=== PATIENT | female | born 1980 | race Hispanic/Latino ===

== ENCOUNTER 2018-11-25 06:55 | Emergency (ER) | payer BC ==
--- OUTSIDE RECORDS SUMMARY | 2018-11-25 06:57 | XMS REPORT ---
:1980 Author Organization eClinicalWorks Care Team Providers Name Role Phone Martin Janet Provider Role Unavailable Allergies, Adverse Reactions, Alerts Substance Reaction Event Type N.K.D.A. Info Not Available Non Drug Allergy Problems Problem Type Condition Code Onset Dates Condition Status Problem Seasonal allergies J30.2 Active Problem Subcutaneous nodules R22.9 Active Problem IBS (irritable bowel syndrome) K58.9 Active Assessment Subcutaneous nodules R22.9 Active Medications Medication Code System Code Instructions Start Date End Date Status Dosage Cephalexin [facility] [id number] 500 MG Orally October 06, October 16, Active 1 tablet every 12 hrs 2018 2018 Results No Known Results Summary Purpose [employer]Clinical[employer] Practice Submission
--- OUTSIDE RECORDS SUMMARY | 2018-11-25 06:58 | XMS REPORT ---
:1980 Author Organization eClinicalWorks Care Team Providers Name Role Phone Martin Janet Provider Role Unavailable Allergies No Known Allergies Problems Problem Type Condition Code Onset Dates Condition Status Problem Seasonal allergies J30.2 Active Problem Subcutaneous nodules R22.9 Active Problem IBS (irritable bowel syndrome) K58.9 Active Medications No Known Medications Results No Known Results Summary Purpose eClinicalWorks Submission
[2018-11-25] MEDS ORDERED: KETOROLAC 30 MG/ML INJ ONE (07:41)
[2018-11-25] MEDS ORDERED: NA CHLORIDE 0.9% 1,000 ML ONE (07:42)
[2018-11-25] MEDS ORDERED: ONDANSETRON 4 MG/2 ML VIAL ONE (07:42)
[2018-11-25 07:47] LABS: Urine Blood TRACE (NEG); Urine Glucose NEGATIVE (NEG); Urine Protein NEGATIVE (NEG); Urine Specific Gravity 1.005 (1.005-1.030); Urine pH 5.5 (5.0-7.0)
[2018-11-25 07:48] LABS: Absolute Lymphocytes (CBC) 1.3 K/uL (0.7-4.9); Basophils % 0.7 % (0-1.3); Eosinophils % 3.5 % (0-4.4); Hematocrit 25.5 % (36.0-45.0); Lymphocytes % 18.4 % (15.3-44.8); MPV 6.6 fL (7.6-11.3); Monocytes % 9.2 % (3.3-12.3); RBC Red Blood Cell Count 4.18 M/uL (3.86-4.86)
[2018-11-25 08:03] LABS: BUN Blood Urea Nitrogen 12 mg/dL (7-18); Bicarbonate 25 mmol/L (21-32); Glucose Level 100 mg/dL (74-106); Potassium 3.7 mmol/L (3.5-5.1); Sodium Level 139 mmol/L (136-145)
[2018-11-25 08:26] LABS: Blood Morphology Comment NOTED (NOT SEEN); Platelet Estimate INCR; Urine White Blood Cell Casts OK
[2018-11-25 08:27] LABS: Hypochromasia 1+
--- NOTE | 2018-11-25 09:51 | RAD REPORT ---
EXAM DESCRIPTION: CTAbdomen Pelvis W Contrast - 11/25/2018 9:29 am CLINICAL HISTORY: Abdominal pain. ABD PAIN COMPARISON: Head Brain Wo Cont dated 03/20/2018No comparisons TECHNIQUE: Biphasic CT imaging of the abdomen and pelvis was performed with 100 ml non-ionic IV cont rast. All CT scans are performed using dose optimization technique as appropriate and may include automated exposure control or mA/KV adjustment according to patient size. FINDINGS: The lung bases are clear. The liver, spleen, pancreas, adrenal glands and kidneys are within normal limits. No bowel obstruction, free air, free fluid or abscess. Moderate inflammatory changes involving sigmoi d colon in the left lower quadrant with surrounding lymphadenopathy. The appendix is normal. No evid ence of significant lymphadenopathy. No suspicious bony findings. IMPRESSION: Moderate sigmoid acute colitis is suspected. No pneumatosis coli or abscess.
[2018-11-25] MEDS ORDERED: CIPROFLOXACIN 400mg IV 400 MG/200 ML BAG IV ONE (10:13)
[2018-11-25] MEDS ORDERED: METRONIDAZOLE 500mg IVPB 500 MG/100 ML BAG IV ONE (10:13)
--- NOTE | 2018-11-25 11:16 | ER ---
Nurse's Notes [facility] Name: Kaitlynn Orourke Age: 38 yrs Sex: Female : 1980 Arrival Date: 11/25/2018 Time: 07:09 Bed 15 Private MD: Diagnosis: Gastrointestinal hemorrhage, unspecified;Colitis Presentation: 11/25 07:16 Presenting complaint: Patient states: i started having flu like symptoms for a week hj now, fever, body aches, and Tuesday, my L flank area started hurting and the pain moves to the lower legs, i felt nauseous; T max- 101; pain is 7/10; reports dull pain on the L flank area;. Transition of care: patient was not received from another setting of care. Onset of symptoms was November 25, 2018. Risk Assessment: Do you want to hurt yourself or someone else? Patient reports no desire to harm self or others. Initial Sepsis Screen: Does the patient meet any 2 criteria? Yes Does the patient have a suspected source of infection? Yes:. Care prior to arrival: None. 07:16 Method Of Arrival: Ambulatory 07:16 Acuity: DELMY 3 hj Triage Assessment: 07:20 General: Appears in no apparent distress. uncomfortable, Behavior is calm, cooperative, hj appropriate for age. Pain: Complains of pain in L flank. 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 - Social history:: Smoking status: Patient/guardian denies using tobacco, Patient/guardian denies using alcohol. - Ebola Screening: : Patient negative for fever greater than or equal to 101.5 degrees Fahrenheit, and additional compatible Ebola Virus Disease symptoms Patient denies exposure to infectious person Patient denies travel to an Ebola-affected area in the 21 days before illness onset. Screenin:20 Abuse screen: Denies threats or abuse. Denies injuries from another. Nutritional hj screening: No deficits noted. Tuberculosis screening: No symptoms or risk factors identified. Fall Risk None identified. Assessment: 07:19 General: Appears in no apparent distress. uncomfortable, Behavior is calm, cooperative, hj appropriate for age. Pain: Complains of pain in L flank. Neuro: Level of Consciousness is awake, alert, obeys commands, Oriented to person, place, time, situation, Appropriate for age. Cardiovascular: Capillary refill < 3 seconds Patient's skin is warm and dry. Respiratory: Airway is patent Respiratory effort is even, unlabored, Respiratory pattern is regular, symmetrical. GI: Reports lower abdominal pain. GI: Reports diarrhea, nausea, vomiting. : No signs and/or symptoms were reported regarding the genitourinary system. EENT: No signs and/or symptoms were reported regarding the EENT system. Derm: No signs and/or symptoms reported regarding the dermatologic system. Musculoskeletal: No signs and/or symptoms reported regarding the musculoskeletal system. 08:33 Reassessment: reports fresh blood in stool; been having this bleeding episode for a hj year now; states: "i have hemorrhoids". 09:30 Reassessment: Patient and/or family updated on plan of care and expected duration. Pain hj level reassessed. Patient is alert, oriented x 3, equal unlabored respirations, skin warm/dry/pink. 10:34 Reassessment: awaiting call back from GI;. hj 11:28 Reassessment: for BT before transfer;. Reassessment: BR consent signed; transfusion hj sheet at bedside; awaiting for blood;. 12:00 Reassessment: BT started; documentation on paper;. hj 12:07 Reassessment: report called to Alee Coronel RN [facility] room 2419;. hj Vital Signs: 07:20 BP 107 / 94; Pulse 88; Resp 18; Temp 98.0(O); Pulse Ox 100% on R/A; Weight 58.06 kg; hj Height 5 ft. 1 in. (154.94 cm); Pain 7/10; 08:35 BP 107 / 78; Pulse 85; Resp 18; Pulse Ox 100% on R/A; hj 09:30 BP 106 / 58; Pulse 77; Resp 18; Pulse Ox 100% on R/A; hj 10:34 BP 104 / 62; Pulse 86; Resp 18; Pulse Ox 96% on R/A; hj 11:27 BP 109 / 70; Pulse 81; Resp 18; Pulse Ox 100% on R/A; hj 12:01 BP 107 / 77; Pulse 86; Resp 18; Temp 97.6; Pulse Ox 100% on R/A; hj 07:20 Body Mass Index 24.19 (58.06 kg, 154.94 cm) ED Course: 07:09 Patient arrived in ED. rg4 07:13 [facility] Vent[facility] FNP-C [facility] kb 07:13 Gerry Richardson MD is Attending Physician. kb 07:16 Naveen Jordan RN is Primary Nurse. hj 07:19 Triage completed. hj 07:20 Arm band placed on right wrist. hj 07:21 Patient has correct armband on for positive identification. Placed in gown. Bed in low hj position. Call light in reach. Side rails up X 1. Adult w/ patient. 07:28 Radiology exam delayed due to lab results not completed at this time. (BUN/Creatinine) mw3 test not completed at this time. 07:42 Initial lab(s) drawn, by me, sent to lab. Inserted saline lock: 20 gauge in right hj antecubital area, using aseptic technique. Blood collected. 09:[address] via wheelchair. em2 09:32 CT Abd/Pelvis - PO and IV Contrast In Process Unspecified. EDMS 09:34 CT completed. Patient tolerated procedure well. Patient moved back from CT. em2 10:04 T\\T\\S collected, blood band applied to patient. dh3 10:50 initiated a transfer with Carley from the [facility] Transfer center. eb 10:58 connected the GI professional bondsman for [facility] with Vanessa ANDERSEN for patient transfer eb consultation. 11:[address] Cabrera the hospitalist professional bondsman for [facility] with Vanessa ANDERSEN for eb patient transfer consultation. 11:29 administrative approval given by Carley Greene RN transfer coord/ patient has been eb accepted to [facility] bed 2419/ report to be called to [phone]/ Dr. Cabrera has accepted the patient in transfer. 12:06 No provider procedures requiring assistance completed. Patient transferred, IV remains hj in place. intact. Administered Medications: 07:40 Drug: NS 0.9% 1000 ml Route: IV; Rate: 1000 ml; Site: right antecubital; hj 07:59 Follow up: IV Status: Infusion continued hj 07:40 Drug: Zofran 4 mg Route: IVP; Site: right antecubital; hj 07:58 Follow up: Response: No adverse reaction; Nausea is decreased hj 07:40 Drug: TORadol - Ketorolac 15 mg Route: IVP; Site: right antecubital; hj 07:58 Follow up: Response: No adverse reaction; Pain is decreased hj 09:55 Drug: Flagyl 500 mg Volume: 100 ml; Route: IVPB; Rate: 200 ml/hr; Infused Over: 30 hj mins; Site: right antecubital; 10:30 Follow up: IV Status: Completed infusion hj 11:15 Drug: Cipro 400 mg Volume: 200 ml; Route: IVPB; Infused Over: 60 mins; Site: right hj antecubital; 12:02 Follow up: IV Status: Infusion continued upon transfer hj Outcome: 11:14 Discharge ordered by . amy 11:15 ER care complete, transfer ordered by MD. reyes 12:07 Transferred by ground EMS to [facility], Transfer form completed. hj X-rays sent w/ patient. 12:07 Condition: stable 12:07 Instructed on the need for transfer, Demonstrated understanding of instructions. 13:02 Patient left the ED. [facility] Signatures: Dispatcher [employer] EDVanessa Del Valle, MAMMOGRAPHER-C MAMMOGRAPHER-Ilia Hammond 2 Naveen Jordan RN RN hj Garcia, Rubi Jeanette Mcneal 3 Nikki Manley Michelle 3
--- NOTE | 2018-11-25 11:16 | EDPHYS ---
Physician Documentation [facility] Name: Kaitlynn Orourke Age: 38 yrs Sex: Female : 1980 Arrival Date: 11/25/2018 Time: 07:09 Bed 15 Private MD: ED Physician Gerry Richardson HPI: 11/25 09:08 This 38 yrs old Female presents to ER via Ambulatory with complaints of Flank kb Pain. 09:08 The patient presents with abdominal pain in the left lower quadrant. kb 09:08 Onset: The symptoms/episode began/occurred 4 day(s) ago. The symptoms do not radiate. kb Associated signs and symptoms: Pertinent positives: diarrhea, Pertinent negatives: nausea and vomiting, fever. The symptoms are described as constant. Modifying factors: The symptoms are alleviated by nothing, the symptoms are aggravated by nothing. Severity of pain: At its worst the pain was moderate in the emergency department the pain is unchanged. The patient has not experienced similar symptoms in the past. The patient has not recently seen a physician. Pt reports body aches and low grade fevers all week. Started having diarrhea and abd pain 4 days ago. Pain was worse this morning. 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 - Social history:: Smoking status: Patient/guardian denies using tobacco, Patient/guardian denies using alcohol. - Ebola Screening: : Patient negative for fever greater than or equal to 101.5 degrees Fahrenheit, and additional compatible Ebola Virus Disease symptoms Patient denies exposure to infectious person Patient denies travel to an Ebola-affected area in the 21 days before illness onset. ROS: 09:05 Cardiovascular: Negative for chest pain, palpitations, and edema, Respiratory: Negative kb for shortness of breath, cough, wheezing, and pleuritic chest pain, Back: Negative for injury and pain, : Negative for injury, bleeding, discharge, and swelling, MS/Extremity: Negative for injury and deformity, Skin: Negative for injury, rash, and discoloration, Neuro: Negative for headache, weakness, numbness, tingling, and seizure. 09:05 Abdomen/GI: Positive for abdominal pain, diarrhea. 09:11 Constitutional: Positive for body aches, fever. kb Exam: 09:05 Constitutional: This is a well developed, well nourished patient who is awake, alert, kb and in no acute distress. Head/Face: Normocephalic, atraumatic. Neck: Trachea midline, no thyromegaly or masses palpated, and no cervical lymphadenopathy. Supple, full range of motion without nuchal rigidity, or vertebral point tenderness. No Meningismus. Chest/axilla: Normal chest wall appearance and motion. Nontender with no deformity. No lesions are appreciated. Cardiovascular: Regular rate and rhythm with a normal S1 and S2. No gallops, murmurs, or rubs. Normal PMI, no JVD. No pulse deficits. Respiratory: Lungs have equal breath sounds bilaterally, clear to auscultation and percussion. No rales, rhonchi or wheezes noted. No increased work of breathing, no retractions or nasal flaring. Back: No spinal tenderness. No costovertebral tenderness. Full range of motion. Skin: Warm, dry with normal turgor. Normal color with no rashes, no lesions, and no evidence of cellulitis. MS/ Extremity: Pulses equal, no cyanosis. Neurovascular intact. Full, normal range of motion. Neuro: Awake and alert, GCS 15, oriented to person, place, time, and situation. Cranial nerves II-XII grossly intact. Motor strength 5/5 in all extremities. Sensory grossly intact. Cerebellar exam normal. Normal gait. 09:05 Abdomen/GI: Inspection: abdomen appears normal, Bowel sounds: normal, in all quadrants, Palpation: soft, in all quadrants, moderate abdominal tenderness, in the left lower quadrant. 09:50 Abdomen/GI: Rectal exam: rectal tone normal, Stool: normal, brown, guaiac positive, kb hemorrhoid(s), are not appreciated, tenderness, is not appreciated, the exam is chaperoned by an sql tech. Vital Signs: 07:20 BP 107 / 94; Pulse 88; Resp 18; Temp 98.0(O); Pulse Ox 100% on R/A; Weight 58.06 kg; hj Height 5 ft. 1 in. (154.94 cm); Pain 7/10; 08:35 BP 107 / 78; Pulse 85; Resp 18; Pulse Ox 100% on R/A; hj 09:30 BP 106 / 58; Pulse 77; Resp 18; Pulse Ox 100% on R/A; hj 10:34 BP 104 / 62; Pulse 86; Resp 18; Pulse Ox 96% on R/A; hj 11:27 BP 109 / 70; Pulse 81; Resp 18; Pulse Ox 100% on R/A; hj 12:01 BP 107 / 77; Pulse 86; Resp 18; Temp 97.6; Pulse Ox 100% on R/A; hj 07:20 Body Mass Index 24.19 (58.06 kg, 154.94 cm) hj MDM: 07:13 Patient medically screened. kb 09:05 Data reviewed: vital signs, nurses notes. Data interpreted: Pulse oximetry: on room air kb is 100 %. Interpretation: normal. 09:14 ED course: Pt reports she has a history of anemia. Asked about blood in stool. STates kb she has had bright red blood, but assumed it was from hemorrhoids. States she has had the bleeding for a couple of years, but it became different and worse a couple of days ago. Reports this morning was the worst and she saw clots in it. 10:01 Physician consultation: Poli Pearce MD was called at 09:55, regarding consult, patient's condition, voicemail left. Awaiting callback. Pt is established pt of Dr Pearce. 10:52 ED course: Unable to get a hold of Dr Pearce. Will initiate transfer to [facility]. kb 11:02 ED course: GI Doctor at [facility] accepts pt for transfer. Awaiting call back from amy hospitalist. 11:13 ED course: Dr Cabrera, hospitalist, accepts pt for transfer. kb 11/25 07:23 Order name: Basic Metabolic Panel; Complete Time: 08:17 kb 11/25 07:23 Order name: CBC with Diff; Complete Time: 08:29 kb 11/25 07:38 Order name: Urine Dipstick--Ancillary (enter results); Complete Time: 07:49 eb 11/25 07:38 Order name: LAB Add On eb 11/25 08:08 Order name: Test Serum, Qualitat; Complete Time: 09:11 EDMS 11/25 08:27 Order name: CBC Smear Scan; Complete Time: 08:29 EDMS 11/25 07:23 Order name: CT Abd/Pelvis - PO and IV Contrast; Complete Time: 09:53 kb 11/25 09:50 Order name: Guiac eb 11/25 09:56 Order name: Type And Screen kb 11/25 10:09 Order name: Bb Add On eb 11/25 10:22 Order name: Packed RBC Leukored EDPR 11/25 11:01 Order name: ABO/RH no charge; Complete Time: 11:02 EDPR 11/25 07:23 Order name: IV Saline Lock; Complete Time: 07:44 kb 07 07:23 Order name: Labs collected and sent; Complete Time: 07:44 kb 11/25 07:23 Order name: Urine Dipstick-Ancillary (obtain specimen); Complete Time: 07:44 kb Administered Medications: 07:40 Drug: NS 0.9% 1000 ml Route: IV; Rate: 1000 ml; Site: right antecubital; hj 07:59 Follow up: IV Status: Infusion continued hj 07:40 Drug: Zofran 4 mg Route: IVP; Site: right antecubital; hj 07:58 Follow up: Response: No adverse reaction; Nausea is decreased hj 07:40 Drug: TORadol - Ketorolac 15 mg Route: IVP; Site: right antecubital; hj 07:58 Follow up: Response: No adverse reaction; Pain is decreased hj 09:55 Drug: Flagyl 500 mg Volume: 100 ml; Route: IVPB; Rate: 200 ml/hr; Infused Over: 30 hj mins; Site: right antecubital; 10:30 Follow up: IV Status: Completed infusion hj 11:15 Drug: Cipro 400 mg Volume: 200 ml; Route: IVPB; Infused Over: 60 mins; Site: right hj antecubital; 12:02 Follow up: IV Status: Infusion continued upon transfer Disposition: 11/26 11:35 Co-signature as Attending Physician, Gerry Richardson MD. ma2 Disposition: 11/25/18 11:[address] [facility]. Diagnosis are Gastrointestinal hemorrhage, unspecified, Colitis. - Reason for transfer: Higher level of care. - Accepting physician is Dr Cabrera. - Condition is Stable. - Problem is new. - Symptoms are unchanged. Signatures: Dispatcher [employer] EDPR Vanessa Ventura, MACHINIST WOOD-C MACHINIST WOOD-Ckb Naveen Jordan, RN Jeanette Vaz [facility] Gerry Richardson MD MD ma2 Corrections: (The following items were deleted from the chart) 11/25 08:41 08:30 Abdomen Pelvis W Con+CT.RAD.BRZ ordered. EDPR EDPR 09:11 09:05 Constitutional: Negative for fever, chills, and weight loss, Cardiovascular: kb Negative for chest pain, palpitations, and edema, Respiratory: Negative for shortness of breath, cough, wheezing, and pleuritic chest pain, Back: Negative for injury and pain, : Negative for injury, bleeding, discharge, and swelling, MS/Extremity: Negative for injury and deformity, Skin: Negative for injury, rash, and discoloration, Neuro: Negative for headache, weakness, numbness, tingling, and seizure, kb 11:15 11:14 11/25/2018 11:14 Discharged to Home. Impression: Colitis; Gastrointestinal kb hemorrhage, unspecified. Condition is Stable. Forms are Medication Reconciliation Form, Thank You Letter, Antibiotic Education, Prescription Opioid Use. Follow up: Emergency Department; When: As needed; Reason: Worsening of condition. Follow up: Private Physician; When: 2 - 3 days; Reason: Recheck today's complaints, Continuance of care, Re-evaluation by your physician. kb 13:02 11:15 11/25/2018 11:[address] [facility]. Diagnosis is dh3 Gastrointestinal hemorrhage, unspecified; Colitis. Reason for transfer: Higher level of care. Accepting physician is Dr Cabrera. Condition is Stable. Problem is new. Symptoms are unchanged. kb
[2018-11-25] MEDS ORDERED: NA CHLORIDE 0.9% 250 ML ONE (11:36)
== END 2018-11-25 13:02 | disposition short-term general hospital (02) ==
LOC: ER 06:55
PROC: 30233N1 Transfusion of Nonautologous Red Blood Cells into Peripheral Vein, Percutaneous Approach (ICD-10-PCS; principal; 2018-11-25)
DX: K92.2 Gastrointestinal hemorrhage, unspecified (principal); K52.9 Noninfective gastroenteritis and colitis, unspecified
CPT/HCPCS: 36415; 74177; 80048; 81003; 82272; 84703; 85025; 86850; 86900; 86901; 96365; 96367; 96375; 99285; J0744; J2405; J7030; P9016; Q9967

== ENCOUNTER 2019-01-23 11:46 | Emergency (ER) | payer BC ==
--- OUTSIDE RECORDS SUMMARY | 2019-01-23 11:49 | XMS REPORT ---
:1980 [facility] Address [address] [place] [address] Dr. Cummings [address] [place] [id number] Care Team Providers Name Role Phone QUOC CARMONA Unavailable Unavailable Problems This patient has no known problems. Allergies, Adverse Reactions, Alerts This patient has no known allergies or adverse reactions. Medications This patient has no known medications. Results Test Description Test Time Test Comments Text Results Atomic Results Result Comments OVA AND PARASITE EXAMINATION 2018-11-29 08:15:00 Test Item Value Reference Range Comments DIRECT SMEAR - O\\T\\P (BEAKER) No ova or parasites seen No ova or parasites seen (test xamy=150) CONCENTRATE SMEAR - O\\T\\P No ova or parasites seen No ova or parasites seen (BEAKER) (test vwbq=482) TRICHROME SMEAR - O\\T\\P (BEAKER) No ova or parasites seen No ova or parasites seen (test eetc=066) BASIC METABOLIC [id number] 05:42:00 Test Item Value Reference Range Comments SODIUM (BEAKER) (test 138 meq/L 136-145 momy=917) POTASSIUM (BEAKER) (test 3.1 meq/L 3.5-5.1 dpmx=538) CHLORIDE (BEAKER) (test 108 meq/L 98-107 fkev=592) CO2 (BEAKER) (test 23 meq/L 22-29 ttwx=930) BLOOD UREA NITROGEN 5 mg/dL 7-21 (BEAKER) (test cxix=513) CREATININE (BEAKER) (test 0.65 mg/dL 0.57-1.25 solk=304) GLUCOSE RANDOM (BEAKER) 111 mg/dL 70-105 (test nate=830) CALCIUM (BEAKER) (test 8.3 mg/dL 8.4-10.2 evru=193) EGFR (BEAKER) (test 102 mL/min/1.73 sq m ESTIMATED GFR IS NOT uowl=3295) ACCURATE CREATININE CLEARANCE IN PREDICTING GLOMERULAR FILTRATION RATE. ESTIMATED GFR IS NOT APPLICABLE FOR DIALYSIS PATIENTS. CBC W/PLT COUNT & AUTO [id number] 05:35:00 Test Item Value Reference Range Comments WHITE BLOOD CELL COUNT (BEAKER) (test zhqy=982) 7.6 K/ L 3.5-10.5 RED BLOOD CELL COUNT (BEAKER) (test rvnh=474) 3.80 M/ L 3.93-5.22 HEMOGLOBIN (BEAKER) (test ymcw=619) 7.7 GM/DL 11.2-15.7 HEMATOCRIT (BEAKER) (test ttvk=246) 25.8 % 34.1-44.9 MEAN CORPUSCULAR VOLUME (BEAKER) (test fzne=604) 67.9 fL 79.4-94.8 MEAN CORPUSCULAR HEMOGLOBIN (BEAKER) (test 20.3 pg 25.6-32.2 nfjc=062) MEAN CORPUSCULAR HEMOGLOBIN CONC (BEAKER) (test 29.8 GM/DL 32.2-35.5 ynsp=653) RED CELL DISTRIBUTION WIDTH (BEAKER) (test 23.0 % 11.7-14.4 ntxl=342) PLATELET COUNT (BEAKER) (test gvpq=634) 380 K/CU MM 150-450 MEAN PLATELET VOLUME (BEAKER) (test vhvm=614) 8.6 fL 9.4-12.3 NUCLEATED RED BLOOD CELLS (BEAKER) (test 0 /100 WBC 0-0 msro=985) NEUTROPHILS RELATIVE PERCENT (BEAKER) (test 63 % covg=050) LYMPHOCYTES RELATIVE PERCENT (BEAKER) (test 20 % uklh=366) MONOCYTES RELATIVE PERCENT (BEAKER) (test 10 % opju=735) EOSINOPHILS RELATIVE PERCENT (BEAKER) (test 6 % gauc=097) BASOPHILS RELATIVE PERCENT (BEAKER) (test 1 % yokt=979) NEUTROPHILS ABSOLUTE COUNT (BEAKER) (test 4.79 K/ L 1.56-6.13 jtxk=242) LYMPHOCYTES ABSOLUTE COUNT (BEAKER) (test 1.48 K/ L 1.18-3.74 jrcd=175) MONOCYTES ABSOLUTE COUNT (BEAKER) (test 0.76 K/ L 0.24-0.36 sfzp=335) EOSINOPHILS ABSOLUTE COUNT (BEAKER) (test 0.45 K/ L 0.04-0.36 thyi=471) BASOPHILS ABSOLUTE COUNT (BEAKER) (test 0.05 K/ L 0.01-0.08 fnib=929) IMMATURE GRANULOCYTES-RELATIVE PERCENT (BEAKER) 0 % 0-1 (test sgoh=7996) TISSUE [id number] 09:51:00Surgical Pathology Report Case: [id number] Authorizing Provider: Ike Huynh Collected: 11/27/2018 1108 Ordering Location: [address] Received: 11/27/2018 1400 Service Pathologist: Jack Batista MD Specimens: A) - Polyp, Colon - Right/Ascending, BX TAKEN BY FRCP B) -Polyp, Colon - Hepatic Flexure, COLD SNARE C ) - Large Intestine, Colon - Transverse, BX TAKEN BY FRCP D) - LargeIntestine, Colon - Left/Descending, BX TAKEN BY FRCP E) - Polyp, Colon - Sigmoid, BX TAKEN BY FRCP F) - Rectum, BX TAKEN BY FRCP PART A RIGHT ASCENDING COLON POLYP, POLYPECTOMY:COLONIC MUCOSA WITH PROMINENT REACTIVE LYMPHOID AGGREGATE.NEGATIVE FOR DYSPLASIA OR INVASIVE CARCINOMA.PART B COLON HEPATIC FLEXURE POLYP, POLYPECTOMY:TUBULAR ADENOMA.NEGATIVE FOR HIGH GRADE DYSPLASIA OR INVASIVE CARCINOMA.PART C TRANSVERSE COLON, BIOPSY:MILDLY EDEMATOUS COLONIC MUCOSA WITHOUT SIGNIFICANT HISTOPATHOLOGIC ALTERATION.NEGATIVE FOR INCREASED EPITHELIAL LYMPHOCYTES, GRANULOMAS, DYSPLASIA , OR INVASIVE CARCINOMA.PART D LEFT DESCENDING COLON BIOPSY:MILDLY EDEMATOUS COLONIC MUCOSA WITHOUT SIGNIFICANT HISTOPATHOLOGIC ALTERATION.NEGATIVE FOR INCREASED EPITHELIAL LYMPHOCYTES, GRANULOMAS, DYSPLASIA, OR INVASIVE CARCINOMA.PART E SIGMOID COLON, BIOPSY FOR SUSPECTED POLYP:MILDLY ACTIVE COLITIS WITH FOCAL SUPERFICIAL ULCERATION.SUBEPITHELIAL REACTIVE LYMPHOID AGGREGATE.NEGATIVE FORGRANULOMAS, DYSPLASIA, OR INVASIVE CARCINOMA.PART F RECTAL BIOPSY:MILDLY ACTIVE COLITIS WITH FOCAL SUPERFICIAL ULCERATION.SUBEPITHELIAL REACTIVE LYMPHOID AGGREGATE.NEGATIVE FOR GRANULOMAS, DYSPLASIA, OR INVASIVE CARCINOMA. Signing Pathologist Direct Phone Line: [phone] signed by Jack Batista MD on 11/28/2018 at 9:51 [id number] and postop diagnosis: colitisA. Polyp,colon - right/ascending ; B. Polyp, colon - hepatic flexure; C. Large intestine, colon - transverse; D. Large intestine, colon - left/descending; E. Polyp, colon - sigmoid; F. Rectum A. Received in formalin labeled with the patient's name, accession number and "polyp, colon - right/ascending" are threeirregular bernal soft tissue fragments ranging 0.2-0.4 cm which are submitted in toto in A1. B. Received in formalin labeled with the patient's name, accession number and "polyp, colon - hepatic flexure" are two irregular bernal soft tissue fragments measuring 0.4 cm and 0.2 cm which are submitted in toto in B1.C. Received in formalin labeled with the patient's name, accession number and "large intestine, colon - transverse" are two irregular bernal soft tissue fragments measuring 0.3 cm and 0.2 cm which aresubmitted in toto in C1. D. Received in formalin labeled with the patient's name, accession number and "large intestine, colon - left/descending" are two irregular bernal soft tissue fragments measuring 0.3 cm and 0.2 cm which are submitted in toto in D1. E. Received in formalin labeled with the patient's name , accession number and "polyp, colon - sigmoid" are multiple bernal soft tissue fragments ranging 0.1-0.3 cm which are submitted in toto in E1. F. Received in formalin labeled with the patient's name, accession number and "rectum" are four irregular bernal soft tissue fragments ranging 0.1-0.3 cm whichare submitted in toto in F1. CG/pl PERFORMED.[id number] 04:33:00 Test Item Value Reference Range Comments MAGNESIUM (BEAKER) (test qsfz=620) 1.9 mg/dL 1.6-2.6 BASIC METABOLIC [id number] 04:33:00 Test Item Value Reference Range Comments SODIUM (BEAKER) (test 139 meq/L 136-145 fyqg=782) POTASSIUM (BEAKER) (test 3.6 meq/L 3.5-5.1 insi=172) CHLORIDE (BEAKER) (test 109 meq/L 98-107 qhnc=750) CO2 (BEAKER) (test 21 meq/L 22-29 wris=339) BLOOD UREA NITROGEN 6 mg/dL 7-21 (BEAKER) (test tlvr=357) CREATININE (BEAKER) (test 0.61 mg/dL 0.57-1.25 cbfu=005) GLUCOSE RANDOM (BEAKER) 93 mg/dL 70-105 (test xjix=418) CALCIUM (BEAKER) (test 8.4 mg/dL 8.4-10.2 ngzr=134) EGFR (BEAKER) (test 110 mL/min/1.73 sq m ESTIMATED GFR IS NOT cshd=9126) ACCURATE CREATININE CLEARANCE IN PREDICTING GLOMERULAR FILTRATION RATE. ESTIMATED GFR IS NOT APPLICABLE FOR DIALYSIS PATIENTS. HEPATIC FUNCTION [id number] 04:33:00 Test Item Value Reference Range Comments TOTAL PROTEIN (BEAKER) (test inse=493) 6.6 gm/dL 6.0-8.3 ALBUMIN (BEAKER) (test lphq=3372) 3.3 g/dL 3.5-5.0 BILIRUBIN TOTAL (BEAKER) (test iksj=872) 0.1 mg/dL 0.2-1.2 BILIRUBIN DIRECT (BEAKER) (test elxn=450) 0.1 mg/dL 0.1-0.5 ALKALINE PHOSPHATASE (BEAKER) (test bqos=638) 102 U/L 40-150 AST (SGOT) (BEAKER) (test keev=754) 19 U/L 5-34 ALT (SGPT) (BEAKER) (test foui=883) 19 U/L 6-55 CALCIUM, [id number] 04:30:00 Test Item Value Reference Range Comments CALCIUM IONIZED (BEAKER) (test itma=236) 1.09 mmol/L 1.12-1.27 PH, BLOOD (BEAKER) (test dqkp=3716) 7.41 PROTHROMBIN [id number] 04:20:00 Test Item Value Reference Range Comments PROTIME (BEAKER) (test oycm=917) 15.5 seconds 11.9-14.2 INR (BEAKER) (test hjqz=485) 1.3 <=5.9 Effective 10/18/2018: PT Reference Range ChangeNew: 11.9-14.2 Previous: 11.7- 14.7RECOMMENDED COUMADIN/WARFARIN INR THERAPY RANGESSTANDARD DOSE: 2.0-3.0 Includes: PROPHYLAXIS for venous thrombosis, systemic embolization; TREATMENT for venous thrombosis and/or pulmonary embolus.HIGH RISK: Target INR is2.5-3.5 for patients wiht mechanical heart valves.STOOL CULTURE + SHIGA [id number] 11:46:00 Test Item Value Reference Range Comments CULTURE (BEAKER) (test No Salmonella, Shigella or amat=4511) Campylobacter isolated HIV-1 ANTIGEN WITH HIV-1/2 [id number] 09:38:00 Test Item Value Reference Range Comments HIV-1 ANTIGEN WITH HIV 1\\T\\2 ANTIBODY (2) Nonreactive Nonreactive (BEAKER) (test rkxc=7106) [id number] 05:10:00 Test Item Value Reference Range Comments MAGNESIUM (BEAKER) (test nlsq=337) 2.1 mg/dL 1.6-2.6 BASIC METABOLIC [id number] 05:10:00 Test Item Value Reference Range Comments SODIUM (BEAKER) (test 135 meq/L 136-145 mrmr=262) POTASSIUM (BEAKER) (test 3.5 meq/L 3.5-5.1 fydx=758) CHLORIDE (BEAKER) (test 108 meq/L 98-107 pipn=336) CO2 (BEAKER) (test 21 meq/L 22-29 zajg=841) BLOOD UREA NITROGEN 5 mg/dL 7-21 (BEAKER) (test xono=174) CREATININE (BEAKER) (test 0.61 mg/dL 0.57-1.25 fgpy=112) GLUCOSE RANDOM (BEAKER) 90 mg/dL 70-105 (test qzlk=283) CALCIUM (BEAKER) (test 8.0 mg/dL 8.4-10.2 ifhm=774) EGFR (BEAKER) (test 110 mL/min/1.73 sq m ESTIMATED GFR IS NOT liyb=0819) ACCURATE CREATININE CLEARANCE IN PREDICTING GLOMERULAR FILTRATION RATE. ESTIMATED GFR IS NOT APPLICABLE FOR DIALYSIS PATIENTS. HEPATIC FUNCTION [id number] 05:10:00 Test Item Value Reference Range Comments TOTAL PROTEIN (BEAKER) (test drsx=803) 6.5 gm/dL 6.0-8.3 ALBUMIN (BEAKER) (test ibcw=8870) 3.3 g/dL 3.5-5.0 BILIRUBIN TOTAL (BEAKER) (test jsba=636) 0.1 mg/dL 0.2-1.2 BILIRUBIN DIRECT (BEAKER) (test cgpj=084) 0.1 mg/dL 0.1-0.5 ALKALINE PHOSPHATASE (BEAKER) (test bwze=004) 97 U/L 40-150 AST (SGOT) (BEAKER) (test cesl=297) 13 U/L 5-34 ALT (SGPT) (BEAKER) (test qmoe=852) 17 U/L 6-55 CALCIUM, [id number] 04:48:00 Test Item Value Reference Range Comments CALCIUM IONIZED (BEAKER) (test csrk=103) 1.02 mmol/L 1.12-1.27 PH, BLOOD (BEAKER) (test odwo=0480) 7.42 PROTHROMBIN [id number] 04:39:00 Test Item Value Reference Range Comments PROTIME (BEAKER) (test pyla=674) 14.6 seconds 11.9-14.2 INR (BEAKER) (test kxez=298) 1.2 <=5.9 Effective 10/18/2018: PT Reference Range ChangeNew: 11.9-14.2 Previous: 11.7- 14.7RECOMMENDED COUMADIN/WARFARIN INR THERAPY RANGESSTANDARD DOSE: 2.0-3.0 Includes: PROPHYLAXIS for venous thrombosis, systemic embolization; TREATMENT for venous thrombosis and/or pulmonary embolus.HIGH RISK: Target INR is2.5-3.5 for patients wiht mechanical heart valves.CBC (HEMOGRAM ONLY)2018-11-27 04:33:00 Test Item Value Reference Range Comments WHITE BLOOD CELL COUNT (BEAKER) (test hehq=923) 7.0 K/ L 3.5-10.5 RED BLOOD CELL COUNT (BEAKER) (test ohin=782) 3.78 M/ L 3.93-5.22 HEMOGLOBIN (BEAKER) (test krwb=091) 7.5 GM/DL 11.2-15.7 HEMATOCRIT (BEAKER) (test wxmg=267) 25.6 % 34.1-44.9 MEAN CORPUSCULAR VOLUME (BEAKER) (test wdtg=055) 67.7 fL 79.4-94.8 MEAN CORPUSCULAR HEMOGLOBIN (BEAKER) (test 19.8 pg 25.6-32.2 task=460) MEAN CORPUSCULAR HEMOGLOBIN CONC (BEAKER) (test 29.3 GM/DL 32.2-35.5 dsgp=425) RED CELL DISTRIBUTION WIDTH (BEAKER) (test 22.1 % 11.7-14.4 gnlr=817) PLATELET COUNT (BEAKER) (test xfbk=738) 373 K/CU MM 150-450 MEAN PLATELET VOLUME (BEAKER) (test cngs=934) 8.3 fL 9.4-12.3 NUCLEATED RED BLOOD CELLS (BEAKER) (test 0 /100 WBC 0-0 yban=688) STOOL PATH [id number] 18:28:00 Test Item Value Reference Range Comments PATHOGEN EXAM CHARGED (BEAKER) (test fcne=3835) Done SHIGA TOXIN [id number] 14:40:00 Test Item Value Reference Range Comments SHIGA TOXIN 1 (BEAKER) (test ifch=7857) Not detected Not detected SHIGA TOXIN 2 (BEAKER) (test hboj=5900) Not detected Not detected CBC W/PLT COUNT & AUTO [id number] 06:26:00 Test Item Value Reference Range Comments WHITE BLOOD CELL COUNT (BEAKER) (test ylyy=407) 5.5 K/ L 3.5-10.5 RED BLOOD CELL COUNT (BEAKER) (test zgfy=247) 3.65 M/ L 3.93-5.22 HEMOGLOBIN (BEAKER) (test pffn=039) 7.3 GM/DL 11.2-15.7 HEMATOCRIT (BEAKER) (test cmre=755) 24.6 % 34.1-44.9 MEAN CORPUSCULAR VOLUME (BEAKER) (test ksgw=452) 67.4 fL 79.4-94.8 MEAN CORPUSCULAR HEMOGLOBIN (BEAKER) (test 20.0 pg 25.6-32.2 jnjp=709) MEAN CORPUSCULAR HEMOGLOBIN CONC (BEAKER) (test 29.7 GM/DL 32.2-35.5 uecm=824) RED CELL DISTRIBUTION WIDTH (BEAKER) (test 22.0 % 11.7-14.4 cawq=148) PLATELET COUNT (BEAKER) (test epxo=767) 354 K/CU MM 150-450 MEAN PLATELET VOLUME (BEAKER) (test ttao=212) 8.3 fL 9.4-12.3 NUCLEATED RED BLOOD CELLS (BEAKER) (test 0 /100 WBC 0-0 wgcy=242) NEUTROPHILS RELATIVE PERCENT (BEAKER) (test 65 % yglg=104) LYMPHOCYTES RELATIVE PERCENT (BEAKER) (test 17 % cgms=187) MONOCYTES RELATIVE PERCENT (BEAKER) (test 12 % yxaj=822) EOSINOPHILS RELATIVE PERCENT (BEAKER) (test 5 % cqwo=460) BASOPHILS RELATIVE PERCENT (BEAKER) (test 1 % krpg=420) NEUTROPHILS ABSOLUTE COUNT (BEAKER) (test 3.60 K/ L 1.56-6.13 tvma=793) LYMPHOCYTES ABSOLUTE COUNT (BEAKER) (test 0.92 K/ L 1.18-3.74 mkik=033) MONOCYTES ABSOLUTE COUNT (BEAKER) (test 0.66 K/ L 0.24-0.36 jcjr=442) EOSINOPHILS ABSOLUTE COUNT (BEAKER) (test 0.30 K/ L 0.04-0.36 sbgx=515) BASOPHILS ABSOLUTE COUNT (BEAKER) (test 0.03 K/ L 0.01-0.08 cihd=081) IMMATURE GRANULOCYTES-RELATIVE PERCENT (BEAKER) 0 % 0-1 (test zsih=8416) [id number] 06:21:00 Test Item Value Reference Range Comments MAGNESIUM (BEAKER) (test eobv=642) 2.1 mg/dL 1.6-2.6 BASIC METABOLIC [id number] 06:21:00 Test Item Value Reference Range Comments SODIUM (BEAKER) (test 136 meq/L 136-145 nzlr=635) POTASSIUM (BEAKER) (test 3.7 meq/L 3.5-5.1 aans=267) CHLORIDE (BEAKER) (test 108 meq/L 98-107 bxrb=201) CO2 (BEAKER) (test 23 meq/L 22-29 iywy=500) BLOOD UREA NITROGEN 8 mg/dL 7-21 (BEAKER) (test klmh=359) CREATININE (BEAKER) (test 0.64 mg/dL 0.57-1.25 pqzk=747) GLUCOSE RANDOM (BEAKER) 93 mg/dL 70-105 (test slhp=869) CALCIUM (BEAKER) (test 8.1 mg/dL 8.4-10.2 bxop=734) EGFR (BEAKER) (test 104 mL/min/1.73 sq m ESTIMATED GFR IS NOT abhk=8833) ACCURATE CREATININE CLEARANCE IN PREDICTING GLOMERULAR FILTRATION RATE. ESTIMATED GFR IS NOT APPLICABLE FOR DIALYSIS PATIENTS. HEPATIC FUNCTION [id number] 06:21:00 Test Item Value Reference Range Comments TOTAL PROTEIN (BEAKER) (test skoo=261) 6.3 gm/dL 6.0-8.3 ALBUMIN (BEAKER) (test ndxn=4386) 3.3 g/dL 3.5-5.0 BILIRUBIN TOTAL (BEAKER) (test pxvl=051) 0.2 mg/dL 0.2-1.2 BILIRUBIN DIRECT (BEAKER) (test vyzi=088) 0.1 mg/dL 0.1-0.5 ALKALINE PHOSPHATASE (BEAKER) (test xvtb=153) 100 U/L 40-150 AST (SGOT) (BEAKER) (test ftju=714) 12 U/L 5-34 ALT (SGPT) (BEAKER) (test pfbn=506) 20 U/L 6-55 PROTHROMBIN [id number] 06:19:00 Test Item Value Reference Range Comments PROTIME (BEAKER) (test mooo=284) 14.6 seconds 11.9-14.2 INR (BEAKER) (test qgzx=901) 1.2 <=5.9 Effective 10/18/2018: PT Reference Range ChangeNew: 11.9-14.2 Previous: 11.7- 14.7RECOMMENDED COUMADIN/WARFARIN INR THERAPY RANGESSTANDARD DOSE: 2.0-3.0 Includes: PROPHYLAXIS for venous thrombosis, systemic embolization; TREATMENT for venous thrombosis and/or pulmonary embolus.HIGH RISK: Target INR is2.5-3.5 for patients wiht mechanical heart valves.CALCIUM, [id number] 05:52:00 Test Item Value Reference Range Comments CALCIUM IONIZED (BEAKER) (test onok=556) 1.08 mmol/L 1.12-1.27 PH, BLOOD (BEAKER) (test sval=2078) 7.41 GI PATHOGEN PROFILE BY [id number] 18:49:00 Test Item Value Reference Range Comments CAMPYLOBACTER (PCR) (test hyev=2790448) Not detected Not detected PLESIOMONAS SHIGELLOIDES (PCR) (test Not detected Not detected ofxz=5203035) SALMONELLA (PCR) (test wpkn=9219639) Not detected Not detected YERSINIA ENTEROCOLITICA (PCR) (test Not detected Not detected yrvu=0673150) VIBRIO CHOLERAE (PCR) (test zwxy=6063097) Not detected Not detected ENTEROAGGREGATIVE E. COLI (EAEC) BY PCR (test Not detected Not detected xmdx=3903290) ENTEROPATHOGENIC E. COLI (EPEC) BY PCR (test Not detected Not detected omiw=8985743) ENTEROTOXIGENIC E. COLI (ETEC) LT/ST BY PCR Not detected Not detected (test ozfm=5180311) SHIGA-LIKE TOXIN-PRODUCING E. COLI (STEC) Not detected Not detected STX1/STX2 (test evlo=2456171) E. COLI O157 (PCR) (test hkxx=8166497) Not detected SHIGELLA/ENTEROINVASIVE E. COLI (EIEC) BY PCR Not detected Not detected (test yphn=4417252) CRYPTOSPORIDIUM (PCR) (test zpol=8597304) Not detected Not detected CYCLOSPORA CAYETANENSIS (PCR) (test Not detected Not detected xcdq=3247179) ENTAMOEBA HISTOLYTICA (PCR) (test yvyy=8888846) Not detected Not detected GIARDIA LAMBLIA (PCR) (test wqop=0910018) Not detected Not detected ADENOVIRUS F 40/41 (PCR) (test yfav=0937108) Not detected Not detected ASTROVIRUS (PCR) (test efqb=2581454) Not detected Not detected NOROVIRUS GI/GII (PCR) (test mkhi=1654700) Not detected Not detected ROTAVIRUS A (PCR) (test nqpw=4307496) Not detected Not detected SAPOVIRUS (I, II, IV, V) BY PCR (test Not detected Not detected ravu=5715491) VIBRIO (PARAHAEMOLYTICUS, VULNIFICUS) (test Not detected Not detected udzw=9851957) Other viruses, parasites and bacteria not targeted by this PCR panel cannot be excluded; therefore clinical correlation and follow up of serology, culture results, and other molecular studies is required. The results are not intended to be used as the sole means for clinical diagnosis or patient management decisions. This sample was tested at the [facility] using the [employer] Gastrointestinal Panel. It is FDA cleared and has been verified and approved by the [facility] for clinical use. This laboratory is CLIA-certified and College ofAmerican Pathologists (CAP)-accredited to perform high complexity testing.C. DIFFICILE [facility] [id number] 17:47:00 Test Item Value Reference Range Comments CDT TOXIN (test Negative Negative mryn=[id number]) CDT GDH ANTIGEN (test Negative Negative No indication of Clostridium timh=[id number]) difficile infection and no colonization. Discontinue enteric isolation and therapy. Testing performed by [employer] Rapid Cassette Assay. For GDH, published sensitivity of the assay is 98.7% compared to cytotoxicity testing. For Toxin AB, published sensitivity is 87.8% and specificity 99.4% compared to cytotoxicity testing.Verification of kit performance was done by the [facility] prior to clinical use.[id number] 17:01:00 Test Item Value Reference Range Comments FERRITIN (BEAKER) (test ohko=423) 16 ng/mL 5-275 IRON, TIBC, % SAT. (WITHOUT FERRITIN)2018-11-25 16:40:00 Test Item Value Reference Range Comments IRON (BEAKER) (test nxip=968) 35.0 ug/dL 40.0-160.0 TOTAL IRON BINDING CAPACITY (BEAKER) (test 385 ug/dL 250-450 uozr=944) IRON % SATURATION (2) (BEAKER) (test aapc=5676) 9 % 20-55 C-REACTIVE [id number] 16:39:00 Test Item Value Reference Range Comments C-REACTIVE PROTEIN (BEAKER) (test esdu=043) 7.69 mg/dL 0.00-0.50 RETICULOCYTE [id number] 16:24:00 Test Item Value Reference Range Comments RETICULOCYTE COUNT PCT (BEAKER) (test vodf=035) 0.8 % 0.5-1.7
--- OUTSIDE RECORDS SUMMARY | 2019-01-23 11:49 | XMS REPORT ---
[...] Start Date End Date Status Dosage Cephalexin [facility] [id number] 500 MG Orally October 06, October 16, Active 1 tablet every 12 hrs 2018 2018 Results No Known Results Summary Purpose eClinicalWummelbox Submission
--- OUTSIDE RECORDS SUMMARY | 2019-01-23 11:49 | XMS REPORT | Clinical Summary ---
:1980 Author Organization [facility] Address [address] [place] [address] Care Team Providers Name Role Phone Pcp, No Primary Care Provider Unavailable Allergies No Known Allergies Medications Medication Sig Dispensed Refills Start Date End Date Status ferrous sulfate 325 Take 1 tablet 90 tablet 3 11/29/2018 11/29/2019 Active (65 FE) MG tablet (325 mg total) by mouth daily with breakfast. mesalamine (LIALDA) Take 4 tablets 120 tablet 11 11/29/2018 11/29/2019 Active 1.2 gram EC tablet (4.8 g total) by mouth daily with breakfast. mesalamine (ROWASA) 4 Place 60 mLs (4 1800 mL 0 11/29/2018 11/29/2019 Active gram/60 mL enema g total) rectally nightly. ciprofloxacin HCl Take 1 tablet 6 tablet 0 11/29/2018 12/02/2018 (CIPRO) 500 MG tablet (500 mg total) by mouth 2 (two) times daily for 3 days. metroNIDAZOLE Take 1 tablet 9 tablet 0 11/29/2018 12/02/2018 (FLAGYL) 500 MG (500 mg total) tablet by mouth 3 (three) times daily for 3 days. Active Problems Problem Noted Date Colitis 11/25/2018 Encounters Date Type Specialty Care Team Description 11/27/2018 Surgery Gastroenterology Ike Huynh COLONOSCOPY,BIOPSY Clarissa 11/27/2018 Anesthesia Event Gastroenterology Kaiden Boogie MD 11/25/2018 - Hospital Encounter Cardiology Shanae Cabrera Colitis; 11/29/2018 MD Kimberly Anemia, unspecified type; Rula New Blood in stool; Josh Garduno Diarrhea of presumed infectious origin MD [place] after 01/22/2018 Family History Medical History Relation Name Comments Cancer Mother Relation Name Status Comments Mother Social History Tobacco Use Types Packs/Day Years Used Date Never Smoker Smokeless Tobacco: Never Used Alcohol Use Drinks/Week oz/Week Comments No Alcohol Habits Answer Date Recorded How often do you have a drink containing alcohol? Never 11/25/2018 How many drinks containing alcohol do you have on a typical Not asked day when you are drinking? How often do you have six or more drinks on one occasion? Not asked Sex Assigned at Date Recorded Not on file Job Start Date Occupation Industry Not on file Not on file Not on file Travel History Travel Start Travel End No recent travel history available. Last Filed Vital Signs Vital Sign Reading Time Taken Blood Pressure 102/58 11/29/2018 11:32 AM CDT Pulse 92 11/29/2018 12:13 PM CDT Temperature 36.8 C (98.2 F) 11/29/2018 11:32 AM CDT Respiratory Rate 18 11/29/2018 12:13 PM CDT Oxygen Saturation 97% 11/29/2018 12:13 PM CDT Inhaled Oxygen Concentration - - Weight 60 kg (132 lb 3.2 oz) 11/27/2018 9:09 AM CDT Height 155.4 cm (5' 1.18") 11/27/2018 9:09 AM CDT Body Mass Index 24.83 11/27/2018 9:09 AM CDT Plan of Treatment Not on file Procedures Procedure Name Priority Date/Time Associated Comments Diagnosis CBC W/PLT COUNT & Routine 11/29/2018 4:49 Results for this AUTO DIFFERENTIAL AM CDT procedure are in the results section. BASIC METABOLIC PANEL Routine 11/29/2018 4:49 Results for this (7) AM CDT procedure are in the results section. CBC W/PLT COUNT & Routine 11/29/2018 4:49 Results for this AUTO DIFFERENTIAL AM CDT procedure are in the results section. BASIC METABOLIC PANEL Routine 11/28/2018 3:56 Results for this (7) AM CDT procedure are in the results section. CALCIUM, IONIZED Routine 11/28/2018 3:56 Results for this AM CDT procedure are in the results section. HEPATIC FUNCTION Routine 11/28/2018 3:56 Results for this PANEL AM CDT procedure are in the results section. PROTHROMBIN TIME/INR Routine 11/28/2018 3:56 Results for this AM CDT procedure are in the results section. MAGNESIUM Routine 11/28/2018 3:56 Results for this AM CDT procedure are in the results section. REPORT OF PROCEDURE - 11/27/2018 12:20 ENDOSCOPY URL PM CDT TISSUE EXAM AP Routine 11/27/2018 11:08 Results for this AM CDT procedure are in the results section. COLONOSCOPY,BIOPSY 11/27/2018 11:05 Colitis AM CDT Special Needs REQ: 1000 POCT , URINE Routine 11/27/2018 9:42 AM CDT HIV-1 ANTIGEN WITH HIV-1/2 Routine 11/27/2018 4:01 AM CDT Results for this ANTIBODY procedure are in the results section. CBC (HEMOGRAM ONLY) Routine 11/27/2018 4:01 AM CDT BASIC METABOLIC PANEL (7) Routine 11/27/2018 4:01 AM CDT CALCIUM, IONIZED Routine 11/27/2018 4:01 AM CDT HEPATIC FUNCTION PANEL Routine 11/27/2018 4:01 AM CDT PROTHROMBIN TIME/INR Routine 11/27/2018 4:01 AM CDT MAGNESIUM Routine 11/27/2018 4:01 AM CDT CBC W/PLT COUNT & AUTO Routine 11/26/2018 5:38 AM CDT Results for this DIFFERENTIAL procedure are in the results section. CBC W/PLT COUNT & AUTO Routine 11/26/2018 5:38 AM CDT Results for this DIFFERENTIAL procedure are in the results section. BASIC METABOLIC PANEL (7) Routine 11/26/2018 5:38 AM CDT CALCIUM, IONIZED Routine 11/26/2018 5:38 AM CDT HEPATIC FUNCTION PANEL Routine 11/26/2018 5:38 AM CDT PROTHROMBIN TIME/INR Routine 11/26/2018 5:38 AM CDT MAGNESIUM Routine 11/26/2018 5:38 AM CDT ECG 12-LEAD Routine 11/25/2018 9:24 PM CDT RETICULOCYTE COUNT Routine 11/25/2018 4:05 PM CDT FERRITIN Routine 11/25/2018 4:05 PM CDT IRON, TIBC, % SAT. (WITHOUT Routine 11/25/2018 4:05 PM CDT Results for this FERRITIN) procedure are in the results section. C-REACTIVE PROTEIN Routine 11/25/2018 4:05 PM CDT STOOL PATH CHARGE Routine 11/25/2018 3:51 PM CDT SHIGA TOXIN SCREEN Routine 11/25/2018 3:51 PM CDT OVA AND PARASITE Routine 11/25/2018 3:51 PM CDT Results for this EXAMINATION procedure are in the results section. GI PATHOGEN PROFILE BY PCR Routine 11/25/2018 3:51 PM CDT C. DIFFICILE GDH TOXIN Routine 11/25/2018 3:51 PM CDT STOOL CULTURE + SHIGA TOXIN Routine 11/25/2018 3:51 PM CDT after 01/22/2018 Results CBC with platelet count + automated diff (11/29/2018 4:49 AM CDT)Only the most recent of2 resultswithin the time period is included. WBC 7.6 3.5 - 10.5 K/L [facility] RBC 3.80 (L) 3.93 - 5.22 M/L [facility] Hemoglobin 7.7 (L) 11.2 - 15.7 GM/DL [facility] Hematocrit 25.8 (L) 34.1 - 44.9 % [facility] MCV 67.9 (L) 79.4 - 94.8 fL [facility] MCH 20.3 (L) 25.6 - 32.2 pg [facility] MCHC 29.8 (L) 32.2 - 35.5 GM/DL [facility] RDW 23.0 (H) 11.7 - 14.4 % [facility] Platelets 380 150 - 450 K/CU MM [facility] MPV 8.6 (L) 9.4 - 12.3 fL [facility] nRBC 0 0 - 0 /100 WBC [facility] % Neutros 63 % [facility] % Lymphs 20 % [facility] % Monos 10 % [facility] % Eos 6 % [facility] % Baso 1 % [facility] # Neutros 4.79 1.56 - 6.13 K/L [facility] # Lymphs 1.48 1.18 - 3.74 K/L [facility] # Monos 0.76 (H) 0.24 - 0.36 K/L [facility] # Eos 0.45 (H) 0.04 - 0.36 K/L [facility] # Baso 0.05 0.01 - 0.08 K/L [facility] Immature Granulocytes-Relative 0 0 - 1 % [facility] Specimen Blood Performing Organization Address City/State/Zipcode Phone Number [facility] [address] [place] [address] [phone] CENTER Basic Metabolic Panel (11/29/2018 4:49 AM CDT)Only the most recent of4 resultswithin the time period is included. Sodium 138 136 - 145 meq/L [facility] Potassium 3.1 (L) 3.5 - 5.1 meq/L [facility] Chloride 108 (H) 98 - 107 meq/L [facility] CO2 23 22 - 29 meq/L [facility] BUN 5 (L) 7 - 21 mg/dL [facility] Creatinine 0.65 0.57 - 1.25 mg/dL [facility] Glucose 111 (H) 70 - 105 mg/dL [facility] Calcium 8.3 (L) 8.4 - 10.2 mg/dL [facility] EGFR 102Comment: ESTIMATED GFR IS mL/min/1.73 sq m [facility] NOT ACCURATE CREATININE [facility] CLEARANCE IN PREDICTING GLOMERULAR FILTRATION RATE. ESTIMATED GFR IS NOT APPLICABLE FOR DIALYSIS PATIENTS. Specimen Blood Performing Organization Address City/State/Zipcode Phone Number [address] [address] [phone] CENTER Calcium, Ionized (11/28/2018 3:56 AM CDT)Only the most recent of3 resultswithin the time period is included. Calcium, Ion 1.09 (L) 1.12 - 1.27 mmol/L [facility] pH, Blood 7.41 [facility] Specimen Blood Performing Organization Address City/State/Zipcode Phone Number [address] [address] CENTER Prothrombin time/INR (11/28/2018 3:56 AM CDT)Only the most recent of3 resultswithin the time period is included. Protime 15.5 (H) 11.9 - 14.2 seconds [facility] INR 1.3 <=5.9 [facility] Specimen Blood Narrative Performed At Effective 10/18/2018: PT Reference Range [facility] Change New: 11.9-14.2Previous: 11.7-14.7 RECOMMENDED COUMADIN/WARFARIN INR THERAPY RANGES STANDARD DOSE: 2.0-3.0Includes: PROPHYLAXIS for venous thrombosis, systemic embolization; TREATMENT for venous thrombosis and/or pulmonary embolus. HIGH RISK: Target INR is 2.5-3.5 for patients wiht mechanical heart valves. Performing Organization Address City/[facility] Phone Number [address] [address] CENTER Magnesium (11/28/2018 3:56 AM CDT)Only the most recent of3 resultswithin the time period is included. Magnesium 1.9 1.6 - 2.6 mg/dL [facility] Specimen Blood Performing Organization Address [facility] Phone Number [address] [address] [place] Hepatic function panel (11/28/2018 3:56 AM CDT)Only the most recent of3 resultswithin the time period is included. Protein, Total 6.6 6.0 - 8.3 gm/dL [facility] Albumin 3.3 (L) 3.5 - 5.0 g/dL [facility] Total Bilirubin 0.1 (L) 0.2 - 1.2 mg/dL [facility] Bilirubin, Direct 0.1 0.1 - 0.5 mg/dL [facility] Alkaline Phosphatase 102 40 - 150 U/L [facility] AST 19 5 - 34 U/L [facility] ALT 19 6 - 55 U/L [facility] Specimen Blood Performing Organization Address [facility] Centercode Phone Number [address] [address] CENTER REPORT OF PROCEDURE - ENDOSCOPY URL (11/27/2018 12:20 PM CDT) Narrative Performed At Tissue Exam (11/27/2018 11:08 AM CDT) Case Report Surgical Pathology Report Case: [id number] [facility] Authorizing Provider:Ike Huynh ZanaedComariettaected: 11/27/2018 1108 [facility] Ordering Location: [address] Received: 11/27/2018 1400 Service Pathologist: Jack Batista MD Specimens: A) - Polyp, Colon - Right/Ascending, BX TAKEN BY FRCP B) - Polyp, Colon - Hepatic Flexure, COLD SNARE C) - Large Intestine, Colon - Transverse, BX TAKEN BY FRCP D) - Large Intestine, Colon - Left/Descending, BX TAKEN BY FRCP E) - Polyp, Colon - Sigmoid, BX TAKEN BY FRCP F) - Rectum, BX TAKEN BY FRCP DIAGNOSIS PART A RIGHT ASCENDING COLON POLYP, POLYPECTOMY: [facility] COLONIC MUCOSA WITH PROMINENT REACTIVE LYMPHOID AGGREGATE. [facility] NEGATIVE FOR DYSPLASIA OR INVASIVE CARCINOMA. PART B COLON HEPATIC FLEXURE POLYP, POLYPECTOMY: TUBULAR ADENOMA. NEGATIVE FOR HIGH GRADE DYSPLASIA OR INVASIVE CARCINOMA. PART C TRANSVERSE COLON, BIOPSY: MILDLY EDEMATOUS COLONIC MUCOSA WITHOUT SIGNIFICANT HISTOPATHOLOGIC ALTERATION. NEGATIVE FOR INCREASED EPITHELIAL LYMPHOCYTES, GRANULOMAS, DYSPLASIA, OR INVASIVE CARCINOMA. PART D LEFT DESCENDING COLON BIOPSY: MILDLY EDEMATOUS COLONIC MUCOSA WITHOUT SIGNIFICANT HISTOPATHOLOGIC ALTERATION. NEGATIVE FOR INCREASED EPITHELIAL LYMPHOCYTES, GRANULOMAS, DYSPLASIA, OR INVASIVE CARCINOMA. PART E SIGMOID COLON, BIOPSY FOR SUSPECTED POLYP: MILDLY ACTIVE COLITIS WITH FOCAL SUPERFICIAL ULCERATION. SUBEPITHELIAL REACTIVE LYMPHOID AGGREGATE. NEGATIVE FOR GRANULOMAS, DYSPLASIA, OR INVASIVE CARCINOMA. PART F RECTAL BIOPSY: MILDLY ACTIVE COLITIS WITH FOCAL SUPERFICIAL ULCERATION. SUBEPITHELIAL REACTIVE LYMPHOID AGGREGATE. NEGATIVE FOR GRANULOMAS, DYSPLASIA, OR INVASIVE CARCINOMA. Signing Pathologist Direct Phone Line: [phone] CPT Code(s) 60454V6 [facility] CLINICAL HISTORY Pre and postop diagnosis: [facility] colitis [facility] SPECIMEN SOURCE A. Polyp, colon - [facility] right/ascending; B. Polyp, [facility] colon - hepatic flexure; C. Large intestine, colon - transverse; D. Large intestine, colon - left/descending; E. Polyp, colon - sigmoid; F. Rectum GROSS DESCRIPTION A. Received in formalin labeled with the patient's name, accession number and "polyp, colon - right/ascending" are three irregular bernal soft tissue fragments ranging 0.2-0.4 cm which are submitted in toto in A1. [facility] B. Received in formalin labeled with the patient's name, accession number and "polyp, colon - hepatic flexure" are two irregular bernal soft tissue fragments measuring 0.4 cm and 0.2 cm which are submitted in toto in B1. C. Received in formalin labeled with the patient's name, accession number and "large intestine, colon - transverse" are two irregular bernal soft tissue fragments measuring 0.3 cm and 0.2 cm which are submitted in toto in C1. D. Received in formalin labeled with the patient's name, accession number and "large intestine, colon - left/descending" are two irregular bernal soft tissue fragments measuring 0.3 cm and 0.2 cm which are submitted in toto in D1. E. Received in formalin labeled with the patient's name, accession number and "polyp, colon - sigmoid" are multiple bernal soft tissue fragments ranging 0.1- 0.3 cm which are submitted in toto in E1. F. Received in formalin labeled with the patient's name, accession number and "rectum" are four irregular bernal soft tissue fragments ranging 0.1-0.3 cm which are submitted in toto in F1. CG/pl MICROSCOPIC DESCRIPTION PERFORMED. [facility] Specimen Tissue - Polyp, Colon - Right/Ascending Tissue - Polyp, Colon - Hepatic Flexure Tissue - Transverse colon structure (body structure) Tissue - Descending colon structure (body structure) Tissue - Polyp, Colon - Sigmoid Tissue - Rectum structure (body structure) Performing Organization Address City/[facility] Cent[facility]ode Phone Number [address] [address] CENTER POCT , urine (11/27/2018 9:42 AM CDT) Test Urine, POC Negative Control line present?, POC Yes Background clear?, POC Yes UPT Cassette Lot #, POC [id number] UPT Cassette Expiration Date, POC 01-21-20 Specimen Urine HIV-1 Antigen with HIV-1/2 Antibody (11/27/2018 4:01 AM CDT) HIV-1 Antigen with HIV 1&[address] [facility] Specimen Blood Performing Organization Address City/[facility] Centercode Phone Number [facility] [address] [place], [place] [phone] [place] CBC (Hemogram only) (11/27/2018 4:01 AM CDT) WBC 7.0 3.5 - 10.5 K/L [facility] RBC 3.78 (L) 3.93 - 5.22 M/L [facility] Hemoglobin 7.5 (L) 11.2 - 15.7 GM/DL [facility] Hematocrit 25.6 (L) 34.1 - 44.9 % [facility] MCV 67.7 (L) 79.4 - 94.8 fL [facility] MCH 19.8 (L) 25.6 - 32.2 pg [facility] MCHC 29.3 (L) 32.2 - 35.5 GM/DL [facility] RDW 22.1 (H) 11.7 - 14.4 % [facility] Platelets 373 150 - 450 K/CU MM [facility] MPV 8.3 (L) 9.4 - 12.3 fL [facility] nRBC 0 0 - 0 /100 WBC [facility] Specimen Blood Performing Organization Address City/[facility]/Zipcode Phone Number [facility] [address] [place] [address] [place] ECG 12 lead (11/25/2018 9:24 PM CDT) Specimen Narrative Performed At Ventricular Rate 85 BPM GE MUSE Atrial Rate 85 BPM P-R Interval 142 ms QRS Duration 76 ms Q-T Interval 382 ms QTC Calculation(Bazett) 454 ms P Badin 21 degrees R Badin 37 degrees T Badin 9 degrees Normal sinus rhythm Normal ECG No previous ECGs available Confirmed by Sol CHANDRA, CHIN ([id number]) on 11/26/2018 10:41:31 AM Procedure Note Interface, External Ris In - 11/26/2018 10:41 AM CDT Ventricular Rate 85 BPM Atrial Rate 85 BPM P-R Interval 142 ms QRS Duration 76 ms Q-T Interval 382 ms QTC Calculation(Bazett) 454 ms P Badin 21 degrees R Badin 37 degrees T Badin 9 degrees Normal sinus rhythm Normal ECG No previous ECGs available Confirmed by Sol CHANDRA BASANT ([id number]) on 11/26/2018 10:41:31 AM Performing Organization Address City/[facility] Cent[facility]ode Phone Number [facility] Iron, TIBC, % sat. (without ferritin) (11/25/2018 4:05 PM CDT) Iron 35.0 (L) 40.0 - 160.0 ug/dL [facility] TIBC 385 250 - 450 ug/dL [facility] Iron % Saturation 9 (L) 20 - 55 % [facility] Specimen Blood Performing Organization Address [facility] Phone Number [address] [address] [phone] CENTER C-Reactive Protein (11/25/2018 4:05 PM CDT) CRP 7.69 (H) 0.00 - 0.50 mg/dL [facility] Specimen Blood Performing Organization Address [facility] Phone Number [address] [address] [facility] Reticulocyte count (11/25/2018 4:05 PM CDT) % Retic 0.8 0.5 - 1.7 % [facility] Specimen Blood Performing Organization Address [facility] Phone Number [address] [address] [facility] Ferritin (11/25/2018 4:05 PM CDT) Ferritin 16 5 - 275 ng/mL [facility] Specimen Blood Performing Organization Address [facility] Phone Number [address] [address] CENTER Clostridium difficile GDH Toxin (11/25/2018 3:51 PM CDT) C. Difficle Toxin Negative Negative [facility] C. Difficile GDH Antigen NegativeComment: No Negative [facility] indication of Clostridium [facility]ENTER difficile infection and no colonization. Discontinue enteric isolation and therapy. Specimen Stool Narrative Performed At Testing performed by Mirror42 Rapid Cassette [facility] Assay.For GDH, published sensitivity of the assay is 98.7% compared to cytotoxicity testing.For Toxin AB, published sensitivity is 87.8% and specificity 99.4% compared to cytotoxicity testing. Verification of kit performance was done by the [facility] Microbiology Lab prior to clinical use. Performing Organization Address City/State/Zipcode Phone Number [facility] [address] [place] [address] [place] GI Pathogen Profile by PCR -ID Only (11/25/2018 3:51 PM CDT) CAMPYLOBACTER (PCR) Not detected Not detected [facility] PLESIOMONAS SHIGELLOIDES (PCR) Not detected Not detected [facility] SALMONELLA (PCR) Not detected Not detected [facility] YERSINIA ENTEROCOLITICA (PCR) Not detected Not detected [facility] VIBRIO CHOLERAE (PCR) Not detected Not detected [facility] ENTEROAGGREGATIVE E. COLI (EAEC) Not detected Not detected [facility] BY PCR [facility] [place] ENTEROPATHOGENIC E. COLI (EPEC) BY Not detected Not detected [facility] PCR [facility]ICAL [place] ENTEROTOXIGENIC E. COLI (ETEC) Not detected Not detected [facility] LT/ST BY PCR [facility] [place] SHIGA-LIKE TOXIN-PRODUCING E. COLI Not detected Not detected [facility] (STEC) STX1/STX2 [facility] E. COLI O157 (PCR) Not detected [facility] SHIGELLA/ENTEROINVASIVE E. COLI Not detected Not detected [facility] (EIEC) BY PCR [facility] CRYPTOSPORIDIUM (PCR) Not detected Not detected [facility] CYCLOSPORA CAYETANENSIS (PCR) Not detected Not detected [facility] ENTAMOEBA HISTOLYTICA (PCR) Not detected Not detected [facility] GIARDIA LAMBLIA (PCR) Not detected Not detected [facility] ADENOVIRUS F 40/41 (PCR) Not detected Not detected [facility] ASTROVIRUS (PCR) Not detected Not detected [facility] NOROVIRUS GI/GII (PCR) Not detected Not detected [facility] ROTAVIRUS A (PCR) Not detected Not detected [facility] SAPOVIRUS (I, II, IV, V) BY PCR Not detected Not detected [facility] VIBRIO (PARAHAEMOLYTICUS, Not detected Not detected [facility] VULNIFICUS) [facility] Specimen Stool Narrative Performed At Other viruses, parasites and bacteria not [facility] targeted by this PCR panel cannot be excluded; therefore clinical correlation and follow up of serology, culture results, and other molecular studies is required. The results are not intended to be used as the sole means for clinical diagnosis or patient management decisions. This sample was tested at the [facility] Molecular Diagnostics Laboratory using the XradiaArray Gastrointestinal Panel. It is FDA cleared and has been verified and approved by the [facility] Molecular Diagnostics Laboratory for clinical use. This laboratory is CLIA-certified and [employer] (CAP)-accredited to perform high complexity testing. Performing Organization Address City/[facility]/Zipcode Phone Number [address] [address] [phone] [place] STOOL PATH CHARGE (11/25/2018 3:51 PM CDT) Pathogen exam charged Done [facility] Specimen Stool Performing Organization Address [facility] Centercode Phone Number [address] [address] [place] Shiga Toxin Screen (11/25/2018 3:51 PM CDT) Shiga toxin 1 Not detected Not detected [facility] Shiga toxin 2 Not detected Not detected [facility] Specimen Stool Performing Organization Address City/State/Zipcode Phone Number [address] [phone] [place] Ova and Parasite Examination (11/25/2018 3:51 PM CDT) O&P Direct Smear No ova or parasites No ova or parasites [facility] seen seen [facility] O&P Concentrate Smear No ova or parasites No ova or parasites [facility] seen seen [facility] O&P Trichrome Smear No ova or parasites No ova or parasites [facility] seen seen [facility] Specimen Stool Narrative Performed At Performing Organization Address City/[facility]/Zipcode Phone Number [address] [address] [place] Stool culture + Shiga toxin (11/25/2018 3:51 PM CDT) Result No Salmonella, Shigella or [facility] Campylobacter [facility] Specimen Stool Performing Organization Address City/State/Zipcode Phone Number [address] [phone] CENTER after 01/22/2018 Insurance Payer Benefit Plan / Subscriber ID Type Phone Address Group [employer]UE [employer]OSS/[employer]UE [employer] OS xxxxxxxxxxxx PPO [phone] [address] SHIELD POS/[place] [address] Advance Directives For more information, please contact:[address] [phone] Code Status Date Activated Date Inactivated Comments Full Code 11/25/2018 2:28 PM 11/29/2018 2:44 PM This code status was determined by: Patient
[2019-01-23] MEDS ORDERED: METHYLPREDNISOLONE 125 MG INJ ONE (12:51)
[2019-01-23] MEDS ORDERED: ONDANSETRON 4 MG/2 ML VIAL ONE (12:52)
[2019-01-23] MEDS ORDERED: MORPHINE 4 MG/ML SYR ONE (12:52)
[2019-01-23] MEDS ORDERED: NA CHLORIDE 0.9% 1,000 ML ONE (12:52)
[2019-01-23 13:18] LABS: Absolute Lymphocytes (CBC) 0.9 K/uL (0.7-4.9); Basophils % 0.4 % (0-1.3); Hematocrit 33.3 % (36.0-45.0); Lymphocytes % 8.5 % (15.3-44.8); RBC Red Blood Cell Count 4.36 M/uL (3.86-4.86)
[2019-01-23 13:44] LABS: ALT/SGPT 61 U/L (12-78); AST/SGOT 33 U/L (15-37); Alkaline Phosphatase 139 U/L (45-117); BUN Blood Urea Nitrogen 9 mg/dL (7-18); Bicarbonate 27 mmol/L (21-32); Bilirubin Total 0.1 mg/dL (0.2-1.0); Glucose Level 95 mg/dL (74-106); Lipase 343 U/L (73-393); Potassium 3.4 mmol/L (3.5-5.1); Protein, Total 7.5 g/dL (6.4-8.2); Sodium Level 138 mmol/L (136-145)
[2019-01-23 14:57] LABS: Anisocytosis 3+; Blood Morphology Comment NOTED (NOT SEEN); Platelet Estimate ADEQ
[2019-01-23 14:58] LABS: Ovalocytes 1+
[2019-01-23 14:59] LABS: Urine Blood 2+ (NEG); Urine Glucose NEGATIVE (NEG); Urine Protein 2+ (NEG); Urine Specific Gravity 1.025 (1.005-1.030); Urine pH 5.5 (5.0-7.0)
--- NOTE | 2019-01-23 15:38 | RAD REPORT ---
EXAM DESCRIPTION: CT - Abdomen Pelvis W Contrast - 01/23/2019 3:07 pm CLINICAL HISTORY: LLQ pain bleeding hx of diverticulitis COMPARISON: CT November 25, 2018. TECHNIQUE: Biphasic, helical CT imaging of the abdomen and pelvis was performed following 100 ml non -ionic IV contrast. Oral contrast was given. All CT scans are performed using dose optimization technique as appropriate and may include automated exposure control or mA/KV adjustment according to patient size. FINDINGS: No suspicious findings in the lung bases. The liver, spleen, and pancreas show no suspicious findings. Gallbladder and biliary tree are also wi thout suspicious finding. Symmetric renal function is seen with no hydronephrosis or suspicious renal mass. No pyelonephritis o r acute parenchymal process. No bladder abnormalities. No adrenal abnormalities. Uterus and ovaries s how no suspicious findings. No gastric dilatation or gastric wall thickening. No small bowel abnormality. No appendicitis finding s. Cecum and ascending colon show moderate stool volume with no suspicious findings. From the hepatic flexure through the rectum there is wall thickening and edema consistent with a nonspecific colitis. Diverticular disease is relatively mild. No free air, free fluid or inflammatory stranding. No hernia, mass or bulky lymphadenopathy. No suspicious bony findings. IMPRESSION: Nonspecific colitis pattern spanning from hepatic flexure to the rectum. No free air, abscess or other surgically emergent finding.
--- NOTE | 2019-01-23 16:06 | ER ---
Nurse's Notes [facility] Name: Kaitlynn Orourke Age: 38 yrs Sex: Female : 1980 Arrival Date: 01/23/2019 Time: 11:[address] Private MD: Janet Salazar Diagnosis: Inflammatory bowel disease Presentation: 01/23 12:08 Presenting complaint: Patient states: diarrhea and abd x 10 days. Hospitalized for ss colitis in November, patient reports that symptoms feel the same as previous hospitalization. Transition of care: patient was not received from another setting of care. Onset of symptoms was January 13, 2019. Risk Assessment: Do you want to hurt yourself or someone else? Patient reports no desire to harm self or others. Initial Sepsis Screen: Does the patient meet any 2 criteria? No. Patient's initial sepsis screen is negative. Does the patient have a suspected source of infection? No. Patient's initial sepsis screen is negative. Care prior to arrival: None. 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 - Social history:: Smoking status: Patient/guardian denies using tobacco. - Ebola Screening: : Patient denies exposure to infectious person Patient denies travel to an Ebola-affected area in the 21 days before illness onset. Screenin:16 Abuse screen: Denies threats or abuse. Nutritional screening: No deficits noted. rb1 Tuberculosis screening: No symptoms or risk factors identified. Fall Risk None identified. Assessment: 12:16 General: Appears in no apparent distress. comfortable, Behavior is calm, cooperative. rb1 Pain: Complains of pain in abdomen. Neuro: Level of Consciousness is awake, alert, obeys commands, Oriented to person, place, time, situation. Cardiovascular: Capillary refill < 3 seconds is brisk in bilateral fingers. Respiratory: Airway is patent Respiratory effort is even, unlabored, Respiratory pattern is regular, symmetrical. GI: Bowel sounds present X 4 quads. Abd is soft X 4 quads. GI: Reports diarrhea. : No signs and/or symptoms were reported regarding the genitourinary system. Derm: Skin is pink, warm \T\ dry. 13:10 Reassessment: Patient appears in no apparent distress at this time. Patient and/or rb1 family updated on plan of care and expected duration. Pain level reassessed. Patient is alert, oriented x 3, equal unlabored respirations, skin warm/dry/pink. 14:10 Reassessment: Patient appears in no apparent distress at this time. No changes from rb1 previously documented assessment. 15:00 Reassessment: Patient appears in no apparent distress at this time. Patient and/or rb1 family updated on plan of care and expected duration. Pain level reassessed. Patient is alert, oriented x 3, equal unlabored respirations, skin warm/dry/pink. Patient denies pain at this time. 16:00 Reassessment: Patient appears in no apparent distress at this time. No changes from rb1 previously documented assessment. Vital Signs: 12:10 BP 107 / 75; Pulse 114; Resp 14; Temp 98.6(O); Pulse Ox 100% on R/A; Weight 54.43 kg; ss Height 5 ft. 1 in. (154.94 cm); Pain 0/10; 13:10 BP 106 / 76; Pulse 104; Resp 12; Temp 98.3(O); Pulse Ox 100% ; Pain 0/10; rb1 14:10 BP 101 / 66; Pulse 92; Resp 16; Temp 98.5(O); Pulse Ox 100% on R/A; Pain 0/10; rb1 15:00 BP 108 / 63; Pulse 90; Resp 20; Temp 98.3(O); Pulse Ox 99% on R/A; Pain 0/10; rb1 16:00 BP 99 / 70; Pulse 90; Resp 19; Temp 98.2(O); Pulse Ox 100% on R/A; Pain 0/10; rb1 12:10 Body Mass Index 22.67 (54.43 kg, 154.94 cm) ED Course: 11:49 Patient arrived in ED. as 11:49 Janet Salazar MD is Private Physician. as 12:05 Ab Kelly MD is Attending Physician. ps1 12:10 Triage completed. ss 12:10 Arm band placed on right wrist. ss 12:16 Patient has correct armband on for positive identification. Bed in low position. Call rb1 light in reach. Side rails up X 1. cuff presser on. Pulse ox on. NIBP on. Warm blanket given. 12:46 Gwendolyn Tinajero, RN is Primary Nurse. rb1 13:05 Initial lab(s) drawn, by me, sent to lab. Inserted saline lock: 22 gauge in right jb1 antecubital area, using aseptic technique. 14:30 Radiology exam delayed due to test not completed at this time. 14:[address] via wheelchair. 15:07 CT completed. Patient tolerated procedure well. Patient moved back from CT. ky 15:31 CT Abd/Pelvis - IV Contrast Only In Process Unspecified. EDMS 16:04 Poli Pearce MD is Referral Physician. ps1 16:27 No provider procedures requiring assistance completed. IV discontinued, intact, rb1 bleeding controlled, No redness/swelling at site. Pressure dressing applied. Administered Medications: 13:00 Drug: Zofran 4 mg Route: IVP; Site: right antecubital; rb1 13:15 Follow up: Response: No adverse reaction rb1 13:00 Drug: morphine 4 mg Route: IVP; Site: right antecubital; rb1 13:15 Follow up: Response: No adverse reaction rb1 13:00 Drug: NS 0.9% 1000 ml Route: IV; Rate: 1 bolus; Site: right antecubital; rb1 14:02 Follow up: IV Status: Completed infusion rb1 13:00 Drug: SOLU-Medrol 125 mg Route: IVP; Site: right antecubital; rb1 13:15 Follow up: Response: No adverse reaction rb1 Outcome: 16:05 Discharge ordered by . ps1 16:27 Discharged to home ambulatory, with family. rb1 16:27 Condition: stable 16:27 Discharge instructions given to patient, Instructed on discharge instructions, follow up and referral plans. medication usage, Demonstrated understanding of instructions, follow-up care, medications, Prescriptions given X 3. 16:39 Patient left the ED. rb1 Signatures: Dispatcher [employer] EDPA Kiran Cardenas jb1 Hattie Watson Shelby, RN RN Charlotte Gillette Gwendolyn Tinajero, RN RN rb1 Denilson Lopez Phillip, MD MD ps1
--- NOTE | 2019-01-23 16:07 | EDPHYS ---
Physician Documentation [facility] Name: Kaitlynn Orourke Age: 38 yrs Sex: Female : 1980 Arrival Date: 01/23/2019 Time: 11:[address] Private MD: Janet Salazar ED Physician Ab Kelly HPI: 01/23 15:59 This 38 yrs old Female presents to ER via Ambulatory with complaints of ps1 Abdominal Pain, Diarrhea. 15:59 patient presenting with LLQ abdominal pain with a history of colitis. Patient was ps1 admitted for same within last year. She then had an OP colonoscopy with biopsy. She was discharged and started on mesalamine. She started having symptoms 10 days ago which are new from the last episode. Has an appointment in 3 weeks and could not wait. Patient states that she is having intermittent bloody stools. Pain rated as moderate and fluctuating. NO fever. . 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 - Social history:: Smoking status: Patient/guardian denies using tobacco. - Ebola Screening: : Patient denies exposure to infectious person Patient denies travel to an Ebola-affected area in the 21 days before illness onset. ROS: 15:59 Constitutional: Negative for fever, chills, and weight loss, Eyes: Negative for injury, ps1 pain, redness, and discharge, Cardiovascular: Negative for chest pain, palpitations, and edema, Respiratory: Negative for shortness of breath, cough, wheezing, and pleuritic chest pain, Skin: Negative for injury, rash, and discoloration, Neuro: Negative for headache, weakness, numbness, tingling, and seizure. 15:59 Abdomen/GI: Positive for abdominal pain, nausea, vomiting, and diarrhea, rectal bleeding, of the left lower quadrant. Exam: 15:59 Constitutional: This is a well developed, well nourished patient who is awake, alert, ps1 and in no acute distress. Head/Face: Normocephalic, atraumatic. Eyes: Pupils equal round and reactive to light, extra-ocular motions intact. Lids and lashes normal. Conjunctiva and sclera are non-icteric and not injected. Chest/axilla: Normal chest wall appearance and motion. Nontender with no deformity. No lesions are appreciated. Cardiovascular: Regular rate and rhythm. No gallops, murmurs, or rubs. Normal PMI, no JVD. No pulse deficits. Respiratory: Lungs have equal breath sounds bilaterally, clear to auscultation and percussion. No rales, rhonchi or wheezes noted. No increased work of breathing, no retractions or nasal flaring. MS/ Extremity: Pulses equal, no cyanosis. Neurovascular intact. Full, normal range of motion. Neuro: Awake and alert, GCS 15, oriented to person, place, time, and situation. Cranial nerves II-XII grossly intact. Sensory grossly intact. 15:59 Abdomen/GI: Inspection: abdomen appears normal, Bowel sounds: normal, Palpation: mild abdominal tenderness, in the left lower quadrant. Vital Signs: 12:10 BP 107 / 75; Pulse 114; Resp 14; Temp 98.6(O); Pulse Ox 100% on R/A; Weight 54.43 kg; ss Height 5 ft. 1 in. (154.94 cm); Pain 0/10; 13:10 BP 106 / 76; Pulse 104; Resp 12; Temp 98.3(O); Pulse Ox 100% ; Pain 0/10; rb1 14:10 BP 101 / 66; Pulse 92; Resp 16; Temp 98.5(O); Pulse Ox 100% on R/A; Pain 0/10; rb1 15:00 BP 108 / 63; Pulse 90; Resp 20; Temp 98.3(O); Pulse Ox 99% on R/A; Pain 0/10; rb1 16:00 BP 99 / 70; Pulse 90; Resp 19; Temp 98.2(O); Pulse Ox 100% on R/A; Pain 0/10; rb1 12:10 Body Mass Index 22.67 (54.43 kg, 154.94 cm) ss MDM: 12:39 Patient medically screened. ps1 15:59 Data reviewed: vital signs, nurses notes, lab test result(s), radiologic studies, and ps1 as a result, I will discharge patient. 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 ED course: Pt has elevated inflammatory markers cw inflammatory bowel disease. Home with steroids and patient to follow up with GI. Pain control given. Does not appear infectious etiology. . 01/23 12:41 Order name: CBC with Diff [facility] 01/23 12:41 Order name: CMP [facility] 01/23 12:41 Order name: Lipase [facility] 01/23 12:41 Order name: Lactate [facility] 01/23 12:41 Order name: ESR [facility] 01/23 12:41 Order name: CRP [facility] 01/23 12:41 Order name: Procalcitonin [facility] 01/23 13:21 Order name: CBC with Automated Diff; Complete Time: 15:13 [facility] 01/23 13:34 Order name: Lactate; Complete Time: 13:39 [facility] 01/23 13:42 Order name: Sedimentation Rate, [place]; Complete Time: 15:13 [facility] 01/23 13:47 Order name: Comprehensive Metabolic Panel; Complete Time: 13:47 [facility] 01/23 13:47 Order name: C-Reactive Protein; Complete Time: 13:47 [facility] 01/23 13:47 Order name: Lipase; Complete Time: 13:47 [facility] 01/23 13:53 Order name: Procalcitonin; Complete Time: 14:24 [facility] 01/23 14:26 Order name: CT Abd/Pelvis - IV Contrast Only [facility] 01/23 14:48 Order name: Urine Dipstick--Ancillary (enter results) em1 01/23 14:48 Order name: Urine --Ancillary (enter results) 1 01/23 14:56 Order name: Manual Differential; Complete Time: 15:13 [facility] 01/23 15:01 Order name: Urine --Ancillary; Complete Time: 15:13 [facility] 01/23 15:01 Order name: Urine Dipstick-Ancillary; Complete Time: 15:13 EDMS Administered Medications: 13:00 Drug: Zofran 4 mg Route: IVP; Site: right antecubital; rb1 13:15 Follow up: Response: No adverse reaction rb1 13:00 Drug: morphine 4 mg Route: IVP; Site: right antecubital; rb1 13:15 Follow up: Response: No adverse reaction rb1 13:00 Drug: NS 0.9% 1000 ml Route: IV; Rate: 1 bolus; Site: right antecubital; rb1 14:02 Follow up: IV Status: Completed infusion rb1 13:00 Drug: SOLU-Medrol 125 mg Route: IVP; Site: right antecubital; rb1 13:15 Follow up: Response: No adverse reaction rb1 Disposition: 01/23/19 16:05 Discharged to Home. Impression: Inflammatory bowel disease. - Condition is Stable. - Discharge Instructions: Colitis. - Prescriptions for Tylenol- Codeine #3 300-30 mg Oral Tablet - take 2 tablet by ORAL route every 6 hours As needed; 30 tablet. Zofran 4 mg Oral Tablet - take 1 tablet by ORAL route every 12 hours As needed; 20 tablet. Medrol ([place]) 4 mg Oral Tablets, Dose Pack - take 1 tablet by ORAL route as directed - follow package instructions; 1 packet. - Medication Reconciliation Form, Thank You Letter, Antibiotic Education, Prescription Opioid Use form. - Follow up: Poli Pearce MD; When: 48 Hours; Reason: Further diagnostic work-up, Recheck today's complaints, Re-evaluation by your physician. Follow up: Emergency Department; When: As needed; Reason: Fever > 102 F, Worsening of condition. - Problem is an acute exacerbation. - Symptoms are unchanged. Signatures: Dispatcher [employer] [facility] Nova Dahl RN RN ss Gwendolyn Tinajero RN RN rb1 Ab Kelly MD MD ps1 Corrections: (The following items were deleted from the chart) 16:39 16:05 01/23/2019 16:05 Discharged to Home. Impression: Inflammatory bowel disease. rb1 Condition is Stable. Forms are Medication Reconciliation Form, Thank You Letter, Antibiotic Education, Prescription Opioid Use. Follow up: Poli Pearce; When: 48 Hours; Reason: Further diagnostic work-up, Recheck today's complaints, Re-evaluation by your physician. Follow up: Emergency Department; When: As needed; Reason: Fever > 102 F, Worsening of condition. Problem is an acute exacerbation. Symptoms are unchanged. ps1
== END 2019-01-23 16:39 | disposition home or self-care (01) ==
LOC: ER 11:46
DX: K52.3 Indeterminate colitis (principal)
CPT/HCPCS: 96361; 85025; 36415; 81025; 83605; 85652; 81003; 83690; 80053; 84145; 86140; 74177; 96375; 96374; 99285; Q9967; J7030; J2930; J2405

== ENCOUNTER 2019-01-31 15:56 | Inpatient (IN) | payer BC ==
--- OUTSIDE RECORDS SUMMARY | 2019-01-31 15:59 | XMS REPORT | Clinical Summary ---
:1980 Author Organization [facility] Address [address] [place] [address] Care Team Providers Name Role Phone Pcp, [...] rectally nightly. ciprofloxacin HCl Take 1 tablet 14 tablet 0 01/29/2019 02/05/2019 Active (CIPRO) 500 MG tablet (500 mg total) by mouth 2 (two) times daily for 7 days. metroNIDAZOLE Take 1 tablet 14 tablet 0 01/29/2019 02/05/2019 Active (FLAGYL) 500 MG (500 mg total) tablet by mouth 2 (two) times daily for 7 days. ondansetron (ZOFRAN) Take 1 tablet 10 tablet 0 01/29/2019 Active 4 MG tablet (4 mg total) by mouth 3 (three) times daily as needed for Nausea for up to 10 doses. ciprofloxacin HCl Take 1 tablet 6 tablet 0 11/29/2018 12/02/2018 (CIPRO) 500 MG tablet (500 mg total) by mouth 2 (two) times daily for 3 days. metroNIDAZOLE Take 1 tablet 9 tablet 0 11/29/2018 12/02/2018 (FLAGYL) 500 MG (500 mg total) tablet by mouth 3 (three) times daily for 3 days. Active Problems Problem Noted Date Colitis 11/25/2018 Comments Yes Encounters Date Type Specialty Care Team Description 01/28/2019 - Emergency Emergency Medicine Faraz Barcenas Acute abdominal pain (Primary Dx); 01/29/2019 MD Clotilde Dehydration; Tachycardia; Non-intractable vomiting with nausea, unspecified vomiting type; Colitis 01/28/2019 Travel 11/27/2018 Surgery Gastroenterology Ike Huynh COLONOSCOPY,BIOPSY Clarissa 11/27/2018 Anesthesia Event Gastroenterology Kaiden Boogie MD 11/25/2018 - Hospital Encounter Cardiology Shanae Cabrera Colitis; 11/29/2018 MD Kimberly Anemia, unspecified type; Shaq, Yashash Blood in stool; D Diarrhea of presumed infectious origin Josh Garduno MD after 01/30/2018 Family History Medical History Relation Name Comments [...] more drinks on one occasion? Not asked Comments Yes Sex Assigned at Date Recorded Not on file Job Start Date Occupation Industry Not on file Not on file Not on file Travel History Travel Start Travel End No recent travel history available. Last Filed Vital Signs Vital Sign Reading Time Taken Blood Pressure 98/61 01/29/2019 3:15 AM CDT Pulse 87 01/29/2019 3:15 AM CDT Temperature 36.8 C (98.3 F) 01/29/2019 12:20 AM CDT Respiratory Rate 18 01/29/2019 3:15 AM CDT Oxygen Saturation 96% 01/29/2019 3:15 AM CDT Inhaled Oxygen Concentration - - Weight 54.4 kg (120 lb) 01/28/2019 8:14 PM CDT Height 154.9 cm (5' 1") 01/28/2019 8:14 PM CDT Body Mass Index 22.67 01/28/2019 8:14 PM CDT Plan of Treatment Not on file Procedures Procedure Name Priority Date/Time Associated Comments Diagnosis SCREEN, STAT 01/29/2019 1:56 Results for this URINE AM CDT procedure are in the results section. URINALYSIS W/ REFLEX STAT 01/29/2019 1:56 Results for this URINE CULTURE AM CDT procedure are in the results section. CT ABDOMEN/PELVIS STAT 01/29/2019 1:55 Results for this WITH IV CONTRAST AM CDT procedure are in the results section. HCG, QUANTITATIVE, STAT 01/29/2019 12:34 Results for this AM CDT procedure are in the results section. POCT-LACTIC ACID, Routine 01/28/2019 8:53 Results for this VENOUS PM CDT procedure are in the results section. (CELLAVISION MANUAL STAT 01/28/2019 8:50 Results for this DIFF) PM CDT procedure are in the results section. CBC W/PLT COUNT & STAT 01/28/2019 8:50 Results for this AUTO DIFFERENTIAL PM CDT procedure are in the results section. CBC W/PLT COUNT & STAT 01/28/2019 8:50 Results for this AUTO DIFFERENTIAL PM CDT procedure are in the results section. BASIC METABOLIC PANEL STAT 01/28/2019 8:50 Results for this (7) PM CDT procedure are in the results section. [...] TOXIN Routine 11/25/2018 3:51 PM CDT after 01/30/2018 Results Urinalysis w/Microscopic + Reflex to Culture (01/29/2019 1:56 AM CDT) Color, UA Yellow [facility] Clarity, UA Hazy [facility] Specific [place], UA 1.017 1.001 - 1.035 [facility] pH, UA 5.5 5.0 - 8.0 [facility] Protein, UA 30 mg/dL (A) Negative [facility] Glucose, UA Negative Negative [facility] Ketones, UA >150 mg/dL (A) Negative [facility] Bilirubin, UA Negative Negative [facility] Blood, UA Small (A) Negative [facility] Nitrite, UA Negative Negative [facility] Leukocytes, UA Negative Negative [facility] Urobilinogen, UA 0.2 0.2 - 1.0 mg/dL [facility] RBC, UA 1 /HPF [facility] WBC, UA 1 /HPF [facility] Mucus Few [facility] Squam Epithel, UA 3 /HPF [facility] Amorphous Crystals Occasional [facility] Specimen Source [facility] Specimen Urine Performing Organization Address City/State/Zipcode Phone Number [facility] [address] [place] [address] [place] Screen, urine (01/29/2019 1:56 AM CDT) Preg Test, Ur Negative [facility] Specimen Urine Performing Organization Address [facility] Phone Number [address] [address] [phone] [place] [address] abdomen/pelvis with IV contrast (01/29/2019 1:55 AM CDT) Specimen Narrative Performed At FINAL REPORT [facility] CLINICAL HISTORY: Acute abdominal pain, nausea, rectal bleeding FINDINGS: Multiple axial images of the abdomen and pelvis were performed after the uncomplicated administration of IV contrast. Oral contrast was not given. This exam was performed according to our departmental dose-optimization program, which includes automated exposure control, adjustment of the mA and/or kV according to patient size and/or use of the iterative reconstruction technique. Comparison:None. Lower chest: Clear lungs. No pleural effusion or pneumothorax. Visualized cardiac contours normal. Liver: No significant findings. Gallbladder and biliary tree: No significant findings. Spleen: No significant findings. Adrenal Glands: No significant findings. Kidneys and ureters: No significant findings. Stomach and Duodenum: No significant findings. Pancreas: No significant findings. Bowel: Circumferential wall thickening of the colon from the hepatic flexure to the rectum with loss of mucosal architecture, prominent mucosal enhancement adjacent inflammatory fat stranding and prominent perirectal lymph nodes. There is fluid density stool in the rectum. No bowel obstruction or pneumatosis intestinalis. No dilated portion of colon. No evidence of perforation. Appendix: Nonvisualized. No pericecal inflammatory changes. Bladder: No significant findings. Major vascular structures: No significant findings. Reproductive organs: No significant findings. Other: No free air, fluid or adenopathy Skeleton: No acute bony abnormality. IMPRESSION: Colitis. Infectious and inflammatory causes are considered. Signed: Eliz Curry MD Report Verified Date/Time:01/29/2019 02:09:01 Reading Location: [address] Reading Room Procedure Note Interface, External Ris In - 01/29/2019 2:11 AM CDT FINAL REPORT CLINICAL HISTORY: Acute abdominal pain, nausea, rectal bleeding FINDINGS: Multiple axial images of the abdomen and pelvis were performed after the uncomplicated administration of IV contrast. Oral contrast was not given. This exam was performed according to our departmental dose-optimization program, which includes automated exposure control, adjustment of the mA and/or kV according to patient size and/or use of the iterative reconstruction technique. Comparison:None. Lower chest: Clear lungs. No pleural effusion or pneumothorax. Visualized cardiac contours normal. Liver: No significant findings. Gallbladder and biliary tree: No significant findings. Spleen: No significant findings. Adrenal Glands: No significant findings. Kidneys and ureters: No significant findings. Stomach and Duodenum: No significant findings. Pancreas: No significant findings. Bowel: Circumferential wall thickening of the colon from the hepatic flexure to the rectum with loss of mucosal architecture, prominent mucosal enhancement adjacent inflammatory fat stranding and prominent perirectal lymph nodes. There is fluid density stool in the rectum. No bowel obstruction or pneumatosis intestinalis. No dilated portion of colon. No evidence of perforation. Appendix: Nonvisualized. No pericecal inflammatory changes. Bladder: No significant findings. Major vascular structures: No significant findings. Reproductive organs: No significant findings. Other: No free air, fluid or adenopathy Skeleton: No acute bony abnormality. IMPRESSION: Colitis. Infectious and inflammatory causes are considered. Signed: Eliz Curry MD Report Verified Date/Time: 01/29/2019 02:09:01 Reading Location: [address] [place] Reading Room Performing Organization Address City/State/Zipcode Phone Number GE RIS hCG, quantitative, (01/29/2019 12:34 AM CDT) hCG Quant <1 0 - 10 mIU/mL [facility] Specimen Blood Narrative Performed At Non- Females: <10 mIU/mL [facility] Females: Gestation AgeReference Range(mIU/mL) 0.2-1 Week5-50 1-2 Pyryp90-830 2-3 Weeks 100-5,000 3-4 Weeks 500-10,000 4-5 Weeks 1,000-50,000 5-6 Weeks10,000-100,000 6-8 Weeks15,000-200,000 2-3 Months 10,000-100,000 Performing Organization Address [facility] Phone Number [address] [address] CENTER POC-Lactic Acid, Venous (01/28/2019 8:53 PM CDT) POC-Lactic Acid, Venous 0.8 (L)Comment: 0.9 - 1.7 mmol/L [facility] TESTED AT [address] [address] Specimen Blood Performing Organization Address [facility] Phone Number [address] [address] [phone] CENTER Manual Differential (01/28/2019 8:50 PM CDT) % Neutros 50 % [facility] % Lymphs 14 % [facility] % Monos 15 % [facility] % Eos 1 % [facility] % Bands 17 (H) 0 - 10 % [facility] % Atypical Lymphs 3 (H) 0 - 0 % [facility] # Neutros 4.50 1.56 - 6.13 K/ul [facility] # Lymphs 1.26 1.18 - 3.74 K/ul [facility] # Monos 1.35 (H) 0.24 - 0.36 K/uL [facility] # Eos 0.09 0.04 - 0.36 K/uL [facility] # Bands 1.53 (H) 0.00 - 0.80 K/uL [facility] # Atypical Lymphs 0.27 (H) 0.00 - 0.00 K/uL [facility] Total Counted 100 [facility] Platelet Morphology Normal [facility] Smudge Cells Present [facility] Polychromasia 3+ many [facility] Hypochromia 1+ few [facility] Anisocytosis 2+ moderate [facility] Microcytes 2+ moderate [facility] Poikilocytes 1+ few [facility] Platelet Conc Increased [facility] Specimen Blood Narrative Performed At Received comment: [facility] User comments: Slide comments: Performing Organization Address City/State/Zipcode Phone Number [facility] [address] [place] [address] CENTER CBC with platelet count + automated diff (01/28/2019 8:50 PM CDT)Only the most recent of3 resultswithin the time period is included. WBC 9.0 3.5 - 10.5 K/L [facility] RBC 4.87 3.93 - 5.22 M/L [facility] Hemoglobin 12.5 11.2 - 15.7 GM/DL [facility] Hematocrit 38.5 34.1 - 44.9 % [facility] MCV 79.1 (L) 79.4 - 94.8 fL [facility] MCH 25.7 25.6 - 32.2 pg [facility] MCHC 32.5 32.2 - 35.5 GM/DL [facility] RDW Comment: Unable to report due [facility] to abnormal RBC population [facility] distribution. Platelets 542 (H) 150 - 450 K/CU MM [facility] MPV 8.8 (L) 9.4 - 12.3 fL [facility] nRBC 0 0 - 0 /100 WBC [facility] Specimen Blood Performing Organization Address City/State/Zipcode Phone Number [facility] [address] [place] [address] CENTER Basic Metabolic Panel (01/28/2019 8:50 PM CDT)Only the most recent of5 resultswithin the time period is included. Sodium 134 (L) 136 - 145 meq/L [facility] Potassium 3.7 3.5 - 5.1 meq/L [facility] Chloride 96 (L) 98 - 107 meq/L [facility] CO2 25 22 - 29 meq/L [facility] BUN 11 7 - 21 mg/dL [facility] Creatinine 0.67 0.57 - 1.25 mg/dL [facility] Glucose 79 70 - 105 mg/dL [facility] Calcium 9.1 8.4 - 10.2 mg/dL [facility] EGFR 99Comment: ESTIMATED GFR IS mL/min/1.73 sq m [facility] NOT ACCURATE CREATININE [facility] CENTER CLEARANCE IN PREDICTING GLOMERULAR FILTRATION RATE. ESTIMATED GFR IS NOT APPLICABLE FOR DIALYSIS PATIENTS. Specimen Blood Performing Organization Address City/State/Zipcode Phone Number [facility] [address] [place] [address] [phone] CENTER Calcium, Ionized (11/28/2018 3:56 AM CDT)Only the most recent of3 resultswithin the time period is included. Calcium, Ion 1.09 (L) 1.12 - 1.27 mmol/L [facility] pH, Blood 7.41 [facility] Specimen Blood Performing Organization Address City/[facility] Phone Number [address] [address] [phone] [place] Prothrombin time/INR (11/28/2018 3:56 AM CDT)Only the most recent of3 resultswithin the time period is included. Protime 15.5 (H) 11.9 - 14.2 seconds [facility] INR 1.3 <=5.9 [facility] Specimen Blood Narrative Performed At Effective 10/18/2018: PT Reference Range [facility] Change New: 11.9-14.2Previous: 11.7-14.7 RECOMMENDED COUMADIN/WARFARIN INR THERAPY RANGES STANDARD DOSE: 2.0-3.0Includes: PROPHYLAXIS for venous thrombosis, systemic embolization; TREATMENT for venous thrombosis and/or pulmonary embolus. HIGH RISK: Target INR is 2.5-3.5 for patients wiht mechanical heart valves. Performing Organization Address [facility] Phone Number [address] [address] CENTER Magnesium (11/28/2018 3:56 AM CDT)Only the most recent of3 resultswithin the time period is included. Magnesium 1.9 1.6 - 2.6 mg/dL [facility] Specimen Blood Performing Organization Address City/[facility] Phone Number [address] [address] [phone] [place] Hepatic function panel (11/28/2018 3:56 AM CDT)Only the most recent of3 resultswithin the time period is included. Protein, Total 6.6 6.0 - 8.3 gm/dL [facility] Albumin 3.3 (L) 3.5 - 5.0 g/dL [facility] Total Bilirubin 0.1 (L) 0.2 - 1.2 mg/dL [facility] Bilirubin, Direct 0.1 0.1 - 0.5 mg/dL [facility] Alkaline Phosphatase 102 40 - 150 U/L [facility] AST 19 5 - 34 U/L [facility] ALT 19 6 - 55 U/L [facility] Specimen Blood Performing Organization Address City/State/Zipcode Phone Number [facility] [address] [place] [address] CENTER REPORT OF PROCEDURE - ENDOSCOPY URL (11/27/2018 12:20 PM CDT) Narrative Performed At Tissue Exam (11/27/2018 11:08 AM CDT) Case Report Surgical Pathology Report Case: [id number] [facility] Authorizing Provider:Ike Huynhected: 11/27/2018 1108 [facility] Ordering Location: [address] Received: 11/27/2018 1400 Service Pathologist: Jack [...] PART A RIGHT ASCENDING COLON POLYP, POLYPECTOMY: [facility] COLONIC MUCOSA WITH PROMINENT REACTIVE LYMPHOID AGGREGATE. [facility] NEGATIVE FOR DYSPLASIA OR INVASIVE CARCINOMA. [...] INVASIVE CARCINOMA. Signing Pathologist Direct Phone Line: [phone] CPT Code(s) 96833P2 [facility] CLINICAL HISTORY Pre and postop diagnosis: [facility] colitis [facility] SPECIMEN SOURCE A. Polyp, colon - [facility] right/ascending; B. Polyp, [facility] colon - hepatic flexure; C. Large intestine, colon - transverse; D. Large intestine, colon - left/descending; E. Polyp, colon - sigmoid; F. Rectum GROSS DESCRIPTION A. Received in formalin labeled with the patient's name, accession number and "polyp, colon - right/ascending" are three irregular bernal soft tissue fragments ranging 0.2-0.4 cm which are submitted in toto in A1. [facility] B. Received in formalin labeled with the [...] toto in F1. CG/pl MICROSCOPIC DESCRIPTION PERFORMED. [facility] Specimen Tissue - Polyp, Colon - Right/Ascending Tissue - Polyp, Colon - Hepatic Flexure Tissue - Transverse colon structure (body structure) Tissue - Descending colon structure (body structure) Tissue - Polyp, Colon - Sigmoid Tissue - Rectum structure (body structure) Performing Organization Address [facility]/Zipcode Phone Number [address] [address] [place] POCT , urine (11/27/2018 9:42 AM CDT) Test Urine, POC Negative Control line present?, POC Yes Background clear?, POC Yes UPT Cassette Lot #, POC [id number] UPT Cassette Expiration Date, POC 01-21-20 Specimen Urine HIV-1 Antigen with HIV-1/2 Antibody (11/27/2018 4:01 AM CDT) HIV-1 Antigen with HIV 1&2 Nonreactive Nonreactive [facility] Specimen Blood Performing Organization Address City/[facility]/Zipcode Phone Number [address] [address] [place] CBC (Hemogram only) (11/27/2018 4:01 AM CDT) WBC 7.0 3.5 - 10.5 K/L [facility] RBC 3.78 (L) 3.93 - 5.22 M/L [facility] Hemoglobin 7.5 (L) 11.2 - 15.7 GM/DL [facility] Hematocrit 25.6 (L) 34.1 - 44.9 % [facility] MCV 67.7 (L) 79.4 - 94.8 fL [facility] MCH 19.8 (L) 25.6 - 32.2 pg [facility] MCHC 29.3 (L) 32.2 - 35.5 GM/DL [facility] RDW 22.1 (H) 11.7 - 14.4 % [facility] Platelets 373 150 - 450 K/CU MM [facility] MPV 8.3 (L) 9.4 - 12.3 fL [facility] nRBC 0 0 - 0 /100 WBC [facility] Specimen Blood Performing Organization Address City/[facility] Phone Number [address] [address] [phone] CENTER ECG 12 lead (11/25/2018 9:24 PM CDT) Specimen Narrative Performed At Ventricular Rate 85 BPM GE MUSE Atrial Rate 85 BPM P-R Interval 142 ms QRS Duration 76 ms Q-T Interval 382 ms QTC Calculation(Bazett) 454 ms P Ary 21 degrees R Ary 37 degrees T Ary 9 degrees Normal sinus rhythm Normal ECG No previous ECGs available Confirmed by Sol CHANDRA BASANT ([id number]) on 11/26/2018 10:41:31 AM Procedure Note Interface, External Ris In - 11/26/2018 10:41 AM CDT Ventricular Rate 85 BPM Atrial Rate 85 BPM P-R Interval 142 ms QRS Duration 76 ms Q-T Interval 382 ms QTC Calculation(Bazett) 454 ms P Ary 21 degrees R Ary 37 degrees T Ary 9 degrees Normal sinus rhythm Normal ECG No previous ECGs available Confirmed by Sol CHANDRA BASANT ([id number]) on 11/26/2018 10:41:31 AM Performing Organization Address [facility] Phone Number [employer] Iron, TIBC, % sat. (without ferritin) (11/25/2018 4:05 PM CDT) Iron 35.0 (L) 40.0 - 160.0 ug/dL [facility] TIBC 385 250 - 450 ug/dL [facility] Iron % Saturation 9 (L) 20 - 55 % [facility] Specimen Blood Performing Organization Address [facility] Phone Number [facility] [address] [place] [address] CENTER C-Reactive Protein (11/25/2018 4:05 PM CDT) CRP 7.69 (H) 0.00 - 0.50 mg/dL [facility] Specimen Blood Performing Organization Address [facility] Phone Number [address] [address] [place] Reticulocyte count (11/25/2018 4:05 PM CDT) % Retic 0.8 0.5 - 1.7 % [facility] Specimen Blood Performing Organization Address [facility] Phone Number [address] [address] [place] Ferritin (11/25/2018 4:05 PM CDT) Ferritin 16 5 - 275 ng/mL [facility] Specimen Blood Performing Organization Address [facility] Phone Number [address] [address] [place] Clostridium difficile [facility] Toxin (11/25/2018 3:51 PM CDT) C. Difficle Toxin Negative Negative [facility] C. Difficile [facility] Antigen NegativeComment: No Negative [facility] indication of Clostridium [facility] difficile infection and no colonization. Discontinue enteric isolation and therapy. Specimen Stool Narrative Performed At Testing performed by [employer] [facility] Assay.For [facility], published sensitivity of the assay is 98.7% compared to cytotoxicity testing.For Toxin AB, published sensitivity is 87.8% and specificity 99.4% compared to cytotoxicity testing. Verification of kit performance was done by the [facility] Microbiology Lab prior to clinical use. Performing Organization Address City/[facility] Phone Number [address] [address] [place] GI Pathogen Profile by PCR -ID Only (11/25/2018 3:51 PM CDT) CAMPYLOBACTER (PCR) Not detected Not detected [facility] PLESIOMONAS SHIGELLOIDES (PCR) Not detected Not detected [facility] SALMONELLA (PCR) Not detected Not detected [facility] YERSINIA ENTEROCOLITICA (PCR) Not detected Not detected [facility] VIBRIO CHOLERAE (PCR) Not detected Not detected [facility] MED[facility] [place] ENTEROAGGREGATIVE E. COLI (EAEC) Not detected Not detected [facility] BY PCR [facility] [place] ENTEROPATHOGENIC E. COLI (EPEC) BY Not detected Not detected [facility] PCR [facility] [place] ENTEROTOXIGENIC E. COLI (ETEC) Not detected Not detected [facility] LT/ST BY PCR [facility] [place] SHIGA-LIKE TOXIN-PRODUCING E. COLI Not detected Not detected [facility] (STEC) STX1/STX2 [facility] [place] E. COLI O157 (PCR) Not detected [facility] SHIGELLA/ENTEROINVASIVE E. COLI Not detected Not detected [facility] (EIEC) BY PCR [facility] [place] CRYPTOSPORIDIUM (PCR) Not detected Not detected [facility] CYCLOSPORA CAYETANENSIS (PCR) Not detected Not detected [facility] ENTAMOEBA HISTOLYTICA (PCR) Not detected Not detected [facility] GIARDIA LAMBLIA (PCR) Not detected Not detected [facility] ADENOVIRUS F 40/41 (PCR) Not detected Not detected [facility] ASTROVIRUS (PCR) Not detected Not detected [facility] NOROVIRUS GI/GII (PCR) Not detected Not detected [facility] ROTAVIRUS A (PCR) Not detected Not detected [facility] SAPOVIRUS (I, II, IV, V) BY PCR Not detected Not detected [facility] VIBRIO (PARAHAEMOLYTICUS, Not detected Not detected [facility] VULNIFICUS) [facility] [place] Specimen Stool Narrative Performed At Other viruses, parasites and bacteria not [facility] targeted by this PCR panel cannot be excluded; therefore clinical correlation and follow up of serology, culture results, and other molecular studies is required. The results are not intended to be used as the sole means for clinical diagnosis or patient management decisions. This sample was tested at the [facility] using the [employer] Gastrointestinal Panel. It is FDA cleared and has been verified and approved by the [facility] for clinical use. This laboratory is CLIA-certified and [employer] (CAP)-accredited to perform high complexity testing. Performing Organization Address City/State/Zipcode Phone Number [address] [address] [phone] [place] STOOL PATH CHARGE (11/25/2018 3:51 PM CDT) Pathogen exam charged Done [facility] Specimen Stool Performing Organization Address [facility] Phone Number [address] [address] [phone] [place] Shiga Toxin Screen (11/25/2018 3:51 PM CDT) Shiga toxin 1 Not detected Not detected [facility] Shiga toxin 2 Not detected Not detected [facility] Specimen Stool Performing Organization Address City/[facility] Phone Number [address] [address] [place] Ova and Parasite Examination (11/25/2018 3:51 PM CDT) O&P Direct Smear No ova or parasites No ova or parasites [facility] seen seen [facility] O&P Concentrate Smear No ova or parasites No ova or parasites [facility] seen seen [facility] O&P Trichrome Smear No ova or parasites No ova or parasites [facility] seen seen [facility] Specimen Stool Narrative Performed At Performing Organization Address [facility] Phone Number [address] [address] CENTER Stool culture + Shiga toxin (11/25/2018 3:51 PM CDT) Result No Salmonella, Shigella or [facility] Campylobacter isolated [facility] Specimen Stool Performing Organization Address City/State/Zipcode Phone Number [facility] [address] [place] [address] CENTER after 01/30/2018 Insurance Payer Benefit Plan / Subscriber ID Type Phone Address Group [employer]UE [employer]OSS/[employer]UE [employer] OS xxxxxxxxxxxx PPO [phone] [address] [employer]IELD POS/PPO/[place] [address] CALLIE [employer]ine[employer] (Home) [place] [address] Advance Directives For more information, please contact:[facility] [place], [place] [phone] Code Status Date Activated Date Inactivated Comments Full Code 11/25/2018 2:28 PM 11/29/2018 2:44 PM This code status was determined by: Patient
--- OUTSIDE RECORDS SUMMARY | 2019-01-31 16:00 | XMS REPORT ---
[...] Start Date End Date Status Dosage Cephalexin [facility] [id number] 500 MG Orally October 06, October 16, Active 1 tablet every 12 hrs 2018 2018 Results No Known Results Summary Purpose [employer] Submission
--- OUTSIDE RECORDS SUMMARY | 2019-01-31 16:00 | XMS REPORT ---
:1980 [facility] [address] Cummings [address] [place] [id number] Care Team Providers Name Role Phone INGRID HARRIS Unavailable Unavailable QUOC CARMONA Unavailable Unavailable Problems This patient has no known problems. Allergies, Adverse Reactions, Alerts This patient has no known allergies or adverse reactions. Medications This patient has no known medications. Results Test Description Test Time Test Comments Text Results Atomic Results Result Comments SCREEN, URINE 2019-01-29 02:33:00 Test Item Value Reference Range Comments TEST URINE (BEAKER) (test nulx=535) Negative URINALYSIS W/ REFLEX URINE [id number] 02:31:00 Test Item Value Reference Range Comments COLOR (BEAKER) (test isxs=757) Yellow CLARITY (BEAKER) (test apgd=848) Hazy SPECIFIC GRAVITY UA (BEAKER) (test zrvg=616) 1.017 1.001-1.035 PH UA (BEAKER) (test oiec=252) 5.5 5.0-8.0 PROTEIN UA (BEAKER) (test vrwu=370) 30 mg/dL Negative GLUCOSE UA (BEAKER) (test fgqd=211) Negative Negative KETONES UA (BEAKER) (test umiw=987) >150 mg/dL Negative BILIRUBIN UA (BEAKER) (test ybsz=841) Negative Negative BLOOD UA (BEAKER) (test klru=702) Small Negative NITRITE UA (BEAKER) (test laqc=050) Negative Negative LEUKOCYTE ESTERASE UA (BEAKER) (test lmkq=001) Negative Negative UROBILINOGEN UA (BEAKER) (test izhb=418) 0.2 mg/dL 0.2-1.0 RBC UA (BEAKER) (test lsxh=092) 1 /HPF WBC UA (BEAKER) (test ogpr=010) 1 /HPF MUCUS (BEAKER) (test reuy=8496) Few SQUAMOUS EPITHELIAL (BEAKER) (test kpfx=885) 3 /HPF AMORPHOUS CRYSTALS (BEAKER) (test qboe=4948) Occasional SOURCE(BEAKER) (test stxy=6012) CT, [id number] 02:09:00Reason for exam:->ABDOMINAL PAINReason for exam :->NAUSEAReason for exam:->RECTAL BLEEDINGWhat is the patient's sedation requirement?->No SedationIs the patient ?->UnknownFINAL REPORT CLINICAL HISTORY: Acute abdominal pain, nausea, rectal bleedingFINDINGS: Multiple axial images of the abdomen and pelvis were performed after the uncomplicated administration of IV contrast. Oral contrast was not given. This exam was performed according to our departmental dose- optimization program, which includes automated exposure control, adjustment of the mAand/or kV according to patient size and/or use [...] findings. Other: No free air, fluid or adenopathySkeleton: No acute bony abnormality. IMPRESSION: Colitis. Infectious and inflammatory causes are considered. Signed: Eliz Curry Verified Date/Time: 01/29/2019 02:09 :01 Reading Location: [address] Reading Room HCG, QUANTITATIVE, [id number] 01:30:00 Test Item Value Reference Range Comments GONADOTROPIN, CHORIONIC (HCG) QUANT (BEAKER) (test < mIU/mL 0-10 vgxj=549) Non- Females: <10 mIU/mL Females: Gestation Age Reference Range(mIU/mL) 0.2-1 Week 5-50 1-2 Weeks 50-500 2-3 Weeks 100-5,000 3-4Weeks 500-10,000 4 -5 Weeks 1,000-50,000 5-6 Weeks 10,000-100,000 6-8 Weeks 15,000-200,000 2-3 Months 10,000-100,000POCT-LACTIC ACID, [id number] 23:56:00 Test Item Value Reference Range Comments POC-LACTIC ACID, VENOUS 0.8 mmol/L 0.9-1.7 TESTED AT [facility] [address] (BEAKER) (test orxf=3362) [facility] [address] CBC W/PLT COUNT & AUTO [id number] 21:42:00 Test Item Value Reference Range Comments WHITE BLOOD CELL COUNT 9.0 K/ L 3.5-10.5 (BEAKER) (test cbwg=401) RED BLOOD CELL COUNT (BEAKER) 4.87 M/ L 3.93-5.22 (test ldfg=821) HEMOGLOBIN (BEAKER) (test 12.5 GM/DL 11.2-15.7 usik=854) HEMATOCRIT (BEAKER) (test 38.5 % 34.1-44.9 pbto=767) MEAN CORPUSCULAR VOLUME 79.1 fL 79.4-94.8 (BEAKER) (test haee=925) MEAN CORPUSCULAR HEMOGLOBIN 25.7 pg 25.6-32.2 (BEAKER) (test tmpv=889) MEAN CORPUSCULAR HEMOGLOBIN 32.5 GM/DL 32.2-35.5 CONC (BEAKER) (test qxtz=160) RED CELL DISTRIBUTION WIDTH Unable to report due to (BEAKER) (test bdqi=676) abnormal RBC population distribution. PLATELET COUNT (BEAKER) (test 542 K/CU MM 150-450 esum=519) MEAN PLATELET VOLUME (BEAKER) 8.8 fL 9.4-12.3 (test ifsf=695) NUCLEATED RED BLOOD CELLS 0 /100 WBC 0-0 (BEAKER) (test ncjx=312) (CELLAVISION MANUAL DIFF)2019-01-28 21:42:00 Test Item Value Reference Range Comments NEUTROPHILS - REL (CELLAVISION)(BEAKER) (test 50 % jnhg=3444) LYMPHOCYTES - REL (CELLAVISION)(BEAKER) (test 14 % wrwm=3758) MONOCYTES - REL (CELLAVISION)(BEAKER) (test 15 % hrio=6991) EOSINOPHILS - REL (CELLAVISION)(BEAKER) (test 1 % puut=0204) BANDS - REL (CELLAVISION)(BEAKER) (test 17 % 0-10 mwja=8603) ATYPICAL LYMPHOCYTES - REL (CELLAVISION)(BEAKER) 3 % 0-0 (test lvyt=4293) NEUTROPHILS - ABS (CELLAVISION)(BEAKER) (test 4.50 K/ul 1.56-6.13 gafv=7667) LYMPHOCYTES - ABS (CELLAVISION)(BEAKER) (test 1.26 K/ul 1.18-3.74 jepl=5105) MONOCYTES - ABS (CELLAVISION)(BEAKER) (test 1.35 K/uL 0.24-0.36 kojb=2981) EOSINOPHILS - ABS (CELLAVISION)(BEAKER) (test 0.09 K/uL 0.04-0.36 jcmk=3842) BANDS - ABS (CELLAVISION)(BEAKER) (test 1.53 K/uL 0.00-0.80 hwix=1731) ATYPICAL LYMPHOCYTES - ABS (CELLAVISION)(BEAKER) 0.27 K/uL 0.00-0.00 (test qkcq=6834) TOTAL COUNTED (BEAKER) (test xkdh=6615) 100 PLT MORPHOLOGY (BEAKER) (test zivo=175) Normal SMUDGE CELLS (BEAKER) (test bjob=5118) Present POLYCHROMATOPHILLIC RBCS(BEAKER) (test rpmm=551) 3+ many HYPOCHROMIA (BEAKER) (test sraj=157) 1+ few ANISOCYTOSIS (BEAKER) (test nbmv=614) 2+ moderate MICROCYTES (BEAKER) (test dpvq=018) 2+ moderate POIKILOCYTES (BEAKER) (test azwt=750) 1+ few PLATELET CONCENTRATION (CELLAVISION)(BEAKER) Increased (test cwlf=5218) Received comment: User comments: Slide comments:BASIC METABOLIC [id number] 21:21:00 Test Item Value Reference Range Comments SODIUM (BEAKER) (test 134 meq/L 136-145 liru=097) POTASSIUM (BEAKER) (test 3.7 meq/L 3.5-5.1 flta=143) CHLORIDE (BEAKER) (test 96 meq/L 98-107 nkwg=799) CO2 (BEAKER) (test 25 meq/L 22-29 hahw=176) BLOOD UREA NITROGEN 11 mg/dL 7-21 (BEAKER) (test yrtv=189) CREATININE (BEAKER) (test 0.67 mg/dL 0.57-1.25 unof=193) GLUCOSE RANDOM (BEAKER) 79 mg/dL 70-105 (test dieh=416) CALCIUM (BEAKER) (test 9.1 mg/dL 8.4-10.2 butc=952) EGFR (BEAKER) (test 99 mL/min/1.73 sq m ESTIMATED GFR IS NOT cmdn=0129) ACCURATE CREATININE CLEARANCE IN PREDICTING GLOMERULAR FILTRATION RATE. ESTIMATED GFR IS NOT APPLICABLE FOR DIALYSIS PATIENTS. OVA AND PARASITE [id number] 08:15:00 Test Item Value Reference Range Comments DIRECT SMEAR - O\\T\\P No ova or parasites seen No ova or parasites seen (BEAKER) (test aepw=222) CONCENTRATE SMEAR - O\\T\\P No ova or parasites seen No ova or parasites seen (BEAKER) (test nfyt=499) TRICHROME SMEAR - O\\T\\P No ova or parasites seen No ova or parasites seen (BEAKER) (test zwqu=330) BASIC METABOLIC [id number] 05:42:00 Test Item Value Reference Range Comments SODIUM (BEAKER) (test 138 meq/L 136-145 lxpo=263) POTASSIUM (BEAKER) (test 3.1 meq/L 3.5-5.1 vgzs=495) CHLORIDE (BEAKER) (test 108 meq/L 98-107 iile=898) CO2 (BEAKER) (test 23 meq/L 22-29 qzmg=565) BLOOD UREA NITROGEN 5 mg/dL 7-21 (BEAKER) (test gtql=262) CREATININE (BEAKER) (test 0.65 mg/dL 0.57-1.25 insq=671) GLUCOSE RANDOM (BEAKER) 111 mg/dL 70-105 (test rzua=321) CALCIUM (BEAKER) (test 8.3 mg/dL 8.4-10.2 axwd=970) EGFR (BEAKER) (test 102 mL/min/1.73 sq m ESTIMATED GFR IS NOT gptg=4698) ACCURATE CREATININE CLEARANCE IN PREDICTING GLOMERULAR FILTRATION RATE. ESTIMATED GFR IS NOT APPLICABLE FOR DIALYSIS PATIENTS. CBC W/PLT COUNT & AUTO [id number] 05:35:00 Test Item Value Reference Range Comments WHITE BLOOD CELL COUNT (BEAKER) (test xmdl=596) 7.6 K/ L 3.5-10.5 RED BLOOD CELL COUNT (BEAKER) (test ycna=927) 3.80 M/ L 3.93-5.22 HEMOGLOBIN (BEAKER) (test qmfi=013) 7.7 GM/DL 11.2-15.7 HEMATOCRIT (BEAKER) (test arxq=785) 25.8 % 34.1-44.9 MEAN CORPUSCULAR VOLUME (BEAKER) (test oivk=910) 67.9 fL 79.4-94.8 MEAN CORPUSCULAR HEMOGLOBIN (BEAKER) (test 20.3 pg 25.6-32.2 wkpf=590) MEAN CORPUSCULAR HEMOGLOBIN CONC (BEAKER) (test 29.8 GM/DL 32.2-35.5 rpvj=479) RED CELL DISTRIBUTION WIDTH (BEAKER) (test 23.0 % 11.7-14.4 gwgg=488) PLATELET COUNT (BEAKER) (test cbuk=497) 380 K/CU MM 150-450 MEAN PLATELET VOLUME (BEAKER) (test ozby=268) 8.6 fL 9.4-12.3 NUCLEATED RED BLOOD CELLS (BEAKER) (test 0 /100 WBC 0-0 sumu=749) NEUTROPHILS RELATIVE PERCENT (BEAKER) (test 63 % mdgm=722) LYMPHOCYTES RELATIVE PERCENT (BEAKER) (test 20 % oqsi=944) MONOCYTES RELATIVE PERCENT (BEAKER) (test 10 % baab=746) EOSINOPHILS RELATIVE PERCENT (BEAKER) (test 6 % xyny=898) BASOPHILS RELATIVE PERCENT (BEAKER) (test 1 % dsje=976) NEUTROPHILS ABSOLUTE COUNT (BEAKER) (test 4.79 K/ L 1.56-6.13 kyfe=433) LYMPHOCYTES ABSOLUTE COUNT (BEAKER) (test 1.48 K/ L 1.18-3.74 mzla=998) MONOCYTES ABSOLUTE COUNT (BEAKER) (test 0.76 K/ L 0.24-0.36 hqmn=594) EOSINOPHILS ABSOLUTE COUNT (BEAKER) (test 0.45 K/ L 0.04-0.36 hvxm=993) BASOPHILS ABSOLUTE COUNT (BEAKER) (test 0.05 K/ L 0.01-0.08 tyuc=290) IMMATURE GRANULOCYTES-RELATIVE PERCENT (BEAKER) 0 % 0-1 (test cqjg=5115) TISSUE [id number] 09:51:00Surgical Pathology Report Case: [id number] Authorizing Provider: Ike Huynh Collected: 11/27/2018 1108 Ordering Location: [address] Received: 11/27/2018 1400 Service Pathologist: Jack [...] INVASIVE CARCINOMA. Signing Pathologist Direct Phone Line: [phone] signed by Jack Batista MD on 11/28/2018 at 9:51 [id number] and postop diagnosis: colitisA. Polyp,colon - right/ascending [...] whichare submitted in toto in F1. CG/pl PERFORMED.[id number] 04:33:00 Test Item Value Reference Range Comments MAGNESIUM (BEAKER) (test qhnd=710) 1.9 mg/dL 1.6-2.6 BASIC METABOLIC [id number] 04:33:00 Test Item Value Reference Range Comments SODIUM (BEAKER) (test 139 meq/L 136-145 gkgb=899) POTASSIUM (BEAKER) (test 3.6 meq/L 3.5-5.1 hoiv=463) CHLORIDE (BEAKER) (test 109 meq/L 98-107 gniv=738) CO2 (BEAKER) (test 21 meq/L 22-29 iyiy=725) BLOOD UREA NITROGEN 6 mg/dL 7-21 (BEAKER) (test mgaa=119) CREATININE (BEAKER) (test 0.61 mg/dL 0.57-1.25 xhfg=747) GLUCOSE RANDOM (BEAKER) 93 mg/dL 70-105 (test cxrl=205) CALCIUM (BEAKER) (test 8.4 mg/dL 8.4-10.2 syxe=862) EGFR (BEAKER) (test 110 mL/min/1.73 sq m ESTIMATED GFR IS NOT mgdy=5086) ACCURATE CREATININE CLEARANCE IN PREDICTING GLOMERULAR FILTRATION RATE. ESTIMATED GFR IS NOT APPLICABLE FOR DIALYSIS PATIENTS. HEPATIC FUNCTION [id number] 04:33:00 Test Item Value Reference Range Comments TOTAL PROTEIN (BEAKER) (test ouse=172) 6.6 gm/dL 6.0-8.3 ALBUMIN (BEAKER) (test utpz=5413) 3.3 g/dL 3.5-5.0 BILIRUBIN TOTAL (BEAKER) (test gway=336) 0.1 mg/dL 0.2-1.2 BILIRUBIN DIRECT (BEAKER) (test ijzx=917) 0.1 mg/dL 0.1-0.5 ALKALINE PHOSPHATASE (BEAKER) (test ucne=928) 102 U/L 40-150 AST (SGOT) (BEAKER) (test ubsn=620) 19 U/L 5-34 ALT (SGPT) (BEAKER) (test zink=277) 19 U/L 6-55 CALCIUM, [id number] 04:30:00 Test Item Value Reference Range Comments CALCIUM IONIZED (BEAKER) (test zxyu=077) 1.09 mmol/L 1.12-1.27 PH, BLOOD (BEAKER) (test olbv=6147) 7.41 PROTHROMBIN [id number] 04:20:00 Test Item Value Reference Range Comments PROTIME (BEAKER) (test owmk=888) 15.5 seconds 11.9-14.2 INR (BEAKER) (test tgdb=395) 1.3 <=5.9 Effective 10/18/2018: PT Reference Range ChangeNew: 11.9-14.2 Previous: 11.7- 14.7RECOMMENDED COUMADIN/WARFARIN INR THERAPY RANGESSTANDARD DOSE: 2.0-3.0 Includes: PROPHYLAXIS for venous thrombosis, systemic embolization; TREATMENT for venous thrombosis and/or pulmonary embolus.HIGH RISK: Target INR is2.5-3.5 for patients wiht mechanical heart valves.STOOL CULTURE + SHIGA [id number] 11:46:00 Test Item Value Reference Range Comments CULTURE (BEAKER) (test No Salmonella, Shigella or ueck=1202) Campylobacter isolated HIV-1 ANTIGEN WITH HIV-1/2 [id number] 09:38:00 Test Item Value Reference Range Comments HIV-1 ANTIGEN WITH HIV 1\\T\\2 ANTIBODY (2) Nonreactive Nonreactive (BEAKER) (test mche=2506) [id number] 05:10:00 Test Item Value Reference Range Comments MAGNESIUM (BEAKER) (test wmgj=115) 2.1 mg/dL 1.6-2.6 BASIC METABOLIC [id number] 05:10:00 Test Item Value Reference Range Comments SODIUM (BEAKER) (test 135 meq/L 136-145 hqpq=720) POTASSIUM (BEAKER) (test 3.5 meq/L 3.5-5.1 hxoc=919) CHLORIDE (BEAKER) (test 108 meq/L 98-107 mqcq=331) CO2 (BEAKER) (test 21 meq/L 22-29 sojg=971) BLOOD UREA NITROGEN 5 mg/dL 7-21 (BEAKER) (test mcxb=303) CREATININE (BEAKER) (test 0.61 mg/dL 0.57-1.25 ezll=931) GLUCOSE RANDOM (BEAKER) 90 mg/dL 70-105 (test xdpg=064) CALCIUM (BEAKER) (test 8.0 mg/dL 8.4-10.2 lzid=975) EGFR (BEAKER) (test 110 mL/min/1.73 sq m ESTIMATED GFR IS NOT wkkr=7060) ACCURATE CREATININE CLEARANCE IN PREDICTING GLOMERULAR FILTRATION RATE. ESTIMATED GFR IS NOT APPLICABLE FOR DIALYSIS PATIENTS. HEPATIC FUNCTION [id number] 05:10:00 Test Item Value Reference Range Comments TOTAL PROTEIN (BEAKER) (test tbbh=031) 6.5 gm/dL 6.0-8.3 ALBUMIN (BEAKER) (test jgve=9013) 3.3 g/dL 3.5-5.0 BILIRUBIN TOTAL (BEAKER) (test kvoo=746) 0.1 mg/dL 0.2-1.2 BILIRUBIN DIRECT (BEAKER) (test xhll=502) 0.1 mg/dL 0.1-0.5 ALKALINE PHOSPHATASE (BEAKER) (test fdvk=931) 97 U/L 40-150 AST (SGOT) (BEAKER) (test mgbl=353) 13 U/L 5-34 ALT (SGPT) (BEAKER) (test jkzb=979) 17 U/L 6-55 CALCIUM, [id number] 04:48:00 Test Item Value Reference Range Comments CALCIUM IONIZED (BEAKER) (test mqnb=551) 1.02 mmol/L 1.12-1.27 PH, BLOOD (BEAKER) (test dliw=8520) 7.42 PROTHROMBIN [id number] 04:39:00 Test Item Value Reference Range Comments PROTIME (BEAKER) (test uqkx=079) 14.6 seconds 11.9-14.2 INR (BEAKER) (test uxpv=057) 1.2 <=5.9 Effective 10/18/2018: PT Reference Range ChangeNew: 11.9-14.2 Previous: 11.7- 14.7RECOMMENDED COUMADIN/WARFARIN INR THERAPY RANGESSTANDARD DOSE: 2.0-3.0 Includes: PROPHYLAXIS for venous thrombosis, systemic embolization; TREATMENT for venous thrombosis and/or pulmonary embolus.HIGH RISK: Target INR is2.5-3.5 for patients wiht mechanical heart valves.CBC (HEMOGRAM ONLY)2018-11-27 04:33:00 Test Item Value Reference Range Comments WHITE BLOOD CELL COUNT (BEAKER) (test coqc=351) 7.0 K/ L 3.5-10.5 RED BLOOD CELL COUNT (BEAKER) (test pivs=420) 3.78 M/ L 3.93-5.22 HEMOGLOBIN (BEAKER) (test epdb=558) 7.5 GM/DL 11.2-15.7 HEMATOCRIT (BEAKER) (test wdur=216) 25.6 % 34.1-44.9 MEAN CORPUSCULAR VOLUME (BEAKER) (test tfbe=929) 67.7 fL 79.4-94.8 MEAN CORPUSCULAR HEMOGLOBIN (BEAKER) (test 19.8 pg 25.6-32.2 cdkq=066) MEAN CORPUSCULAR HEMOGLOBIN CONC (BEAKER) (test 29.3 GM/DL 32.2-35.5 fqaf=875) RED CELL DISTRIBUTION WIDTH (BEAKER) (test 22.1 % 11.7-14.4 iklf=088) PLATELET COUNT (BEAKER) (test xvly=593) 373 K/CU MM 150-450 MEAN PLATELET VOLUME (BEAKER) (test novh=302) 8.3 fL 9.4-12.3 NUCLEATED RED BLOOD CELLS (BEAKER) (test 0 /100 WBC 0-0 dqkx=957) STOOL PATH [id number] 18:28:00 Test Item Value Reference Range Comments PATHOGEN EXAM CHARGED (BEAKER) (test pkja=5741) Done SHIGA TOXIN [id number] 14:40:00 Test Item Value Reference Range Comments SHIGA TOXIN 1 (BEAKER) (test lxfp=9589) Not detected Not detected SHIGA TOXIN 2 (BEAKER) (test zmtd=0467) Not detected Not detected CBC W/PLT COUNT & AUTO [id number] 06:26:00 Test Item Value Reference Range Comments WHITE BLOOD CELL COUNT (BEAKER) (test tpvs=075) 5.5 K/ L 3.5-10.5 RED BLOOD CELL COUNT (BEAKER) (test wciq=900) 3.65 M/ L 3.93-5.22 HEMOGLOBIN (BEAKER) (test blfp=936) 7.3 GM/DL 11.2-15.7 HEMATOCRIT (BEAKER) (test pzcw=692) 24.6 % 34.1-44.9 MEAN CORPUSCULAR VOLUME (BEAKER) (test lbtf=730) 67.4 fL 79.4-94.8 MEAN CORPUSCULAR HEMOGLOBIN (BEAKER) (test 20.0 pg 25.6-32.2 musu=642) MEAN CORPUSCULAR HEMOGLOBIN CONC (BEAKER) (test 29.7 GM/DL 32.2-35.5 nmja=380) RED CELL DISTRIBUTION WIDTH (BEAKER) (test 22.0 % 11.7-14.4 ijqz=175) PLATELET COUNT (BEAKER) (test rhzd=206) 354 K/CU MM 150-450 MEAN PLATELET VOLUME (BEAKER) (test hnpj=941) 8.3 fL 9.4-12.3 NUCLEATED RED BLOOD CELLS (BEAKER) (test 0 /100 WBC 0-0 jmqr=701) NEUTROPHILS RELATIVE PERCENT (BEAKER) (test 65 % cyhi=041) LYMPHOCYTES RELATIVE PERCENT (BEAKER) (test 17 % ssif=072) MONOCYTES RELATIVE PERCENT (BEAKER) (test 12 % yiwe=439) EOSINOPHILS RELATIVE PERCENT (BEAKER) (test 5 % abhd=935) BASOPHILS RELATIVE PERCENT (BEAKER) (test 1 % ohhx=790) NEUTROPHILS ABSOLUTE COUNT (BEAKER) (test 3.60 K/ L 1.56-6.13 zhtr=981) LYMPHOCYTES ABSOLUTE COUNT (BEAKER) (test 0.92 K/ L 1.18-3.74 kgcp=030) MONOCYTES ABSOLUTE COUNT (BEAKER) (test 0.66 K/ L 0.24-0.36 uaiq=984) EOSINOPHILS ABSOLUTE COUNT (BEAKER) (test 0.30 K/ L 0.04-0.36 nfqr=619) BASOPHILS ABSOLUTE COUNT (BEAKER) (test 0.03 K/ L 0.01-0.08 dcey=517) IMMATURE GRANULOCYTES-RELATIVE PERCENT (BEAKER) 0 % 0-1 (test hvrn=3717) [id number] 06:21:00 Test Item Value Reference Range Comments MAGNESIUM (BEAKER) (test xost=676) 2.1 mg/dL 1.6-2.6 BASIC METABOLIC [id number] 06:21:00 Test Item Value Reference Range Comments SODIUM (BEAKER) (test 136 meq/L 136-145 qlde=382) POTASSIUM (BEAKER) (test 3.7 meq/L 3.5-5.1 eyhi=452) CHLORIDE (BEAKER) (test 108 meq/L 98-107 guex=147) CO2 (BEAKER) (test 23 meq/L 22-29 tfqh=194) BLOOD UREA NITROGEN 8 mg/dL 7-21 (BEAKER) (test blkt=869) CREATININE (BEAKER) (test 0.64 mg/dL 0.57-1.25 bcxu=138) GLUCOSE RANDOM (BEAKER) 93 mg/dL 70-105 (test qvsq=830) CALCIUM (BEAKER) (test 8.1 mg/dL 8.4-10.2 sodj=283) EGFR (BEAKER) (test 104 mL/min/1.73 sq m ESTIMATED GFR IS NOT fieu=0964) ACCURATE CREATININE CLEARANCE IN PREDICTING GLOMERULAR FILTRATION RATE. ESTIMATED GFR IS NOT APPLICABLE FOR DIALYSIS PATIENTS. HEPATIC FUNCTION [id number] 06:21:00 Test Item Value Reference Range Comments TOTAL PROTEIN (BEAKER) (test kvkr=226) 6.3 gm/dL 6.0-8.3 ALBUMIN (BEAKER) (test yvja=2602) 3.3 g/dL 3.5-5.0 BILIRUBIN TOTAL (BEAKER) (test zroj=827) 0.2 mg/dL 0.2-1.2 BILIRUBIN DIRECT (BEAKER) (test pnmh=971) 0.1 mg/dL 0.1-0.5 ALKALINE PHOSPHATASE (BEAKER) (test kbuc=742) 100 U/L 40-150 AST (SGOT) (BEAKER) (test skxd=014) 12 U/L 5-34 ALT (SGPT) (BEAKER) (test hvnw=566) 20 U/L 6-55 PROTHROMBIN [id number] 06:19:00 Test Item Value Reference Range Comments PROTIME (BEAKER) (test kojj=606) 14.6 seconds 11.9-14.2 INR (BEAKER) (test mvcc=838) 1.2 <=5.9 Effective 10/18/2018: PT Reference Range ChangeNew: 11.9-14.2 Previous: 11.7- 14.7RECOMMENDED COUMADIN/WARFARIN INR THERAPY RANGESSTANDARD DOSE: 2.0-3.0 Includes: PROPHYLAXIS for venous thrombosis, systemic embolization; TREATMENT for venous thrombosis and/or pulmonary embolus.HIGH RISK: Target INR is2.5-3.5 for patients wiht mechanical heart valves.CALCIUM, [id number] 05:52:00 Test Item Value Reference Range Comments CALCIUM IONIZED (BEAKER) (test ovjv=688) 1.08 mmol/L 1.12-1.27 PH, BLOOD (BEAKER) (test whgl=3271) 7.41 GI PATHOGEN PROFILE BY [id number] 18:49:00 Test Item Value Reference Range Comments CAMPYLOBACTER (PCR) (test bppa=7926353) Not detected Not detected PLESIOMONAS SHIGELLOIDES (PCR) (test Not detected Not detected iviz=5474324) SALMONELLA (PCR) (test rmbm=4834678) Not detected Not detected YERSINIA ENTEROCOLITICA (PCR) (test Not detected Not detected zrcm=2998082) VIBRIO CHOLERAE (PCR) (test qsuh=8221969) Not detected Not detected ENTEROAGGREGATIVE E. COLI (EAEC) BY PCR (test Not detected Not detected nmmk=2634979) ENTEROPATHOGENIC E. COLI (EPEC) BY PCR (test Not detected Not detected wikc=2529316) ENTEROTOXIGENIC E. COLI (ETEC) LT/ST BY PCR Not detected Not detected (test tvnx=0594675) SHIGA-LIKE TOXIN-PRODUCING E. COLI (STEC) Not detected Not detected STX1/STX2 (test axzj=4243754) E. COLI O157 (PCR) (test prpr=3379168) Not detected SHIGELLA/ENTEROINVASIVE E. COLI (EIEC) BY PCR Not detected Not detected (test pfds=3546213) CRYPTOSPORIDIUM (PCR) (test kilc=0442479) Not detected Not detected CYCLOSPORA CAYETANENSIS (PCR) (test Not detected Not detected qnpr=2770801) ENTAMOEBA HISTOLYTICA (PCR) (test pmrn=7540477) Not detected Not detected GIARDIA LAMBLIA (PCR) (test bupx=7292908) Not detected Not detected ADENOVIRUS F 40/41 (PCR) (test nnnz=1981828) Not detected Not detected ASTROVIRUS (PCR) (test lpbq=3853981) Not detected Not detected NOROVIRUS GI/GII (PCR) (test ozvv=3159561) Not detected Not detected ROTAVIRUS A (PCR) (test fvcl=8039811) Not detected Not detected SAPOVIRUS (I, II, IV, V) BY PCR (test Not detected Not detected fpin=8610354) VIBRIO (PARAHAEMOLYTICUS, VULNIFICUS) (test Not detected Not detected blvm=7629963) Other viruses, parasites and bacteria not targeted by this PCR panel cannot be excluded; therefore clinical correlation and follow up of serology, culture results, and other molecular studies is required. The results are not intended to be used as the sole means for clinical diagnosis or patient management decisions. This sample was tested at the [facility] using the [employer] Gastrointestinal Panel. It is FDA cleared and has been verified and approved by the [facility] for clinical use. This laboratory is CLIA-certified and College ofAmerican Pathologists (CAP)-accredited to perform high complexity testing.C. DIFFICILE GDH [id number] 17:47:00 Test Item Value Reference Range Comments CDT TOXIN (test Negative Negative bpqm=[id number]) CDT GDH ANTIGEN (test Negative Negative No indication of Clostridium umsb=[id number]) difficile infection and no colonization. Discontinue enteric isolation and therapy. Testing performed by [employer] Rapid Cassette Assay. For GDH, published sensitivity of the assay is 98.7% compared to cytotoxicity testing. For Toxin AB, published sensitivity is 87.8% and specificity 99.4% compared to cytotoxicity testing.Verification of kit performance was done by the [facility] prior to clinical use.[id number] 17:01:00 Test Item Value Reference Range Comments FERRITIN (BEAKER) (test weyk=139) 16 ng/mL 5-275 IRON, TIBC, % SAT. (WITHOUT FERRITIN)2018-11-25 16:40:00 Test Item Value Reference Range Comments IRON (BEAKER) (test qepo=809) 35.0 ug/dL 40.0-160.0 TOTAL IRON BINDING CAPACITY (BEAKER) (test 385 ug/dL 250-450 awmi=667) IRON % SATURATION (2) (BEAKER) (test snvn=2683) 9 % 20-55 C-REACTIVE [id number] 16:39:00 Test Item Value Reference Range Comments C-REACTIVE PROTEIN (BEAKER) (test tiuo=569) 7.69 mg/dL 0.00-0.50 RETICULOCYTE [id number] 16:24:00 Test Item Value Reference Range Comments RETICULOCYTE COUNT PCT (BEAKER) (test wmke=977) 0.8 % 0.5-1.7
[2019-01-31] MEDS ORDERED: FENTANYL CITR 100 MCG/2 ML ONE (17:40)
[2019-01-31] MEDS ORDERED: ONDANSETRON 4 MG/2 ML VIAL ONE (17:41)
[2019-01-31] MEDS ORDERED: NA CHLORIDE 0.9% 1,000 ML ONE ×2 (17:41→20:10)
[2019-01-31] MEDS ORDERED: PANTOPRAZOLE 40 MG INJ ONE (17:41)
[2019-01-31 17:47] LABS: Absolute Lymphocytes (CBC) 0.8 K/uL (0.7-4.9); Basophils % 0.2 % (0-1.3); Hematocrit 37.7 % (36.0-45.0); Lymphocytes % 6.8 % (15.3-44.8); MPV 6.8 fL (7.6-11.3); RBC Red Blood Cell Count 4.72 M/uL (3.86-4.86)
[2019-01-31 17:50] LABS: Protime INR 1.35
[2019-01-31 18:04] LABS: ALT/SGPT 126 U/L (12-78); AST/SGOT 18 U/L (15-37); Albumin 2.7 g/dL (3.4-5.0); Alkaline Phosphatase 206 U/L (45-117); BUN Blood Urea Nitrogen 3 mg/dL (7-18); Bicarbonate 17 mmol/L (21-32); Bilirubin Direct < 0.1 mg/dL (0-0.2); Bilirubin Total 0.3 mg/dL (0.2-1.0); Glucose Level 90 mg/dL (74-106); Lipase 38 U/L (73-393); Potassium 3.1 mmol/L (3.5-5.1); Protein, Total 7.1 g/dL (6.4-8.2); Sodium Level 134 mmol/L (136-145)
[2019-01-31 18:45] LABS: Urine Blood 2+ (NEG); Urine Glucose NEGATIVE (NEG); Urine Protein 2+ (NEG); Urine pH 5.5 (5.0-7.0)
[2019-01-31] MEDS ORDERED: PROMETHAZINE 25 MG/ML VIAL ONE (18:47)
--- NOTE | 2019-01-31 18:53 | RAD REPORT ---
EXAM DESCRIPTION: CTAbdomen Pelvis W Contrast - 01/31/2019 6:42 pm CLINICAL HISTORY: Abdominal pain. ABD PAIN COMPARISON: Abdomen Pelvis W Contrast dated 01/23/2019; Abdomen Pelvis W Contrast dated 11/25/2018 TECHNIQUE: Biphasic CT imaging of the abdomen and pelvis was performed with 100 ml non-ionic IV cont rast. All CT scans are performed using dose optimization technique as appropriate and may include automated exposure control or mA/KV adjustment according to patient size. FINDINGS: The lung bases are clear. The liver, spleen, pancreas, adrenal glands and kidneys are within normal limits. No bowel obstruction, free air, free fluid or abscess. Moderate mural thickening and mucosal enhancem ent involving the colon is present spanning the majority of the colon, sparing a significant portion of the ascending colon. The findings appear progressive since the comparative study. No pneumatosis c william. The appendix is not identified as a discrete structure, however, no secondary findings of append icitis are identified. No evidence of significant lymphadenopathy. No suspicious bony findings. 3 cm right adnexal cyst. IMPRESSION: Progressive colitis since the comparative study is noted, currently moderately severe as detailed.
[2019-01-31] MEDS: NA CHLORIDE 0.9% 1,000 ML with POTASSIUM CL 40 MEQ IV SCH ×2 (19:00)
[2019-01-31 19:01] LABS: Urine Amorphous Sediment 1+ /HPF (NONE SEEN); Urine Bacteria 20-50 /HPF (<20); Urine Culture Reflex Order REFLEXED; Urine Mucus 2+ /HPF (NONE SEEN)
[2019-01-31 19:02] LABS: Urine Yeast PRESENT (NONE SEEN)
[2019-01-31] MEDS ORDERED: HYDROMORPHONE HCL 1 MG/ML INJ ONE (19:49)
[2019-01-31 19:51] LABS: Anisocytosis 2+; Blood Morphology Comment NOTED (NOT SEEN); Platelet Estimate INCR; Urine White Blood Cell Casts OK
[2019-01-31 19:53] LABS: Burr Cells 1+; Teardrop Cell FEW
--- NOTE | 2019-01-31 20:13 | ER ---
Nurse's Notes [facility] Name: Kaitlynn Orourke Age: 38 yrs Sex: Female : 1980 Arrival Date: 01/31/2019 Time: 16:01 Bed 8 Private MD: Unknown, Unknown Diagnosis: Other ulcerative colitis with unspecified complications;Dehydration;Hypokalemia Presentation: 01/31 16:04 Presenting complaint: Patient states: abd pain and diarrhea x 2-3 weeks. Patient has ss been seen twice in ER and has been unable to make follow up appointment, but reports symptoms have not improved. Transition of care: patient was not received from another setting of care. Onset of symptoms was December 2018. Risk Assessment: Do you want to hurt yourself or someone else? Patient reports no desire to harm self or others. Initial Sepsis Screen: Does the patient meet any 2 criteria? RR > 20 per min. HR > 90 bpm. Does the patient have a suspected source of infection? No. Patient's initial sepsis screen is negative. Care prior to arrival: None. 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 - Social history:: Smoking status: Patient/guardian denies using tobacco. - Ebola Screening: : Patient denies exposure to infectious person Patient denies travel to an Ebola-affected area in the 21 days before illness onset. Screenin:20 Abuse screen: Denies threats or abuse. Denies injuries from another. Nutritional jl7 screening: No deficits noted. Tuberculosis screening: No symptoms or risk factors identified. Fall Risk IV access (20 points). Total Burgess Fall Scale indicates No Risk (0-24 pts). Assessment: 17:20 General: Appears in no apparent distress. uncomfortable, Behavior is calm, cooperative, jl7 appropriate for age. Pain: Complains of pain in left upper quadrant and right upper quadrant Pain currently is 8 out of 10 on a pain scale. Is continuous. Neuro: Level of Consciousness is awake, alert, obeys commands, Oriented to person, place, time, situation. Cardiovascular: Patient's skin is warm and dry. Respiratory: Airway is patent Respiratory effort is even, unlabored, Respiratory pattern is regular, symmetrical. GI: Bowel sounds present X 4 quads. Abd is soft X 4 quads Abdomen is tender to palpation in right upper quadrant and left upper quadrant. : No signs and/or symptoms were reported regarding the genitourinary system. EENT: No signs and/or symptoms were reported regarding the EENT system. Derm: Skin is pink, warm \T\ dry. Musculoskeletal: No signs and/or symptoms reported regarding the musculoskeletal system. 18:00 Reassessment: Pt reports no change in pain, ERP notified, see MAR for orders. jl7 18:45 Reassessment: Pt noted to be dry heaving, TOOL KEEPER was notified . aa5 19:17 Reassessment: Patient states pain returning to LLQ of abdomen; Assisted patient to lp1 bathroom at this time. Vital Signs: 16:04 BP 119 / 92; Pulse 128; Resp 23; Temp 97.2(TE); Pulse Ox 100% on R/A; Weight 54.43 kg; Height 5 ft. 1 in. (154.94 cm); Pain 8/10; 17:12 BP 123 / 82; Pulse 115; Resp 26 S; Pulse Ox 100% on R/A; jl7 18:00 BP 116 / 80; Pulse 108; Resp 16 S; Pulse Ox 100% on R/A; jl7 19:17 BP 128 / 84; Pulse 108; Resp 14; Pulse Ox 100% on R/A; Pain 8/10; lp1 19:54 BP 119 / 78; Pulse 121; Resp 19; Pulse Ox 100% on R/A; lp1 20:12 Pain 0/10; lp1 20:18 BP 106 / 64; Pulse 121; Resp 19; Temp 98.5(O); Pulse Ox 100% on R/A; Pain 0/10; lp1 21:11 BP 119 / 72; Pulse 109; Resp 19; Pulse Ox 100% on R/A; lp1 16:04 Body Mass Index 22.67 (54.43 kg, 154.94 cm) ED Course: 16:01 Patient arrived in ED. ag5 16:01 Unknown, Unknown is Private Physician. 5 16:04 Arm band placed on right wrist. ss 16:06 Triage completed. ss 16:07 Seng Key PA is PHCP. cp 16:07 Bruce Case MD is Attending Physician. cp 16:16 Darian Spencer, VELIA is Primary Nurse. jl7 17:20 Patient has correct armband on for positive identification. Bed in low position. Call jl7 light in reach. Side rails up X 1. Pulse ox on. NIBP on. Warm blanket given. 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 Initial lab(s) drawn, by sc, sent to lab. jl7 Inserted saline lock: 22 gauge in right forearm, using aseptic technique. Blood collected. 17:53 Radiology exam delayed due to lab results not completed at this time. (BUN/Creatinine). nj 17:54 Radiology exam delayed due to test not completed at this time. nj 18:08 PHCP role handed off by Seng Key PA snw 18:08 Sherie Lew FNP-C is PHCP. snw 18:44 CT Abd/Pelvis - IV Contrast Only In Process Unspecified. EDMS 19:34 Primary Nurse role handed off by Darian Spencer, VELIA jl7 19:40 Kaitlynn Martinez, VELIA is Primary Nurse. lp1 20:10 Gerry Cruz MD is Hospitalizing Provider. snw 20:12 Patient admitted, IV remains in place. lp1 Administered Medications: 17:41 Drug: NS 0.9% 1000 ml Route: IV; Rate: 1 bolus; Site: right forearm; jl7 18:30 Follow up: Response: No adverse reaction; IV Status: Completed infusion; IV Intake: jl7 1000ml 17:42 Drug: ProTONIX 40 mg Route: IVP; Site: right forearm; jl7 18:30 Follow up: Response: No adverse reaction jl7 17:43 Drug: Zofran 4 mg Route: IVP; Site: right forearm; jl7 18:00 Follow up: Response: No adverse reaction jl7 17:45 Drug: fentaNYL (PF) 25 mcg Route: IVP; Site: right forearm; jl7 18:00 Follow up: Response: No adverse reaction; Pain is unchanged, physician notified jl7 18:10 Drug: fentaNYL (PF) 25 mcg Route: IVP; Site: right forearm; jl7 18:30 Follow up: Response: No adverse reaction; Pain is decreased jl7 18:46 Drug: Phenergan 12.5 mg Route: IVP; Site: right forearm; aa5 19:40 Follow up: Response: Nausea is decreased lp1 19:16 Drug: NS 0.9% with KCl 40 mEq/L 1000 ml Route: IV; Rate: 150 ml/hr; Site: right forearm;lp1 21:11 Follow up: IV Status: Infusion continued upon admission lp1 19:53 Drug: Dilaudid 1 mg {Note: Verbal order per YARI Bosch RASS 0.} Route: IVP; lp1 Site: right forearm; 20:12 Follow up: Pain 0/10 Adult; Response: Marked relief of symptoms; Pain is decreased; lp1 RASS: Drowsy (-1) 20:11 Drug: NS 0.9% 1000 ml Route: IV; Rate: 1 bolus; Site: right forearm; lp1 Intake: 18:30 IV: 1000ml; Total: 1000ml. jl7 Outcome: 20:11 Decision to Hospitalize by Provider. snw 20:13 Condition: good lp1 20:13 Instructed on the need for admit. 21:08 Admitted to Med/surg via wheelchair, room 225, with chart, Report called to VELIA Phipps lp1 21:26 Patient left the ED. lp1 Signatures: Dispatcher [employer] EDMS Sherie Lew, YARI-C PROPERTY MANAGEMENT ACCOUNTANT-Csnw Caitlin Agudelo RN RN aa5 Nova Dahl RN RN ss Pena, Laura, RN RN lp1 Seng Key PA PA cp Jordan, Nathan nj Leal, Jahala, RN RN jl7 [place] 5 Corrections: (The following items were deleted from the chart) 19:54 19:53 Dilaudid 1 mg IVP in right forearm lp1 lp1
--- NOTE | 2019-01-31 20:14 | EDPHYS ---
Physician Documentation [facility] Name: Kaitlynn Orourke Age: 38 yrs Sex: Female : 1980 Arrival Date: 01/31/2019 Time: 16:01 Bed 8 Private MD: Unknown, Unknown ED Physician Bruce Case HPI: 01/31 16:50 This 38 yrs old Female presents to ER via Wheelchair with complaints of cp Abdominal Pain, Diarrhea, Rectal Bleeding. 16:50 The patient presents with abdominal pain that is diffuse. Onset: The symptoms/episode cp began/occurred 3 week(s) ago. The symptoms do not radiate. Associated signs and symptoms: Pertinent positives: blood in stools, diarrhea, nausea, vomiting, Pertinent negatives: constipation, fever, vomiting blood. 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 - Social history:: Smoking status: Patient/guardian denies using tobacco. - Ebola Screening: : Patient denies exposure to infectious person Patient denies travel to an Ebola-affected area in the 21 days before illness onset. ROS: 17:00 Constitutional: Negative for body aches, chills, fever, poor PO intake. cp 17:00 Eyes: Negative for injury, pain, redness, and discharge. cp 17:00 ENT: Negative for drainage from ear(s), ear pain, sore throat, difficulty swallowing, difficulty handling secretions. 17:00 Cardiovascular: Negative for chest pain, palpitations. 17:00 Respiratory: Negative for cough, shortness of breath, wheezing. 17:00 Abdomen/GI: Positive for abdominal pain, nausea, vomiting, and diarrhea, rectal bleeding, Negative for constipation, black/tarry stool. 17:00 Back: Negative for pain at rest, pain with movement. 17:00 : Negative for urinary symptoms. 17:00 Skin: Negative for rash. 17:00 Neuro: Negative for altered mental status, headache, weakness. 17:00 All other systems are negative. Exam: 17:05 Constitutional: The patient appears in no acute distress, alert, awake, non-toxic, well cp developed, well nourished. 17:05 Head/Face: Normocephalic, atraumatic. cp 17:05 Eyes: Periorbital structures: appear normal, Conjunctiva: normal, no exudate, no injection, Sclera: no appreciated abnormality, Lids and lashes: appear normal, bilaterally. 17:05 ENT: External ear(s): are unremarkable, Nose: is normal, Mouth: Lips: moist, Oral mucosa: pink and intact, moist, Posterior pharynx: is normal, airway is patent, no erythema, no exudate. 17:05 Chest/axilla: Inspection: normal, Palpation: is normal. 17:05 Cardiovascular: Rate: tachycardic, Rhythm: regular. 17:05 Respiratory: the patient does not display signs of respiratory distress, Respirations: normal, no use of accessory muscles, no retractions, no splinting, no tachypnea, labored breathing, is not present, Breath sounds: are clear throughout, no decreased breath sounds, no stridor, no wheezing. 17:05 Abdomen/GI: Inspection: abdomen appears normal, Bowel sounds: active, all quadrants, Palpation: soft, moderate abdominal tenderness, in the right upper quadrant and left upper quadrant, rebound tenderness, is not appreciated, voluntary guarding, is elicited in the right upper quadrant and left upper quadrant. 17:05 Skin: Exam negative for 17:53 : Rectal exam: Stool: brown, soft, Guaiac testing: results were positive for occult cp blood, hemorrhoid(s), are not appreciated, the nurse was present for the exam. Vital Signs: 16:04 BP 119 / 92; Pulse 128; Resp 23; Temp 97.2(TE); Pulse Ox 100% on R/A; Weight 54.43 kg; ss Height 5 ft. 1 in. (154.94 cm); Pain 8/10; 17:12 BP 123 / 82; Pulse 115; Resp 26 S; Pulse Ox 100% on R/A; jl7 18:00 BP 116 / 80; Pulse 108; Resp 16 S; Pulse Ox 100% on R/A; jl7 19:17 BP 128 / 84; Pulse 108; Resp 14; Pulse Ox 100% on R/A; Pain 8/10; lp1 19:54 BP 119 / 78; Pulse 121; Resp 19; Pulse Ox 100% on R/A; lp1 20:12 Pain 0/10; lp1 20:18 BP 106 / 64; Pulse 121; Resp 19; Temp 98.5(O); Pulse Ox 100% on R/A; Pain 0/10; lp1 21:11 BP 119 / 72; Pulse 109; Resp 19; Pulse Ox 100% on R/A; lp1 16:04 Body Mass Index 22.67 (54.43 kg, 154.94 cm) ss MDM: 16:16 Patient medically screened. cp 18:31 Data reviewed: vital signs, nurses notes. Data interpreted: Pulse oximetry: on room air snw is 100 %. Counseling: I had a detailed discussion with the patient and/or guardian regarding: the historical points, exam findings, and any diagnostic results supporting the discharge/admit diagnosis, the presence of at least one elevated blood pressure reading (>120/80) during this emergency department visit, lab results, radiology results. Physician consultation: Poli Pearce MD was called at 18:32, was contacted at 18:32, regarding consult. 20:11 Physician consultation: Gerry Cruz MD was called at 20:11, was contacted at 20:11, snw regarding admission, to the telemetry unit. 01/31 16:47 Order name: Basic Metabolic Panel; Complete Time: 18:08 01/31 16:47 Order name: CBC with Diff; Complete Time: 19:59 01/31 16:47 Order name: Creatinine for Radiology; Complete Time: 18:08 01/31 16:47 Order name: Hepatic Function; Complete Time: 18:08 01/31 16:47 Order name: Lipase; Complete Time: 18:08 01/31 17:09 Order name: PT-INR; Complete Time: 18:08 cp 01/31 17:09 Order name: Ptt, Activated; Complete Time: 18:08 01/31 18:23 Order name: Urine Dipstick--Ancillary (enter results); Complete Time: 18:47 01/31 18:23 Order name: Urine --Ancillary (enter results); Complete Time: 18:47 01/31 18:38 Order name: Urine Microscopic Only; Complete Time: 19:11 EDIA 01/31 19:06 Order name: Urine Culture [facility] 01/31 19:52 Order name: CBC Smear Scan; Complete Time: 19:59 EDMS 01/31 21:22 Order name: CBC with Automated Diff [facility] 01/31 17:46 Order name: CT Abd/Pelvis - IV Contrast Only; Complete Time: 19:11 01/31 21:22 Order name: CBC with Automated Diff; Complete Time: 06:24 [facility] 01/31 21:22 Order name: Comprehensive Metabolic Panel [facility] 01/31 21:22 Order name: Comprehensive Metabolic Panel; Complete Time: 06:24 [facility] 01/31 21:22 Order name: Protime (+INR) EDIA 01/31 21:22 Order name: Protime (+INR); Complete Time: 06:24 [facility] 01/31 21:22 Order name: PTT, Activated Partial Thromb EDIA 01/31 21:22 Order name: PTT, Activated Partial Thromb; Complete Time: 06:24 [facility] 01/31 16:47 Order name: IV Saline Lock; Complete Time: 17:54 01/31 16:47 Order name: Labs collected and sent; Complete Time: 17:54 01/31 17:46 Order name: Urine Dipstick-Ancillary (obtain specimen); Complete Time: 18:17 01/31 17:46 Order name: Urine Test (obtain specimen); Complete Time: 18:17 01/31 21:21 Order name: CONS Pharmacy Consult [facility] 01/31 21:21 Order name: CONS Physician Consult [facility] 01/31 21:21 Order name: NPO [facility] Administered Medications: 17:41 Drug: NS 0.9% 1000 ml Route: IV; Rate: 1 bolus; Site: right forearm; jl7 18:30 Follow up: Response: No adverse reaction; IV Status: Completed infusion; IV Intake: jl7 1000ml 17:42 Drug: ProTONIX 40 mg Route: IVP; Site: right forearm; jl7 18:30 Follow up: Response: No adverse reaction jl7 17:43 Drug: Zofran 4 mg Route: IVP; Site: right forearm; jl7 18:00 Follow up: Response: No adverse reaction jl7 17:45 Drug: fentaNYL (PF) 25 mcg Route: IVP; Site: right forearm; jl7 18:00 Follow up: Response: No adverse reaction; Pain is unchanged, physician notified jl7 18:10 Drug: fentaNYL (PF) 25 mcg Route: IVP; Site: right forearm; jl7 18:30 Follow up: Response: No adverse reaction; Pain is decreased jl7 18:46 Drug: Phenergan 12.5 mg Route: IVP; Site: right forearm; aa5 19:40 Follow up: Response: Nausea is decreased lp1 19:16 Drug: NS 0.9% with KCl 40 mEq/L 1000 ml Route: IV; Rate: 150 ml/hr; Site: right forearm;lp1 21:11 Follow up: IV Status: Infusion continued upon admission lp1 19:53 Drug: Dilaudid 1 mg {Note: Verbal order per YARI Bosch RASS 0.} Route: IVP; lp1 Site: right forearm; 20:12 Follow up: Pain 0/10 Adult; Response: Marked relief of symptoms; Pain is decreased; lp1 RASS: Drowsy (-1) 20:11 Drug: NS 0.9% 1000 ml Route: IV; Rate: 1 bolus; Site: right forearm; lp1 Disposition: 01/31/19 20:11 Hospitalization ordered by Gerry Cruz for Inpatient Admission. Preliminary diagnosis are Other ulcerative colitis with unspecified complications, Dehydration, Hypokalemia. - Bed requested for Telemetry/MedSurg (Inpatient). - Status is Inpatient Admission. lp1 - Condition is Fair. - Problem is an acute exacerbation. - Symptoms have worsened. UTI on Admission? No Addendum: 02/05/2019 09:48 Co-signature as Attending Physician, Bruce Case MD I agree with the assessment and k dr plan of care. Signatures: Dispatcher [employer] [facility] Bruce Case MD MD [facility] Sherie Lew, VOCATIONAL PLACEMENT SPECIALIST-C VOCATIONAL PLACEMENT SPECIALIST-Csnw Caitlin Agudelo, RN RN aa5 Nova Dahl RN RN ss Kaitlynn Martinez RN RN lp1 Seng Key PA PA cp Leal, Jahala, RN RN jl7 Corrections: (The following items were deleted from the chart) 01/31 19:21 18:41 UA MICROSCOPIC+U.LAB.BRZ ordered. [facility] 21:01 20:11 Hospitalization Ordered by Gerry Cruz MD for Inpatient Admission. Preliminary snw diagnosis is Other ulcerative colitis with unspecified complications; Dehydration; Hypokalemia. Bed requested for Telemetry/MedSurg (Inpatient). Status is Inpatient Admission. Condition is Fair. Problem is an acute exacerbation. Symptoms have worsened. UTI on Admission? No. snw 21:26 21:01 01/31/2019 20:11 Hospitalization Ordered by Gerry Cruz MD for Inpatient lp1 Admission. Preliminary diagnosis is Other ulcerative colitis with unspecified complications; Dehydration; Hypokalemia. Bed requested for Telemetry/MedSurg (Inpatient). Status is Inpatient Admission. Condition is Fair. Problem is an acute exacerbation. Symptoms have worsened. UTI on Admission? No. snw
[2019-01-31] MEDS ORDERED: ACETAMINOPHEN 500 MG TAB PO PRN (20:30)
[2019-01-31 22:06] VITALS: BMI 22.6
[2019-01-31] MEDS: MORPHINE 2 MG/ML SYR IV PRN (22:28)
[2019-01-31] MEDS: Levofloxacin500mg IV 500 MG/100 ML BAG IV SCH (22:29)
[2019-01-31] MEDS: NA CHLORIDE 0.9% 1,000 ML IV SCH (22:30)
[2019-02-01] MEDS: METRONIDAZOLE 500mg IVPB 500 MG/100 ML BAG IV SCH ×4 (00:16→17:17)
[2019-02-01] MEDS: MORPHINE 2 MG/ML SYR IV PRN ×5 (02:52→23:57)
[2019-02-01 04:15] LABS: Absolute Lymphocytes (CBC) 1.1 K/uL (0.7-4.9); Basophils % 0.2 % (0-1.3); Lymphocytes % 12.6 % (15.3-44.8); MPV 6.7 fL (7.6-11.3); RBC Red Blood Cell Count 3.56 M/uL (3.86-4.86)
[2019-02-01 04:16] LABS: Protime INR 1.43
[2019-02-01] MEDS: NA CHLORIDE 0.9% 1,000 ML with POTASSIUM CL 40 MEQ IV SCH ×6 (04:28→15:24)
[2019-02-01 04:31] LABS: ALT/SGPT 79 U/L (12-78); AST/SGOT 12 U/L (15-37); Albumin 1.9 g/dL (3.4-5.0); Alkaline Phosphatase 138 U/L (45-117); BUN Blood Urea Nitrogen 2 mg/dL (7-18); Bicarbonate 16 mmol/L (21-32); Bilirubin Total 0.2 mg/dL (0.2-1.0); Glucose Level 82 mg/dL (74-106); Potassium 3.7 mmol/L (3.5-5.1); Protein, Total 5.2 g/dL (6.4-8.2); Sodium Level 139 mmol/L (136-145)
--- NOTE | 2019-02-01 09:56 | P.HP ---
Certification for Inpatient Patient admitted to: Inpatient With expected LOS: >2 Midnights Patient will require the following post-hospital care: None Practitioner: I am a practitioner with admitting privileges, knowledge of patient current condition, hospital course, and medical plan of care. Services: Services provided to patient in accordance with Admission requirements found in Title 42 Section 412.3 of the Code of Federal Regulations Patient History Date of Service: 01/31/19 Reason for admission: Lower GI bleeding History of Present Illness: Patient is a 38-year-old female came to the hospital with abdominal discomfort. Patient has been having GI bleeding for the last 3 months. She has had this worked up with a colonoscopy. Patient was not able to get diagnosed with biopsy. Patient had an EGD as well. Unfortunately patient was not diagnosed and was discharged home with antibiotics. Her symptoms improved for a few days but that she has continued to have diarrhea. It has also become bloody. She will be readmitted to the hospital with GI consultation. She will need stool studies as well as fecal leukocytes. Hopefully we can help make the diagnosis. Allergies No Known Allergies Allergy (Unverified 05/31/17 12:02) - Past Medical/Surgical History Has patient received pneumonia vaccine in the past: No Diabetic: No -: Colitis -: EGD and colonoscopy - Family History Father Medical History: Hypertension, Other (see notes) Notes: hyprlipedemia Mother Medical History: Diabetes, Cancer Notes: Leukemia - Social History Smoking Status: Never smoker Alcohol use: No CD- Drugs: No Caffeine use: No Place of Residence: Home Review of Systems 10-point ROS is otherwise unremarkable Physical Examination - Vital Signs Temperature: 97.4 F Blood Pressure: 112/66 Pulse: 102 Respirations: 18 Pulse Ox (%): 100 - Physical Exam General: Alert, In no apparent distress, Oriented x3 HEENT: Atraumatic, PERRLA, Mucous membr. moist/pink, EOMI, Sclerae nonicteric Neck: Supple, 2+ carotid pulse no bruit, No LAD, Without JVD or thyroid abnormality Respiratory: Clear to auscultation bilaterally, Normal air movement Cardiovascular: Regular rate/rhythm, Normal S1 S2, No murmurs Gastrointestinal: Normal bowel sounds, Soft and benign, Non-distended, No tenderness Musculoskeletal: No clubbing, No swelling, No tenderness Integumentary: No rashes Neurological: Normal gait, Normal speech, Normal strength at 5/5 x4 extr, Normal tone, Sensation intact, Cranial nerves 3-12 intact, Normal affect Lymphatics: No axilla or inguinal lymphadenopathy - Studies Laboratory Data (last 24 hrs) 01/31/19 17:35: PT 15.7 H, INR 1.35, APTT 22.1 L 01/31/19 17:35: Creatinine 0.47 L 01/31/19 17:35: WBC 11.5 H, Hgb 12.2, Hct 37.7, Plt Count 628 H D 01/31/19 17:35: Sodium 134 L, Potassium 3.1 L, BUN 3 L, Creatinine 0.45 L, Glucose 90, Total Bilirubin 0.3, AST 18, ALT 126 H, Alkaline Phosphatase 206 H, Lipase 38 L Assessment & Plan - Problems (Diagnosis) (1) Colitis Current Visit: Yes Status: Acute (2) Lower GI bleeding Current Visit: Yes Status: Acute (3) Weight loss Current Visit: Yes Status: Acute - Plan Plan: 1. Continue with IV hydration and PPI 2. Continue with IV antibiotics 3. Continue with pain control 4. NPO 5. GI consultation 6. Serial H&H, and we will monitor LFTs and lipase along with electrolytes. 7. GI and DVT prophylaxis Discharge Plan: Home Plan to discharge in: Greater than 2 days - Advance Directives Does patient have a Living Will: No Does patient have a Durable POA for Healthcare: No - Code Status/Comfort Care Code Status Assessed: Yes Code Status: Full Code Critical Care: No Time Spent Managing PTS Care (In Minutes): 45
[2019-02-01] MEDS: ONDANSETRON 4 MG/2 ML VIAL IV PRN ×2 (13:38→19:31)
--- NOTE | 2019-02-01 15:08 | P.PN ---
Subjective Date of Service: 02/01/19 Chief Complaint: Lower GI bleeding Patient seen and examined at bedside. Chart reviewed and case discussed with nursing staff. Pt continue to complain of crampy lower abdominal pain, along with nausea. Review of Systems 10-point ROS is otherwise unremarkable Physical Examination - Vital Signs Temperature: 97.8 F Blood Pressure: 119/70 Pulse: 92 Respirations: 18 Pulse Ox (%): 100 - Physical Exam General: Alert, In no apparent distress, Oriented x3 HEENT: Atraumatic, PERRLA, EOMI Neck: Supple, JVD not distended Respiratory: Clear to auscultation bilaterally, Normal air movement Cardiovascular: Regular rate/rhythm, Normal S1 S2 Gastrointestinal: Normal bowel sounds, No tenderness Musculoskeletal: No tenderness Integumentary: No rashes Neurological: Normal speech, Normal tone, Normal affect Lymphatics: No axilla or inguinal lymphadenopathy - Studies Laboratory Data (last 24 hrs) 01/31/19 17:35: PT 15.7 H, INR 1.35, APTT 22.1 L 01/31/19 17:35: Creatinine 0.47 L 01/31/19 17:35: WBC 11.5 H, Hgb 12.2, Hct 37.7, Plt Count 628 H D 01/31/19 17:35: Sodium 134 L, Potassium 3.1 L, BUN 3 L, Creatinine 0.45 L, Glucose 90, Total Bilirubin 0.3, AST 18, ALT 126 H, Alkaline Phosphatase 206 H, Lipase 38 L Assessment And Plan - Current Problems (Diagnosis) (1) Colitis Current Visit: Yes Status: Acute (2) Lower GI bleeding Current Visit: Yes Status: Acute (3) Weight loss Current Visit: Yes Status: Acute - Plan Plan: 1. Continue with IV hydration and PPI 2. Continue with IV antibiotics 3. Continue with pain control 4. NPO 5. GI consultation, awaiting recommendations 6. Serial H&H, and we will monitor LFTs and lipase along with electrolytes. 7. Stool studies pending. 8. GI and DVT prophylaxis
[2019-02-01] MEDS: NA CHLORIDE 0.9% 1,000 ML IV SCH ×2 (17:17→23:40)
[2019-02-01 20:40] LABS: Basophils % 0.5 % (0-1.3); Hematocrit 31.4 % (36.0-45.0); Lymphocytes % 14.7 % (15.3-44.8); MPV 6.7 fL (7.6-11.3); RBC Red Blood Cell Count 3.91 M/uL (3.86-4.86)
[2019-02-01] MEDS: Levofloxacin500mg IV 500 MG/100 ML BAG IV SCH (21:18)
[2019-02-02] MEDS: METRONIDAZOLE 500mg IVPB 500 MG/100 ML BAG IV SCH ×5 (00:02→23:43)
[2019-02-02] MEDS: MORPHINE 2 MG/ML SYR IV PRN ×4 (05:06→17:19)
[2019-02-02] MEDS: ONDANSETRON 4 MG/2 ML VIAL IV PRN ×3 (09:09→21:42)
[2019-02-02] MEDS: NA CHLORIDE 0.9% 1,000 ML IV SCH ×2 (11:44→13:00)
--- NOTE | 2019-02-02 12:35 | P.PN ---
Subjective Date of Service: 02/02/19 Chief Complaint: Lower GI bleeding Subjective: No new changes Patient seen and examined at bedside. Chart reviewed and case discussed with nursing staff. Pt continue to complain of crampy lower abdominal pain, along with nausea. Review of Systems 10-point ROS is otherwise unremarkable Physical Examination - Vital Signs Temperature: 97.9 F Blood Pressure: 110/73 Pulse: 100 Respirations: 16 Pulse Ox (%): 99 - Physical Exam General: Alert, Oriented x3, Moderate distress HEENT: Atraumatic, PERRLA, EOMI Neck: Supple, JVD not distended Respiratory: Clear to auscultation bilaterally, Normal air movement Cardiovascular: Regular rate/rhythm, Normal S1 S2 Gastrointestinal: Normal bowel sounds, No tenderness Musculoskeletal: No tenderness Integumentary: No rashes Neurological: Normal speech, Normal tone, Normal affect Lymphatics: No axilla or inguinal lymphadenopathy Assessment And Plan - Current Problems (Diagnosis) (1) Colitis Current Visit: Yes Status: Acute (2) Lower GI bleeding Current Visit: Yes Status: Acute (3) Weight loss Current Visit: Yes Status: Acute - Plan 1. Continue with IV hydration and PPI 2. Continue with IV antibiotics 3. Continue with pain control 4. NPO 5. GI consultation, still awaiting recommendations 6. Serial H&H, stable at this time. 7. Stool studies pending. 8. GI and DVT prophylaxis
[2019-02-02] MEDS ORDERED: HYDROMORPHONE HCL 2 MG/ML inj IV PRN (19:26)
[2019-02-02] MEDS: Levofloxacin500mg IV 500 MG/100 ML BAG IV SCH (20:56)
[2019-02-02] MEDS: VANCOMYCIN ORAL SOLN 250 MG/5 ML OSYR PO SCH (23:45)
[2019-02-03] MEDS: NA CHLORIDE 0.9% 1,000 ML IV SCH ×3 (02:20→15:40)
[2019-02-03] MEDS: METRONIDAZOLE 500mg IVPB 500 MG/100 ML BAG IV SCH ×3 (05:31→20:21)
[2019-02-03] MEDS: VANCOMYCIN ORAL SOLN 250 MG/5 ML OSYR PO SCH ×4 (05:31→20:11)
[2019-02-03] MEDS: MORPHINE 2 MG/ML SYR IV PRN (05:33)
[2019-02-03 07:11] LABS: Absolute Lymphocytes (CBC) 0.8 K/uL (0.7-4.9); Basophils % 0.2 % (0-1.3); Hematocrit 33.3 % (36.0-45.0); Lymphocytes % 12.6 % (15.3-44.8); MPV 7.1 fL (7.6-11.3); RBC Red Blood Cell Count 4.19 M/uL (3.86-4.86)
[2019-02-03] MEDS: PROMETHAZINE 25 MG/ML VIAL IV PRN ×2 (08:30→22:53)
[2019-02-03 09:11] LABS: Anisocytosis 2+; Blood Morphology Comment NOTED (NOT SEEN); Burr Cells 1+; Platelet Estimate ADEQ; Poikilocytosis 1+
[2019-02-03 10:26] LABS: Bicarbonate 15 mmol/L (21-32); Glucose Level 98 mg/dL (74-106); Magnesium 1.9 mg/dL (1.8-2.4); Phosphorus 1.9 mg/dL (2.5-4.9); Sodium Level 138 mmol/L (136-145)
[2019-02-03 10:31] LABS: BUN Blood Urea Nitrogen < 1 mg/dL (7-18)
[2019-02-03 10:32] LABS: Potassium 2.9 mmol/L (3.5-5.1)
--- NOTE | 2019-02-03 11:11 | P.PN ---
Subjective Date of Service: 02/03/19 Chief Complaint: Lower GI bleeding Patient seen and examined at bedside. Chart reviewed and case discussed with nursing staff. Pt continue to complain of crampy lower abdominal pain, along with nausea. Improved. Tolerating juice with IV phenergan Review of Systems 10-point ROS is otherwise unremarkable Physical Examination - Vital Signs Temperature: 97.4 F Blood Pressure: 113/74 Pulse: 105 Respirations: 17 Pulse Ox (%): 100 - Physical Exam General: Alert, In no apparent distress HEENT: Atraumatic, PERRLA, EOMI Neck: Supple, JVD not distended Respiratory: Clear to auscultation bilaterally, Normal air movement Cardiovascular: Regular rate/rhythm, Normal S1 S2 Gastrointestinal: Normal bowel sounds, No tenderness Musculoskeletal: No tenderness Integumentary: No rashes Neurological: Normal speech, Normal tone, Normal affect Lymphatics: No axilla or inguinal lymphadenopathy - Studies Microbiology Data (last 24 hrs): 01/31/19 18:15 Clean Catch Urine [place] Count - Final >100,000 CFU/ML. 01/31/19 18:15 Clean Catch Urine - Final Assessment And Plan - Current Problems (Diagnosis) (1) Colitis Current Visit: Yes Status: Acute (2) Lower GI bleeding Current Visit: Yes Status: Acute (3) Weight loss Current Visit: Yes Status: Acute - Plan 1. Continue with IV hydration and PPI 2. Continue with IV antibiotics 3. Continue with pain control 4. Clear liquid 5. GI consultation, recommendations appreciated. Possible colonoscopy if pt tolerating more PO with phenergan. 6. Serial H&H, stable at this time. 7. Stool studies pending. 8. GI and DVT prophylaxis
[2019-02-03] MEDS ORDERED: NA CHLORIDE 0.9% IV ONE (14:29)
[2019-02-03] MEDS ORDERED: POTASSIUM PHOS IV ONE (14:29)
[2019-02-03] MEDS: KCL 20 MEQ/100 mL IVPB 20 MEQ/100 ML BAG IV SCH ×2 (15:17→17:52)
[2019-02-03] MEDS ORDERED: POTASSIUM PHOS IN 0.9 % NACL 15 MMOL/250 ML BAG IV ONE (15:30)
--- NOTE | 2019-02-03 16:49 | P.PN ---
Subjective Date of Service: 02/03/19 Chief Complaint: Lower GI bleeding, LLQ>RLQ pain, diarrhea, malaise Subjective: Improving (Feels better after start of po Vancomycin yesterday and CLs. This morning notified of C diff diagnosis. Had been on IV Flagyl since admission which probably helped decrease WBC since admission, but marked improvement with start of po Vanc.) Review of Systems 10-point ROS is otherwise unremarkable General: Fever (Improved.), Malaise (Improved.) Gastrointestinal: Nausea (Improved.), Abdominal Pain (Improved.), Diarrhea ( Improved.) Physical Examination - Vital Signs Temperature: 97.4 F Blood Pressure: 113/74 Pulse: 105 Respirations: 17 Pulse Ox (%): 100 - Physical Exam General: Alert, In no apparent distress, Oriented x3, Cooperative HEENT: Atraumatic, Normocephalic, PERRLA, EOMI Neck: Supple Respiratory: Diminished Gastrointestinal: No rebound, Tenderness (Improved.), Guarding (Improved.) Neurological: Normal speech, Normal strength at 5/5 x4 extr - Studies Microbiology Data (last 24 hrs): 01/31/19 18:15 Clean Catch Urine [place] Count - Final >100,000 CFU/ML. 01/31/19 18:15 Clean Catch Urine - Final Assessment And Plan - Current Problems (Diagnosis) (1) Abnormal CT of the abdomen Current Visit: Yes Status: Acute (2) Hematochezia Current Visit: Yes Status: Acute (3) Change in bowel habits Current Visit: Yes Status: Acute (4) Diarrhea Current Visit: Yes Status: Acute (5) Colitis Current Visit: Yes Status: Acute (6) Weight loss Current Visit: Yes Status: Acute (7) Clostridioides difficile infection Current Visit: Yes Status: Acute - Plan REC:1) continue Vancomycin 125 mg po qid 2) CLs to FLs to GI soft 3) monitor labs
[2019-02-03] MEDS: Levofloxacin500mg IV 500 MG/100 ML BAG IV SCH (20:11)
[2019-02-03] MEDS ORDERED: CHOLESTYRAMINE/ASP 4 GM/PKT PO ONE ×2 (21:00)
[2019-02-04] MEDS: METRONIDAZOLE 500mg IVPB 500 MG/100 ML BAG IV SCH ×5 (00:19→23:34)
[2019-02-04] MEDS: VANCOMYCIN ORAL SOLN 250 MG/5 ML OSYR PO SCH ×4 (01:10→20:16)
[2019-02-04] MEDS: NA CHLORIDE 0.9% 1,000 ML IV SCH ×2 (05:00→18:04)
[2019-02-04 05:13] LABS: BUN Blood Urea Nitrogen 1 mg/dL (7-18); Bicarbonate 19 mmol/L (21-32); Glucose Level 98 mg/dL (74-106); Magnesium 1.7 mg/dL (1.8-2.4); Phosphorus 1.6 mg/dL (2.5-4.9); Sodium Level 142 mmol/L (136-145)
[2019-02-04 05:15] LABS: Potassium 2.6 mmol/L (3.5-5.1)
[2019-02-04] MEDS ORDERED: POTASSIUM PHOS IN 0.9 % NACL 15 MMOL/250 ML BAG IV ONE (07:00)
[2019-02-04] MEDS ORDERED: MAGNESIUM SULFATE 1 gm IVPB 1 GM/100 ML BAG IV ONE (07:00)
[2019-02-04] MEDS: KCL 20 MEQ/100 mL IVPB 20 MEQ/100 ML BAG IV SCH ×2 (07:33→09:13)
--- NOTE | 2019-02-04 11:14 | P.PN ---
Subjective Date of Service: 02/04/19 Chief Complaint: Lower GI bleeding, LLQ>RLQ pain, diarrhea, malaise Subjective: Improving (Continues to improve slowly. Does not like CLs, want to advance to something more palatable.) Review of Systems General: Weakness (Improving.), Malaise (Improving.) Gastrointestinal: Nausea (Improving.), Abdominal Pain (Improving.), Diarrhea ( Improving.) Physical Examination - Vital Signs Temperature: 97.3 F Blood Pressure: 106/70 Pulse: 102 Respirations: 17 Pulse Ox (%): 100 - Physical Exam General: Alert, In no apparent distress, Oriented x3, Cooperative HEENT: Atraumatic, Normocephalic, PERRLA, EOMI Neck: Supple Respiratory: Normal air movement Cardiovascular: Normal pulses Gastrointestinal: No rebound, Tenderness (Improving.), Guarding (Improving.) Neurological: Normal speech, Normal strength at 5/5 x4 extr - Studies Microbiology Data (last 24 hrs): 01/31/19 18:15 Clean Catch Urine [place] Count - Final >100,000 CFU/ML. 01/31/19 18:15 Clean Catch Urine - Final Assessment And Plan - Current Problems (Diagnosis) (1) Abnormal CT of the abdomen Current Visit: Yes Status: Acute Comment: Improving. (2) Hematochezia Current Visit: Yes Status: Acute Comment: Improving. (3) Change in bowel habits Current Visit: Yes Status: Acute (4) Diarrhea Current Visit: Yes Status: Acute Comment: Improving. (5) Colitis Current Visit: Yes Status: Acute Comment: Improving. (6) Weight loss Current Visit: Yes Status: Acute (7) Clostridioides difficile infection Current Visit: Yes Status: Acute - Plan REC:1) continue Vancomycin 125 mg po qid 2) CLs to FLs to GI soft 3) monitor labs
--- NOTE | 2019-02-04 11:57 | P.PN ---
Subjective Date of Service: 02/04/19 Chief Complaint: Lower GI bleeding, LLQ>RLQ pain, diarrhea, malaise Subjective: Improving Patient seen and examined at bedside. Chart reviewed and case discussed with nursing staff. Pt continue to complain of crampy lower abdominal pain, along with nausea. much Improved. Tolerating PO, chicken noodles soup. Continues to have diarrhea Review of Systems 10-point ROS is otherwise unremarkable Physical Examination - Vital Signs Temperature: 97.3 F Blood Pressure: 106/70 Pulse: 102 Respirations: 17 Pulse Ox (%): 100 - Physical Exam General: Alert, In no apparent distress, Oriented x3 HEENT: Atraumatic, PERRLA, EOMI Neck: Supple, JVD not distended Respiratory: Clear to auscultation bilaterally, Normal air movement Cardiovascular: Regular rate/rhythm, Normal S1 S2 Gastrointestinal: Normal bowel sounds, No tenderness Musculoskeletal: No tenderness Integumentary: No rashes Neurological: Normal speech, Normal tone, Normal affect Lymphatics: No axilla or inguinal lymphadenopathy - Studies Microbiology Data (last 24 hrs): 01/31/19 18:15 Clean Catch Urine [place] Count - Final >100,000 CFU/ML. 01/31/19 18:15 Clean Catch Urine - Final Assessment And Plan - Current Problems (Diagnosis) (1) Colitis Current Visit: Yes Status: Acute (2) Lower GI bleeding Current Visit: Yes Status: Acute (3) Weight loss Current Visit: Yes Status: Acute (4) C. difficile colitis Current Visit: Yes Status: Acute - Plan 1. Continue with IV hydration and PPI 2. Continue with antibiotics. PO vancomycin for C. diff 3. Continue with pain control 4. Advance diet to full liquid. Advance as tolerated. 5. GI consultation, recommendations appreciated. 6. Serial H&H, stable at this time. 7. Stool studies positive for C diff 8. GI and DVT prophylaxis
[2019-02-04] MEDS ORDERED: POTASSIUM CL SA 10 MEQ TAB PO ONE (18:00)
[2019-02-04] MEDS: Levofloxacin500mg IV 500 MG/100 ML BAG IV SCH (20:17)
[2019-02-04] MEDS ORDERED: POTASSIUM 25 MEQ EFFERV TAB PO ONE (21:33)
[2019-02-04 21:40] VITALS: O2SAT 100
[2019-02-04] MEDS: MORPHINE 2 MG/ML SYR IV PRN (23:34)
[2019-02-05] MEDS: VANCOMYCIN ORAL SOLN 250 MG/5 ML OSYR PO SCH ×4 (01:27→20:14)
[2019-02-05] MEDS: MORPHINE 2 MG/ML SYR IV PRN (04:00)
[2019-02-05] MEDS: METRONIDAZOLE 500mg IVPB 500 MG/100 ML BAG IV SCH ×3 (05:21→17:46)
[2019-02-05] MEDS: NA CHLORIDE 0.9% 1,000 ML IV SCH (05:21)
[2019-02-05] MEDS: PROMETHAZINE 25 MG/ML VIAL IV PRN (06:23)
[2019-02-05 06:41] LABS: BUN Blood Urea Nitrogen 1 mg/dL (7-18); Bicarbonate 28 mmol/L (21-32); Glucose Level 109 mg/dL (74-106); Phosphorus 2.1 mg/dL (2.5-4.9); Potassium 3.2 mmol/L (3.5-5.1); Sodium Level 140 mmol/L (136-145)
[2019-02-05] MEDS: POTASS/SODIUM PHOSPHATE 1 PKT POWD.PACK PO SCH ×2 (09:05→09:06)
--- NOTE | 2019-02-05 09:22 | CON ---
Date of Consultation: 02/02/2019 Reason For Consultation: Acute lower abdominal pain and lower GI bleeding with hematochezia. History Of Present Illness: Patient is a 38-year-old female with history of colitis in the past. Patient presented to the hospital undiagnosed colitis. Patient presented to [facility] with 3 months of lower GI bleeding. No abdominal pain. Patient states her pain is predominantly in the left lower quadrant, greater than right lower quadrant, associated with bloody stools. Patien mo had a colonoscopy approximately 4 years ago due to hematochezia. She recalls colonoscopy at that t [facility] was negative with no inflammation seen in her colon, only internal hemorrhoids and random biopsie s were negative by her recollection today. Patient states 3 months ago she had bloody diarrhea. She was seen at [facility] in [place]. She had an EGD and colonoscopy. She recalls that the c olonoscopy showed inflammation of the distal 12-18 inches with bloody mucosa. It appeared that the m ucosa bled profusely whenever there was a biopsy performed according to her recollection today. EGD appeared negative. Biopsies at that time are also negative. Patient was given mesalamine for 30 day s after that and this did not seem to improve her symptoms. Patient presented back here to [facility] approximately [address] scan revealed colitis from hepatic flexure to the rectum . Records from [facility] were reviewed. Patient was started on Levaquin and Flagyl IV and p.r.n. pain medications and IV antibiotics. Patient states that the pain is much better on IV pa in medicines and morphine q.4 hours; however, still has some discomfort and would like to be able to eat again she has intolerance due to the pain, bloody diarrhea, chronic cramping. Stool s tudies were unable to be obtained. Initially, when patient got to the hospital, patient was put on I V antibiotics. Stool studies obtained it appears after antibiotics were started. Patient denies any sick contacts or any tobacco or any family history of inflammatory bowel disease. She denies any he matemesis, coffee-grounds emesis, melena, hematuria, dysuria, polydipsia, hemoptysis. Past Medical History: Significant for prior hemorrhoids and some colitis noted at [facility] 2-3 months ago. Colitis was not diagnosed, but it was not determined whether she had inflammato ry bowel disease, infectious colitis, or other. Patient was placed on mesalamine empirically it appe ars and this does not improve her symptoms. She denies any chest pain, shortness of breath, seizure, syncope, muscle ache, backache, rashes, jaundice, anxiety, though she decreased due to he r clinical status being unable to eat with ongoing bloody diarrhea and intolerance of p.o. intake and weight loss. Allergies: NKDA. Social History: She is . Three sons, ages 19, 16, and 10. No tobacco. Rare alcohol. Family History: Father has hypertension, hypercholesterolemia. Mother at the age of 54 in 1998 due to leukemia. Physical Examination: Vital Signs: The patient is 5 feet 1 inch, 120 pounds, BMI 22.7 kg/sq m. Temperature 98.5 degrees F ahrenheit, pulse 121, respirations 17, blood pressure 129/70, O2 saturation 100%. General: She is a thin female, lying in bed, in no acute distress. HEENT: Normocephalic, atraumatic. Anicteric. Pupils equal, round, and reactive to light. Anicteri c. Oropharynx is clear. Neck: Supple. Respirations: Clear to auscultation bilaterally. Cardiac: Tachycardic. ABDOMEN: Positive bowel sounds. Soft, nondistended. Pain in the left lower quadrant greater than r ight lower quadrant. No upper abdominal pain. No peritoneal or Adams sign. Some mild guarding. N o hepatosplenomegaly. Extremities: No clubbing, cyanosis, or edema. 2+ pulses. Neuro: Alert and oriented x3. Grossly nonfocal. 5/5 motor strength. Sensation intact to light randell . Laboratory Data: Patient has a white count of 7.2, down from 11.5 on admission; hemoglobin 10.4, crisetla n from 12.2 on admission; hematocrit 31.4; MCV of 81; platelet count 529; polys of 61%; lymphocytes 1 5%, monocytes 21%, eosinophils 4%. PT of 16.6, INR of 1.43, PTT of 29.5. Sodium 139, potassium 3.7, chloride 113, bicarb 16, BUN , creatinine 0.3 , glucose 82, calcium 7.1, total bilirubin 0 .2, AST of 12, ALT of 79, alkaline phosphatase 138, total protein 5.2, albumin 1.9, lipase normal at 38. UA; 4+ ketones, 2+ blood, trace leukocyte esterase, 10-20 rbc's, 5-10 white cells, 5-10 squamous epithelial cells, 20-50 bacteria, 1+ amorphous sediment, 5-10 hyaline casts, 2+ mucus, yeast present , 2+ protein. Urine test negative. CT abdomen and pelvis reveals progressive colitis sinc e prior Imaging on January 23, 2019, with colitis from the hepatic flexure to the rectum, a 3-cm rig ht adrenal cyst noted as well and the colitis from the hepatic flexure to the rectum considered moder ately severe. Impression: 1.Moderately severe colitis extending from hepatic flexure to the rectum. This seems to be extendin g. Colonoscopy recently in [place] approximately 1-[address] [facility] on November revealed negativ e colon biopsies, though there appeared to be colitis in the distal 12-13 cm. It appears now the col itis has extended further up to the hepatic flexure from the rectosigmoid area. Four years ago, she had a colonoscopy, negative colon biopsies and only hemorrhoids noted at that time. She denies any s ick contacts, any relatives or family members with inflammatory bowel disease. She does note bloody stool. Differential diagnosis includes ulcerative colitis with negative colon biopsies 4 years ago a nd recently in November 2018 versus an occult infection, this was not treated. C difficile co litis versus MRSA versus other. Stool studies were pending; however, they were they were obtained af ter IV antibiotics were given. 2.Await stool studies that have been ordered. 3.Check permeative serology. 4.Continue IV fluids, IV antibiotics. 5.Add p.o. vancomycin for possible C difficile or MRSA colitis. 6.Clear liquids. 7.Consider IV steroids and other ulcerative colitis medications as needed and consider repeat colono scopy with biopsies as needed. MELANIE/ROSA Voice ID: [id number] Report ID: [id number]
--- NOTE | 2019-02-05 10:34 | P.PN ---
Subjective Date of Service: 02/05/19 Chief Complaint: Lower GI bleeding, LLQ>RLQ pain, diarrhea, malaise Patient seen and examined at bedside. Chart reviewed and case discussed with nursing staff. Pt continue to complain of crampy lower abdominal pain, along with nausea. much Improved. Tolerating GI sfot diet now. Continues to have diarrhea overnigh. 1 episode of watery, mucus diarrhea this am. Review of Systems 10-point ROS is otherwise unremarkable Physical Examination - Vital Signs Temperature: 97.6 F Blood Pressure: 109/69 Pulse: 122 Respirations: 18 Pulse Ox (%): 96 - Physical Exam General: Alert, In no apparent distress HEENT: Atraumatic, PERRLA, EOMI Neck: Supple, JVD not distended Respiratory: Clear to auscultation bilaterally, Normal air movement Cardiovascular: Regular rate/rhythm, Normal S1 S2 Gastrointestinal: Normal bowel sounds, No tenderness Musculoskeletal: No tenderness Integumentary: No rashes Neurological: Normal speech, Normal tone, Normal affect Lymphatics: No axilla or inguinal lymphadenopathy Assessment And Plan - Current Problems (Diagnosis) (1) Colitis Current Visit: Yes Status: Acute (2) Lower GI bleeding Current Visit: Yes Status: Acute (3) Weight loss Current Visit: Yes Status: Acute (4) C. difficile colitis Current Visit: Yes Status: Acute - Plan 1. Continue with IV hydration and PPI 2. Continue with antibiotics. PO vancomycin for C. diff 3. Continue with pain control 4. Advance diet to full liquid. Advance as tolerated. 5. GI consultation, recommendations appreciated. 6. Serial H&H, stable at this time. 7. Stool studies positive for C diff 8. GI and DVT prophylaxis Disposition>: anticipate discharge in the next 24-48 hrs if diarrhea improved and clinically improved. Discharge Plan: Home Plan to discharge in: 48 Hours
[2019-02-05] MEDS: Levofloxacin500mg IV 500 MG/100 ML BAG IV SCH (20:15)
[2019-02-06] MEDS: NA CHLORIDE 0.9% 1,000 ML IV SCH ×2 (00:18→16:58)
[2019-02-06] MEDS: METRONIDAZOLE 500mg IVPB 500 MG/100 ML BAG IV SCH ×4 (00:24→16:59)
[2019-02-06] MEDS: MORPHINE 2 MG/ML SYR IV PRN (02:46)
[2019-02-06] MEDS: VANCOMYCIN ORAL SOLN 250 MG/5 ML OSYR PO SCH ×3 (02:48→13:41)
[2019-02-06 06:29] LABS: BUN Blood Urea Nitrogen 2 mg/dL (7-18); Bicarbonate 32 mmol/L (21-32); Glucose Level 109 mg/dL (74-106); Phosphorus 2.9 mg/dL (2.5-4.9); Sodium Level 139 mmol/L (136-145)
[2019-02-06 06:49] LABS: Potassium 2.6 mmol/L (3.5-5.1)
[2019-02-06] MEDS ORDERED: KCL 20 MEQ/100 mL IVPB 20 MEQ/100 ML BAG IV SCH (07:00)
[2019-02-06] MEDS ORDERED: POTASSIUM 25 MEQ EFFERV TAB PO ONE ×2 (12:00→18:00)
[2019-02-06 16:53] VITALS: BP 100/63; TEMP 97.9
--- NOTE | 2019-02-07 13:09 | DS ---
Date of Discharge: 02/06/2019 Consultants: Poli Pearce MD, with GI. Admitting Diagnoses: 1.Acute colitis. 2.Lower gastrointestinal bleed. 3.Weight loss. Discharge Diagnoses: 1.Acute Clostridium difficile colitis. 2.Lower gastrointestinal bleed. 3.Weight loss. 4.Hypokalemia. 5.Hypocalcemia. 6.Acute blood loss anemia secondary to gastrointestinal bleed. Hospital Course: Patient is a 38-year-old female with no significant past medical history, who comes in with lower GI bleeding for the past 3 months. Patient had or a workup previously with colonoscop y and EGD. Patient was sent home with antibiotics; however, continues to have diarrhea. Patient was started on prophylactic antibiotics. White count was elevated. Her C difficile assay was positive. Occult blood also came back positive. She was mildly anemic. Patient was seen by Dr. Ramses ORTIZ. Stool studies including stool culture showed reduced fecal ulysses. No Salmonella, Shigella, or Campy lobacter were isolated. Her white count improved. She did have low potassium and calcium, which wer e replaced. Overall, the patient did well. Her diarrhea began to improve. She was not growing as f requently and she did have some semisolid stools. She was instructed on good hand hygiene and to juaquin id contact with the elderly and babies less than [id number] to avoid spreading infection. The simona ent was able to ambulate, was tolerating her diet, was well hydrated. She was then discharged home i n a stable condition. Activity: As tolerated. Medications: As per medication reconciliation list. Followup: Follow up with primary care physician in 2 to 3 days. Follow up with Dr. Ramses ORTIZ, in 2 weeks. Return to ER for worsening condition. Physical Examination: General: Awake, alert, oriented x3, not in any acute distress. CV: S1, S2. No murmurs. Respiratory: Moving air well bilaterally. No wheezing. Gastrointestinal: Abdomen is soft, nontender, nondistended. Positive bowel sounds. Extremities: No clubbing, cyanosis, or edema. Neurologic: Nonfocal. Total time spent discharging was 37 minutes. /ROSA Voice ID: [id number] Report ID: [id number]
== END 2019-02-06 19:07 | disposition home or self-care (01) | DRG 372 ==
LOC: ER 15:56 → ERHOLD 20:30 → 2ND 21:16
PROVIDERS: ADMIT Hospitalist; ATTEND Hospitalist
DX: A04.72 Enterocolitis due to Clostridium difficile, not specified as recurrent (principal); D62 Acute posthemorrhagic anemia; K92.1 Melena; R63.4 Abnormal weight loss; Z68.22 Body mass index [BMI] 22.0-22.9, adult; E87.6 Hypokalemia; E83.51 Hypocalcemia
CPT/HCPCS: 36415; 74177; 80048; 80053; 80076; 81003; 81015; 81025; 82274; 83690; 83735; 84100; 84132; 85025; 85610; 85652; 85730; 86140; 87045; 87046; 87086; 87088; 87177; 87209; 87493; 89055; 96361; 96374; 96375; 99285; C9113; J1170; J2270; J2405; J2550; J3010; J3475; J7030; Q9967

== ENCOUNTER 2019-02-16 19:37 | Emergency (ER) | payer BC ==
[2019-02-16 20:37] LABS: Urine Blood 1+ (NEG); Urine Glucose NEGATIVE (NEG); Urine Protein NEGATIVE (NEG); Urine Specific Gravity 1.015 (1.005-1.030); Urine pH 7.5 (5.0-7.0)
[2019-02-16] MEDS ORDERED: MORPHINE 2 MG/ML SYR ONE (20:40)
[2019-02-16] MEDS ORDERED: NA CHLORIDE 0.9% 1,000 ML ONE (20:41)
[2019-02-16] MEDS ORDERED: ONDANSETRON 4 MG/2 ML VIAL ONE (20:41)
[2019-02-16 20:45] LABS: Absolute Lymphocytes (CBC) 1.4 K/uL (0.7-4.9); Basophils % 0.8 % (0-1.3); Lymphocytes % 18.4 % (15.3-44.8); RBC Red Blood Cell Count 3.55 M/uL (3.86-4.86)
[2019-02-16 20:46] LABS: Urine Bacteria <20 /HPF (<20); Urine Culture Reflex Order NOT NEEDED; Urine RBC NONE SEEN /HPF (NONE SEEN)
[2019-02-16 21:02] LABS: ALT/SGPT 62 U/L (12-78); AST/SGOT 35 U/L (15-37); Albumin 2.7 g/dL (3.4-5.0); Alkaline Phosphatase 206 U/L (45-117); BUN Blood Urea Nitrogen 7 mg/dL (7-18); Bicarbonate 28 mmol/L (21-32); Bilirubin Direct < 0.1 mg/dL (0-0.2); Glucose Level 106 mg/dL (74-106); Lipase 712 U/L (73-393); Potassium 3.8 mmol/L (3.5-5.1); Protein, Total 7.3 g/dL (6.4-8.2); Sodium Level 139 mmol/L (136-145)
[2019-02-16 21:04] LABS: Bilirubin Total < 0.1 mg/dL (0.2-1.0)
[2019-02-16 21:39] LABS: Anisocytosis 2+; Blood Morphology Comment NOTED (NOT SEEN); Platelet Estimate INCR
[2019-02-16] MEDS ORDERED: predniSONE 20 MG TAB ONE (23:45)
--- NOTE | 2019-02-17 00:13 | ER ---
Nurse's Notes [facility] Name: Kaitlynn Orourke Age: 38 yrs Sex: Female : 1980 Arrival Date: 02/16/2019 Time: 19:41 Bed 16 Private MD: Diagnosis: Colitis Presentation: 02/16 19:50 Presenting complaint: Patient states: "I was hospitalized for C-Diff and I got out last aj1 Tuesday. I was taking Vancomycin, I finished Tuesday, but the diarrhea didn't get any better. The last 2 days the abdominal cramping and pain have come back and I'm going way more than I was going before" Reports fever. TMax 100.0. Transition of care: patient was not received from another setting of care. Onset of symptoms was February 16, 2019. Risk Assessment: Do you want to hurt yourself or someone else? Patient reports no desire to harm self or others. Initial Sepsis Screen: Does the patient meet any 2 criteria? No. Patient's initial sepsis screen is negative. Does the patient have a suspected source of infection? Yes: Acute abdominal pain. Care prior to arrival: None. 19:50 Method Of Arrival: Ambulatory aj1 19:50 Acuity: DELMY 3 aj1 Triage Assessment: 19:52 General: Appears in no apparent distress. comfortable, Behavior is calm, cooperative, aj1 appropriate for age. Pain: Pain currently is 7 out of 10 on a pain scale. Neuro: Level of Consciousness is awake, alert, obeys commands, Oriented to person, place, time, situation. Cardiovascular: Patient's skin is warm and dry. Respiratory: Airway is patent Respiratory effort is even, unlabored, Respiratory pattern is regular, symmetrical. GI: Reports diarrhea. 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 - Social history:: Smoking status: Patient/guardian denies using tobacco. - Ebola Screening: : Patient denies travel to an Ebola-affected area in the 21 days before illness onset. Screenin:15 Abuse screen: Denies threats or abuse. Nutritional screening: No deficits noted. jb4 Tuberculosis screening: No symptoms or risk factors identified. Fall Risk None identified. Assessment: 20:13 General: Appears in no apparent distress. comfortable, Behavior is calm, cooperative, jb4 appropriate for age. Pain: Complains of pain in low back area and abdomen Pain does not radiate. Pain currently is 8 out of 10 on a pain scale. Quality of pain is described as crampy. Neuro: Level of Consciousness is awake, alert, obeys commands, Oriented to person, place, time, situation. Cardiovascular: Patient's skin is warm and dry. Respiratory: Airway is patent Respiratory effort is even, unlabored, Respiratory pattern is regular, symmetrical. GI: Abdomen is flat, non-distended, Bowel sounds present X 4 quads. Abd is soft X 4 quads Abdomen is tender to palpation X 4 quads. : No deficits noted. No signs and/or symptoms were reported regarding the genitourinary system. EENT: No deficits noted. No signs and/or symptoms were reported regarding the EENT system. Derm: Skin is intact, Skin is pink, warm \\T\\ dry. Musculoskeletal: Circulation, motion, and sensation intact. Range of motion: intact in all extremities. 21:00 Reassessment: Patient appears in no apparent distress at this time. No changes from jb4 previously documented assessment. Patient and/or family updated on plan of care and expected duration. Pain level reassessed. Patient is alert, oriented x 3, equal unlabored respirations, skin warm/dry/pink. 22:01 Reassessment: Pt to Ct. jb4 23:00 Reassessment: Patient appears in no apparent distress at this time. Patient and/or jb4 family updated on plan of care and expected duration. Pain level reassessed. Patient is alert, oriented x 3, equal unlabored respirations, skin warm/dry/pink. 02/17 00:00 Reassessment: Patient appears in no apparent distress at this time. Patient and/or jb4 family updated on plan of care and expected duration. Pain level reassessed. Patient is alert, oriented x 3, equal unlabored respirations, skin warm/dry/pink. Vital Signs: 02/16 19:52 BP 109 / 76; Pulse 107; Resp 18; Temp 98.9; Pulse Ox 100% on R/A; Weight 51.71 kg (R); aj1 Height 5 ft. 1 in. (154.94 cm) (R); Pain 7/10; 21:15 BP 104 / 76; Pulse 97; Resp 18; Pulse Ox 100% on R/A; jb4 22:45 BP 109 / 62; Pulse 97; Resp 18; Pulse Ox 98% on R/A; jb4 02/17 00:00 BP 119 / 81; Pulse 107; Resp 16; Pulse Ox 100% on R/A; jb4 02/16 19:52 Body Mass Index 21.54 (51.71 kg, 154.94 cm) aj1 ED Course: 02/16 19:41 Patient arrived in ED. ag3 19:52 Triage completed. aj1 19:52 Arm band placed on Patient placed in an exam room. aj1 19:58 Cliff Woody, RN is Primary Nurse. jb4 20:15 Patient has correct armband on for positive identification. Bed in low position. Call jb4 light in reach. Side rails up X 1. Pulse ox on. NIBP on. 20:18 Pee Canada PA is PHCP. [facility] 20:18 Freddy Gilliam MD is Attending Physician. m 20:30 Radiology exam delayed due to lab results not completed at this time. (BUN/Creatinine) nj test not completed at this time. 20:34 Missed attempt(s): 22 gauge Bleeding controlled, band aid applied, catheter tip intact. jd2 20:44 Radiology exam delayed due to lab results not completed at this time. (BUN/Creatinine). vm2 22:00 Missed attempt(s): 22 gauge in right forearm. Accessed peripheral vein via ultrasound, lp1 utilizing dynamic ultrasound technique Clean \\T\\ dry. Good blood return. Flushes easily. 22g IV to Left FA. 22:13 CT Abd/Pelvis - IV Contrast Only In Process Unspecified. EDMS 02/17 00:25 No provider procedures requiring assistance completed. jb4 00:25 IV discontinued, intact, bleeding controlled, No redness/swelling at site. Pressure jb4 dressing applied. Administered Medications: 02/16 22:56 Drug: NS 0.9% 1000 ml Route: IV; Rate: 1 bolus; Site: left antecubital; 23:25 Follow up: IV Status: Order to discontinue infusion; IV Intake: 200ml jb4 22:56 Drug: morphine 2 mg {Note: RASS 0.} Route: IVP; Site: left antecubital; 23:20 Follow up: Response: No adverse reaction; Pain is decreased; RASS: Alert and Calm (0) jb 22:56 Drug: Zofran 4 mg Route: IVP; Site: left antecubital; 23:20 Follow up: Response: No adverse reaction; Nausea is decreased jb 23:20 CANCELLED (oral used): SOLU-Medrol 125 mg IVP once [facility] 23:57 Drug: predniSONE 60 mg Route: PO; 02/17 00:20 Follow up: Response: No adverse reaction jb 00:01 Not Given (Physician Discretion; not available at facility): vancoMYCIN 250 mg PO once [facility] Intake: 02/16 23:25 IV: 200ml; Total: 200ml. jb Outcome: 02/17 00:11 Discharge ordered by . [facility] 00:25 Discharged to home ambulatory, with friend. [facility] 00:25 Condition: stable 00:25 Discharge instructions given to patient, friend, Instructed on discharge instructions, follow up and referral plans. medication usage, Demonstrated understanding of instructions, follow-up care, medications, Prescriptions given X 2. 00:33 Patient left the ED. [facility] Addendum: 02/20/2019 08:18 Addendum: Culture Results: Positive urine culture. No further action required. Bacteria a a5 sensitive to prescribed antibiotic. Signatures: Dispatcher [employer] EDMS Eula Bazzi RN RN aj1 Pee Canada PA PA m Caitlin Agudelo RN RN aa5 Kaitlynn Martinez RN RN lp1 Kristal Chopra jCliff Mari RN RN jb4 Denilson Lopez Victoria vm2 Jannette Macias Alice 3
--- NOTE | 2019-02-17 00:15 | EDPHYS ---
Physician Documentation [facility] Name: Kaitlynn Orourke Age: 38 yrs Sex: Female : 1980 Arrival Date: 02/16/2019 Time: 19:41 Bed 16 Private MD: ED Physician Freddy Gilliam HPI: 02/16 21:21 This 38 yrs old Female presents to ER via Ambulatory with complaints of jmm Abdominal Pain, Diarrhea. 21:21 The patient presents with abdominal pain. Onset: The symptoms/episode began/occurred jmm gradually, 4 day(s) ago. The symptoms do not radiate. Associated signs and symptoms: Pertinent positives: diarrhea, fever, Pertinent negatives:. This is a 38 year old female with a history of colitis that presents to the ED with complaints of abdominal pain, diarrhea which has worsened over the past 4 days since discharge for c.diff infection. Patient finished 10 day course of vancomycin and flagyl this past Tuesday. complains of ongoing abdominal pain and diarrhea since. . 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 - Social history:: Smoking status: Patient/guardian denies using tobacco. - Ebola Screening: : Patient denies travel to an Ebola-affected area in the 21 days before illness onset. ROS: 21:21 Constitutional: Positive for body aches, fever, Negative for jmm 21:21 Abdomen/GI: Positive for abdominal pain, diarrhea. 21:21 Back: Positive for flank pain. 21:21 All other systems are negative. Exam: 21:21 Constitutional: This is a well developed, well nourished patient who is awake, alert, jmm and in no acute distress. Head/Face: atraumatic. Eyes: EOMI, no conjunctival erythema appreciated ENT: Moist Mucus Membranes Neck: Trachea midline, Supple Chest/axilla: Normal chest wall appearance and motion. Cardiovascular: Regular rate and rhythm. No edema appreciated Respiratory: Normal respirations, no respiratory distress appreciated 21:21 Abdomen/GI: Inspection: abdomen appears normal, Bowel sounds: normal, Palpation: soft, mild abdominal tenderness, in the right lower quadrant and left lower quadrant. 21:21 Back: ROM is normal. 21:21 Musculoskeletal/extremity: ROM: no acute changes. 21:21 Skin: Appearance: Color: normal in color. 21:21 Neuro: Orientation: is normal, Mentation: is normal, Memory: is normal. 21:21 Psych: Behavior/mood is pleasant, cooperative. Vital Signs: 19:52 BP 109 / 76; Pulse 107; Resp 18; Temp 98.9; Pulse Ox 100% on R/A; Weight 51.71 kg (R); aj1 Height 5 ft. 1 in. (154.94 cm) (R); Pain 7/10; 21:15 BP 104 / 76; Pulse 97; Resp 18; Pulse Ox 100% on R/A; jb4 22:45 BP 109 / 62; Pulse 97; Resp 18; Pulse Ox 98% on R/A; [facility] 02/17 00:00 BP 119 / 81; Pulse 107; Resp 16; Pulse Ox 100% on R/A; [facility] 02/16 19:52 Body Mass Index 21.54 (51.71 kg, 154.94 cm) [facility] MDM: 02/16 20:25 Patient medically screened. [facility] 22:23 Data reviewed: vital signs, nurses notes. Counseling: I had a detailed discussion with [facility] the patient and/or guardian regarding:. 02/17 00:06 Counseling: I had a detailed discussion with the patient and/or guardian regarding: the [facility] historical points, exam findings, and any diagnostic results supporting the discharge/admit diagnosis, lab results, radiology results, the need for outpatient follow up, to return to the emergency department if symptoms worsen or persist or if there are any questions or concerns that arise at home. ED course: I discussed the patient with Dr. Cruz whom advised to prescribe vancomycin and oral steroids. I discussed lab results along with the need for hematology follow up due to thrombocytosis. Strict return precautions were otherwise given to the patient. Patient understood and agrees with the plan of care. . 02/16 20:25 Order name: Basic Metabolic Panel; Complete Time: 21:19 [facility] 02/16 20:25 Order name: CBC with Diff; Complete Time: 21:43 [facility] 02/16 20:25 Order name: Creatinine for Radiology; Complete Time: 21:19 [facility] 02/16 20:25 Order name: Hepatic Function; Complete Time: 21:19 [facility] 02/16 20:25 Order name: Lipase; Complete Time: 21:19 [facility] 02/16 20:25 Order name: CDIFF [facility] 02/16 20:26 Order name: CT Abd/Pelvis - IV Contrast Only [facility] 02/16 20:28 Order name: Urine Dipstick--Ancillary (enter results); Complete Time: 20:44 [facility] 02/16 20:28 Order name: Urine --Ancillary (enter results); Complete Time: 20:44 [facility] 02/16 20:31 Order name: Urine Culture [facility] 02/16 20:31 Order name: Urine Microscopic Only; Complete Time: 20:[address] [facility] 02/16 20:48 Order name: Manual Differential; Complete Time: 21:43 [facility] 02/16 20:25 Order name: IV Saline Lock; Complete Time: 22:06 [facility] 02/16 20:25 Order name: Labs collected and sent; Complete Time: 22:06 [facility] Administered Medications: 02/16 22:56 Drug: NS 0.9% 1000 ml Route: IV; Rate: 1 bolus; Site: left antecubital; 23:25 Follow up: IV Status: Order to discontinue infusion; IV Intake: 200ml [facility] 22:56 Drug: morphine 2 mg {Note: RASS 0.} Route: IVP; Site: left antecubital; 23:20 Follow up: Response: No adverse reaction; Pain is decreased; RASS: Alert and Calm (0) [facility] 22:56 Drug: Zofran 4 mg Route: IVP; Site: left antecubital; 23:20 Follow up: Response: No adverse reaction; Nausea is decreased [facility] 23:20 CANCELLED (oral used): SOLU-Medrol 125 mg IVP once [facility] 23:57 Drug: predniSONE 60 mg Route: PO; 02/17 00:20 Follow up: Response: No adverse reaction [facility] 00:01 Not Given (Physician Discretion; not available at facility): vancoMYCIN 250 mg PO once [facility] Disposition: 02/17/19 00:11 Discharged to Home. Impression: Colitis. - Condition is Stable. - Discharge Instructions: Colitis. - Prescriptions for vancomycin 250 mg Oral capsule - take 1 capsule by ORAL route every 8 hours for 7 days; 21 capsule. Prednisone 20 mg Oral Tablet - take 1 tablet by ORAL route once daily for 5 days; 5 tablet. - Medication Reconciliation Form, Thank You Letter, Antibiotic Education, Prescription Opioid Use form. - Follow up: Private Physician; When: 2 - 3 days; Reason: Recheck today's complaints, Continuance of care, Re-evaluation by your physician. Addendum: 02/20/2019 14:48 Co-signature as Attending Physician, Freddy Gilliam MD. g s Signatures: Dispatcher [employer] EDMS Eula Bazzi, RN RN aj1 Pee Canada PA PA jmm Bryson, James, RN RN jb4 Jannette Macias Gregory, MD MD gs Corrections: (The following items were deleted from the chart) 02/16 23:20 23:07 SOLU-Medrol 125 mg IVP once ordered. noemy salguero 02/17 00:33 00:11 02/17/2019 00:11 Discharged to Home. Impression: Colitis. Condition is Stable. jb4 Forms are Medication Reconciliation Form, Thank You Letter, Antibiotic Education, Prescription Opioid Use. Follow up: Private Physician; When: 2 - 3 days; Reason: Recheck today's complaints, Continuance of care, Re-evaluation by your physician. noemy
[2019-02-17 00:55] VITALS: TEMP 98.9
[2019-02-17 00:59] VITALS: BP 119/81; O2SAT 100
--- NOTE | 2019-02-20 17:36 | RAD REPORT ---
EXAM DESCRIPTION: CT - Abdomen Pelvis W Contrast - 02/17/2019 12:05 am CLINICAL HISTORY: Lower abdominal pain, diarrhea TECHNIQUE: Contiguous axial images obtained through the abdomen and pelvis following the uneventful administration of IV contrast. Coronal and sagittal reformatted images were provided. This exam was performed according to our departmental dose-optimization program, which includes autom ated exposure control, adjustment of the mA and/or kV according to patient size and/or use of iterati ve reconstruction technique. COMPARISON: 01/31/2019 FINDINGS: Lung bases: Clear Liver: Unremarkable Gallbladder and biliary system: Unremarkable Pancreas: Unremarkable Spleen: Unremarkable Adrenals: Unremarkable Kidneys: Normal renal cortical enhancement. No calculi. No hydronephrosis. Bowel: Interval decrease in degree of thickening of the large bowel from the mid ascending colon to t he level of the rectum. Moderate stool within the proximal large bowel. No obstruction. Appendix: Normal caliber appendix. No findings to suggest acute appendicitis. Urinary bladder: The urinary bladder is partially decompressed. Mild to moderate circumferential urin luciano bladder wall thickening. Reproductive: Unremarkable as visualized Lymph nodes: No pathologically enlarged lymph nodes. Peritoneum: No focal fluid collection. No free air. Vessels: No abdominal aortic aneurysm. Abdominal wall: Unremarkable Bones: Unremarkable IMPRESSION: 1. Persistent findings compatible with nonspecific colitis involving the majority of t he large bowel with interval decrease in degree of bowel wall thickening. 2. Mild to moderate circumferential urinary bladder wall thickening which may be related to degree of distention. Please correlate clinically for cystitis. 3. Other findings as above. Electronically signed by: Nubia Preciado MD 02/16/2019 10:30 PM CDT Due to temporary technical issues with the PACS/Fluency reporting system, reports are being signed by the in house radiologist as a courtesy to ensure prompt reporting. The interpreting radiologist is f ully responsible for the content of the report.
== END 2019-02-17 00:33 | disposition home or self-care (01) ==
LOC: ER 19:37
DX: K52.9 Noninfective gastroenteritis and colitis, unspecified (principal)
CPT/HCPCS: 87088; 85025; 87086; 80048; 36415; 81025; 80076; 87493; 87077; 87186; 83690; 74177; 96375; 96374; 99284; Q9967; J2270; J7030; J2405; 81003; 81015; J7512

== ENCOUNTER 2019-09-01 06:50 | Emergency (ER) | payer BC ==
--- OUTSIDE RECORDS SUMMARY | 2019-09-01 06:54 | XMS REPORT ---
:1980 Author Organization [employer] Care Team Providers Name Role Phone Janet Salazar Provider Role Unavailable Allergies, Adverse Reactions, Alerts Substance Reaction Event Type N.K.D.A. Info Not Available Non Drug Allergy Problems Problem Type Condition Code Onset Dates Condition Statu s Problem Blood in stool K92.1 Active Problem Transfusion history Z92.89 Active Problem Nausea R11.0 Active Problem Counseling and coordination of care Z71.89 Active Assessment Need for influenza vaccination Z23 Active Problem Hypokalemia E87.6 Active Assessment Need for pneumococcal vaccination Z23 Active Assessment Immunity to measles, mumps, and Z01.84 Active rubella determined by serologic test Problem Ulcerative colitis without K51.90 A ctive complications, unspecified location Problem Follow-up exam Z09 Active Problem Diarrhea, unspecified type R19.7 A ctive Problem Encounter for vitamin deficiency Z13.21 Active screening Problem Anemia, unspecified type D64.9 Act zev Problem IBS (irritable bowel syndrome) K58.9 Active Assessment Counseling and coordination of care Z71.89 Active Assessment Ulcerative colitis without K51.90 A ctive complications, unspecified location Problem Internal hemorrhoids K64.8 Active Problem Thrombocytopenia D69.6 Active Problem Seasonal allergies J30.2 Active Problem Abdominal pain, unspecified R10.9 Active abdominal location Assessment Immunity to varicella determined by Z01.84 Active serologic test Problem Subcutaneous nodules R22.9 Active Problem Clostridioides difficile infection A49.8 Active Medications No Known Medications Results No Known Results Immunizations Vaccine Administration Date Flucelvax - single dose syringe Mar 14, 2019 PNEUMAVAX Mar 14, 2019 Summary Purpose [employer] Submission
--- OUTSIDE RECORDS SUMMARY | 2019-09-01 06:54 | XMS REPORT ---
:1980 Author Organization [employer] Care Team Providers Name Role Phone Janet Salazar Provider Role Unavailable Allergies, Adverse Reactions, Alerts Substance Reaction Event Type N.K.D.A. Info Not Available Non Drug Allergy Problems Problem Type Condition Code Onset Dates Condition Statu s Assessment Abnormal ultrasound R93.89 Active Assessment Axillary lymphadenopathy R59.0 Act zev Problem Follow-up exam Z09 Active Assessment Shortness of breath R06.02 Active Problem Anemia, unspecified type D64.9 Act zev Assessment Fatigue, unspecified type R53.83 Ac tive Problem Thrombocytopenia D69.6 Active Problem Hypokalemia E87.6 Active Problem Nausea R11.0 Active Problem Axillary lymphadenopathy R59.0 Act zev Problem Fatigue, unspecified type R53.83 Ac tive Problem IBS (irritable bowel syndrome) K58.9 Active Problem Shortness of breath R06.02 Active Assessment Anemia, unspecified type D64.9 Act zev Problem Ulcerative colitis without K51.90 A ctive complications, unspecified location Problem Encounter for vitamin deficiency Z13.21 Active screening Problem Abnormal ultrasound R93.89 Active Problem Counseling and coordination of care Z71.89 Active Problem Internal hemorrhoids K64.8 Active Problem Clostridioides difficile infection A49.8 Active Problem Seasonal allergies J30.2 Active Problem Subcutaneous nodules R22.9 Active Problem Transfusion history Z92.89 Active Problem Diarrhea, unspecified type R19.7 A ctive Problem Blood in stool K92.1 Active Problem Abdominal pain, unspecified R10.9 Active abdominal location Medications Medication Code System Code Instructions Start End Date Status Dos age Date Low [facility] [address]99-377 - Orally Once a Active ( OTC) 1 Iron 3-30 day tablet Results No Known Results Summary Purpose [employer] Submission
--- OUTSIDE RECORDS SUMMARY | 2019-09-01 06:54 | XMS REPORT ---
:1980 Author Organization [employer] Care Team Providers Name Role Phone Janet Salazar Provider Role Unavailable Allergies No Known Allergies Problems Problem Type Condition Code Onset Dates Condition Statu s Problem Blood in stool K92.1 Active Problem Transfusion history Z92.89 Active Problem Nausea R11.0 Active Problem Counseling and coordination of care Z71.89 Active Problem Hypokalemia E87.6 Active Problem Ulcerative colitis without K51.90 A ctive complications, unspecified location Problem Follow-up exam Z09 Active Problem Diarrhea, unspecified type R19.7 A ctive Problem Encounter for vitamin deficiency Z13.21 Active screening Problem Anemia, unspecified type D64.9 Act zev Problem IBS (irritable bowel syndrome) K58.9 Active Problem Internal hemorrhoids K64.8 Active Problem Thrombocytopenia D69.6 Active Problem Seasonal allergies J30.2 Active Problem Abdominal pain, unspecified R10.9 Active abdominal location Problem Subcutaneous nodules R22.9 Active Problem Clostridioides difficile infection A49.8 Active Medications No Known Medications Results No Known Results Summary Purpose [employer] Submission
--- OUTSIDE RECORDS SUMMARY | 2019-09-01 06:54 | XMS REPORT ---
:1980 Author Organization [facility] t Address [address] [place] [address] Dr. [address] [place] [id number] Care Team Providers Name Role Phone Clotilde HARRIS Unavailable Unavailable Kimberly CARMONA Unavailable Unavailable Problems This patient has no known problems. Allergies, Adverse Reactions, Alerts This patient has no known allergies or adverse reactions. Medications This patient has no known medications. Results Test Description Test Time Test Comments Text Results Atomic Results Result Comments SCREEN, URINE 2019-01-29 02:33:00 Test Item Value Reference Range Comments TEST URINE (BEAKER) (test code = 583) Negative URINALYSIS W/ REFLEX URINE [id number] 02:31:00 Test Item Value Reference Range Comments COLOR (BEAKER) (test code = 470) Yellow CLARITY (BEAKER) (test code = 469) Hazy SPECIFIC GRAVITY UA (BEAKER) (test code = 468) 1.017 1 .001-1.035 PH UA (BEAKER) (test code = 467) 5.5 5.0-8.0 PROTEIN UA (BEAKER) (test code = 464) 30 mg/dL Negative GLUCOSE UA (BEAKER) (test code = 365) Negative Negative KETONES UA (BEAKER) (test code = 371) >150 mg/dL Negative BILIRUBIN UA (BEAKER) (test code = 462) Negative Negative BLOOD UA (BEAKER) (test code = 461) Small Negative NITRITE UA (BEAKER) (test code = 465) Negative Negative LEUKOCYTE ESTERASE UA (BEAKER) (test code = 466) Negative Negative UROBILINOGEN UA (BEAKER) (test code = 463) 0.2 mg/dL 0.2-1 .0 RBC UA (BEAKER) (test code = 519) 1 /HPF WBC UA (BEAKER) (test code = 520) 1 /HPF MUCUS (BEAKER) (test code = 1574) Few SQUAMOUS EPITHELIAL (BEAKER) (test code = 516) 3 /HPF AMORPHOUS CRYSTALS (BEAKER) (test code = 1584) Occasional SOURCE(BEAKER) (test code = 2795) CT, [id number] 02:09:00Reason for exam:->ABDOMINAL PAINReason for exam:->NAUSEAReason for exam:->RECTAL BLEEDINGWhat is the patient's sedation [...] IMPRESSION: Colitis. Infectious and inflammatory causes are cons idered. Signed: lEiz Curry MDReport Verified Date/Time: 01/29/2019 02:09:01 Reading Location: [address] Reading Room HCG, QUANTITATIVE, [id number] 01:30:00 Test Item Value Reference Range Comments GONADOTROPIN, CHORIONIC (HCG) QUANT (BEAKER) (test < mIU/mL 0-10 code = 649) Non- Females: <10 mIU/mL Females: Gestation Age Reference Range(mIU/mL) 0.2-1 Week 5-50 1-2 Weeks 50-500 2-3 Weeks 100-5,000 3-4Weeks 500-10,000 4-5 Weeks 1,000-50,000 5-6 Weeks 10,000-100,000 6-8 Weeks 15,000-200,000 2-3 Months 10,000-100,000POCT-LACTIC ACID, VENOUS 2019-01-28 23:56:00 Test Item Value Reference Range Comments POC-LACTIC ACID, VENOUS 0.8 mmol/L 0.9-1.7 TESTED A T [facility] [address] (BEAKER) (test code = 2805) [place] [address] CBC W/PLT COUNT & AUTO [id number] 21:42:00 Test Item Value Reference Range Comments WHITE BLOOD CELL COUNT 9.0 K/ L 3.5-10.5 (BEAKER) (test code = 775) RED BLOOD CELL COUNT (BEAKER) 4.87 M/ L 3.93-5.22 (test code = 761) HEMOGLOBIN (BEAKER) (test code 12.5 GM/DL 11.2-15.7 = 410) HEMATOCRIT (BEAKER) (test code 38.5 % 34.1-44.9 = 411) MEAN CORPUSCULAR VOLUME 79.1 fL 79.4-94.8 (BEAKER) (test code = 753) MEAN CORPUSCULAR HEMOGLOBIN 25.7 pg 25.6-32.2 (BEAKER) (test code = 751) MEAN CORPUSCULAR HEMOGLOBIN 32.5 GM/DL 32.2-35.5 CONC (BEAKER) (test code = 752) RED CELL DISTRIBUTION WIDTH Unab le to report due to (BEAKER) (test code = 412) abnor mal RBC population distribution. PLATELET COUNT (BEAKER) (test 542 K/CU MM 150-450 code = 756) MEAN PLATELET VOLUME (BEAKER) 8.8 fL 9.4-12.3 (test code = 754) NUCLEATED RED BLOOD CELLS 0 /100 WBC 0-0 (BEAKER) (test code = 413) (CELLAVISION MANUAL DIFF)2019-01-28 21:42:00 Test Item Value Reference Range Comments NEUTROPHILS - REL (CELLAVISION)(BEAKER) (test 50 % code = 2816) LYMPHOCYTES - REL (CELLAVISION)(BEAKER) (test 14 % code = 2817) MONOCYTES - REL (CELLAVISION)(BEAKER) (test code 15 % = 2818) EOSINOPHILS - REL (CELLAVISION)(BEAKER) (test 1 % code = 2819) BANDS - REL (CELLAVISION)(BEAKER) (test code = 17 % 0 -10 2826) ATYPICAL LYMPHOCYTES - REL (CELLAVISION)(BEAKER) 3 % 0-0 (test code = 2829) NEUTROPHILS - ABS (CELLAVISION)(BEAKER) (test 4.50 K/ul 1. 56-6.13 code = 2830) LYMPHOCYTES - ABS (CELLAVISION)(BEAKER) (test 1.26 K/ul 1. 18-3.74 code = 2831) MONOCYTES - ABS (CELLAVISION)(BEAKER) (test code 1.35 K/uL 0.24-0.36 = 2832) EOSINOPHILS - ABS (CELLAVISION)(BEAKER) (test 0.09 K/uL 0. 04-0.36 code = 2834) BANDS - ABS (CELLAVISION)(BEAKER) (test code = 1.53 K/uL 0 .00-0.80 2840) ATYPICAL LYMPHOCYTES - ABS (CELLAVISION)(BEAKER) 0.27 K/uL 0.00-0.00 (test code = 2858) TOTAL COUNTED (BEAKER) (test code = 1351) 100 PLT MORPHOLOGY (BEAKER) (test code = 486) Normal SMUDGE CELLS (BEAKER) (test code = 1371) Present POLYCHROMATOPHILLIC RBCS(BEAKER) (test code = 3+ many 478) HYPOCHROMIA (BEAKER) (test code = 963) 1+ few ANISOCYTOSIS (BEAKER) (test code = 961) 2+ moderate MICROCYTES (BEAKER) (test code = 965) 2+ moderate POIKILOCYTES (BEAKER) (test code = 966) 1+ few PLATELET CONCENTRATION (CELLAVISION)(BEAKER) Increased (test code = 3438) Received comment: User comments: Slide comments:BASIC METABOLIC [id number] 21:21:00 Test Item Value Reference Range Comments SODIUM (BEAKER) (test 134 meq/L 136-145 code = 381) POTASSIUM (BEAKER) (test 3.7 meq/L 3.5-5.1 code = 379) CHLORIDE (BEAKER) (test 96 meq/L 98-107 code = 382) CO2 (BEAKER) (test code = 25 meq/L 22-29 355) BLOOD UREA NITROGEN 11 mg/dL 7-21 (BEAKER) (test code = 354) CREATININE (BEAKER) (test 0.67 mg/dL 0.57-1.25 code = 358) GLUCOSE RANDOM (BEAKER) 79 mg/dL 70-105 (test code = 652) CALCIUM (BEAKER) (test 9.1 mg/dL 8.4-10.2 code = 697) EGFR (BEAKER) (test code 99 mL/min/1.73 sq m EST IMATED GFR IS NOT = 1092) ACCURATE CREA TININE CLEARANCE IN PRE DICTING GLOMERULAR FILTR ATION RATE. ESTIMATED GFR IS NOT APPLICABLE F OR DIALYSIS PATIENT S. OVA AND PARASITE [id number] 08:15:00 Test Item Value Reference Range Comments DIRECT SMEAR - O\\T\\P No ova or parasites seen No ova or parasite s seen (BEAKER) (test code = 196) CONCENTRATE SMEAR - O\\T\\P No ova or parasites seen No ova or par asites seen (BEAKER) (test code = 247) TRICHROME SMEAR - O\\T\\P No ova or parasites seen No ova or ángel ites seen (BEAKER) (test code = 248) BASIC METABOLIC [id number] 05:42:00 Test Item Value Reference Range Comments SODIUM (BEAKER) (test 138 meq/L 136-145 code = 381) POTASSIUM (BEAKER) (test 3.1 meq/L 3.5-5.1 code = 379) CHLORIDE (BEAKER) (test 108 meq/L 98-107 code = 382) CO2 (BEAKER) (test code = 23 meq/L 22-29 355) BLOOD UREA NITROGEN 5 mg/dL 7-21 (BEAKER) (test code = 354) CREATININE (BEAKER) (test 0.65 mg/dL 0.57-1.25 code = 358) GLUCOSE RANDOM (BEAKER) 111 mg/dL 70-105 (test code = 652) CALCIUM (BEAKER) (test 8.3 mg/dL 8.4-10.2 code = 697) EGFR (BEAKER) (test code 102 mL/min/1.73 sq m ES TIMATED GFR IS NOT = 1092) ACCURATE CREA TININE CLEARANCE IN PRE DICTING GLOMERULAR FILTR ATION RATE. ESTIMATED GFR IS NOT APPLICABLE F OR DIALYSIS PATIENT S. CBC W/PLT COUNT & AUTO [id number] 05:35:00 Test Item Value Reference Range Comments WHITE BLOOD CELL COUNT (BEAKER) (test code = 7.6 K/ L 3.5 -10.5 775) RED BLOOD CELL COUNT (BEAKER) (test code = 761) 3.80 M/ L 3.93-5.22 HEMOGLOBIN (BEAKER) (test code = 410) 7.7 GM/DL 11.2-15.7 HEMATOCRIT (BEAKER) (test code = 411) 25.8 % 34.1-44.9 MEAN CORPUSCULAR VOLUME (BEAKER) (test code = 67.9 fL 79 .4-94.8 753) MEAN CORPUSCULAR HEMOGLOBIN (BEAKER) (test code 20.3 pg 25.6-32.2 = 751) MEAN CORPUSCULAR HEMOGLOBIN CONC (BEAKER) (test 29.8 GM/DL 32.2-35.5 code = 752) RED CELL DISTRIBUTION WIDTH (BEAKER) (test code 23.0 % 11.7-14.4 = 412) PLATELET COUNT (BEAKER) (test code = 756) 380 K/CU MM 150-45 0 MEAN PLATELET VOLUME (BEAKER) (test code = 754) 8.6 fL 9.4-12.3 NUCLEATED RED BLOOD CELLS (BEAKER) (test code = 0 /100 WBC 0-0 413) NEUTROPHILS RELATIVE PERCENT (BEAKER) (test code 63 % = 429) LYMPHOCYTES RELATIVE PERCENT (BEAKER) (test code 20 % = 430) MONOCYTES RELATIVE PERCENT (BEAKER) (test code = 10 % 431) EOSINOPHILS RELATIVE PERCENT (BEAKER) (test code 6 % = 432) BASOPHILS RELATIVE PERCENT (BEAKER) (test code = 1 % 437) NEUTROPHILS ABSOLUTE COUNT (BEAKER) (test code = 4.79 K/ L 1.56-6.13 670) LYMPHOCYTES ABSOLUTE COUNT (BEAKER) (test code = 1.48 K/ L 1.18-3.74 414) MONOCYTES ABSOLUTE COUNT (BEAKER) (test code = 0.76 K/ L 0 .24-0.36 415) EOSINOPHILS ABSOLUTE COUNT (BEAKER) (test code = 0.45 K/ L 0.04-0.36 416) BASOPHILS ABSOLUTE COUNT (BEAKER) (test code = 0.05 K/ L 0 .01-0.08 417) IMMATURE GRANULOCYTES-RELATIVE PERCENT (BEAKER) 0 % 0-1 (test code = 2801) TISSUE [id number] 09:51:00Surgical Pathology Report Case: [id number] Authorizing Provider: Ike Huynh Collected: 11/27/2018 1108 Ordering Location: [address] Received: 11/27/2018 1400 Service Pathologist: Jack Batista MD Specimens: A) - Polyp, Colon - Right/Ascending, BX TAKEN BY FRCP B) -Polyp, Colon - Hepatic Flexure, COLD SNARE C) [...] C TRANSVERSE COLON, BIOPSY:MILDLY EDEMATOUS COLONIC MUCOSA W ITHOUT SIGNIFICANT HISTOPATHOLOGIC ALTERATION.NEGATIVE FOR INCREASED EPITHELIAL LYMPHOCYTES, GRANULOMAS, DYSPLASIA, OR INVASIVE CARCINOMA.PART D LEFT DESCENDING COLON [...] INVASIVE CARCINOMA. Signing Pathologist Direct Phone Line: [phone] signed by Jack Batista MD on 11/28/2018 at 9:51 [id number] and postop diagnosis: colitisA. Polyp,colon - right/ascending; B. Polyp, colon - hepatic flexure; C. [...] whichare submitted in toto in F1. CG/pl PERFORMED.[id number] 04:33:00 Test Item Value Reference Range Comments MAGNESIUM (BEAKER) (test code = 627) 1.9 mg/dL 1.6-2.6 BASIC METABOLIC [id number] 04:33:00 Test Item Value Reference Range Comments SODIUM (BEAKER) (test 139 meq/L 136-145 code = 381) POTASSIUM (BEAKER) (test 3.6 meq/L 3.5-5.1 code = 379) CHLORIDE (BEAKER) (test 109 meq/L 98-107 code = 382) CO2 (BEAKER) (test code = 21 meq/L 22-29 355) BLOOD UREA NITROGEN 6 mg/dL 7-21 (BEAKER) (test code = 354) CREATININE (BEAKER) (test 0.61 mg/dL 0.57-1.25 code = 358) GLUCOSE RANDOM (BEAKER) 93 mg/dL 70-105 (test code = 652) CALCIUM (BEAKER) (test 8.4 mg/dL 8.4-10.2 code = 697) EGFR (BEAKER) (test code 110 mL/min/1.73 sq m ES TIMATED GFR IS NOT = 1092) ACCURATE CREA TININE CLEARANCE IN PRE DICTING GLOMERULAR FILTR ATION RATE. ESTIMATED GFR IS NOT APPLICABLE F OR DIALYSIS PATIENT S. HEPATIC FUNCTION [id number] 04:33:00 Test Item Value Reference Range Comments TOTAL PROTEIN (BEAKER) (test code = 770) 6.6 gm/dL 6.0-8.3 ALBUMIN (BEAKER) (test code = 1145) 3.3 g/dL 3.5-5.0 BILIRUBIN TOTAL (BEAKER) (test code = 377) 0.1 mg/dL 0.2-1 .2 BILIRUBIN DIRECT (BEAKER) (test code = 706) 0.1 mg/dL 0.1- 0.5 ALKALINE PHOSPHATASE (BEAKER) (test code = 346) 102 U/L 40-150 AST (SGOT) (BEAKER) (test code = 353) 19 U/L 5-34 ALT (SGPT) (BEAKER) (test code = 347) 19 U/L 6-55 CALCIUM, [id number] 04:30:00 Test Item Value Reference Range Comments CALCIUM IONIZED (BEAKER) (test code = 698) 1.09 mmol/L 1.12- 1.27 PH, BLOOD (BEAKER) (test code = 1810) 7.41 PROTHROMBIN [id number] 04:20:00 Test Item Value Reference Range Comments PROTIME (BEAKER) (test code = 759) 15.5 seconds 11.9-14.2 INR (BEAKER) (test code = 370) 1.3 <=5.9 Effective 10/18/2018: PT Reference Range ChangeNew: 11.9-14.2 Previous: 11.7- 14.7RECOMMENDED COUMADIN/WARFARIN INR THERAPY RANGESSTANDARD DOSE: 2.0-3.0 Includes: PROPHYLAXIS for venous thrombosis, systemic embolization; TREATMENT for venous thrombosis and/or pulmonary embolus.HIGH RISK: Target INR is2.5-3.5 for patients wiht mechanical heart valves.STOOL CULTURE + SHIGA [id number] 11:46:00 Test Item Value Reference Range Comments CULTURE (BEAKER) (test code No Salmonella, Shigella or = 1095) Campylobacter isolated HIV-1 ANTIGEN WITH HIV-1/2 [id number] 09:38:00 Test Item Value Reference Range Comments HIV-1 ANTIGEN WITH HIV 1\\T\\2 ANTIBODY (2) Nonreactive Nonrea ctive (BEAKER) (test code = 2586) [id number] 05:10:00 Test Item Value Reference Range Comments MAGNESIUM (BEAKER) (test code = 627) 2.1 mg/dL 1.6-2.6 BASIC METABOLIC [id number] 05:10:00 Test Item Value Reference Range Comments SODIUM (BEAKER) (test 135 meq/L 136-145 code = 381) POTASSIUM (BEAKER) (test 3.5 meq/L 3.5-5.1 code = 379) CHLORIDE (BEAKER) (test 108 meq/L 98-107 code = 382) CO2 (BEAKER) (test code = 21 meq/L 22-29 355) BLOOD UREA NITROGEN 5 mg/dL 7-21 (BEAKER) (test code = 354) CREATININE (BEAKER) (test 0.61 mg/dL 0.57-1.25 code = 358) GLUCOSE RANDOM (BEAKER) 90 mg/dL 70-105 (test code = 652) CALCIUM (BEAKER) (test 8.0 mg/dL 8.4-10.2 code = 697) EGFR (BEAKER) (test code 110 mL/min/1.73 sq m ES TIMATED GFR IS NOT = 1092) ACCURATE CREA TININE CLEARANCE IN PRE DICTING GLOMERULAR FILTR ATION RATE. ESTIMATED GFR IS NOT APPLICABLE F OR DIALYSIS PATIENT S. HEPATIC FUNCTION [id number] 05:10:00 Test Item Value Reference Range Comments TOTAL PROTEIN (BEAKER) (test code = 770) 6.5 gm/dL 6.0-8.3 ALBUMIN (BEAKER) (test code = 1145) 3.3 g/dL 3.5-5.0 BILIRUBIN TOTAL (BEAKER) (test code = 377) 0.1 mg/dL 0.2-1 .2 BILIRUBIN DIRECT (BEAKER) (test code = 706) 0.1 mg/dL 0.1- 0.5 ALKALINE PHOSPHATASE (BEAKER) (test code = 346) 97 U/L 40-150 AST (SGOT) (BEAKER) (test code = 353) 13 U/L 5-34 ALT (SGPT) (BEAKER) (test code = 347) 17 U/L 6-55 CALCIUM, [id number] 04:48:00 Test Item Value Reference Range Comments CALCIUM IONIZED (BEAKER) (test code = 698) 1.02 mmol/L 1.12- 1.27 PH, BLOOD (BEAKER) (test code = 1810) 7.42 PROTHROMBIN [id number] 04:39:00 Test Item Value Reference Range Comments PROTIME (BEAKER) (test code = 759) 14.6 seconds 11.9-14.2 INR (BEAKER) (test code = 370) 1.2 <=5.9 Effective 10/18/2018: PT Reference Range ChangeNew: 11.9-14.2 Previous: 11.7- 14.7RECOMMENDED COUMADIN/WARFARIN INR THERAPY RANGESSTANDARD DOSE: 2.0-3.0 Includes: PROPHYLAXIS for venous thrombosis, systemic embolization; TREATMENT for venous thrombosis and/or pulmonary embolus.HIGH RISK: Target INR is2.5-3.5 for patients wiht mechanical heart valves.CBC (HEMOGRAM ONLY)[id number] 04:33:00 Test Item Value Reference Range Comments WHITE BLOOD CELL COUNT (BEAKER) (test code = 7.0 K/ L 3.5 -10.5 775) RED BLOOD CELL COUNT (BEAKER) (test code = 761) 3.78 M/ L 3.93-5.22 HEMOGLOBIN (BEAKER) (test code = 410) 7.5 GM/DL 11.2-15.7 HEMATOCRIT (BEAKER) (test code = 411) 25.6 % 34.1-44.9 MEAN CORPUSCULAR VOLUME (BEAKER) (test code = 67.7 fL 79 .4-94.8 753) MEAN CORPUSCULAR HEMOGLOBIN (BEAKER) (test code 19.8 pg 25.6-32.2 = 751) MEAN CORPUSCULAR HEMOGLOBIN CONC (BEAKER) (test 29.3 GM/DL 32.2-35.5 code = 752) RED CELL DISTRIBUTION WIDTH (BEAKER) (test code 22.1 % 11.7-14.4 = 412) PLATELET COUNT (BEAKER) (test code = 756) 373 K/CU MM 150-45 0 MEAN PLATELET VOLUME (BEAKER) (test code = 754) 8.3 fL 9.4-12.3 NUCLEATED RED BLOOD CELLS (BEAKER) (test code = 0 /100 WBC 0-0 413) STOOL PATH [id number] 18:28:00 Test Item Value Reference Range Comments PATHOGEN EXAM CHARGED (BEAKER) (test code = 2381) Done SHIGA TOXIN [id number] 14:40:00 Test Item Value Reference Range Comments SHIGA TOXIN 1 (BEAKER) (test code = 2177) Not detected Not de tected SHIGA TOXIN 2 (BEAKER) (test code = 2179) Not detected Not de tected CBC W/PLT COUNT & AUTO [id number] 06:26:00 Test Item Value Reference Range Comments WHITE BLOOD CELL COUNT (BEAKER) (test code = 5.5 K/ L 3.5 -10.5 775) RED BLOOD CELL COUNT (BEAKER) (test code = 761) 3.65 M/ L 3.93-5.22 HEMOGLOBIN (BEAKER) (test code = 410) 7.3 GM/DL 11.2-15.7 HEMATOCRIT (BEAKER) (test code = 411) 24.6 % 34.1-44.9 MEAN CORPUSCULAR VOLUME (BEAKER) (test code = 67.4 fL 79 .4-94.8 753) MEAN CORPUSCULAR HEMOGLOBIN (BEAKER) (test code 20.0 pg 25.6-32.2 = 751) MEAN CORPUSCULAR HEMOGLOBIN CONC (BEAKER) (test 29.7 GM/DL 32.2-35.5 code = 752) RED CELL DISTRIBUTION WIDTH (BEAKER) (test code 22.0 % 11.7-14.4 = 412) PLATELET COUNT (BEAKER) (test code = 756) 354 K/CU MM 150-45 0 MEAN PLATELET VOLUME (BEAKER) (test code = 754) 8.3 fL 9.4-12.3 NUCLEATED RED BLOOD CELLS (BEAKER) (test code = 0 /100 WBC 0-0 413) NEUTROPHILS RELATIVE PERCENT (BEAKER) (test code 65 % = 429) LYMPHOCYTES RELATIVE PERCENT (BEAKER) (test code 17 % = 430) MONOCYTES RELATIVE PERCENT (BEAKER) (test code = 12 % 431) EOSINOPHILS RELATIVE PERCENT (BEAKER) (test code 5 % = 432) BASOPHILS RELATIVE PERCENT (BEAKER) (test code = 1 % 437) NEUTROPHILS ABSOLUTE COUNT (BEAKER) (test code = 3.60 K/ L 1.56-6.13 670) LYMPHOCYTES ABSOLUTE COUNT (BEAKER) (test code = 0.92 K/ L 1.18-3.74 414) MONOCYTES ABSOLUTE COUNT (BEAKER) (test code = 0.66 K/ L 0 .24-0.36 415) EOSINOPHILS ABSOLUTE COUNT (BEAKER) (test code = 0.30 K/ L 0.04-0.36 416) BASOPHILS ABSOLUTE COUNT (BEAKER) (test code = 0.03 K/ L 0 .01-0.08 417) IMMATURE GRANULOCYTES-RELATIVE PERCENT (BEAKER) 0 % 0-1 (test code = 2801) [id number] 06:21:00 Test Item Value Reference Range Comments MAGNESIUM (BEAKER) (test code = 627) 2.1 mg/dL 1.6-2.6 BASIC METABOLIC [id number] 06:21:00 Test Item Value Reference Range Comments SODIUM (BEAKER) (test 136 meq/L 136-145 code = 381) POTASSIUM (BEAKER) (test 3.7 meq/L 3.5-5.1 code = 379) CHLORIDE (BEAKER) (test 108 meq/L 98-107 code = 382) CO2 (BEAKER) (test code = 23 meq/L 22-29 355) BLOOD UREA NITROGEN 8 mg/dL 7-21 (BEAKER) (test code = 354) CREATININE (BEAKER) (test 0.64 mg/dL 0.57-1.25 code = 358) GLUCOSE RANDOM (BEAKER) 93 mg/dL 70-105 (test code = 652) CALCIUM (BEAKER) (test 8.1 mg/dL 8.4-10.2 code = 697) EGFR (BEAKER) (test code 104 mL/min/1.73 sq m ES TIMATED GFR IS NOT = 1092) ACCURATE CREA TININE CLEARANCE IN PRE DICTING GLOMERULAR FILTR ATION RATE. ESTIMATED GFR IS NOT APPLICABLE F OR DIALYSIS PATIENT S. HEPATIC FUNCTION [id number] 06:21:00 Test Item Value Reference Range Comments TOTAL PROTEIN (BEAKER) (test code = 770) 6.3 gm/dL 6.0-8.3 ALBUMIN (BEAKER) (test code = 1145) 3.3 g/dL 3.5-5.0 BILIRUBIN TOTAL (BEAKER) (test code = 377) 0.2 mg/dL 0.2-1 .2 BILIRUBIN DIRECT (BEAKER) (test code = 706) 0.1 mg/dL 0.1- 0.5 ALKALINE PHOSPHATASE (BEAKER) (test code = 346) 100 U/L 40-150 AST (SGOT) (BEAKER) (test code = 353) 12 U/L 5-34 ALT (SGPT) (BEAKER) (test code = 347) 20 U/L 6-55 PROTHROMBIN [id number] 06:19:00 Test Item Value Reference Range Comments PROTIME (BEAKER) (test code = 759) 14.6 seconds 11.9-14.2 INR (BEAKER) (test code = 370) 1.2 <=5.9 Effective 10/18/2018: PT Reference Range ChangeNew: 11.9-14.2 Previous: 11.7- 14.7RECOMMENDED COUMADIN/WARFARIN INR THERAPY RANGESSTANDARD DOSE: 2.0-3.0 Includes: PROPHYLAXIS for venous thrombosis, systemic embolization; TREATMENT for venous thrombosis and/or pulmonary embolus.HIGH RISK: Target INR is2.5-3.5 for patients wiht mechanical heart valves.CALCIUM, [id number] 05:52:00 Test Item Value Reference Range Comments CALCIUM IONIZED (BEAKER) (test code = 698) 1.08 mmol/L 1.12- 1.27 PH, BLOOD (BEAKER) (test code = 1810) 7.41 GI PATHOGEN PROFILE BY [id number] 18:49:00 Test Item Value Reference Range Comments CAMPYLOBACTER (PCR) (test code = 5432493) Not detected Not de tected PLESIOMONAS SHIGELLOIDES (PCR) (test code = Not detected Not detected 20151129) SALMONELLA (PCR) (test code = 2216419) Not detected Not detec idris YERSINIA ENTEROCOLITICA (PCR) (test code = Not detected Not d etected 20151222) VIBRIO CHOLERAE (PCR) (test code = 20151223) Not detected Not detected ENTEROAGGREGATIVE E. COLI (EAEC) BY PCR (test Not detected No t detected code = 20151224) ENTEROPATHOGENIC E. COLI (EPEC) BY PCR (test Not detected Not detected code = 20151225) ENTEROTOXIGENIC E. COLI (ETEC) LT/ST BY PCR Not detected Not detected (test code = 1503877) SHIGA-LIKE TOXIN-PRODUCING E. COLI (STEC) Not detected Not de tected STX1/STX2 (test code = 20151227) E. COLI O157 (PCR) (test code = 20151228) Not det ected SHIGELLA/ENTEROINVASIVE E. COLI (EIEC) BY PCR Not detected No t detected (test code = 20151229) CRYPTOSPORIDIUM (PCR) (test code = 20151230) Not detected Not detected CYCLOSPORA CAYETANENSIS (PCR) (test code = Not detected Not d etected ) ENTAMOEBA HISTOLYTICA (PCR) (test code = Not detected Not det ected 20160122) GIARDIA LAMBLIA (PCR) (test code = 20160123) Not detected Not detected ADENOVIRUS F 40/41 (PCR) (test code = 2137066) Not detected N ot detected ASTROVIRUS (PCR) (test code = 2869639) Not detected Not detec idris NOROVIRUS GI/GII (PCR) (test code = 0537246) Not detected Not detected ROTAVIRUS A (PCR) (test code = 8500173) Not detected Not dete cted SAPOVIRUS (I, II, IV, V) BY PCR (test code = Not detected Not detected 20160128) VIBRIO (PARAHAEMOLYTICUS, VULNIFICUS) (test Not detected Not detected code = 6510861) Other viruses, parasites and bacteria not targeted by this PCR panel cannot be excluded; therefore clinical correlation and follow up of serology, culture results, and other molecular studies is required. The results are not intended to be used as the sole means for clinical diagnosis or patient management decisions. This sample was tested at the [facility] using the [email or web address] Gastrointestinal Panel. It is FDA cleared and has been verified and approved by the [facility] for clinical use. This laboratory is CLIA-certified and College ofAmerican Pathologists (CAP)-accredited to perform high complexity testing.C. DIFFICILE GDH [id number] 17:47:00 Test Item Value Reference Range Comments CDT TOXIN (test code = Negative Negative [id number]) CDT GDH ANTIGEN (test code = Negative Negative No indication of Clostridium [id number]) difficile infect ion and no colonization. D iscontinue enteric isolatio n and therapy. Testing performed by [facility] [employer] Rapid Cassette Assay. For GDH, published sensitivity of the assay is 98.7% compared to cytotoxicity testing. For Toxin AB, published sensitivity is 87.8% and specificity 99.4% compared to cytotoxicity testing.Verification of kit performance was done by the [facility] prior to clinical use.[id number] 17:01:00 Test Item Value Reference Range Comments FERRITIN (BEAKER) (test code = 361) 16 ng/mL 5-275 IRON, TIBC, % SAT. (WITHOUT FERRITIN)2018-11-25 16:40:00 Test Item Value Reference Range Comments IRON (BEAKER) (test code = 547) 35.0 ug/dL 40.0-160.0 TOTAL IRON BINDING CAPACITY (BEAKER) (test code = 385 ug/dL 250-450 769) IRON % SATURATION (2) (BEAKER) (test code = 2590) 9 % 20-55 C-REACTIVE [id number] 16:39:00 Test Item Value Reference Range Comments C-REACTIVE PROTEIN (BEAKER) (test code = 676) 7.69 mg/dL 0. 00-0.50 RETICULOCYTE [id number] 16:24:00 Test Item Value Reference Range Comments RETICULOCYTE COUNT PCT (BEAKER) (test code = 575) 0.8 % 0.5-1.7
--- OUTSIDE RECORDS SUMMARY | 2019-09-01 06:55 | XMS REPORT | Summary of Care ---
:1980 Author Organization [facility] Address [address] [place] [id number] Care Team Providers Name Role Phone Pcp, Patient Does Not Have A Primary Care Provider +[id number] 0-0000 Reason for Visit Reason Comments Results Encounter Details Date Type Department Care Team Description 08/31/2019 Telephone [facility]ESS [facility]ENTER Melva Burrows RN Results [address] [phone] [place] [address] Allergies Active Allergy Reactions Severity Noted Date Comments Gentamicin Unknown - See comments 11/22/2008 numbn ess documented as of this encounter (statuses as of 08/31/2019) Medications Medication Sig Dispensed Refills Start Date End Date Status REMICADE 100 mg 0 08/13/2019 Act zev injection brompheniramine-pseud Take 5 mL by 200 mL 0 08/30/201908/21 Active oephedrine-DM mouth 4 (four) (BROMFED DM) 2-30-10 times daily as mg/5 mL needed for syrupIndications: URI Congestion/Allerg with cough and ies or Cough for congestion up to 10 days. 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 documented as of this encounter Last Filed Vital Signs Not on filedocumented in this encounter Plan of Treatment Health Maintenance Due Date Last Done Comments VARICELLA VACCINES (1 of 2 - 1981 2-dose childhood series) DTaP,Tdap,and Td Vaccines ( - 1991 Tdap) PAP SMEAR 05/09/2011 05/09/2008 INFLUENZA VACCINE (#1) 2019 PNEUMOCOCCAL 0-64 YEARS COMBINED Aged Out No longer eligible based on SERIES patient's age to complete this topic documented as of this encounter Results Not on filedocumented in this encounter Insurance Payer Benefit Plan Subscriber ID Effective Dates Phone Address Type / Group BCBS OF [facility] [id number] 2013-Shelbi [phone] [address] - OUT OF 7 [id number] [place] [address] documented as of this encounter
--- OUTSIDE RECORDS SUMMARY | 2019-09-01 06:55 | XMS REPORT | Summary of Care ---
:1980 Author Organization [facility] Address [address] [place] [id number] Care Team Providers Name Role Phone Pcp, Patient Does Not Have A Primary Care Provider +1-000-00 0-0000 Reason for Visit Reason Comments Fever Started yesterday. In the 99 's. Sore Throat X 3 days. Cough X 3 days, dry and irritating Diarrhea Started yesterday Fatigue X 3 days. Feeling like she h as no energy can sleep non stop. Body Aches Started yesterday. Encounter Details Date Type Department Care Team Description 08/30/2019 Urgent Care [facility] Family Olga Luis PA [address] [place] [address] [place] [address] URI with cough and congestion (Primary D x); [place] [id number], Acute Care Clinic Fever, unspecified fever cause; [address] [place] [address] enriqueta Sore throat; [place], [place] [facility] [id number] Allergies Active Allergy Reactions Severity Noted Date Comments Gentamicin Unknown - See comments 11/22/2008 numbn ess documented as of this encounter (statuses as of 08/30/2019) Medications Medication Sig Dispensed Refills Start Date [...] as of this encounter (statuses as of 08/30/2019) Active Problems Problem Noted Date Normal Delivery 11/22/2008 anemia 11/22/2008 Overview: ICD10 Diagnosis Term [employer] Utility Maternal pyrexia during labor, delivered 11/22/2008 Overview: ICD10 Diagnosis Term [employer] Multiparity 11/22/2008 Status post tubal ligation 11/22/2008 Overview: ICD10 Diagnosis Term [employer] documented as of this encounter (statuses as of 08/30/2019) Social History Tobacco Use Types Packs/Day Years Used Date Never Smoker Smokeless Tobacco: Never Used Sex Assigned at Date Recorded Not on file Job Start Date Occupation Industry Not on file Not on file Not on file Travel History Travel Start Travel End No recent travel history available. documented as of this encounter Last Filed Vital Signs Vital Sign Reading Time Taken Comments Blood Pressure 113/78 08/30/2019 8:35 AM CDT Pulse 106 08/30/2019 8:35 AM CDT Temperature 37.7 C (99.8 F) 08/30/2019 8:35 AM CDT Respiratory Rate 20 08/30/2019 8:35 AM CDT Oxygen Saturation 99% 08/30/2019 8:35 AM CDT Inhaled Oxygen Concentration - - Weight 63.5 kg (140 lb) 08/30/2019 8:35 AM CDT Height 154.9 cm (5' 1") 08/30/2019 8:35 AM CDT Body Mass Index 26.45 08/30/2019 8:35 AM CDT documented in this encounter Progress Notes Bree Zambrano, YARI - 08/30/2019 8:40 AM CDT Cc: Chief Complaint Patient presents with Fever Started yesterday. In the 99's. Sore Throat X 3 days. Cough X 3 days, dry and irritating Diarrhea Started yesterday Fatigue X 3 days. Feeling like she has no energy can sleep non stop. Body Aches Started yesterday. Kaitlynn Orourke is a 39 year old female. Patient has UC and takes Remicade [id number]. She also has seasonal allergies, here with URI symptoms, but due to her hx (of UC), she was advised by [facility] doc to get tested. She also has acute flare upof UC wit loose/watery stools at least 4- 5 time per day, with abdominal cramp. She is being followedby Dr. Mejia a GI specialist. She has contacted them and she is being set up for an infusion. URI Presenting symptoms: congestion, cough, fatigue, fever and sore throat Congestion: Location: Nasal Interferes with sleep: no Interferes with eating/drinking: no Cough: Cough characteristics: Dry and non-productive Sputum characteristics: Nondescript Severity: Mild Onset quality: Gradual Timing: Intermittent Progression: Unchanged Chronicity: New Fatigue: Severity: Mild Timing: Intermittent Progression: Unchanged Fever: Timing: Intermittent Max temp prior to arrival: 99.5 Temp source: Subjective Progression: Resolved Severity: Moderate Onset quality: Gradual Timing: Constant Progression: Improving Chronicity: New Relieved by: Nothing Worsened by: Nothing Ineffective treatments: None tried Associated symptoms: myalgias and sinus pain Associated symptoms: no sneezing, no swollen glands and no wheezing Myalgias: Location: Generalized Quality: Aching Severity: Moderate Onset quality: Gradual Timing: Intermittent Progression: Improving Risk factors: immunosuppression Risk factors: no sick contacts Allergies Kaitlynn is allergic to gentamicin. Medications Outpatient Medications Prior to Visit Medication Sig Dispense Refill REMICADE 100 mg injection No facility-administered medications prior to visit. Histories No past medical history on file. Past Surgical History: Procedure Laterality Date HEART RATE, UTERINE ACTIVITY, AND RESTING TONE MONITORING 11/21/2008 INJECT EPIDURAL ANEST,LUMB,CONTINOUS 11/21/2008 OBSTE CARE,VAG DELIV+ 11/21/2008 OXYTOCIN INDUCTION/AUGMENTATION REFERENCE LINK ORDER 11/21/2008 Social History Socioeconomic History Marital status: Spouse name: Not on file Number of children: Not on file Years of education: Not on file Highest education level: Not on file Occupational History Not on file Social Needs Financial resource strain: Not on file Food insecurity: Worry: Not on file Inability: Not on file Transportation needs: Medical: Not on file Non-medical: Not on file Tobacco Use Smoking status: Never Smoker Smokeless tobacco: Never Used Substance and Sexual Activity Alcohol use: Not on file Drug use: Not on file Sexual activity: Not on file Lifestyle Physical activity: Days per week: Not on file Minutes per session: Not on file Stress: Not on file Relationships Social connections: Talks on phone: Not on file Gets together: Not on file Attends latter day service: Not on file Active member of club or organization: Not on file Attends meetings of clubs or organizations: Not on file Relationship status: Not on file Intimate partner violence: Fear of current or ex partner: Not on file Emotionally abused: Not on file Physically abused: Not on file Forced sexual activity: Not on file Other Topics Concern Not on file Social History Narrative Not on file No family history on file. Review of Systems Constitutional: Positive for fatigue and fever. Negative for activity change and appetite change. HENT: Positive for congestion, sinus pain and sore throat. Negative for sneezing, trouble swallowingand voice change. Eyes: Negative. Respiratory: Positive for cough. Negative for apnea, choking, chest tightness, shortness of breath and wheezing. Cardiovascular: Negative. Negative for chest pain, palpitations and leg swelling. Gastrointestinal: Negative. Musculoskeletal: Positive for myalgias. Skin: Negative. Neurological: Negative. Endocrine: Endocrine negative Vital Signs BP 113/78 | Pulse 106 | Temp 37.7 C (99.8 F) | Resp 20 | Ht 5' 1" (1.549 m) | Wt 140 lb (63.5 kg) | SpO2 99% | BMI 26.45 kg/m Physical Exam Constitutional: She is oriented to person, place, and time. She appears well- developed and well-nourished. HENT: Head: Normocephalic. Right Ear: Hearing, tympanic membrane, external ear and ear canal normal. Left Ear: Hearing, tympanic membrane, external ear and ear canal normal. Nose: Rhinorrhea present. Right sinus exhibits no maxillary sinus tenderness and no frontal sinus tenderness. Left sinus exhibits no maxillary sinus tenderness and no frontal sinus tenderness. Mouth/Throat: Uvula is midline, oropharynx is clear and moist and mucous membranes are normal. No oropharyngeal exudate, posterior oropharyngeal edema or posterior oropharyngeal erythema. No tonsillar exudate. Eyes: Pupils are equal, round, and reactive to light. Conjunctivae, EOM and lids are normal. Neck: Normal range of motion. Neck supple. Cardiovascular: Normal rate, regular rhythm, normal heart sounds and intact distal pulses. Exam reveals no gallop and no friction rub. No murmur heard. Pulmonary/Chest: Effort normal and breath sounds normal. No respiratory distress. She has no wheezes. She has no rales. She exhibits no tenderness. Abdominal: Soft. Bowel sounds are normal. She exhibits no distension. There is no hepatosplenomegaly. There is generalized tenderness. There is no rigidity, no rebound and no guarding. Lymphadenopathy: Head (right side): No submental, no submandibular, no tonsillar, no preauricular and no posterior auricular adenopathy present. Head (left side): No submental, no submandibular, no tonsillar, no preauricular and no posterior auricular adenopathy present. She has no cervical adenopathy. Neurological: She is alert and oriented to person, place, and time. Skin: Skin is warm and dry. Capillary refill takes less than 2 seconds. No rash noted. No erythema. No pallor. Psychiatric: She has a normal mood and affect. Nursing note and vitals reviewed. Assessment/Plan 1. Cough and congestion: Bromfed given for symptoms relief . Covid test done pending test result, Inthe meantime, quarantine in place, treat symptoms with OTC meds, Tylenol as needed but no NSAIDs. Stay in quarantine until symptoms subsides, plus 3 days afterwards or until you hear otherwise. Follow up with your PCP as needed, and if with worsening of symptoms, any respiratory distress, go to the ER. 2. Diarrhea: likely UC flare up, continue care with GI. 3. Fever: resolved, but if with reoccur, take Tylenol as needed, no NSAID especially due to UC. 4. Sore throat: POCT strep done and was negative. Dont smoke, and avoid secondhand smoke. Try lozenges OTC as directed Drink warm liquids to soothe the throat and help thin mucus. Avoid alcohol, spicy foods, and acidic drinks such as orange juice. These can irritate the throat. Gargle with warm saltwater (1 teaspoon of salt to 8 ounces of warm water). Use a humidifier to keep air moist and relieve throat dryness. Try [id number] pain relievers such as acetaminophen or ibuprofen. Use as directed, and dont exceed the recommended dose. 5. Environmental allergies: take antihistamine routinely. Stay away from or limit your time near the allergen cautious with OTC decongestant due to risk of rebound and considering HTN Antihistamines block the release of histamine during the allergic response. They work better whentaken before symptoms develop. Unless a prescription antihistamine was prescribed, you can take [id number] antihistamines that do not cause drowsiness Steroid nasal sprays or oral steroids may also be prescribed for more severe symptoms. These helpto reduce the local inflammation that can add to the allergic response. With asthma, pollen season may make your asthma symptoms worse. It is important that you use yourasthma medicines as directed during this time to prevent or treat attacks. Some persons with asthma have asthma symptoms that get worse when they take antihistamines. This is due to the drying effect on the lungs. If you notice this, stop the antihistamines, drink extra fluids and notify your doctor. If you have sinus congestion or drainage, a saline nasal rinse may give relief. A saline nasal rinse lessens the swelling and clears excess mucus. This allows sinuses to drain. Prepackaged kits are sold at most drug stores. These contain pre-mixed salt packets and an irrigation device. Plan of care, desired health behaviors, goals, and medication discussed with patient. Education resources provided and reviewed with AVS. Patient/guardian/family verbalized understanding & agrees to plan of care. This visit did not involve counseling and coordination that comprised more than 50% of the visit time. If applicable, the [place] [employer] database was accessed to review any controlled substance prescription claims data. The [place] prescription claims data in [employer] was reviewed to assess patient compliance with the medication treatment plan. Rubi Moody MA - 08/30/2019 8:40 AM CDT Kaitlynn Orourke is a 39 year old female. covid and strep test run. Chief Complaint Patient presents with Fever Started yesterday. In the 's. Sore Throat X 3 days. Cough X 3 days, dry and irritating Diarrhea Started yesterday Fatigue X 3 days. Feeling like she has no energy can sleep non stop. Body Aches Started yesterday. Vitals: 08/30/19 0835 BP: 113/78 Pulse: 106 Resp: 20 Temp: 37.7 C (99.8 F) SpO2: 99% Weight: 140 lb (63.5 kg) Height: 5' 1" (1.549 m) [id number] - [place], [place] - [address] [facility] & [address] All Vitals taken, allergies and all medications reviewed, fall risk assessed. Pain level 0. Rubi Partida MA documented in this encounter Plan of Treatment Name Type Priority Associated Diagnoses Order S chedule CORONAVIRUS COVID-19 LAB Routine Fever, unspecified f ever Ordered: 08/30/2019 TESTING cause URI with cough and congestion Health Maintenance Due Date Last Done Comments VARICELLA VACCINES (1 of 2 - 1981 2-dose childhood series) DTaP,Tdap,and Td Vaccines ( - 1991 Tdap) PAP SMEAR 05/09/2011 05/09/2008 INFLUENZA VACCINE (#1) 2019 PNEUMOCOCCAL 0-64 YEARS COMBINED Aged Out No longer eligible based on SERIES patient's age to complete this topic documented as of this encounter Procedures Procedure Name Priority Date/Time Associated Diagnosis Comme nts POCT GRP A STREP Routine 08/30/2019 8:43 AM Fever, unspecifie d Results for this (MOLECULAR) CDT fever cause procedure are in Sore throat the results section. documented in this encounter Results POCT GRP A STREP (MOLECULAR) (08/30/2019 8:43 AM CDT) Pathologist Sig nature POCT GP A STREP neg Negative - Negative Specimen Swab - THROAT Narrative Performed At accurate development and interpretation of all interna l controls documented in this encounter Visit Diagnoses Diagnosis URI with cough and congestion - Primary Fever, unspecified fever cause Sore throat Acute pharyngitis Environmental allergies Allergic rhinitis, cause unspecified documented in this encounter Insurance Payer Benefit Plan Subscriber ID Effective Dates Phone Address Type / Group [facility] [id number] 2013-Shelbi [phone] [address] PPO/POS [place] - OUT OF t 7 [id number] [place] [address] documented as of this encounter
[2019-09-01] MEDS ORDERED: MORPHINE 2 MG/ML SYR ONE ×2 (07:23→09:12)
[2019-09-01] MEDS ORDERED: ONDANSETRON 4 MG/2 ML VIAL ONE (07:23)
[2019-09-01] MEDS ORDERED: NA CHLORIDE 0.9% 1,000 ML ONE ×2 (07:24→09:00)
[2019-09-01 07:48] LABS: Absolute Lymphocytes (CBC) 1.5 K/uL (0.7-4.9); Basophils % 0.7 % (0-1.3); Hematocrit 35.9 % (36.0-45.0); Lymphocytes % 14.4 % (15.3-44.8); MPV 7.2 fL (7.6-11.3); RBC Red Blood Cell Count 4.53 M/uL (3.86-4.86)
[2019-09-01 07:52] LABS: Protime INR 1.13
[2019-09-01 08:04] LABS: ALT/SGPT 71 U/L (12-78); AST/SGOT 52 U/L (15-37); Albumin 3.2 g/dL (3.4-5.0); Alkaline Phosphatase 122 U/L (45-117); BUN Blood Urea Nitrogen 10 mg/dL (7-18); Bicarbonate 24 mmol/L (21-32); Bilirubin Direct 0.2 mg/dL (0-0.2); Bilirubin Total 0.4 mg/dL (0.2-1.0); Glucose Level 117 mg/dL (74-106); Lipase 114 U/L (73-393); Potassium 3.3 mmol/L (3.5-5.1); Protein, Total 7.7 g/dL (6.4-8.2); Sodium Level 135 mmol/L (136-145)
[2019-09-01 08:08] LABS: Urine Bacteria >50 /HPF (<20); Urine Culture Reflex Order REFLEXED; Urine Mucus MOD /HPF (NONE SEEN); Urine RBC 20-50 /HPF (NONE SEEN)
[2019-09-01 08:09] LABS: Urine Blood 3+ (NEG); Urine Glucose NEGATIVE (NEG); Urine Protein 2+ (NEG); Urine pH 5.5 (5.0-7.0)
--- NOTE | 2019-09-01 08:55 | RAD REPORT ---
EXAM DESCRIPTION: CT - Abdomen Pelvis W Contrast - 09/01/2019 8:23 am CLINICAL HISTORY: ABD PAIN, history of ulcerative colitis, history of negative COVID 19 testing. COMPARISON: Abdomen Pelvis W Contrast dated 02/16/2019 TECHNIQUE: Biphasic, helical CT imaging of the abdomen and pelvis was performed following 100 ml non -ionic IV contrast. No oral contrast administered. All CT scans are performed using dose optimization technique as appropriate and may include automated exposure control or mA/KV adjustment according to patient size. FINDINGS: No suspicious findings in the lung bases. The liver, spleen, and pancreas show no suspicious findings. Gallbladder and biliary tree are also wi thout suspicious finding. Symmetric renal function is seen with no hydronephrosis or suspicious renal mass. No pyelonephritis o r acute parenchymal process. No bladder abnormalities. No adrenal abnormalities. No new uterine findi ng. Involuting 2 centimeter left ovarian cyst is present. No suspicious ovarian finding. Stomach and small bowel show no acute findings. Appendix is not well visualized. No suspicion for aldair endicitis. Colon from cecum to mid transverse colon unremarkable. Left-side transverse colon to dista l rectum shows circumferential wall thickening and edema. Mild stranding is seen in the adjacent fat . Pattern is consistent with ulcerative colitis or other nonspecific colitis. No masslike lesion. No free air, free fluid or inflammatory stranding. No hernia, mass or bulky lymphadenopathy. No suspicious bony findings. IMPRESSION: Ulcerative colitis or nonspecific colitis findings involving transverse colon to distal rectum. No mass, free air or surgically emergent finding.
[2019-09-01] MEDS ORDERED: POTASSIUM 25 MEQ EFFERV TAB ONE (09:12)
--- NOTE | 2019-09-01 09:23 | ER ---
Nurse's Notes [facility] Name: Kaitlynn Orourke Age: 39 yrs Sex: Female : 1980 Arrival Date: 09/01/2019 Time: 06:51 Bed 20 Private MD: Diagnosis: Other ulcerative colitis with unspecified complications Presentation: 08/31 06:58 Chief complaint: Patient states: she has history of ulcerative colitis and has been bb having severe abdominal pain and diarrhea x 4 days she was tested at [facility] for COVID and received negative results yesterday. Coronavirus screen: Proceed with normal triage. Ebola Screen: No symptoms or risks identified at this time. Initial Sepsis Screen: Does the patient meet any 2 criteria? No. Patient's initial sepsis screen is negative. Does the patient have a suspected source of infection? No. Patient's initial sepsis screen is negative. Risk Assessment: Do you want to hurt yourself or someone else? Patient reports no desire to harm self or others. Onset of symptoms was August 28, 2019. 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 - Social history:: Smoking status: Patient denies any tobacco usage or history of. Patient/guardian denies using alcohol, street drugs. Screenin:06 Abuse screen: Denies threats or abuse. Nutritional screening: No deficits noted. em Tuberculosis screening: No symptoms or risk factors identified. Fall Risk None identified. Assessment: 07:05 General: Appears in no apparent distress. uncomfortable, Behavior is calm, cooperative, em appropriate for age, Reports fever for 2-3 days. Pain: Complains of pain in abdomen diffusely Pain currently is 8 out of 10 on a pain scale. Pain began 2-3 days ago. Neuro: Level of Consciousness is awake, alert, obeys commands, Oriented to person, place, time, situation, Appropriate for age. Cardiovascular: Capillary refill < 3 seconds Patient's skin is warm and dry. Rhythm is sinus rhythm. Respiratory: Airway is patent Respiratory effort is even, unlabored, Respiratory pattern is regular, symmetrical. GI: Abdomen is flat, Bowel sounds present X 4 quads. Abd is soft X 4 quads Abdomen is tender to palpation X 4 quads. Reports diarrhea, bloody stool, Patient currently denies nausea, vomiting. Derm: Skin is intact, is healthy with good turgor, Skin is pink, warm \T\ dry. Musculoskeletal: Capillary refill < 3 seconds, Range of motion: intact in all extremities. 07:50 Reassessment: Patient appears in no apparent distress at this time. Patient and/or em family updated on plan of care and expected duration. Pain level reassessed. Patient is alert, oriented x 3, equal unlabored respirations, skin warm/dry/pink. feeling better, rates pain 5/10 Patient states symptoms have improved. 08:17 Reassessment: Patient appears in no apparent distress at this time. pt wheeled to CT em via wheelchair. 09:25 Reassessment: Patient appears in no apparent distress at this time. Patient and/or em family updated on plan of care and expected duration. Pain level reassessed. Patient is alert, oriented x 3, equal unlabored respirations, skin warm/dry/pink. states pain came back, rates pain 5/10. 09:43 Reassessment: Patient appears in no apparent distress at this time. pending completion em of 2nd NS bolus. Vital Signs: 06:58 BP 119 / 81; Pulse 124; Resp 16 S; Temp 98.5(O); Pulse Ox 98% on R/A; Weight 63.5 kg bb (R); Height 5 ft. 1 in. (154.94 cm) (R); Pain 10/10; 07:12 BP 116 / 82; Pulse 116; Resp 20; Pulse Ox 100% on R/A; Pain 8/10; em 08:00 BP 125 / 80; Pulse 114; Resp 18; Pulse Ox 100% on R/A; Pain 5/10; em 09:05 BP 137 / 96; Pulse 118; Resp 20; Pulse Ox 100% on R/A; Pain 5/10; em 10:33 BP 128 / 78; Pulse 106; Resp 18; Pulse Ox 100% on R/A; Pain 3/10; em 06:58 Body Mass Index 26.45 (63.50 kg, 154.94 cm) bb ED Course: 06:51 Patient arrived in ED. cl3 06:53 Seng Key PA is PHCP. cp 06:53 Seng Lee MD is Attending Physician. cp 07:00 Triage completed. bb 07:01 Arm band placed on Patient placed in an exam room, on a stretcher, on pulse oximetry. bb 07:05 Luis F Cisneros, RN is Primary Nurse. em 07:06 Patient has correct armband on for positive identification. Placed in gown. Bed in low em position. Call light in reach. Pulse ox on. NIBP on. 07:23 Initial lab(s) drawn, by me, sent to lab. Inserted saline lock: 20 gauge in right em antecubital area, using aseptic technique. Blood collected. 07:25 Urine collected: clean catch specimen, cloudy, lara colored. jb1 07:33 Attending Physician role handed off by Seng Lee MD cp 07:33 Bruce Case MD is Attending Physician. cp 07:35 Radiology exam delayed due to lab results not completed at this time. (BUN/Creatinine) mw3 test not completed at this time. 08:24 CT Abd/Pelvis - IV Contrast Only In Process Unspecified. EDMS 09:22 Poli Pearce MD is Referral Physician. cp 10:33 No provider procedures requiring assistance completed. IV discontinued, intact, em bleeding controlled, No redness/swelling at site. Pressure dressing applied. Administered Medications: 07:27 Drug: NS 0.9% 1000 ml Route: IV; Rate: 1 bolus; Site: right antecubital; em 08:50 Follow up: IV Status: Completed infusion; IV Intake: 1000ml em 07:27 Drug: Zofran (Ondansetron) 4 mg Route: IVP; Site: right antecubital; em 07:50 Follow up: Response: No adverse reaction em 07:29 Drug: morphine 2 mg Route: IVP; Site: right antecubital; em 07:50 Follow up: Response: No adverse reaction; Marked relief of symptoms; Pain is decreased; em RASS: Alert and Calm (0) 09:01 Drug: NS 0.9% 1000 ml Route: IV; Rate: 1 bolus; Site: right antecubital; em 10:34 Follow up: IV Status: Completed infusion; IV Intake: 1000ml em 09:19 Drug: morphine 2 mg Route: IVP; Site: right antecubital; em 10:34 Follow up: Response: No adverse reaction; Marked relief of symptoms; Pain is decreased; em RASS: Alert and Calm (0) 09:43 Drug: Potassium Effervescent Tablet 50 mEq Route: PO; em 10:34 Follow up: Response: No adverse reaction em 09:43 Drug: SOLU-Medrol 80 mg Route: IVP; Site: right antecubital; em 10:34 Follow up: Response: No adverse reaction em Intake: 08:50 IV: 1000ml; Total: 1000ml. em 10:34 IV: 1000ml; Total: 2000ml. em Outcome: 09:22 Discharge ordered by MD. cp 10:34 Discharged to home ambulatory. em 10:34 Condition: good 10:34 Discharge instructions given to patient, Instructed on discharge instructions, follow up and referral plans. medication usage, Demonstrated understanding of instructions, follow-up care, medications, Prescriptions given X 3. 10:35 Patient left the ED. em Signatures: Dispatcher [employer] EDKiran Martin jb1 Luis F Cisneros RN RN em Nohelia Sharif RN RN bb Seng Key PA PA Natalie Bran mw3 Socorro Sifuentes cl3 Corrections: (The following items were deleted from the chart) 07:41 07:05 GI: Abdomen is flat, Bowel sounds present X 4 quads. Abd is soft X 4 quads em Abdomen is tender to palpation X 4 quads. em
--- NOTE | 2019-09-01 09:23 | EDPHYS ---
Physician Documentation [facility] Name: Kaitlynn Orourke Age: 39 yrs Sex: Female : 1980 Arrival Date: 09/01/2019 Time: 06:51 Bed 20 Private MD: ED Physician Bruce Case HPI: 08/31 07:13 This 39 yrs old Female presents to ER via Ambulatory with complaints of cp Abdominal Pain, Bloody Stools. 07:13 The patient presents with abdominal pain that is diffuse. cp 07:14 Onset: The symptoms/episode began/occurred 4 day(s) ago. The symptoms do not radiate. cp Associated signs and symptoms: Pertinent positives: blood in stools, diarrhea, Pertinent negatives: nausea and vomiting, constipation, dysuria, fever. The symptoms are described as constant. NUCLEAR MEDICAL TECH: 07:01 LMP 07/2019 bb Historical: - Allergies: 07:01 No Known Allergies; bb - Home Meds: 07:01 Apresoline Oral [Active]; Remicade 100 mg intravenous solr every 8 wks [Active]; bb - PMHx: 07:01 C DIFF; Colitis; bb - PSHx: 07:01 None; bb - Immunization history:: Adult Immunizations up to date. - Social history:: Smoking status: Patient denies any tobacco usage or history of. Patient/guardian denies using alcohol, street drugs. ROS: 07:15 Eyes: Negative for injury, pain, redness, and discharge. cp 07:15 Constitutional: Negative for body aches, chills, fever, poor PO intake. 07:15 ENT: Negative for drainage from ear(s), ear pain, sore throat, difficulty swallowing, difficulty handling secretions. 07:15 Cardiovascular: Negative for chest pain, palpitations. 07:15 Respiratory: Negative for cough, shortness of breath, wheezing. 07:15 Abdomen/GI: Positive for abdominal pain, diarrhea, rectal bleeding, Negative for vomiting, constipation, anorexia, black/tarry stool. 07:15 : Negative for urinary symptoms, vaginal bleeding. 07:15 Neuro: Negative for headache, weakness. 07:15 All other systems are negative. Exam: 07:16 Head/Face: Normocephalic, atraumatic. cp 07:16 Constitutional: The patient appears in no acute distress, alert, awake, non-toxic, well developed, well nourished, uncomfortable. 07:16 Eyes: Periorbital structures: appear normal, Conjunctiva: normal, no exudate, no injection, Sclera: no appreciated abnormality, Lids and lashes: appear normal, bilaterally. 07:16 ENT: External ear(s): are unremarkable, Nose: is normal, Mouth: is normal, Posterior pharynx: is normal, airway is patent, no erythema, no exudate. 07:16 Chest/axilla: Inspection: normal, Palpation: is normal, no crepitus, no tenderness. 07:16 Cardiovascular: Rate: tachycardic, Rhythm: regular. 07:16 Respiratory: the patient does not display signs of respiratory distress, Respirations: normal, no use of accessory muscles, no retractions, labored breathing, is not present, Breath sounds: are clear throughout, no decreased breath sounds. 07:16 Abdomen/GI: Inspection: abdomen appears normal, Bowel sounds: active, all quadrants, Palpation: soft, in all quadrants, moderate abdominal tenderness, in all quadrants, voluntary guarding, is elicited in all quadrants, Rectal exam: Stool: brown, guaiac negative, hemorrhoid(s), are not appreciated, the exam is chaperoned by the nurse. Vital Signs: 06:58 BP 119 / 81; Pulse 124; Resp 16 S; Temp 98.5(O); Pulse Ox 98% on R/A; Weight 63.5 kg bb (R); Height 5 ft. 1 in. (154.94 cm) (R); Pain 10/10; 07:12 BP 116 / 82; Pulse 116; Resp 20; Pulse Ox 100% on R/A; Pain 8/10; em 08:00 BP 125 / 80; Pulse 114; Resp 18; Pulse Ox 100% on R/A; Pain 5/10; em 09:05 BP 137 / 96; Pulse 118; Resp 20; Pulse Ox 100% on R/A; Pain 5/10; em 10:33 BP 128 / 78; Pulse 106; Resp 18; Pulse Ox 100% on R/A; Pain 3/10; em 06:58 Body Mass Index 26.45 (63.50 kg, 154.94 cm) MDM: 06:54 Patient medically screened. [facility] 07:18 Differential diagnosis: diverticulitis, urinary tract infection, colitis, anemia. cp 09:21 Data reviewed: vital signs, nurses notes, lab test result(s), radiologic studies, CT cp scan, I have discussed the patient's presentation/case with the attending Emergency Department Physician; and as a result, I will discharge patient. 09:21 Counseling: I had a detailed discussion with the patient and/or guardian regarding: the cp historical points, exam findings, and any diagnostic results supporting the discharge/admit diagnosis, lab results, radiology results, the need for outpatient follow up, a sanitation worker, to return to the emergency department if symptoms worsen or persist or if there are any questions or concerns that arise at home. Response to treatment: the patient's symptoms have markedly improved after treatment, and as a result, I will discharge patient. 08/31 07:13 Order name: Basic Metabolic Panel; Complete Time: 08:17 cp 08/31 08:17 Interpretation: Normal except: NA 135; K 3.3; GLUC 117. cp 08/31 07:13 Order name: CBC with Diff cp 08/31 08:01 Interpretation: Normal except: HGB 11.9; HCT 35.9; MCV 79.2; MCH 26.4; RDW 20.7; MPV cp 7.2; LYM% 14.4. 08/31 07:13 Order name: Creatinine for Radiology; Complete Time: 08:17 cp 08/31 07:13 Order name: Hepatic Function; Complete Time: 08:17 cp 08/31 08:17 Interpretation: Normal except: AST 52; ALK 122; ALB 3.2; GLOB 4.5; A/G 0.7. cp 08/31 07:13 Order name: Lipase; Complete Time: 08:17 cp 08/31 07:13 Order name: PT-INR; Complete Time: 08:01 cp 08/31 08:18 Interpretation: Reviewed. cp 08/31 07:13 Order name: Ptt, Activated; Complete Time: 08: cp 08/31 07:13 Order name: Urine Microscopic Only; Complete Time: 08:17 cp 08/31 08:17 Interpretation: Normal except: UWBC 10-20; URBC 20-50; UBACT >50; SQEPI 10-20. cp 08/31 07:13 Order name: CT Abd/Pelvis - IV Contrast Only; Complete Time: 08:58 cp 08/31 07:21 Order name: Urine Dipstick--Ancillary (enter results); Complete Time: 08:17 eb 08/31 08:18 Interpretation: Normal except: UKET 2+; UBLD 3+; UPROT 2+. cp 08/31 07:21 Order name: Urine --Ancillary (enter results); Complete Time: 08:17 eb 08/31 08:10 Order name: Urine Culture EDMS 08/31 07:13 Order name: IV Saline Lock; Complete Time: 07:32 cp 08/31 07:13 Order name: Labs collected and sent; Complete Time: 07:33 cp 08/31 07:13 Order name: Urine Dipstick-Ancillary (obtain specimen); Complete Time: 07:15 cp 08/31 07:13 Order name: Urine Test (obtain specimen); Complete Time: 07:15 cp Administered Medications: 07:27 Drug: NS 0.9% 1000 ml Route: IV; Rate: 1 bolus; Site: right antecubital; em 08:50 Follow up: IV Status: Completed infusion; IV Intake: 1000ml em 07:27 Drug: Zofran (Ondansetron) 4 mg Route: IVP; Site: right antecubital; em 07:50 Follow up: Response: No adverse reaction em 07:29 Drug: morphine 2 mg Route: IVP; Site: right antecubital; em 07:50 Follow up: Response: No adverse reaction; Marked relief of symptoms; Pain is decreased; em RASS: Alert and Calm (0) 09:01 Drug: NS 0.9% 1000 ml Route: IV; Rate: 1 bolus; Site: right antecubital; em 10:34 Follow up: IV Status: Completed infusion; IV Intake: 1000ml em 09:19 Drug: morphine 2 mg Route: IVP; Site: right antecubital; em 10:34 Follow up: Response: No adverse reaction; Marked relief of symptoms; Pain is decreased; em RASS: Alert and Calm (0) 09:43 Drug: Potassium Effervescent Tablet 50 mEq Route: PO; em 10:34 Follow up: Response: No adverse reaction em 09:43 Drug: SOLU-Medrol 80 mg Route: IVP; Site: right antecubital; em 10:34 Follow up: Response: No adverse reaction em Disposition: 10:51 Co-signature as Attending Physician, Bruce Csae MD I agree with the assessment and kdr plan of care. Disposition: 09/01/19 09:22 Discharged to Home. Impression: Other ulcerative colitis with unspecified complications. - Condition is Stable. - Discharge Instructions: Ulcerative Colitis, Adult. - Prescriptions for Tylenol- Codeine #3 300-30 mg Oral Tablet - take 2 tablets by ORAL route every 6 hours As needed; 20 tablet. Zofran 4 mg Oral Tablet - take 1 tablet by ORAL route every 12 hours As needed; 20 tablet. Medrol (Jackson) 4 mg Oral Tablets, Dose Pack - take 1 tablet by ORAL route as directed - follow package instructions; 1 packet. - Medication Reconciliation Form, Thank You Letter, Antibiotic Education, Prescription Opioid Use form. - Follow up: Poli Pearce MD; When: 2 - 3 days; Reason: Recheck today's complaints. - Problem is an acute exacerbation. - Symptoms have improved. Signatures: Dispatcher [employer] EDSeng Armijo MD MD cha Rittger, Kevin, MD MD kdr Munoz, Edgar, RN RN em Nohelia Sharif RN RN Seng West PA PA cp Corrections: (The following items were deleted from the chart) 10:35 09:22 09/01/2019 09:22 Discharged to Home. Impression: Other ulcerative colitis with em unspecified complications. Condition is Stable. Discharge Instructions: Ulcerative Colitis, Adult. Prescriptions for Tylenol-Codeine #3 300-30 mg Oral Tablet - take 2 tablets by ORAL route every 6 hours As needed; 20 tablet, Zofran 4 mg Oral Tablet - take 1 tablet by ORAL route every 12 hours As needed; 20 tablet, Medrol (Jackson) 4 mg Oral Tablets, Dose Pack - take 1 tablet by ORAL route as directed - follow package instructions; 1 packet. and Forms are Medication Reconciliation Form, Thank You Letter, Antibiotic Education, Prescription Opioid Use. Follow up: Poli Pearce; When: 2 - 3 days; Reason: Recheck today's complaints. Problem is an acute exacerbation. Symptoms have improved. cp
[2019-09-01] MEDS ORDERED: METHYLPREDNISOLONE 40 MG INJ ONE (09:38)
[2019-09-01 10:56] VITALS: TEMP 98.5
[2019-09-01 10:58] VITALS: O2SAT 100
[2019-09-01 11:02] VITALS: BP 128/78
[2019-09-01 12:26] LABS: Blood Morphology Comment NOT SEEN (NOT SEEN); Platelet Estimate ADEQ; Urine White Blood Cell Casts OK
== END 2019-09-01 10:35 | disposition home or self-care (01) ==
LOC: ER 06:50
DX: K51.819 Other ulcerative colitis with unspecified complications (principal); Z79.899 Other long term (current) drug therapy; Z86.19 Personal history of other infectious and parasitic diseases
CPT/HCPCS: 96361; 87088; 85025; 87086; 80048; 36415; 81025; 85610; 80076; 85730; 83690; 74177; 96375; 96374; 99284; J2270 ×2; J7030 ×2; J2405; J2920; 81003; 81015

== ENCOUNTER 2019-09-14 21:59 | Inpatient (IN) | payer BC ==
--- OUTSIDE RECORDS SUMMARY | 2019-09-14 22:05 | XMS REPORT ---
:[address] [facility] t Address [address] [place] [address] Care Team Providers Name Role Phone Clotilde HARRIS Unavailable Unavailable Kimberly CARMONA Unavailable Unavailable Problems Condition Condition Condition Status Onset Resolution Last Treatin g Comments Name Details Category Date Date Treatment Clinician Date Seasonal Seasonal Problem Active allergies allergies Subcutaneou Subcutaneou Problem Active s nodules s nodules IBS IBS Problem Active (irritable (irritable bowel bowel syndrome) syndrome) Encounter Encounter Problem Active for vitamin for vitamin deficiency deficiency screening screening Hypokalemia Hypokalemia Problem Active Thrombocyto Thrombocyto Problem Active penia penia Anemia, Anemia, Diagnosis Active unspecified unspecified type type Transfusion Transfusion Problem Active history history Follow-up Follow-up Problem Active exam exam Blood in Blood in Problem Active stool stool Clostridioi Clostridioi Problem Active lopez lopez difficile difficile infection infection Internal Internal Problem Active hemorrhoids hemorrhoids Diarrhea, Diarrhea, Problem Active unspecified unspecified type type Nausea Nausea Problem Active Abdominal Abdominal Problem Active pain, pain, unspecified unspecified abdominal abdominal location location Counseling Counseling Problem Active and and coordinatio coordinatio n of care n of care Ulcerative Ulcerative Problem Active colitis colitis without without complicatio complicatio ns, ns, unspecified unspecified location location Abnormal Abnormal Problem Active ultrasound ultrasound Axillary Axillary Problem Active lymphadenop lymphadenop athy athy Shortness Shortness Problem Active of breath of breath Fatigue, Fatigue, Problem Active unspecified unspecified type type Allergies, Adverse Reactions, Alerts This patient has no known allergies or adverse reactions. Medications Ordered Filled Start Stop Current Ordering Indication Dosage Frequency Signature Comments Components Medication Medication Date Date Medication? Clinician (SIG) Name Name Yes Janet (OTC) 1 Low Iron Low Iron Millender tablet Immunizations Ordered Immunization Name Filled Immunization Name Date Comments Flucelvax - single dose Flucelvax - single dose 2019-03-14 Comple idris syringe syringe 00:00:00 PNEUMAVAX 23 PNEUMAVAX 23 2019-03-14 Completed 00:00:00 Encounters Start End Encounter Admission Attending Care Care Encounter Date/Time Date/Time Type Type Clinicians Facility Department ID 2019-04-26 2019-04-26 [facility] [id number] 14:40:00 14:40:00 [facility] 2019-04-11 2019-04-11 [facility] [id number] 20:49:00 20:49:00 [facility] 2019-03-14 2019-03-14 [facility] [id number] 10:40:00 10:40:00 [facility] 2019-03-06 2019-03-06 [facility] [id number] 02:35:00 02:35:00 [facility] 2019-02-28 2019-02-28 [facility] [id number] 09:29:00 09:29:00 [facility] 2019-02-23 2019-02-23 [facility] [id number] 11:20:00 11:20:00 [facility] 2018-11-02 2018-11-02 [facility] [id number] 10:01:00 10:01:00 [facility] 2018-10-06 2018-10-06 [facility] [id number] 15:20:00 15:20:00 [facility] Results Test Description Test Time Test Comments Text Results Atomic Results Result Comments SCREEN, URINE 2019-01-29 02:33:00 Test Item Value Reference Range Comments TEST URINE (BEAKER) (test code = 583) Negative URINALYSIS W/ REFLEX URINE [id number] 02:31:00 Test Item Value Reference Range Comments [...] Occasional SOURCE(BEAKER) (test code = 2795) CT, [id number] 02:09:00Reason for exam:->ABDOMINAL PAINReason for exam:->NAUSEAReason for [...] and inflammatory causes are cons idered. Signed: Eliz Curry MDReport Verified Date/Time: 01/29/2019 02:09:01 Reading Location: [address] Reading Room HCG, QUANTITATIVE, [id number] 01:30:00 Test Item Value Reference Range Comments [...] VENOUS 0.8 mmol/L 0.9-1.7 TESTED A T [facility] [address] (BEAKER) (test code = 2805) [place] [address] CBC W/PLT COUNT & AUTO [id number] 21:42:00 Test Item Value Reference Range Comments [...] Received comment: User comments: Slide comments:BASIC METABOLIC [id number] 21:21:00 Test Item Value Reference Range Comments [...] OR DIALYSIS PATIENT S. OVA AND PARASITE [id number] 08:15:00 Test Item Value Reference Range Comments [...] (BEAKER) (test code = 248) BASIC METABOLIC [id number] 05:42:00 Test Item Value Reference Range Comments [...] PATIENT S. CBC W/PLT COUNT & AUTO [id number] 05:35:00 Test Item Value Reference Range Comments [...] % 0-1 (test code = 2801) TISSUE [id number] 09:51:00Surgical Pathology Report Case: [id number] Authorizing Provider: Ike Huynh Collected: 11/27/2018 1108 Ordering Location: [address] Received: 11/27/2018 1400 Service Pathologist: Jack [...] INVASIVE CARCINOMA. Signing Pathologist Direct Phone Line: [phone] signed by Jack Batista MD on 11/28/2018 at 9:51 [id number] and postop diagnosis: colitisA. Polyp,colon - right/ascending; [...] whichare submitted in toto in F1. CG/pl PERFORMED.[id number] 04:33:00 Test Item Value Reference Range Comments MAGNESIUM (BEAKER) (test code = 627) 1.9 mg/dL 1.6-2.6 BASIC METABOLIC [id number] 04:33:00 Test Item Value Reference Range Comments [...] F OR DIALYSIS PATIENT S. HEPATIC FUNCTION [id number] 04:33:00 Test Item Value Reference Range Comments [...] code = 347) 19 U/L 6-55 CALCIUM, [id number] 04:30:00 Test Item Value Reference Range Comments CALCIUM IONIZED (BEAKER) (test code = 698) 1.09 mmol/L 1.12- 1.27 PH, BLOOD (BEAKER) (test code = 1810) 7.41 PROTHROMBIN [id number] 04:20:00 Test Item Value Reference Range Comments [...] wiht mechanical heart valves.STOOL CULTURE + SHIGA [id number] 11:46:00 Test Item Value Reference Range Comments CULTURE (BEAKER) (test code No Salmonella, Shigella or = 1095) Campylobacter isolated HIV-1 ANTIGEN WITH HIV-1/2 [id number] 09:38:00 Test Item Value Reference Range Comments HIV-1 ANTIGEN WITH HIV 1\\T\\2 ANTIBODY (2) Nonreactive Nonrea ctive (BEAKER) (test code = 2586) [id number] 05:10:00 Test Item Value Reference Range Comments MAGNESIUM (BEAKER) (test code = 627) 2.1 mg/dL 1.6-2.6 BASIC METABOLIC [id number] 05:10:00 Test Item Value Reference Range Comments [...] F OR DIALYSIS PATIENT S. HEPATIC FUNCTION [id number] 05:10:00 Test Item Value Reference Range Comments [...] code = 347) 17 U/L 6-55 CALCIUM, [id number] 04:48:00 Test Item Value Reference Range Comments CALCIUM IONIZED (BEAKER) (test code = 698) 1.02 mmol/L 1.12- 1.27 PH, BLOOD (BEAKER) (test code = 1810) 7.42 PROTHROMBIN [id number] 04:39:00 Test Item Value Reference Range Comments [...] 0 /100 WBC 0-0 413) STOOL PATH [id number] 18:28:00 Test Item Value Reference Range Comments PATHOGEN EXAM CHARGED (BEAKER) (test code = 2381) Done SHIGA TOXIN [id number] 14:40:00 Test Item Value Reference Range Comments SHIGA TOXIN 1 (BEAKER) (test code = 2177) Not detected Not de tected SHIGA TOXIN 2 (BEAKER) (test code = 2179) Not detected Not de tected CBC W/PLT COUNT & AUTO [id number] 06:26:00 Test Item Value Reference Range Comments [...] 0 % 0-1 (test code = 2801) [id number] 06:21:00 Test Item Value Reference Range Comments MAGNESIUM (BEAKER) (test code = 627) 2.1 mg/dL 1.6-2.6 BASIC METABOLIC [id number] 06:21:00 Test Item Value Reference Range Comments [...] F OR DIALYSIS PATIENT S. HEPATIC FUNCTION [id number] 06:21:00 Test Item Value Reference Range Comments [...] code = 347) 20 U/L 6-55 PROTHROMBIN TIME/[id number] 06:19:00 Test Item Value Reference Range Comments [...] is2.5-3.5 for patients wiht mechanical heart valves.CALCIUM, [id number] 05:52:00 Test Item Value Reference Range Comments CALCIUM IONIZED (BEAKER) (test code = 698) 1.08 mmol/L 1.12- 1.27 PH, BLOOD (BEAKER) (test code = 1810) 7.41 GI PATHOGEN PROFILE BY [id number] 18:49:00 Test Item Value Reference Range Comments CAMPYLOBACTER (PCR) (test code = 20151125) Not detected Not de tected PLESIOMONAS SHIGELLOIDES (PCR) (test code = Not detected Not detected 20151129) SALMONELLA (PCR) (test code = ) Not detected Not detec idris YERSINIA ENTEROCOLITICA (PCR) (test code = Not detected Not d etected 20151222) VIBRIO CHOLERAE (PCR) (test code = 20151223) Not detected Not detected ENTEROAGGREGATIVE E. COLI (EAEC) BY PCR (test Not detected No t detected code = 9266879) ENTEROPATHOGENIC E. COLI (EPEC) BY PCR (test Not detected Not detected code = 20151225) ENTEROTOXIGENIC E. COLI (ETEC) LT/ST BY PCR Not detected Not detected (test code = 6135969) SHIGA-LIKE TOXIN-PRODUCING E. COLI (STEC) Not detected Not de tected STX1/STX2 (test code = 3524072) E. COLI O157 (PCR) (test code = 4181389) Not det ected SHIGELLA/ENTEROINVASIVE E. COLI (EIEC) BY PCR Not detected No t detected (test code = 4542822) CRYPTOSPORIDIUM (PCR) (test code = 20151230) Not detected Not detected CYCLOSPORA CAYETANENSIS (PCR) (test code = Not detected Not d etected ) ENTAMOEBA HISTOLYTICA (PCR) (test code = Not detected Not det ected 20160122) GIARDIA LAMBLIA (PCR) (test code = 8858042) Not detected Not detected ADENOVIRUS F 40/41 (PCR) (test code = 0547026) Not detected N ot detected ASTROVIRUS (PCR) (test code = 1032356) Not detected Not detec idris NOROVIRUS GI/GII (PCR) (test code = 2184664) Not detected Not detected ROTAVIRUS A (PCR) (test code = 8443017) Not detected Not dete cted SAPOVIRUS (I, II, IV, V) BY PCR (test code = Not detected Not detected 20160128) VIBRIO (PARAHAEMOLYTICUS, VULNIFICUS) (test Not detected Not detected code = 6313324) Other viruses, parasites and bacteria not targeted by this PCR panel cannot be excluded; therefore clinical correlation and follow up of serology, culture results, and other molecular studies is required. The results are not intended to be used as the sole means for clinical diagnosis or patient management decisions. This sample was tested at the [facility] using the [employer] Gastrointestinal Panel. It is FDA cleared and has been verified and approved by the [facility] for clinical use. This laboratory is CLIA-certified and College ofAmerican Pathologists (CAP)-accredited to perform high complexity testing.C. DIFFICILE GDH [id number] 17:47:00 Test Item Value Reference Range Comments CDT TOXIN (test code = Negative Negative [id number]) CDT GDH ANTIGEN (test code = Negative Negative No indication of Clostridium [id number]) difficile infect ion and no colonization. D iscontinue enteric isolatio n and therapy. Testing performed by [employer] Rapid Cassette Assay. For GDH, published sensitivity of the assay is 98.7% compared to cytotoxicity testing. For Toxin AB, published sensitivity is 87.8% and specificity 99.4% compared to cytotoxicity testing.Verification of kit performance was done by the [facility] prior to clinical use.[id number] 17:01:00 Test Item Value Reference Range Comments FERRITIN (BEAKER) (test code = 361) 16 ng/mL 5-275 IRON, TIBC, % SAT. (WITHOUT FERRITIN)2018-11-25 16:40:00 Test Item Value Reference Range Comments IRON (BEAKER) (test code = 547) 35.0 ug/dL 40.0-160.0 TOTAL IRON BINDING CAPACITY (BEAKER) (test code = 385 ug/dL 250-450 769) IRON % SATURATION (2) (BEAKER) (test code = 2590) 9 % 20-55 C-REACTIVE [id number] 16:39:00 Test Item Value Reference Range Comments C-REACTIVE PROTEIN (BEAKER) (test code = 676) 7.69 mg/dL 0. 00-0.50 RETICULOCYTE [id number] 16:24:00 Test Item Value Reference Range Comments RETICULOCYTE COUNT PCT (BEAKER) (test code = 575) 0.8 % 0.5-1.7
--- OUTSIDE RECORDS SUMMARY | 2019-09-14 22:05 | XMS REPORT ---
[...] End Date Status Dos age Date Low [facility] 00951-761 - Orally Once a Active ( OTC) 1 Iron 3-30 day tablet Results No Known Results Summary Purpose eClinicalWorks Submission
[2019-09-14] MEDS ORDERED: NA CHLORIDE 0.9% 1,000 ML ONE (22:24)
[2019-09-14] MEDS ORDERED: ACETAMINOPHEN 500 MG TAB ONE (22:24)
[2019-09-14] MEDS ORDERED: IBUPROFEN 200 MG TAB PO ONE (22:45)
[2019-09-14] MEDS ORDERED: ONDANSETRON 4 MG/2 ML VIAL ONE (22:45)
[2019-09-14] MEDS ORDERED: IBUPROFEN 400 MG TAB ONE (22:45)
[2019-09-14 22:55] LABS: Absolute Lymphocytes (CBC) 1.1 K/uL (0.7-4.9)
[2019-09-14 23:08] LABS: Basophils % 0.1 % (0-1.3); Hematocrit 36.7 % (36.0-45.0); Lymphocytes % 5.6 % (15.3-44.8); RBC Red Blood Cell Count 4.57 M/uL (3.86-4.86)
[2019-09-14 23:09] LABS: ALT/SGPT 32 U/L (12-78); AST/SGOT 13 U/L (15-37); Albumin 2.9 g/dL (3.4-5.0); Alkaline Phosphatase 152 U/L (45-117); Amylase Level 52 U/L (25-115); BUN Blood Urea Nitrogen 8 mg/dL (7-18); Bicarbonate 25 mmol/L (21-32); Bilirubin Direct 0.3 mg/dL (0-0.2); Bilirubin Total 0.6 mg/dL (0.2-1.0); Glucose Level 131 mg/dL (74-106); Lipase 59 U/L (73-393); Potassium 3.7 mmol/L (3.5-5.1); Protein, Total 8.6 g/dL (6.4-8.2); Sodium Level 133 mmol/L (136-145); Troponin (Emerg Dept Use Only) < 0.02 ng/mL (0.0-0.045)
[2019-09-14 23:27] LABS: Blood Morphology Comment NOT SEEN (NOT SEEN); Platelet Estimate ADEQ
[2019-09-14 23:29] LABS: Urine Blood 2+ (NEG); Urine Glucose NEGATIVE (NEG); Urine Protein 2+ (NEG)
[2019-09-14 23:41] LABS: Urine Bacteria >50 /HPF (<20); Urine Culture Reflex Order REFLEXED; Urine Mucus 3+ /HPF (NONE SEEN)
[2019-09-14] MEDS ORDERED: CEFTRIAXONE/SWI 1gm 1 GM/10 ML SYR ONE (23:47)
[2019-09-15] MEDS ORDERED: ONDANSETRON 4 MG/2 ML VIAL IV PRN (00:15)
[2019-09-15] MEDS ORDERED: ACETAMINOPHEN 500 MG TAB PO PRN (00:15)
[2019-09-15] MEDS ORDERED: ALPRAZOLAM 0.25 MG TABLET PO PRN (00:15)
--- NOTE | 2019-09-15 00:19 | ER ---
Nurse's Notes [facility] Name: Kaitlynn Orourke Age: 39 yrs Sex: Female : 1980 Arrival Date: 09/14/2019 Time: 22:01 Bed 7 Private MD: Diagnosis: Colitis;Urinary tract infection, site not specified;Dehydration Presentation: 09/13 22:13 Chief complaint: Patient states: ABDOMINAL PAIN ON LLQ, WITH VOMITING. WITH HISTORY OF rv ULCERATIVE COLITIS AND TAKES IV INFUSION THERAPY EVERY 8 WEEKS. Coronavirus screen: Proceed with normal triage. Ebola Screen: No symptoms or risks identified at this time. Initial Sepsis Screen: Does the patient meet any 2 criteria? RR > 20 per min. Temp <36.0*C (96.8*F)) or > 38.3*C (100.9*F). HR > 90 bpm. Yes Does the patient have a suspected source of infection? Yes: Acute abdominal pain. Risk Assessment: Do you want to hurt yourself or someone else? Patient reports no desire to harm self or others. Onset of symptoms was September 14, 2019 at 22:00. 22:13 Method Of Arrival: Ambulatory rv 22:13 Acuity: DEMLY 2 rv Triage Assessment: 22:15 General: Appears uncomfortable, ill, Behavior is calm, cooperative. Pain: Complains of rv pain in left lower quadrant Pain radiates to abdomen Pain currently is 4 out of 10 on a pain scale. EENT: No signs and/or symptoms were reported regarding the EENT system. Neuro: Level of Consciousness is awake, alert, obeys commands, Oriented to person, place, time, situation. Cardiovascular: Patient's skin is warm and dry. Rhythm is sinus tachycardia. Respiratory: Airway is patent Breath sounds are clear bilaterally. GI: Reports lower abdominal pain, nausea, Pain is 4 out of 10 on a pain scale. vomiting. Derm: Skin is intact. Musculoskeletal: No signs and/or symptoms reported regarding the musculoskeletal system. ROUTE RIDER: 22:17 LMP N/A - Irregular menses rv Historical: - Allergies: 22:03 No Known Allergies; sg - PMHx: 22:03 C DIFF; Colitis; sg - PSHx: 22:03 None; sg - Immunization history:: Adult Immunizations up to date. - Social history:: Smoking status: Patient denies any tobacco usage or history of. Screenin:16 Abuse screen: Denies threats or abuse. Denies injuries from another. Nutritional rv screening: No deficits noted. Tuberculosis screening: No symptoms or risk factors identified. Fall Risk None identified. Assessment: 23:31 Reassessment: NAUSEA IS DECREASED. PATIENT TAKEN TO CT SCAN. GI: Abdomen is flat, rv non-distended. 09/14 00:01 Reassessment: PATIENT IS BACK FROM CT SCAN. FLU SWAB DONE AND SENT. GI: Abdomen is rv flat, non-distended, NAUSEA IS DECREASED. Vital Signs: 09/13 22:13 BP 117 / 66; Pulse 146; Resp 21; Temp 102.6; Pulse Ox 99% ; Weight 61.23 kg; Height 5 rv ft. 1 in. (154.94 cm); Pain 4/10; 23:00 BP 101 / 63; Pulse 121; Resp 20; Pulse Ox 98% on R/A; rv 09/14 00:01 BP 102 / 65; Pulse 124; Resp 18; Temp 99.2(O); Pulse Ox 98% on R/A; rv 00:58 BP 92 / 64; Pulse 98; Resp 17; Temp 99; Pulse Ox 98% on R/A; rv 09/13 22:13 Body Mass Index 25.51 (61.23 kg, 154.94 cm) rv ED Course: 09/13 22:01 Patient arrived in ED. ag3 22:02 [facility] kb 22:02 Bruce Case MD is Attending Physician. kb 22:04 Arm band placed on. sg 22:12 Maurilio Jay, VELIA is Primary Nurse. rv 22:15 Triage completed. rv 22:16 Patient has correct armband on for positive identification. Placed in gown. Bed in low rv position. Call light in reach. Side rails up X 1. agronomy advisor on. Pulse ox on. NIBP on. 22:30 Missed attempt(s): 20 gauge in right antecubital area. rv 22:35 Inserted saline lock: 20 gauge in right antecubital area, using aseptic technique. rv Blood collected. 22:35 Initial lab(s) drawn, by oh, sent to lab. First set of blood cultures drawn by me. rv 22:56 Second set of blood cultures drawn by me. rv 23:50 CT Abd/Pelvis - IV Contrast Only In Process Unspecified. EDMS 09/14 00:18 Gerry Cruz MD is Hospitalizing Provider. kb 00:58 No provider procedures requiring assistance completed. IV is patent, with fluids rv infusing freely, with good blood return, Patient admitted, IV remains in place. Administered Medications: 09/13 22:35 Drug: NS 0.9% (30 ml/kg) 30 ml/kg Route: IV; Rate: bolus; Site: right antecubital; rv 09/14 00:33 Follow up: IV Status: Completed infusion; IV Intake: 2000ml rv 09/13 22:41 Drug: Zofran (Ondansetron) 4 mg Route: IVP; Site: right antecubital; rv 09/14 00:02 Follow up: Response: No adverse reaction; Marked relief of symptoms; Nausea is decreasedrv 09/13 23:00 Drug: Ibuprofen 600 mg Route: PO; rv 09/14 00:02 Follow up: Response: No adverse reaction; Temperature is decreased rv 09/13 23:49 Drug: Rocephin 1 grams Route: IV; Rate: calculated rate; Site: right antecubital; rv 09/14 00:02 Follow up: IV Status: Completed infusion rv 00:30 Drug: Flagyl 500 mg Volume: 100 ml; Route: IVPB; Rate: 200 ml/hr; Infused Over: 30 rv mins; Site: right antecubital; 00:58 Follow up: IV Status: Completed infusion; IV Intake: 100ml rv Intake: 00:33 IV: 2000ml; Total: 2000ml. rv 00:58 IV: 100ml; Total: 2100ml. rv Outcome: 00:19 Decision to Hospitalize by Provider. kb 00:59 Admitted to Med/surg accompanied by nurse, via wheelchair, room 224, with chart, Report rv called to basim august 00:59 Condition: good 00:59 Instructed on the need for admit. 00:59 Patient left the ED. rv Signatures: Dispatcher [employer] EDWY Vanessa Ventura FNP-C FNP-Ramy Tompkins RN RN Maurilio Jay RN RN Nai [id number]
--- NOTE | 2019-09-15 00:19 | EDPHYS ---
Physician Documentation [facility] Name: Kaitlynn Orourke Age: 39 yrs Sex: Female : 1980 Arrival Date: 09/14/2019 Time: 22:01 Bed 7 Private MD: ED Physician Bruce Case HPI: 09/14 00:44 This 39 yrs old Female presents to ER via Ambulatory with complaints of kb Vomiting. 00:44 The patient presents to the emergency department with nausea, vomiting, diarrhea, kb abdominal pain. Onset: The symptoms/episode began/occurred 2 week(s) ago. Possible causes: unknown. The symptoms are aggravated by nothing. The symptoms are alleviated by nothing. Associated signs and symptoms: Pertinent positives: abdominal pain, diarrhea, fever, nausea, vomiting. Severity of symptoms: At their worst the symptoms were moderate in the emergency department the symptoms are unchanged. The patient has experienced similar episodes in the past. The patient has been recently seen at the [facility] Emergency Department, a couple of weeks ago, for similar complaints. Pt reports diarrhea for 1.5 weeks, nausea and vomiting for 3 days. Unable to tolerate anything by mouth for 3 days, fever, body aches. . 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 - Social history:: Smoking status: Patient denies any tobacco usage or history of. ROS: 09/14 00:43 ENT: Negative for injury, pain, and discharge, Neck: Negative for injury, pain, and kb swelling, Cardiovascular: Negative for chest pain, palpitations, and edema, Respiratory: Negative for shortness of breath, cough, wheezing, and pleuritic chest pain, Back: Negative for injury and pain, : Negative for injury, bleeding, discharge, and swelling, MS/Extremity: Negative for injury and deformity, Skin: Negative for injury, rash, and discoloration. Constitutional: Positive for fever. Abdomen/GI: Positive for abdominal pain, nausea, vomiting, and diarrhea, Negative for constipation, abdominal cramps, abdominal distension, anorexia. Neuro: Positive for headache. Exam: 00:43 Constitutional: This is a well developed, well nourished patient who is awake, alert, kb and in no acute distress. Head/Face: Normocephalic, atraumatic. Neck: Trachea midline, no thyromegaly or masses palpated, and no cervical lymphadenopathy. Supple, full range of motion without nuchal rigidity, or vertebral point tenderness. No Meningismus. Chest/axilla: Normal chest wall appearance and motion. Nontender with no deformity. No lesions are appreciated. Cardiovascular: Regular rate and rhythm with a normal S1 and S2. No gallops, murmurs, or rubs. Normal PMI, no JVD. No pulse deficits. Respiratory: Lungs have equal breath sounds bilaterally, clear to auscultation and percussion. No rales, rhonchi or wheezes noted. No increased work of breathing, no retractions or nasal flaring. Back: No spinal tenderness. No costovertebral tenderness. Full range of motion. Skin: Warm, dry with normal turgor. Normal color with no rashes, no lesions, and no evidence of cellulitis. MS/ Extremity: Pulses equal, no cyanosis. Neurovascular intact. Full, normal range of motion. Neuro: Awake and alert, GCS 15, oriented to person, place, time, and situation. Cranial nerves II-XII grossly intact. Motor strength 5/5 in all extremities. Sensory grossly intact. Cerebellar exam normal. Normal gait. 00:43 Abdomen/GI: Inspection: abdomen appears normal, Bowel sounds: normal, in all quadrants, Palpation: soft, in all quadrants, mild abdominal tenderness, in all quadrants. 04:47 ECG was reviewed by the Attending Physician. kdr Vital Signs: 09/13 22:13 BP 117 / 66; Pulse 146; Resp 21; Temp 102.6; Pulse Ox 99% ; Weight 61.23 kg; Height 5 rv ft. 1 in. (154.94 cm); Pain 4/10; 23:00 BP 101 / 63; Pulse 121; Resp 20; Pulse Ox 98% on R/A; rv 09/14 00:01 BP 102 / 65; Pulse 124; Resp 18; Temp 99.2(O); Pulse Ox 98% on R/A; rv 00:58 BP 92 / 64; Pulse 98; Resp 17; Temp 99; Pulse Ox 98% on R/A; rv 09/13 22:13 Body Mass Index 25.51 (61.23 kg, 154.94 cm) rv MDM: 09/13 22:05 Patient medically screened. kb 09/14 00:18 Data reviewed: vital signs, nurses notes. Data interpreted: Pulse oximetry: on room air kb is 98 %. Interpretation: normal. Counseling: I had a detailed discussion with the patient and/or guardian regarding: the historical points, exam findings, and any diagnostic results supporting the discharge/admit diagnosis, lab results, radiology results, the need for further work-up and treatment in the hospital. Physician consultation: Gerry Cruz MD was contacted at 00:18, regarding admission, to the medical/surgical unit. patient's condition, and will see patient shortly. 09/13 22:26 Order name: Amylase, Serum; Complete Time: 23:10 kb 09/13 22:26 Order name: Basic Metabolic Panel; Complete Time: 23:10 kb 09/13 22:26 Order name: Blood Culture Adult (2) kb 09/13 22:26 Order name: CBC with Diff; Complete Time: 23:28 kb 09/13 22:26 Order name: Lactate; Complete Time: 23:10 kb 09/13 22:26 Order name: LFT's; Complete Time: 23:10 kb 09/13 22:26 Order name: Lipase; Complete Time: 23:10 kb 09/13 22:26 Order name: Procalcitonin; Complete Time: 23:31 kb 09/13 22:26 Order name: Troponin (emerg Dept Use Only); Complete Time: 23:10 kb 09/13 22:26 Order name: Urine Microscopic Only; Complete Time: 23:48 kb 09/13 23:10 Order name: Glucose, Ancillary Testing; Complete Time: 23:11 EDMS 09/13 23:28 Order name: Urine Dipstick--Ancillary (enter results); Complete Time: 23:31 dh4 09/13 23:28 Order name: Urine --Ancillary (enter results); Complete Time: 23:31 dh4 09/13 23:28 Order name: Manual Differential; Complete Time: 23:28 EDMS 09/13 23:11 Order name: CT Abd/Pelvis - IV Contrast Only kb 09/13 23:32 Order name: Flu; Complete Time: 00:31 kb 09/13 23:42 Order name: Urine Culture [facility] 09/14 00:15 Order name: Stool Culture 09/14 00:15 Order name: C.difficile 09/14 00:22 Order name: Lactate [facility] 09/14 00:22 Order name: Magnesium [facility] 09/14 00:22 Order name: Phosphorus [facility] 09/14 00:22 Order name: Comprehensive Metabolic Panel [facility] 09/14 00:23 Order name: CONS Physician Consult [facility] 09/14 00:24 Order name: CBC with Automated Diff [facility] 09/13 22:26 Order name: Accucheck; Complete Time: 22:38 kb 09/13 22:26 Order name: Cardiac monitoring; Complete Time: 22:38 kb 09/13 22:26 Order name: EKG - Nurse/Tech; Complete Time: 22:37 kb 09/13 22:26 Order name: IV Saline Lock - Large Bore; Complete Time: 22:38 kb 09/13 22:26 Order name: Labs collected and sent; Complete Time: 22:38 kb 09/13 22:26 Order name: O2 Per Protocol; Complete Time: 22:38 kb 09/13 22:26 Order name: O2 Sat Monitoring; Complete Time: 22:38 kb 09/13 22:26 Order name: Urine Dipstick-Ancillary (obtain specimen); Complete Time: 00:04 kb 09/13 23:11 Order name: Urine Test (obtain specimen); Complete Time: 00:03 kb 09/14 00:23 Order name: Clear Liquid [facility] EC:47 Rate is 147 beats/min. Rhythm is regular, Sinus tachycardia with No ectopy. QRS [place] is kdr Normal. [place] interval is normal. QRS interval is normal. Clinical impression: Sinus tachycardia. Administered Medications: 09/13 22:35 Drug: NS 0.9% (30 ml/kg) 30 ml/kg Route: IV; Rate: bolus; Site: right antecubital; rv 09/14 00:33 Follow up: IV Status: Completed infusion; IV Intake: 2000ml rv 09/13 22:41 Drug: Zofran (Ondansetron) 4 mg Route: IVP; Site: right antecubital; rv 09/14 00:02 Follow up: Response: No adverse reaction; Marked relief of symptoms; Nausea is decreasedrv 09/13 23:00 Drug: Ibuprofen 600 mg Route: PO; rv 09/14 00:02 Follow up: Response: No adverse reaction; Temperature is decreased rv 09/13 23:49 Drug: Rocephin 1 grams Route: IV; Rate: calculated rate; Site: right antecubital; rv 09/14 00:02 Follow up: IV Status: Completed infusion rv 00:30 Drug: Flagyl 500 mg Volume: 100 ml; Route: IVPB; Rate: 200 ml/hr; Infused Over: 30 rv mins; Site: right antecubital; 00:58 Follow up: IV Status: Completed infusion; IV Intake: 100ml rv Disposition: 06:35 Co-signature as Attending Physician, Bruce Case MD I agree with the assessment and kdr plan of care. Disposition: 09/15/19 00:19 Hospitalization ordered by Gerry Cruz for Inpatient Admission. Preliminary diagnosis are Colitis, Urinary tract infection, site not specified, Dehydration. - Bed requested for Telemetry/MedSurg (Inpatient). - Status is Inpatient Admission. rv - Condition is Stable. - Problem is new. - Symptoms are unchanged. Signatures: Dispatcher [employer] EDMA Vanessa Ventura, BILINGUAL SPEECH LANGUAGE PATHOLOGIST-C BILINGUAL SPEECH LANGUAGE PATHOLOGIST-CkMima Cisse RN RN mw Gay, Steven, RN RN Bruce Case MD MD [facility] Maurilio Jay, RN RN rv Corrections: (The following items were deleted from the chart) 00:31 00:19 Hospitalization Ordered by Gerry Cruz MD for Inpatient Admission. Preliminary mw diagnosis is Colitis; Urinary tract infection, site not specified; Dehydration. Bed requested for Telemetry/MedSurg (Inpatient). Status is Inpatient Admission. Condition is Stable. Problem is new. Symptoms are unchanged. kb 00:59 00:31 09/15/2019 00:19 Hospitalization Ordered by Gerry Cruz MD for Inpatient rv Admission. Preliminary diagnosis is Colitis; Urinary tract infection, site not specified; Dehydration. Bed requested for Telemetry/MedSurg (Inpatient). Status is Inpatient Admission. Condition is Stable. Problem is new. Symptoms are unchanged. mw
[2019-09-15] MEDS: VANCOMYCIN ORAL SOLN 250 MG/5 ML OSYR PO SCH ×3 (01:00→16:15)
[2019-09-15] MEDS ORDERED: METHYLPREDNISOLONE 125 MG INJ IV ONE (01:00)
[2019-09-15] MEDS: METRONIDAZOLE 500mg IVPB 500 MG/100 ML BAG IV SCH ×4 (01:00→23:52)
[2019-09-15 01:25] VITALS: BMI 25.5
[2019-09-15] MEDS: NA CHLORIDE 0.9% 1,000 ML IV SCH ×4 (01:48→17:30)
[2019-09-15] MEDS ORDERED: VANCOMYCIN 500 MG/VIAL ONE (01:54)
[2019-09-15] MEDS ORDERED: WATER FOR INJ,STERILE 10 ML ONE (02:11)
[2019-09-15 03:18] VITALS: O2SAT 99
[2019-09-15] MEDS: METHYLPREDNISOLONE 125 MG INJ IV SCH ×4 (05:47→23:49)
[2019-09-15 07:24] LABS: Absolute Lymphocytes (CBC) 0.5 K/uL (0.7-4.9); Basophils % 0.1 % (0-1.3); Hematocrit 28.1 % (36.0-45.0); Lymphocytes % 4.8 % (15.3-44.8); MPV 6.5 fL (7.6-11.3); RBC Red Blood Cell Count 3.46 M/uL (3.86-4.86)
[2019-09-15 07:45] LABS: ALT/SGPT 28 U/L (12-78); AST/SGOT 29 U/L (15-37); Albumin 2.1 g/dL (3.4-5.0); Alkaline Phosphatase 115 U/L (45-117); BUN Blood Urea Nitrogen 9 mg/dL (7-18); Bicarbonate 23 mmol/L (21-32); Bilirubin Total 0.2 mg/dL (0.2-1.0); Glucose Level 135 mg/dL (74-106); Magnesium 2.4 mg/dL (1.8-2.4); Phosphorus 2.1 mg/dL (2.5-4.9); Potassium 3.8 mmol/L (3.5-5.1); Protein, Total 6.3 g/dL (6.4-8.2); Sodium Level 139 mmol/L (136-145)
--- NOTE | 2019-09-15 07:54 | P.HP ---
Certification for Inpatient Patient admitted to: Inpatient With expected LOS: >2 Midnights Patient will require the following post-hospital care: None Practitioner: I am a practitioner with admitting privileges, knowledge of patient current condition, hospital course, and medical plan of care. Services: Services provided to patient in accordance with Admission requirements found in Title 42 Section 412.3 of the Code of Federal Regulations Patient History Date of Service: 09/15/19 Reason for admission: Persistent diarrhea and abdominal pain History of Present Illness: Patient is a 39-year-old female came to the hospital with severe diarrhea. Patient has had ulcerative colitis has been having symptoms for quite a while. She was admitted in January for similar issues. Patient was found have C diff colitis at that time. Patient follows up with GI for immunosuppressive therapy. Will also consult GI as patient has had profuse diarrhea. Patient be admitted to the hospital for IV steroid therapy. Patient will also get IV antibiotics and will check C .diff, and we will check fecal leukocyte levels. Patient be admitted to the hospital for IV hydration. Will continue monitor white blood cell count. Monitor hypoalbuminemia level. Patient be admitted to the hospital for further evaluation. Allergies No Known Allergies Allergy (Verified 09/15/19 01:26) Home Medications: Codeine/APAP [Tylenol #3*] 1 tab PO TIDP PRN 09/15/19 - Past Medical/Surgical History Has patient received pneumonia vaccine in the past: Yes Diabetic: No -: Ulcerative Colitis -: EGD and colonoscopy - Family History Father Medical History: Hypertension, Other (see notes) Notes: hyprlipedemia Mother Medical History: Diabetes, Cancer Notes: Leukemia - Social History Smoking Status: Never smoker Alcohol use: No Place of Residence: Home Review of Systems 10-point ROS is otherwise unremarkable Physical Examination - Vital Signs Temperature: 97.6 F Blood Pressure: 90/52 Pulse: 85 Respirations: 16 Pulse Ox (%): 98 - Physical Exam General: Alert, In no apparent distress, Oriented x3 HEENT: Atraumatic, PERRLA, Mucous membr. moist/pink, EOMI, Sclerae nonicteric Neck: Supple, 2+ carotid pulse no bruit, No LAD, Without JVD or thyroid abnormality Respiratory: Clear to auscultation bilaterally, Normal air movement Cardiovascular: Regular rate/rhythm, Normal S1 S2, No murmurs Gastrointestinal: Normal bowel sounds, Soft and benign, Non-distended, No rebound, No guarding, Tenderness Musculoskeletal: No clubbing, No swelling, No tenderness Integumentary: No rashes Neurological: Normal gait, Normal speech, Normal strength at 5/5 x4 extr, Normal tone, Sensation intact, Cranial nerves 3-12 intact, Normal affect Lymphatics: No axilla or inguinal lymphadenopathy - Studies Laboratory Data (last 24 hrs) 09/14/19 22:35: WBC 19.6 H D, Hgb 11.9 L, Hct 36.7, Plt Count 661 H D 09/14/19 22:35: Sodium 133 L, Potassium 3.7, BUN 8, Creatinine 0.74, Glucose 131 H, Total Bilirubin 0.6, AST 13 L, ALT 32, Alkaline Phosphatase 152 H, Amylase 52, Lipase 59 L Microbiology Data (last 24 hrs): 09/14/19 23:45 Nasopharnyx Influenza Type A Antigen Screen - Final 09/14/19 23:45 Nasopharnyx Influenza Type B Antigen Screen - Final Assessment & Plan - Problems (Diagnosis) (1) Ulcerative colitis Current Visit: Yes Status: Acute (2) Leukocytosis Current Visit: Yes Status: Acute (3) C. difficile colitis Current Visit: No Status: Acute (4) Diarrhea Current Visit: No Status: Acute (5) Hypotension Current Visit: Yes Status: Acute (6) Anemia Current Visit: Yes Status: Acute (7) Hypoalbuminemia Current Visit: Yes Status: Acute (8) Acute UTI Current Visit: Yes Status: Acute - Plan 1. Continue with IV hydration 2. Continue with IV antibiotics; for UTI and for possible C diff 3. Continue with pain control 4. Liquid diet this morning 5. GI consultation;check fecal leukocytes and stool studies 6. Serial H&H, and we will monitor CBC, BMP, LFTs and lipase along with electrolytes. 7. Monitor hemodynamics closely. Monitor blood pressure as it has been low 8. Continue IV steroids 9. GI and DVT prophylaxis Discharge Plan: Home Plan to discharge in: Greater than 2 days - Advance Directives Does patient have a Living Will: No Does patient have a Durable POA for Healthcare: No - Code Status/Comfort Care Code Status Assessed: Yes Code Status: Full Code Critical Care: No Time Spent Managing PTS Care (In Minutes): 45
[2019-09-15] MEDS ORDERED: MORPHINE 2 MG/ML SYR IV PRN (07:55)
[2019-09-15] MEDS ORDERED: NA CHLORIDE 0.9% 1,000 ML IV ONE (08:44)
[2019-09-15] MEDS: CEFTRIAXONE/SWI 1gm 1 GM/10 ML SYR IVP SCH (08:48)
[2019-09-15] MEDS: ENOXAPARIN 40 MG/0.4 ML SQ SCH (08:48)
--- NOTE | 2019-09-15 09:57 | P.PN ---
Subjective Date of Service: 09/15/19 Chief Complaint: Persistent diarrhea and abdominal pain Subjective: Other (Patient still with abdominal pain. Diarrhea improved.) Physical Examination - Vital Signs Temperature: 96.7 F Blood Pressure: 84/48 Pulse: 82 Respirations: 15 Pulse Ox (%): 97 - Physical Exam General: Alert, Cooperative HEENT: Other (Dry mucous membranes) Respiratory: Clear to auscultation bilaterally, Normal air movement Cardiovascular: Normal pulses, Regular rate/rhythm Gastrointestinal: Normal bowel sounds, Soft and benign, Tenderness (Some tenderness to the abdomen) Musculoskeletal: No tenderness, No warmth Neurological: Normal speech, Normal strength at 5/5 x4 extr, Normal tone - Studies Laboratory Data (last 24 hrs) 09/14/19 22:35: WBC 19.6 H D, Hgb 11.9 L, Hct 36.7, Plt Count 661 H D 09/14/19 22:35: Sodium 133 L, Potassium 3.7, BUN 8, Creatinine 0.74, Glucose 131 H, Total Bilirubin 0.6, AST 13 L, ALT 32, Alkaline Phosphatase 152 H, Amylase 52, Lipase 59 L Microbiology Data (last 24 hrs): 09/14/19 23:45 Nasopharnyx Influenza Type A Antigen Screen - Final 09/14/19 23:45 Nasopharnyx Influenza Type B Antigen Screen - Final Medications List Reviewed: Yes Assessment & Plan Discharge Plan: Home Plan to discharge in: 72 Hours Physician Review Additional Text: Impression: Abdominal pain with diarrhea secondary to ulcerative colitis exacerbation complicated with UTI with possible sepsis Anemia likely related to above Plan: Abdominal pain with diarrhea secondary to ulcerative colitis exacerbation complicated with UTI with possible sepsis: Continue aggressive IV fluid hydration. Pro calcitonin and lactic acid negative. Will monitor blood pressure closely. Continue IV and oral antibiotic therapy to cover for ulcer of colitis and UTI. Patient also getting IV steroids. GI has been consulted. Await further recommendation. Anemia likely related to above: Will monitor hemoglobin closely. Patient may require blood if hemoglobin below 7.5. Will check iron and B12 studies. Time Spent Managing Pts Care (In Minutes): 55
[2019-09-15 12:34] LABS: Hematocrit 27.1 % (36.0-45.0)
[2019-09-15 13:58] LABS: C.diff Antigen/Toxin Ag neg : Tox neg (NEG : NEG)
--- NOTE | 2019-09-15 17:19 | RAD REPORT ---
EXAM DESCRIPTION: CT - Abdomen Pelvis W Contrast - 09/15/2019 1:53 am CLINICAL HISTORY: 39 years Female ABD PAIN COMPARISON: September 01, 2019 TECHNIQUE: Images were obtained in axial, sagittal, and coronal planes. Intravenous contrast was adm inistered. This exam was performed according to our departmental dose-optimization program which includes use of Automated Exposure Control, adjustment of the mA and/or kV according to patient size and/or use of iterative reconstruction technique. FINDINGS: No abnormality involving the liver, spleen, pancreas, or adrenal glands bilaterally. Mildly distended gallbladder. No obstructing renal calcifications bilaterally. No hydronephrosis bilaterally. Incomplete distention versus mucosal thickening involving the bladder. Cystic appearance ovaries bilaterally. Abnormal mucosal thickening transverse and left colon overall unchanged when correlated with the prio r study. Marked constipation right colon. Appendix not well identified however no secondary signs for appendicitis. No abnormality abdominal aorta or portal vein. No adenopathy or abnormal fluid collections seen. Dependent atelectatic change lower lungs bilaterally. No acute osseous abnormality. IMPRESSION: Marked colitis transverse and left colon with associated marked constipation right colon . The findings are unchanged when correlated with the prior study. No perforation or abscess. Cystitis versus incomplete bladder distention again noted. No new findings seen. Electronically signed by: Karen Pinedo MD 09/15/2019 12:03 AM CDT Due to temporary technical issues with the PACS/Fluency reporting system, reports are being signed by the in house radiologist as a courtesy to ensure prompt reporting. The interpreting radiologist is f ully responsible for the content of the report.
[2019-09-16] MEDS: NA CHLORIDE 0.9% 1,000 ML IV SCH (02:00)
[2019-09-16] MEDS: METHYLPREDNISOLONE 125 MG INJ IV SCH (05:21)
[2019-09-16 05:35] LABS: Absolute Lymphocytes (CBC) 0.6 K/uL (0.7-4.9); Hematocrit 25.5 % (36.0-45.0); Lymphocytes % 5.7 % (15.3-44.8); MPV 6.9 fL (7.6-11.3); RBC Red Blood Cell Count 3.16 M/uL (3.86-4.86)
[2019-09-16 07:51] LABS: BUN Blood Urea Nitrogen 7 mg/dL (7-18); Bicarbonate 24 mmol/L (21-32); Ferritin 134.9 ng/mL (8-388); Glucose Level 131 mg/dL (74-106); Magnesium 2.5 mg/dL (1.8-2.4); Potassium 3.5 mmol/L (3.5-5.1); Sodium Level 143 mmol/L (136-145); Transferrin 143 mg/dL (200-360)
--- NOTE | 2019-09-16 08:16 | P.DS ---
Discharge Date: 09/16/19 Disposition: ROUTINE DISCHARGE Discharge Condition: GOOD Reason for Admission: Persistent diarrhea and abdominal pain Consultations: Gastroenterology - Problems (1) Ulcerative colitis Current Visit: Yes Status: Acute (2) Leukocytosis Current Visit: Yes Status: Acute (3) C. difficile colitis Current Visit: No Status: Acute (4) Diarrhea Current Visit: No Status: Acute (5) Hypotension Current Visit: Yes Status: Acute (6) Anemia Current Visit: Yes Status: Acute (7) Hypoalbuminemia Current Visit: Yes Status: Acute (8) Acute UTI Current Visit: Yes Status: Acute Brief History of Present Illness: Patient is a 39-year-old female came to the hospital with severe diarrhea. Patient has had ulcerative colitis has been having symptoms for quite a while. She was admitted in January for similar issues. Patient was found have C diff colitis at that time. Patient follows up with GI for immunosuppressive therapy. Will also consult GI as patient has had profuse diarrhea. Patient be admitted to the hospital for IV steroid therapy. Patient will also get IV antibiotics and will check C .diff, and we will check fecal leukocyte levels. Patient be admitted to the hospital for IV hydration. Will continue monitor white blood cell count. Monitor hypoalbuminemia level. Patient be admitted to the hospital for further evaluation. Vital Signs/Physical Exam: Temp Pulse Resp BP Pulse Ox 97.6 F 89 18 135/60 99 09/16/19 04:00 09/16/19 04:00 09/16/19 04:00 09/16/19 04:00 09/16/19 04:00 General: Alert, In no apparent distress, Oriented x3 Laboratory Data at Discharge: WBC 9.9 K/uL (4.3-10.9) 09/16/19 05:10 Hgb 8.5 g/dL (12.0-15.0) L 09/16/19 05:10 Hct 25.5 % (36.0-45.0) L 09/16/19 05:10 Plt Count 504 K/uL (152-406) H 09/16/19 05:10 Sodium 143 mmol/L (136-145) 09/16/19 05:10 Potassium 3.5 mmol/L (3.5-5.1) 09/16/19 05:10 BUN 7 mg/dL (7-18) 09/16/19 05:10 Creatinine 0.35 mg/dL (0.55-1.3) L 09/16/19 05:10 Glucose 131 mg/dL (74-106) H 09/16/19 05:10 Phosphorus 2.1 mg/dL (2.5-4.9) L 09/15/19 07:12 Magnesium 2.5 mg/dL (1.8-2.4) H 09/16/19 05:10 Total Bilirubin 0.2 mg/dL (0.2-1.0) 09/15/19 07:12 AST 29 U/L (15-37) 09/15/19 07:12 ALT 28 U/L (12-78) 09/15/19 07:12 Alkaline Phosphatase 115 U/L (45-117) 09/15/19 07:12 Amylase 52 U/L (25-115) 09/14/19 22:35 Lipase 59 U/L (73-393) L 09/14/19 22:35 Home Medications: Codeine/APAP [Tylenol #3*] 1 tab PO TIDP PRN 09/15/19 metroNIDAZOLE [Flagyl] 500 mg PO Q8H #20 tablet 09/16/19 predniSONE [Prednisone*] 20 mg PO BID #20 tab 09/16/19 New Medications: metroNIDAZOLE [Flagyl] 500 mg PO Q8H #20 tablet predniSONE [Prednisone*] 20 mg PO BID #20 tab Patient Discharge Instructions: OK TO DC IV AND DC HOME. FOLLOW-UP WITH PRIMARY CARE PROVIDER IN 1-2 WEEKS. FOLLOW-UP WITH GI, Dr. Pearce, IN 1-2 WEEKS. RETURN TO THE ER IF symptoms worsen. CALL or TEXT DR. DANIEL AT [phone] IF ANY QUESTIONS REGARDING HOSPITAL STAY. PLEASE CALL THE FLOOR AT [phone] IF ANY MEDICATION OR NURSING QUESTIONS. Diet: Mcintosh Activity: Fall precautions Time spent managing pt's care (in minutes): 20
[2019-09-16] MEDS: CEFTRIAXONE/SWI 1gm 1 GM/10 ML SYR IVP SCH (08:35)
[2019-09-16] MEDS: ENOXAPARIN 40 MG/0.4 ML SQ SCH (08:36)
[2019-09-16] MEDS ORDERED: SOD FERRIC GLUC COMPLX/SUCROSE 125 MG in NA CHLORIDE 0.9% 100 ML IV SCH (09:00)
[2019-09-16 09:15] VITALS: BP 89/54; TEMP 97.4
--- NOTE | 2019-09-17 20:17 | EKG ---
Test Date: 2019-09-14 Test Time: 22:21:00 Social Contact Worker: MARCIA MEASUREMENT RESULTS: Intervals: Rate: 147 NV: 112 QRSD: 68 QT: 338 QTc: 528 [place]: P: 11 NV: 112 QRS: 47 T: -2 INTERPRETIVE STATEMENTS: Sinus tachycardia ST & T wave abnormality, consider inferior ischemia Abnormal ECG No previous ECG available for comparison Electronically Signed On 09-17-19 20:11:33 CDT by Jose Gates
== END 2019-09-16 10:48 | disposition home or self-care (01) | DRG 872 ==
LOC: ER 21:59 → ERHOLD 09-15 00:16 → 2ND 09-15 00:52
PROVIDERS: ADMIT Hospitalist; ATTEND Family Medicine
DX: A41.9 Sepsis, unspecified organism (principal); K51.90 Ulcerative colitis, unspecified, without complications; N39.0 Urinary tract infection, site not specified; A04.72 Enterocolitis due to Clostridium difficile, not specified as recurrent; D72.829 Elevated white blood cell count, unspecified; I95.9 Hypotension, unspecified; D64.9 Anemia, unspecified; E88.09 Other disorders of plasma-protein metabolism, not elsewhere classified; Z79.52 Long term (current) use of systemic steroids; Z79.891 Long term (current) use of opiate analgesic; Z79.899 Other long term (current) drug therapy
CPT/HCPCS: 36415; 74177; 80048; 80053; 80076; 81003; 81015; 81025; 82150; 82607; 82728; 82947; 83540; 83605; 83690; 83735; 84100; 84145; 84466; 84484; 85014; 85018; 85025; 87040; 87045; 87046; 87086; 87088; 87324; 87449; 87804; 93005; 96365; 96375; 99285; J0696; J1650; J2405; J2916; J2930; J7030; Q9967

== ENCOUNTER 2022-11-04 02:17 | Observation (INO) | payer OTHER ==
--- OUTSIDE RECORDS SUMMARY | 2022-11-04 02:22 | XMS REPORT | Continuity of Care Document ---
:1980 Author Organization [facility] t Address [address] [place] [address] Care Team Providers Name Role Phone No, Pcp [facility] Primary Care Physician Unavailable Janet Salazar Attending Clinician Unavailable Lab, Adc Fam Pob I Attending Clinician Unavailable Sara Rothman Attending Clinician Ania Keen Attending Clinician ANIA GARCIA Attending Clinician Unavailable Bree Cortes Attending Clinician BREE ZAMBRANO Attending Clinician Unavailable Doctor Unassigned, [place] Attending Clinician Unavailable Radha Hancock RN Attending Clinician Unavailable Melva Burrows RN Attending Clinician Unavailable Pob1, Acute Care Clinic Attending Clinician Unavailable SARA GORDON Attending Clinician Unavailable INGRID HARRIS Attending Clinician Unavailable QUOC CARMONA Attending Clinician Unavailable QUOC CARMONA Admitting Clinician Unavailable Payers Payer Name Policy Type Policy Number Effective Date Expiration Date S ource Blue Cross and C1 [id number] [facility] Blue Cross and C1 [id number] Common S pirit Blue Shield - [facility] Problems Condition Condition Condition Status Onset Resolution Last Treating Co mments Source Name Details Category Date Date Treatment Clinician Date Colitis Colitis Disease Active [facility] Normal Normal Disease Active Univers Delivery Delivery 11-22 ity of 00:00: [place] 00 Medical Branch Disease Active Overview : Univers anemia anemia 11-22 ICD10 ity of 00:00: Diagnosis Term Medical Migrant Leader Branch Utility Maternal Maternal Disease Active Overview: Un cesar pyrexia pyrexia 11-22 ICD10 ity of during during 00:00: Diagnosis [place] labor, labor, 00 Term Medical delivered delivered Migrant Leader Br anch Utility Multiparit Multiparit Disease Active U nivers y y 11-22 ity of 00:00: [place] [facility] Status Status Disease Active Overview: Univer s post tubal post tubal 11-22 ICD10 it y of ligation ligation 00:00: Diagnosis Scotty as 00 Term Medical Migrant 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 Branch Utility [id number] Internal Problem Active Commo n hemorrhoid Spirit s [facility] [id number] Subcutaneo Problem Active Com mon us nodules [facility] [id number] Blood in Problem Active Comm on stool [facility] [id number] Clostridio Problem Active Co mmon ides Spirit difficile - [facility] infection [facility] [id number] Transfusio Problem Active Co mmon n history [facility] [id number] Abdominal Problem Active Comm on pain, Spirit unspecifie - CHI d [facility] [id number] Follow-up Problem Active Com mon exam [facility] [id number] Diarrhea, Problem Active Comm on unspecifie Spirit d type [facility] [id number] Nausea Problem Active Common [facility] [id number] Hypokalemi Problem Active Com mon a [facility] [id number] Counseling Problem Active Co mmon and Spirit coordinati - CHI on of care [facility] [id number] Axillary Problem Active Comm on lymphadeno [facility] marcos [facility] [id number] Thrombocyt Problem Active Co mmon openia [facility] 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 Spirit syndrome bowel - CHI syndrome) [facility] [id number] Shortness Problem Active Com mon of breath [facility] [id number] Anemia, Problem Active Commo n unspecifie Spirit d [facility] Seasonal Seasonal Problem Active Commo n allergy allergies [facility] [id number] Ulcerative Problem Active Com mon colitis Spirit without - CHI complicati [facility] unspecifie Medica l d location Center [id number] Abnormal Problem Active Comm on ultrasound [facility] [id number] Fatigue, Problem Active Commo n unspecifie Spirit d [facility] Allergies, Adverse Reactions, Alerts Allergy Allergy Status Severity Reaction(s) Onset Inactive Treating Comm ents Source Name Type Date Date Clinician GENTAMIC DRUG Active Unknown-Cmnt Un cesar IN INGREDI 11-22 ity of 00:00: [place] 00 Medical Branch Gentamic Propensi Active Unknown - numbness U nivers in ty to See comments 11-22 ity of adverse 00:00: [place] reaction Medical s Branch Family History Family Member Diagnosis Comments Start Date Stop Date Source Natural mother Cancer [facility] Social History Social Habit Start Date Stop Date Quantity Comments Source Exposure to Not sure University of SARS-CoV-2 [place] [facility] (event) Branch History SDOH [facility] Alcohol Std Medical Cente r Drinks History SDOH [facility] Alcohol Binge Medical [address] History of Common Spirit - Tobacco Use [facility] Alcohol intake 2022-08-08 2022-08-08 [facility]:00 non-drinker of Medical Ce nter alcohol (finding) Tobacco use and 2019-08-30 2019-08-30 Never used Universit y of exposure 00:00:00 00:00:00 [place] [facility] History SDOH 2018-11-25 2018-11-[address] [facility] Alcohol Frequency 00:00:00 00:00:00 [facility] Sex Assigned At [address] Kavya kes 00:00:00 00:00:00 [facility] Smoking Status Start Date Stop Date Source Never Smoker Common [facility] Medications Ordered Filled Start Stop Current Ordering Indication Dosage Frequency Signature Comments Components Source Medication Medication Date Date Medication? Clinician (SIG) Name Name valerie 2019-0 2020- No [id number] 5mL Take 5 mL Univers mine-pseudo 08-2920 by mouth 4 i ty of ephedrine-D 00:00: 04:59 (four) Scotty as M (BROMFED 00 :00 times Medical DM) 2-30-10 daily as Bran ch mg/5 mL needed for syrup Congestion /Allergies or Cough for up to 10 days. colephenira 2019-0 2020- No [id number] 5mL Take 5 mL Univers mine-pseudo 08-2920 by mouth 4 i ty of ephedrine-D 00:00: 04:59 (four) Scotty as M (BROMFED 00 :00 times Medical DM) 2-30-10 daily as Bran ch mg/5 mL needed for syrup Congestion /Allergies or Cough for up to 10 days. REMICADE 2019-0 Yes Univers 100 mg 3-23 ity of injection 00:00: [address] Branch REMICADE 2019-0 Yes Univers 100 mg 3-23 ity of injection 00:00: [address] Branch REMICADE 2020-0 Yes Univers 100 mg 3-23 ity of injection 00:00: [place] [address] Medical Branch REMICADE 2020-0 Yes Univers 100 mg 3-23 ity of injection 00:00: [address] Branch REMICADE 2020-0 Yes Univers 100 mg 3-23 ity of injection 00:00: [address] Branch REMICADE 2020-0 Yes Univers 100 mg 3-23 ity of injection 00:00: [address] Branch REMICADE 2020-0 Yes Univers 100 mg 3-23 ity of injection 00:00: [address] Branch ondansetron 2018- Yes 4mg Take [address] (ZOFRAN) 4 9-09 tablet (4 Luke s MG tablet 00:00: mg total) Med ical 00 by mouth 3 Center (three) times daily as needed for Nausea for up to 10 doses. ondansetron Yes 4mg Take [address] (ZOFRAN) 4 9-09 tablet (4 Luke s MG tablet 00:00: mg total) Med ical 00 by mouth 3 Center (three) times daily as needed for Nausea for up to 10 doses. Yes Janet (OTC) 1 Com mon Low Iron Low Iron Millender tablet Spirit - [facility] Entyvio 300 Entyvio 300 No Entyvio MG MG 300 MG Azathioprin Azathioprin No Azathiopri e 50 MG e 50 MG ne 50 MG Aspirin 81 Aspirin 81 No 1{table QD Aspirin 81 81 MG 81 MG t} 81 MG Cholestyram Cholestyram No 1{packe QD Cholestyra ine 4 GM ine 4 GM t_mixed mine 4 GM _with_w ater_or _non-ca rbonate d_drink } Ondansetron Ondansetron No 1{table QD Ondansetro 4 MG 4 MG t_on_th n 4 MG e_tongu e_and_a llow_to _dissol ve} Cipro 500 Cipro 500 No 1{table BID Cipro 500 MG MG t} MG No QD Low Iron - Low Iron - Low Iron - Budesonide Budesonide No 2{capsu QD Budesonide 3 MG 3 MG les} 3 MG Aspirin 81 Aspirin 81 No 1{table QD Aspirin 81 81 MG 81 MG t} 81 MG Cipro 500 Cipro 500 No 1{table BID Cipro 500 MG MG t} MG Entyvio 300 Entyvio 300 No Entyvio MG MG 300 MG Budesonide Budesonide No 2{capsu QD Budesonide 3 MG 3 MG les} 3 MG No QD Low Iron - Low Iron - Low Iron - Azathioprin Azathioprin No Azathiopri e 50 MG e 50 MG ne 50 MG Ondansetron Ondansetron No 1{table QD Ondansetro 4 MG 4 MG t_on_th n 4 MG e_tongu e_and_a llow_to _dissol ve} Cholestyram Cholestyram No 1{packe QD Cholestyra ine 4 GM ine 4 GM t_mixed mine 4 GM _with_w ater_or _non-ca rbonate d_drink } Immunizations Ordered Immunization Filled Immunization Date Status Commen ts Source Name Name PNEUMAVAX 23 PNEUMAVAX 2019-03-14 Completed Common Spi rit 16:53:00 - [facility] PNEUMAVAX 23 PNEUMAVAX 23 2019-03-14 Completed Common Spi rit 16:53:00 - [facility] Flucelvax - single Flucelvax - single 2019-03-14 Completed Common Spirit dose syringe dose syringe 16:52:00 - [facility] Flucelvax - single Flucelvax - single 2019-03-14 Completed Common Spirit dose syringe dose syringe 16:52:00 - [facility] Flucelvax - single Flucelvax - single 2019-03-14 Completed Common Spirit dose syringe dose syringe 00:00:00 - [facility] PNEUMAVAX 23 PNEUMAVAX 23 2019-03-14 Completed Common Spi rit 00:00:00 - [facility] Vital Signs Vital Name Observation Time Observation Value Comments Source height 2020-07-29 14:45:00 61 [in_i] [facility] weight 2020-07-29 14:45:00 139.0 [lb_av] [facility] temperature 2020-07-29 14:45:00 98.2 [degF] [facility] bmi 2020-07-29 14:45:00 26.26 kg/m2 [facility] oximetry 2020-07-29 14:45:00 98 % [facility] blood pressure 2020-07-29 14:45:00 106 mm[Hg] [facility] - systolic [facility] blood pressure 2020-07-29 14:45:00 60 mm[Hg] [facility] - diastolic [facility] Systolic blood 2019-08-30 13:35:00 113 mm[Hg] Univer sity of pressure [facility] Diastolic blood 2019-08-30 13:35:00 78 mm[Hg] Unive rsity of pressure [facility] Heart rate 2019-08-30 13:35:00 106 /min [facility] Body temperature 2019-08-30 13:35:00 37.67 Taryn [facility] Res[facility] rate 2019-08-30 13:35:00 20 /min [facility] Body height 2019-08-30 13:35:00 154.9 cm [facility] Body weight 2019-08-30 13:35:00 63.504 kg [facility] BMI 2019-08-30 13:35:00 26.45 kg/m2 Universi ty of [facility] Oxygen saturation in 2019-08-30 13:35:00 99 /min University of Arterial blood by [facility] Pulse oximetry Branch Systolic blood 2019-08-30 13:35:00 113 mm[Hg] Univer sity of pressure [facility] Diastolic blood 2019-08-30 13:35:00 78 mm[Hg] Unive rsity of pressure [facility] Heart rate 2019-08-30 13:35:00 106 /min Universi ty of [facility] Body temperature 2019-08-30 13:35:00 37.67 Taryn Univ ersity of [facility] Respiratory rate 2019-08-30 13:35:00 20 /min Univ ersity of [facility] Body height 2019-08-30 13:35:00 154.9 cm Universi ty of [facility] Body weight 2019-08-30 13:35:00 63.504 kg Universi ty [facility] BMI 2019-08-30 13:35:00 26.45 kg/m2 Universi ty [facility] [place] [facility] Oxygen saturation in 2019-08-30 13:35:00 99 /min University of Arterial blood by [facility] Pulse oximetry Branch Procedures Procedure Date / Time Performed Performing Clinician Sourc e POCT GRP A STREP 2019-08-30 13:43:00 Bree Zambrano [facility] (MOLECULAR) [facility] Encounters Start End Encounter Admission Attending Care Care Encounter Source Date/Time Date/Time Type Type Clinicians Facility Department ID 2021-06-17 Outpatient Millender, STLMLC STLMLC [id number] Common 12:36:13 Janet [id number] [facility] 2021-06-17 Outpatient Millender, STLMLC STLMLC [id number] Common 11:04:45 Janet [id number] [facility] 2021-06-17 Outpatient Millender, STLMLC STLMLC [id number] Common 10:59:44 Janet [id number] [facility] 2020-07-29 2020-07-29 OFFICE STLMLC STLC [id number] Co mmon 00:00:00 00:00:00 VISIT [facility] PT LEVEL 3 [facility] 2020-07-282020-07-28 (TEL) STLMLC STLMLC [id number] Co mmon 00:00:00 00:00:00 [facility] 2020-07-16 2020-07-16 Laboratory Lab, [facility] 1.2. [id number] Univers 10:24:15 10:44:15 Only [facility] [id number] ity of [place] [id number] Scotty as Professio [phone] Ia dical nal 0[address] Branch [address] One 2020-07-16 2020-07-16 Outpatient R [facility] [id number] Univers 10:20:00 10:20:00 ity of [facility] 2020-05-21 2020-05-21 Laboratory Lab, [facility] 1.2. [id number] [id number] Univers 18:37:35 18:57:35 Only Ania Garcia [facility] [id number] ity of [place] [id number] Scotty as Professio [phone] Ia dicmn nal 044 [place] Office [address] 2020-05-21 2020-05-21 Outpatient R NILSON [facility] [id number] Univers 18:40:00 18:40:00 ANIA ity o f [facility] 2020-01-26 2020-01-26 Laboratory Lab, [facility] 1.2. 840.114 [id number] Univers 08:37:22 08:57:22 Only Bree Zambrano Health [id number] ity of [place] [id number] Scotty as Professio [phone] Ia dical nal 044 Branch [address] 2020-01-26 2020-01-26 Outpatient R RAJAN [facility] [id number] Univers 08:40:00 08:40:00 BREE ity [facility] 2020-01-26 2020-01-26 Letter Doctor GALARZA [id number] Univers 00:00:00 00:00:00 (Out) Unassigned, RICHARD [id number] ity of [place] [facility] [id number] Scotty as [phone] [address] 2020-01-26 2020-01-26 Telephone Radha Hancock [id number] Univers 00:00:00 00:00:00 RICHARD [id number] it y of HOSPITAL [id number] Scotty as [phone] [address] 2019-08-31 2019-08-31 Telephone MICHELL Burrows [id number] Univers 00:00:00 00:00:00 Melva L RICHARD [id number] i ty of HOSPITAL [id number] Scotty as [phone] [address] 2019-08-31 2019-08-31 Telephone MICHELL Burrows [id number] 00:00:00 00:00:00 Melva RAMOS [id number] [facility] [id number] [facility] 2019-08-30 2019-08-30 Urgent Pob1, Acute Care Clinic [facility] 1. [id number] [facility] [place] [facility] 08:24:35 08:57:39 Care [facility] [id number] ity of [place] [id number] Scotty as Professio [phone] [address] Office Building One 2019-08-30 2019-08-30 Urgent Pob1, Acute [facility] [id number] 08:24:35 08:57:39 [facility] [id number] [place] [id number] Professio [phone] [place] [address] [address] 2019-08-30 2019-08-30 Outpatient Kate GORDON [facility] [id number] Univers 08:40:00 08:40:00 SARA mays [facility] 2019-04-26 2019-04-26 Outpatient B[facility] [id number] Common 14:40:00 14:40:00 [facility] 2019-04-11 2019-04-11 Outpatient [facility] [id number] Common 20:49:00 20:49:[address] [facility] [address] [facility] 2019-03-14 2019-03-14 Outpatient [facility] [id number] Common 10:40:00 10:40:00 t [facility] [address] Sp[address] [facility] 2019-03-06 2019-03-06 Outpatient [facility] [id number] Common 02:35:00 02:35:[address] [facility] 2019-02-28 2019-02-28 Outpatient [facility] [id number] Common 09:29:00 09:29:[address] [facility] 2019-02-23 2019-02-23 Outpatient [facility] [id number] Common 11:20:00 11:20:[address] [facility] 2018-11-02 2018-11-02 Outpatient [facility] [id number] Common 10:01:00 10:01:00 t [facility] [address] [facility] 2018-10-06 2018-10-06 Outpatient [facility] [id number] Common 15:20:00 15:20:00 [address] [facility] [address] Sp[address] [facility] Results Test Description Test Time Test Comments Results Result Comments Source POCT GRP A STREP (MOLECULAR) 2019-08-30 13:53:00 Test Item Value Reference Range Interpretation Comme nts POCT GP A STREP (test code = neg Negative - Negative 70737-1) DAWIT (test code = DAWIT) accurate development and interpretation of all internal controls Lab Interpretation (test code = Normal 04011-9) [facility] [id number] 02:33:00 Test Item Value Reference Range Interpretation Comments TEST URINE (BEAKER) (test Negative code = 583) URINALYSIS W/ REFLEX URINE [id number] 02:31:00 Test Item Value Reference Range Interpretation Comments COLOR (BEAKER) (test code = 470) Yellow CLARITY (BEAKER) (test code = 469) Hazy SPECIFIC GRAVITY UA (BEAKER) (test 1.017 1.001-1.035 code = 468) PH UA (BEAKER) (test code = 467) 5.5 5.0-8.0 PROTEIN UA (BEAKER) (test code = 30 mg/dL Negative A 464) GLUCOSE UA (BEAKER) (test code = Negative Negative 365) KETONES UA (BEAKER) (test code = >150 mg/dL Negative A 371) BILIRUBIN UA (BEAKER) (test code = Negative Negative 462) BLOOD UA (BEAKER) (test code = Small Negative A 461) NITRITE UA (BEAKER) (test code = Negative Negative 465) LEUKOCYTE ESTERASE UA (BEAKER) Negative Negative (test code = 466) UROBILINOGEN UA (BEAKER) (test 0.2 mg/dL 0.2-1.0 code = 463) RBC UA (BEAKER) (test code = 519) 1 /HPF WBC UA (BEAKER) (test code = 520) 1 /HPF MUCUS (BEAKER) (test code = 1574) Few SQUAMOUS EPITHELIAL (BEAKER) (test 3 /HPF code = 516) AMORPHOUS CRYSTALS (BEAKER) (test Occasional code = 1584) SOURCE(BEAKER) (test code = 2795) CT, [id number] 02:09:00Reason for exam:->ABDOMINAL PAINReason for exam:->NAUSEAReason for [...] pleural effusion or pneumothorax. Visualized cardiac contours normal.Liver: No significant findings. Gallbladder and biliary tree: [...] Infectious and inflammatory causes are considered. Signed: Lyndon Bustillos MDReport Verified Date/Time: 01/29/2019 02:09:01 Reading Location: [address] Reading Room HCG, QUANTITATIVE, [id number] 01:30:00 Test Item Value Reference Range Interpretation Comments GONADOTROPIN, CHORIONIC (HCG) QUANT < mIU/mL 0-10 ([employer]) (test code = 649) Non- Females: <10 mIU/mL Females: Gestation Age Reference Range(mIU/mL) 0.2-1 Week 5-50 1-2 Weeks 50-500 2-3 Weeks 100-5,000 3-4 Weeks 500-10,000 4-5 Weeks 1,000-50,000 5-6 Weeks 10,000-100,000 6-8 Weeks 15,000- 200,000 2-3 Months 10,000-100,000POCT-LACTIC ACID, [id number] 23:56:00 Test Item Value Reference Range Interpretation Comments POC-LACTIC ACID, 0.8 mmol/L 0.9-1.7 L TESTED AT [facility] [address] ([facility] (test [place] code = 2805) 22181 CBC W/PLT COUNT & AUTO [id number] 21:42:00 Test Item Value Reference Range Interpretation Comments WHITE BLOOD CELL COUNT 9.0 K/ L 3.5-10.5 ([employer]) (test code = 775) RED BLOOD CELL COUNT 4.87 M/ L 3.93-5.22 (BEAKER) (test code = 761) HEMOGLOBIN (BEAKER) 12.5 GM/DL 11.2-15.7 (test code = 410) HEMATOCRIT (BEAKER) 38.5 % 34.1-44.9 (test code = 411) MEAN CORPUSCULAR 79.1 fL 79.4-94.8 L VOLUME (BEAKER) (test code = 753) MEAN CORPUSCULAR 25.7 pg 25.6-32.2 HEMOGLOBIN (BEAKER) (test code = 751) MEAN CORPUSCULAR 32.5 GM/DL 32.2-35.5 HEMOGLOBIN CONC (BEAKER) (test code = 752) RED CELL DISTRIBUTION Unable to report due WIDTH (BEAKER) (test to [facility] RBC code = 412) population distribution. PLATELET COUNT 542 K/CU MM 150-450 H (BEAKER) (test code = 756) MEAN PLATELET VOLUME 8.8 fL 9.4-12.3 L (BEAKER) (test code = 754) NUCLEATED RED BLOOD 0 /100 WBC 0-0 CELLS (BEAKER) (test code = 413) (CELLAVISION MANUAL DIFF)2019-01-28 21:42:00 Test Item Value Reference Range Interpretation Comments NEUTROPHILS - REL 50 % (CELLAVISION)(BEAKER) (test code = 2816) LYMPHOCYTES - REL 14 % (CELLAVISION)(BEAKER) (test code = 2817) MONOCYTES - REL 15 % (CELLAVISION)(BEAKER) (test code = 2818) EOSINOPHILS - REL 1 % (CELLAVISION)(BEAKER) (test code = 2819) BANDS - REL (CELLAVISION)(BEAKER) 17 % 0-10 H (test code = 2826) ATYPICAL LYMPHOCYTES - REL 3 % 0-0 H (CELLAVISION)(BEAKER) (test code = 2829) NEUTROPHILS - ABS 4.50 K/ul 1.56-6.13 (CELLAVISION)(BEAKER) (test code = 2830) LYMPHOCYTES - ABS 1.26 K/ul 1.18-3.74 (CELLAVISION)(BEAKER) (test code = 2831) MONOCYTES - ABS 1.35 K/uL 0.24-0.36 H (CELLAVISION)(BEAKER) (test code = 2832) EOSINOPHILS - ABS 0.09 K/uL 0.04-0.36 (CELLAVISION)(BEAKER) (test code = 2834) BANDS - ABS (CELLAVISION)(BEAKER) 1.53 K/uL 0.00-0.80 H (test code = 2840) ATYPICAL LYMPHOCYTES - ABS 0.27 K/uL 0.00-0.00 H (CELLAVISION)(BEAKER) (test code = 2858) TOTAL COUNTED (BEAKER) (test code 100 = 1351) PLT MORPHOLOGY (BEAKER) (test Normal code = 486) SMUDGE CELLS (BEAKER) (test code Present = 1371) POLYCHROMATOPHILLIC RBCS(BEAKER) 3+ many (test code = 478) HYPOCHROMIA (BEAKER) (test code = 1+ few 963) ANISOCYTOSIS (BEAKER) (test code 2+ moderate = 961) MICROCYTES (BEAKER) (test code = 2+ moderate 965) POIKILOCYTES (BEAKER) (test code 1+ few = 966) PLATELET CONCENTRATION Increased (CELLAVISION)(BEAKER) (test code = 3438) Received comment: User comments: Slide comments:BASIC METABOLIC [id number] 21:21:00 Test Item Value Reference Range Interpretation Comments SODIUM (BEAKER) 134 meq/L 136-145 L (test code = 381) POTASSIUM (BEAKER) 3.7 meq/L 3.5-5.1 (test code = 379) CHLORIDE (BEAKER) 96 meq/L 98-107 L (test code = 382) CO2 (BEAKER) (test 25 meq/L 22-29 code = 355) BLOOD UREA NITROGEN 11 mg/dL 7-21 (BEAKER) (test code = 354) CREATININE (BEAKER) 0.67 mg/dL 0.57-1.25 (test code = 358) GLUCOSE RANDOM 79 mg/dL 70-105 (BEAKER) (test code = 652) CALCIUM (BEAKER) 9.1 mg/dL 8.4-10.2 (test code = 697) EGFR (BEAKER) (test 99 mL/min/1.73 ESTIMA JUSTICE GFR IS code = 1092) sq m NOT ACCURATE CREATININE CLEARANCE IN PREDICTING GLOMERULAR FILTRATION RATE . ESTIMATED GFR I S NOT APPLICABLE FOR DIALYSIS PATIEN TS. OVA AND PARASITE [id number] 08:15:00 Test Item Value Reference Range Interpretation Comments DIRECT SMEAR - O\\T\\P No ova or parasites No ova or parasites (BEAKER) (test code = seen seen 196) CONCENTRATE SMEAR - No ova or parasites No ova or parasites O\\T\\P (BEAKER) (test seen seen code = 247) TRICHROME SMEAR - No ova or parasites No ova or parasites O\\T\\P (BEAKER) (test seen seen code = 248) BASIC METABOLIC [id number] 05:42:00 Test Item Value Reference Range Interpretation Comments SODIUM (BEAKER) 138 meq/L 136-145 (test code = 381) POTASSIUM (BEAKER) 3.1 meq/L 3.5-5.1 L (test code = 379) CHLORIDE (BEAKER) 108 meq/L 98-107 H (test code = 382) CO2 (BEAKER) (test 23 meq/L 22-29 code = 355) BLOOD UREA NITROGEN 5 mg/dL 7-21 L (BEAKER) (test code = 354) CREATININE (BEAKER) 0.65 mg/dL 0.57-1.25 (test code = 358) GLUCOSE RANDOM 111 mg/dL 70-105 H (BEAKER) (test code = 652) CALCIUM (BEAKER) 8.3 mg/dL 8.4-10.2 L (test code = 697) EGFR (BEAKER) (test 102 mL/min/1.73 ESTIM ATED GFR IS code = 1092) sq m NOT ACCURATE CREATININE CLEARANCE IN PREDICTING GLOMERULAR FILTRATION RATE . ESTIMATED GFR I S NOT APPLICABLE FOR DIALYSIS PATIEN TS. CBC W/PLT COUNT & AUTO [id number] 05:35:00 Test Item Value Reference Range Interpretation Comments WHITE BLOOD CELL COUNT (BEAKER) 7.6 K/ L 3.5-10.5 (test code = 775) RED BLOOD CELL COUNT (BEAKER) 3.80 M/ L 3.93-5.22 L (test code = 761) HEMOGLOBIN (BEAKER) (test code = 7.7 GM/DL 11.2-15.7 L 410) HEMATOCRIT (BEAKER) (test code = 25.8 % 34.1-44.9 L 411) MEAN CORPUSCULAR VOLUME (BEAKER) 67.9 fL 79.4-94.8 L (test code = 753) MEAN CORPUSCULAR HEMOGLOBIN 20.3 pg 25.6-32.2 L (BEAKER) (test code = 751) MEAN CORPUSCULAR HEMOGLOBIN CONC 29.8 GM/DL 32.2-35.5 L (BEAKER) (test code = 752) RED CELL DISTRIBUTION WIDTH 23.0 % 11.7-14.4 H (BEAKER) (test code = 412) PLATELET COUNT (BEAKER) (test 380 K/CU MM 150-450 code = 756) MEAN PLATELET VOLUME (BEAKER) 8.6 fL 9.4-12.3 L (test code = 754) NUCLEATED RED BLOOD CELLS 0 /100 WBC 0-0 (BEAKER) (test code = 413) NEUTROPHILS RELATIVE PERCENT 63 % (BEAKER) (test code = 429) LYMPHOCYTES RELATIVE PERCENT 20 % (BEAKER) (test code = 430) MONOCYTES RELATIVE PERCENT 10 % (BEAKER) (test code = 431) EOSINOPHILS RELATIVE PERCENT 6 % (BEAKER) (test code = 432) BASOPHILS RELATIVE PERCENT 1 % (BEAKER) (test code = 437) NEUTROPHILS ABSOLUTE COUNT 4.79 K/ L 1.56-6.13 (BEAKER) (test code = 670) LYMPHOCYTES ABSOLUTE COUNT 1.48 K/ L 1.18-3.74 (BEAKER) (test code = 414) MONOCYTES ABSOLUTE COUNT (BEAKER) 0.76 K/ L 0.24-0.36 H (test code = 415) EOSINOPHILS ABSOLUTE COUNT 0.45 K/ L 0.04-0.36 H (BEAKER) (test code = 416) BASOPHILS ABSOLUTE COUNT (BEAKER) 0.05 K/ L 0.01-0.08 (test code = 417) IMMATURE GRANULOCYTES-RELATIVE 0 % 0-1 PERCENT (BEAKER) (test code = 2801) TISSUE [id number] 09:51:00Surgical Pathology Report Case: [id number] Authorizing Provider: Ike Huynh Collected: 11/27/2018 1108 Ordering Location: [address] Received: 11/27/2018 1400 Service Pathologist: Jack Batista MD Specimens: A) - Polyp, Colon - Right/Ascending, BX TAKEN BY FRCP B) - Polyp, Colon - Hepatic Flexure, COLD SNARE C) - Large Intestine, Colon - Transverse, BX TAKEN BY FRCP D)- Large Intestine, Colon - Left/Descending, BX TAKEN BY FRCP E) - Polyp, Colon - Sigmoid, BX TAKEN BY FRCP F) - Rectum, BX TAKEN BY FRCP PART A RIGHT ASCENDING COLON POLYP, POLYPECTOMY:COLONIC MUCOSA WITH PROMINENT REACTIVE LYMPHOID AGGREGATE.NEGATIVE FOR DYSPLASIA OR INVASIVE CARCINOMA.PART B COLON HEPATIC FLEXURE POLYP, POLYPECTOMY:TUBULAR ADENOMA.NEGATIVE FOR HIGH GRADE DYSPLASIA OR INVASIVE CARCIN FLAQUITO.PART C TRANSVERSE COLON, BIOPSY:MILDLY EDEMATOUS COLONIC MUCOSA WITHOUT SIGNIFICANT HISTOPATHOLOGIC ALTERATION.NEGATIVE FOR INCREASED EPITHELIAL LYMPHOCYTES, GRANULOMAS, DYSPLASIA, OR INVASIVE CARCINOMA.PART D LEFT DESCENDING COLON BIOPSY:MILDLY EDEMATOUS COLONIC MUCOSA WITHOUT SIGNIFICANT HISTOPAT HOLOGIC ALTERATION.NEGATIVE FOR INCREASED EPITHELIAL LYMPHOCYTES, GRANULOMAS, DYSPLASIA, OR INVASIVECARCINOMA.PART E SIGMOID COLON, BIOPSY FOR SUSPECTED POLYP:MILDLY ACTIVE COLITIS WITH FOCAL SUPERFICIAL ULCERATION.SUBEPITHELIAL REACTIVE LYMPHOID AGGREGATE.NEGATIVE FOR GRANULOMAS, DYSPLASIA, OR INVASIVE CARCINOMA.PART F RECTAL BIOPSY:MILDLY ACTIVE COLITIS WITH FOCAL SUPERFICIAL ULCERATION.SUBEPITHELIAL REACTIVE LYMPHOID AGGREGATE.NEGATIVE FOR GRANULOMAS, DYSPLASIA, OR INVASIVE CARCINOMA. Signing Pathologist Direct Phone Line: [phone] signed by Jack Batista MD on 11/28/2018 at 9:51 [id number] and postop diagnosis: colitisA. Polyp, colon - right/ascending; B. Polyp, colon - hepatic flexure; C. Large intestine, colon - transverse; D. Large intestine, colon - left/descending; E. Polyp, colon - sigmoid; F. Rectum A. Received in formalin labeled with the patient's name, a ccession number and "polyp, colon - right/ascending" are [...] ranging 0.1-0.3 cm which are submitted in totoin E1. F. Received in formalin labeled with the patient's name, accession number and "rectum" are four irregular bernal soft tissue fragments ranging 0.1-0.3 cm which are submitted in toto in F1. CG/pl PERFORMED.[id number] 04:33:00 Test Item Value Reference Range Interpretation Comments MAGNESIUM (BEAKER) (test code = 1.9 mg/dL 1.6-2.6 627) BASIC METABOLIC [id number] 04:33:00 Test Item Value Reference Range Interpretation Comments SODIUM (BEAKER) 139 meq/L 136-145 (test code = 381) POTASSIUM (BEAKER) 3.6 meq/L 3.5-5.1 (test code = 379) CHLORIDE (BEAKER) 109 meq/L 98-107 H (test code = 382) CO2 (BEAKER) (test 21 meq/L 22-29 L code = 355) BLOOD UREA NITROGEN 6 mg/dL 7-21 L (BEAKER) (test code = 354) CREATININE (BEAKER) 0.61 mg/dL 0.57-1.25 (test code = 358) GLUCOSE RANDOM 93 mg/dL 70-105 (BEAKER) (test code = 652) CALCIUM (BEAKER) 8.4 mg/dL 8.4-10.2 (test code = 697) EGFR (BEAKER) (test 110 mL/min/1.73 ESTIM ATED GFR IS code = 1092) sq m NOT ACCURATE CREATININE CLEARANCE IN PREDICTING GLOMERULAR FILTRATION RATE . ESTIMATED GFR I S NOT APPLICABLE FOR DIALYSIS PATIEN TS. HEPATIC FUNCTION [id number] 04:33:00 Test Item Value Reference Range Interpretation Comments TOTAL PROTEIN (BEAKER) (test code = 6.6 gm/dL 6.0-8.3 770) ALBUMIN (BEAKER) (test code = 1145) 3.3 g/dL 3.5-5.0 L BILIRUBIN TOTAL (BEAKER) (test code 0.1 mg/dL 0.2-1.2 L = 377) BILIRUBIN DIRECT (BEAKER) (test 0.1 mg/dL 0.1-0.5 code = 706) ALKALINE PHOSPHATASE (BEAKER) (test 102 U/L 40-150 code = 346) AST (SGOT) (BEAKER) (test code = 19 U/L 5-34 353) ALT (SGPT) (BEAKER) (test code = 19 U/L 6-55 347) CALCIUM, [id number] 04:30:00 Test Item Value Reference Range Interpretation Comments CALCIUM IONIZED (BEAKER) (test 1.09 mmol/L 1.12-1.27 L code = 698) PH, BLOOD (BEAKER) (test code = 7.41 1810) PROTHROMBIN [id number] 04:20:00 Test Item Value Reference Range Interpretation Comments PROTIME (BEAKER) (test code = 15.5 seconds 11.9-14.2 H 759) INR (BEAKER) (test code = 370) 1.3 <=5.9 Effective 10/18/2018: PT Reference Range ChangeNew: 11.9-14.2 Previous: 11.7- 14.7RECOMMENDED COUMADIN/WARFARIN INR THERAPY RANGESSTANDARD DOSE: 2.0-3.0 Includes: PROPHYLAXIS for venous thrombosis, systemic embolization; TREATMENT for venous thrombosis and/or pulmonary embolus.HIGH RISK: Target INR is 2.5-3.5 for patients wiht mechanical heart valves.STOOL CULTURE + SHIGA [id number] 11:46:00 Test Item Value Reference Range Interpretation Comments CULTURE (BEAKER) No Salmonella, Shigella (test code = 1095) or Campylobacter isolated HIV-1 ANTIGEN WITH HIV-1/2 [id number] 09:38:00 Test Item Value Reference Range Interpretation Comments HIV-1 ANTIGEN WITH HIV 1\\T\\2 Nonreactive Nonreactive ANTIBODY (2) (BEAKER) (test code = 2586) [id number] 05:10:00 Test Item Value Reference Range Interpretation Comments MAGNESIUM (BEAKER) (test code = 2.1 mg/dL 1.6-2.6 627) BASIC METABOLIC [id number] 05:10:00 Test Item Value Reference Range Interpretation Comments SODIUM (BEAKER) 135 meq/L 136-145 L (test code = 381) POTASSIUM (BEAKER) 3.5 meq/L 3.5-5.1 (test code = 379) CHLORIDE (BEAKER) 108 meq/L 98-107 H (test code = 382) CO2 (BEAKER) (test 21 meq/L 22-29 L code = 355) BLOOD UREA NITROGEN 5 mg/dL 7-21 L (BEAKER) (test code = 354) CREATININE (BEAKER) 0.61 mg/dL 0.57-1.25 (test code = 358) GLUCOSE RANDOM 90 mg/dL 70-105 (BEAKER) (test code = 652) CALCIUM (BEAKER) 8.0 mg/dL 8.4-10.2 L (test code = 697) EGFR (BEAKER) (test 110 mL/min/1.73 ESTIM ATED GFR IS code = 1092) sq m NOT ACCURATE CREATININE CLEARANCE IN PREDICTING GLOMERULAR FILTRATION RATE . ESTIMATED GFR I S NOT APPLICABLE FOR DIALYSIS PATIEN TS. HEPATIC FUNCTION [id number] 05:10:00 Test Item Value Reference Range Interpretation Comments TOTAL PROTEIN (BEAKER) (test code = 6.5 gm/dL 6.0-8.3 770) ALBUMIN (BEAKER) (test code = 1145) 3.3 g/dL 3.5-5.0 L BILIRUBIN TOTAL (BEAKER) (test code 0.1 mg/dL 0.2-1.2 L = 377) BILIRUBIN DIRECT (BEAKER) (test 0.1 mg/dL 0.1-0.5 code = 706) ALKALINE PHOSPHATASE (BEAKER) (test 97 U/L 40-150 code = 346) AST (SGOT) (BEAKER) (test code = 13 U/L 5-34 353) ALT (SGPT) (BEAKER) (test code = 17 U/L 6-55 347) CALCIUM, [id number] 04:48:00 Test Item Value Reference Range Interpretation Comments CALCIUM IONIZED (BEAKER) (test 1.02 mmol/L 1.12-1.27 L code = 698) PH, BLOOD (BEAKER) (test code = 7.42 1810) PROTHROMBIN [id number] 04:39:00 Test Item Value Reference Range Interpretation Comments PROTIME (BEAKER) (test code = 14.6 seconds 11.9-14.2 H 759) INR (BEAKER) (test code = 370) 1.2 <=5.9 Effective 10/18/2018: PT Reference Range ChangeNew: 11.9-14.2 Previous: 11.7- 14.7RECOMMENDED COUMADIN/WARFARIN INR THERAPY RANGESSTANDARD DOSE: 2.0-3.0 Includes: PROPHYLAXIS for venous thrombosis, systemic embolization; TREATMENT for venous thrombosis and/or pulmonary embolus.HIGH RISK: Target INR is 2.5-3.5 for patients wiht mechanical heart valves.CBC (HEMOGRAM ONLY)[id number] 04:33:00 Test Item Value Reference Range Interpretation Comments WHITE BLOOD CELL COUNT (BEAKER) 7.0 K/ L 3.5-10.5 (test code = 775) RED BLOOD CELL COUNT (BEAKER) 3.78 M/ L 3.93-5.22 L (test code = 761) HEMOGLOBIN (BEAKER) (test code = 7.5 GM/DL 11.2-15.7 L 410) HEMATOCRIT (BEAKER) (test code = 25.6 % 34.1-44.9 L 411) MEAN CORPUSCULAR VOLUME (BEAKER) 67.7 fL 79.4-94.8 L (test code = 753) MEAN CORPUSCULAR HEMOGLOBIN 19.8 pg 25.6-32.2 L (BEAKER) (test code = 751) MEAN CORPUSCULAR HEMOGLOBIN CONC 29.3 GM/DL 32.2-35.5 L (BEAKER) (test code = 752) RED CELL DISTRIBUTION WIDTH 22.1 % 11.7-14.4 H (BEAKER) (test code = 412) PLATELET COUNT (BEAKER) (test 373 K/CU MM 150-450 code = 756) MEAN PLATELET VOLUME (BEAKER) 8.3 fL 9.4-12.3 L (test code = 754) NUCLEATED RED BLOOD CELLS 0 /100 WBC 0-0 (BEAKER) (test code = 413) STOOL PATH [id number] 18:28:00 Test Item Value Reference Range Interpretation Comments PATHOGEN EXAM CHARGED (BEAKER) (test Done code = 2381) SHIGA TOXIN [id number] 14:40:00 Test Item Value Reference Range Interpretation Comments SHIGA TOXIN 1 (BEAKER) (test Not detected Not detected code = 2177) SHIGA TOXIN 2 (BEAKER) (test Not detected Not detected code = 2179) CBC W/PLT COUNT & AUTO [id number] 06:26:00 Test Item Value Reference Range Interpretation Comments WHITE BLOOD CELL COUNT (BEAKER) 5.5 K/ L 3.5-10.5 (test code = 775) RED BLOOD CELL COUNT (BEAKER) 3.65 M/ L 3.93-5.22 L (test code = 761) HEMOGLOBIN (BEAKER) (test code = 7.3 GM/DL 11.2-15.7 L 410) HEMATOCRIT (BEAKER) (test code = 24.6 % 34.1-44.9 L 411) MEAN CORPUSCULAR VOLUME (BEAKER) 67.4 fL 79.4-94.8 L (test code = 753) MEAN CORPUSCULAR HEMOGLOBIN 20.0 pg 25.6-32.2 L (BEAKER) (test code = 751) MEAN CORPUSCULAR HEMOGLOBIN CONC 29.7 GM/DL 32.2-35.5 L (BEAKER) (test code = 752) RED CELL DISTRIBUTION WIDTH 22.0 % 11.7-14.4 H (BEAKER) (test code = 412) PLATELET COUNT (BEAKER) (test 354 K/CU MM 150-450 code = 756) MEAN PLATELET VOLUME (BEAKER) 8.3 fL 9.4-12.3 L (test code = 754) NUCLEATED RED BLOOD CELLS 0 /100 WBC 0-0 (BEAKER) (test code = 413) NEUTROPHILS RELATIVE PERCENT 65 % (BEAKER) (test code = 429) LYMPHOCYTES RELATIVE PERCENT 17 % (BEAKER) (test code = 430) MONOCYTES RELATIVE PERCENT 12 % (BEAKER) (test code = 431) EOSINOPHILS RELATIVE PERCENT 5 % (BEAKER) (test code = 432) BASOPHILS RELATIVE PERCENT 1 % (BEAKER) (test code = 437) NEUTROPHILS ABSOLUTE COUNT 3.60 K/ L 1.56-6.13 (BEAKER) (test code = 670) LYMPHOCYTES ABSOLUTE COUNT 0.92 K/ L 1.18-3.74 L (BEAKER) (test code = 414) MONOCYTES ABSOLUTE COUNT (BEAKER) 0.66 K/ L 0.24-0.36 H (test code = 415) EOSINOPHILS ABSOLUTE COUNT 0.30 K/ L 0.04-0.36 (BEAKER) (test code = 416) BASOPHILS ABSOLUTE COUNT (BEAKER) 0.03 K/ L 0.01-0.08 (test code = 417) IMMATURE GRANULOCYTES-RELATIVE 0 % 0-1 PERCENT (BEAKER) (test code = 2801) [id number] 06:21:00 Test Item Value Reference Range Interpretation Comments MAGNESIUM (BEAKER) (test code = 2.1 mg/dL 1.6-2.6 627) BASIC METABOLIC [id number] 06:21:00 Test Item Value Reference Range Interpretation Comments SODIUM (BEAKER) 136 meq/L 136-145 (test code = 381) POTASSIUM (BEAKER) 3.7 meq/L 3.5-5.1 (test code = 379) CHLORIDE (BEAKER) 108 meq/L 98-107 H (test code = 382) CO2 (BEAKER) (test 23 meq/L 22-29 code = 355) BLOOD UREA NITROGEN 8 mg/dL 7-21 (BEAKER) (test code = 354) CREATININE (BEAKER) 0.64 mg/dL 0.57-1.25 (test code = 358) GLUCOSE RANDOM 93 mg/dL 70-105 (BEAKER) (test code = 652) CALCIUM (BEAKER) 8.1 mg/dL 8.4-10.2 L (test code = 697) EGFR (BEAKER) (test 104 mL/min/1.73 ESTIM ATED GFR IS code = 1092) sq m NOT ACCURATE CREATININE CLEARANCE IN PREDICTING GLOMERULAR FILTRATION RATE . ESTIMATED GFR I S NOT APPLICABLE FOR DIALYSIS PATIEN TS. HEPATIC FUNCTION [id number] 06:21:00 Test Item Value Reference Range Interpretation Comments TOTAL PROTEIN (BEAKER) (test code = 6.3 gm/dL 6.0-8.3 770) ALBUMIN (BEAKER) (test code = 1145) 3.3 g/dL 3.5-5.0 L BILIRUBIN TOTAL (BEAKER) (test code 0.2 mg/dL 0.2-1.2 = 377) BILIRUBIN DIRECT (BEAKER) (test 0.1 mg/dL 0.1-0.5 code = 706) ALKALINE PHOSPHATASE (BEAKER) (test 100 U/L 40-150 code = 346) AST (SGOT) (BEAKER) (test code = 12 U/L 5-34 353) ALT (SGPT) (BEAKER) (test code = 20 U/L 6-55 347) PROTHROMBIN [id number] 06:19:00 Test Item Value Reference Range Interpretation Comments PROTIME (BEAKER) (test code = 14.6 seconds 11.9-14.2 H 759) INR (BEAKER) (test code = 370) 1.2 <=5.9 Effective 10/18/2018: PT Reference Range ChangeNew: 11.9-14.2 Previous: 11.7- 14.7RECOMMENDED COUMADIN/WARFARIN INR THERAPY RANGESSTANDARD DOSE: 2.0-3.0 Includes: PROPHYLAXIS for venous thrombosis, systemic embolization; TREATMENT for venous thrombosis and/or pulmonary embolus.HIGH RISK: Target INR is 2.5-3.5 for patients wiht mechanical heart valves.CALCIUM, [id number] 05:52:00 Test Item Value Reference Range Interpretation Comments CALCIUM IONIZED (BEAKER) (test 1.08 mmol/L 1.12-1.27 L code = 698) PH, BLOOD (BEAKER) (test code = 7.41 1810) GI PATHOGEN PROFILE BY [id number] 18:49:00 Test Item Value Reference Range Interpretation Comments CAMPYLOBACTER (PCR) (test code = Not detected Not detected 20151125) PLESIOMONAS SHIGELLOIDES (PCR) Not detected Not detected (test code = 20151129) SALMONELLA (PCR) (test code = Not detected Not detected ) YERSINIA ENTEROCOLITICA (PCR) Not detected Not detected (test code = 20151222) VIBRIO CHOLERAE (PCR) (test code Not detected Not detected = 20151223) ENTEROAGGREGATIVE E. COLI (EAEC) Not detected Not detected BY PCR (test code = 20151224) ENTEROPATHOGENIC E. COLI (EPEC) Not detected Not detected BY PCR (test code = 20151225) ENTEROTOXIGENIC E. COLI (ETEC) Not detected Not detected LT/ST BY PCR (test code = 20151226) SHIGA-LIKE TOXIN-PRODUCING E. Not detected Not detected COLI (STEC) STX1/STX2 (test code = 20151227) E. COLI O157 (PCR) (test code = Not detected 20151228) SHIGELLA/ENTEROINVASIVE E. COLI Not detected Not detected (EIEC) BY PCR (test code = 0937662) CRYPTOSPORIDIUM (PCR) (test code Not detected Not detected = 20151230) CYCLOSPORA CAYETANENSIS (PCR) Not detected Not detected (test code = 2264090) ENTAMOEBA HISTOLYTICA (PCR) Not detected Not detected (test code = 20160122) GIARDIA LAMBLIA (PCR) (test code Not detected Not detected = 20160123) ADENOVIRUS F 40/41 (PCR) (test Not detected Not detected code = 20160124) ASTROVIRUS (PCR) (test code = Not detected Not detected 20160125) NOROVIRUS GI/GII (PCR) (test Not detected Not detected code = 20160126) ROTAVIRUS A (PCR) (test code = Not detected Not detected 20160127) SAPOVIRUS (I, II, IV, V) BY PCR Not detected Not detected (test code = 8455333) VIBRIO (PARAHAEMOLYTICUS, Not detected Not detected VULNIFICUS) (test code = ) Other viruses, parasites and bacteria not targeted by this PCR panel cannot be excluded; therefore clinical correlation and follow up of serology, culture results, and other molecular studies is required. The results are not intended to be used as the sole means for clinical diagnosis or patient management decisions. This sample was tested at the [facility] using the [employer] Gastrointestinal Panel. It is FDA cleared and has been verified and approved by the [facility] for clinical use. This laboratory is CLIA-certified and College ofAmerican Pathologists (CAP)-accredited to perform high complexity testing.C. DIFFICILE GDH [id number] 17:47:00 Test Item Value Reference Range Interpretation Comments CDT TOXIN (test code Negative Negative = 3837730944) CDT GDH ANTIGEN (test Negative Negative No ind ication of code = 4259500122) Clostridi um difficile infection and n o colonization. Discontinue ent janay isolation and t herapy. Testing performed by [employer] Rapid Cassette Assay. For GDH, published sensitivity of the assay is 98.7% compared to cytotoxicity testing. For Toxin AB, published sensitivity is 87.8% and specificity 99.4% compared to cytotoxicity testing.Verification of kit performance was done by the [facility] prior to clinical use.[id number] 17:01:00 Test Item Value Reference Range Interpretation Comments FERRITIN (BEAKER) (test code = 361) 16 ng/mL 5-275 IRON, TIBC, % SAT. (WITHOUT FERRITIN)2018-11-25 16:40:00 Test Item Value Reference Range Interpretation Comments IRON (BEAKER) (test code = 547) 35.0 ug/dL 40.0-160.0 L TOTAL IRON BINDING CAPACITY 385 ug/dL 250-450 (BEAKER) (test code = 769) IRON % SATURATION (2) (BEAKER) 9 % 20-55 L (test code = 2590) C-REACTIVE [id number] 16:39:00 Test Item Value Reference Range Interpretation Comments C-REACTIVE PROTEIN (BEAKER) (test 7.69 mg/dL 0.00-0.50 H code = 676) RETICULOCYTE [id number] 16:24:00 Test Item Value Reference Range Interpretation Comments RETICULOCYTE COUNT PCT (BEAKER) (test 0.8 % 0.5-1.7 code = 575)
[2022-11-04] MEDS ORDERED: NA CHLORIDE 0.9% 1,000 ML ONE ×2 (02:47→04:59)
[2022-11-04] MEDS ORDERED: ACETAMINOPHEN 500 MG TAB ONE (03:10)
[2022-11-04 03:23] LABS: Absolute Lymphocytes (CBC) 1.4 K/uL (0.7-4.9); Hematocrit 34.2 % (36.0-45.0); MCV 75.4 fL (80-100); MPV 7.1 fL (7.6-11.3); RBC Red Blood Cell Count 4.54 M/uL (3.86-4.86)
[2022-11-04 03:30] LABS: Bilirubin Total 0.3 mg/dL (0.2-1.0); Potassium 2.8 mEq/L (3.5-5.1); Protein, Total 7.4 g/dL (6.4-8.2); Thyroid Stimulating Hormone 1.35 uIU/mL (0.358-3.740)
[2022-11-04 04:14] LABS: Protime INR 1.25
--- NOTE | 2022-11-04 04:45 | EDPHYS ---
Physician Documentation [facility] Name: Kaitlynn Orourke Age: 42 yrs Sex: Female : 1980 Arrival Date: 11/04/2022 Time: 02:17 Bed 7 Private MD: ED Physician Miguel Ángel Prince HPI: 11/04 03:02 This 42 yrs old Female presents to ER via Ambulatory with complaints of rt Diarrhea. 03:02 Patient with history of ulcerative colitis presents to the ED with generalized rt abdominal pain, diarrhea which she describes as bloody. Is been present for several weeks, was treated for a UC flare from the emergency department. States that the symptoms did not improve, have to worsen. States that she is concern for C. difficile. She reports nausea without vomiting. Denies other acute complaints at this time, symptoms are moderate severity, no other aggravating or alleviating factors.. Historical: - Allergies: 02:30 No Known Allergies; aa9 - PMHx: 02:30 C DIFF; Colitis; aa9 - PSHx: 02:30 None; aa9 - Immunization history:: Client reports receiving the 1st dose of the Covid vaccine. - Social history:: Smoking status: Patient denies any tobacco usage or history of. - Family history:: not pertinent. ROS: 03:02 Constitutional: Negative for fever, chills, and weight loss, Cardiovascular: Negative rt for chest pain, palpitations, and edema, Respiratory: Negative for shortness of breath, cough, wheezing, and pleuritic chest pain, MS/Extremity: Negative for injury and deformity, Skin: Negative for injury, rash, and discoloration, Neuro: Negative for headache, weakness, numbness, tingling, and seizure, Psych: Negative for depression, anxiety, suicide ideation, homicidal ideation, and hallucinations. 03:02 Abdomen/GI: Positive for abdominal pain, rectal bleeding. Exam: 03:02 Constitutional: This is a well developed, well nourished patient who is awake, alert, rt and in no acute distress. Head/Face: Normocephalic, atraumatic. Chest/axilla: Normal chest wall appearance and motion. Nontender with no deformity. No lesions are appreciated. Cardiovascular: Regular rate and rhythm with a normal S1 and S2. No gallops, murmurs, or rubs. Normal PMI, no JVD. No pulse deficits. Respiratory: Lungs have equal breath sounds bilaterally, clear to auscultation and percussion. No rales, rhonchi or wheezes noted. No increased work of breathing, no retractions or nasal flaring. Skin: Warm, dry with normal turgor. Normal color with no rashes, no lesions, and no evidence of cellulitis. MS/ Extremity: Pulses equal, no cyanosis. Neurovascular intact. Full, normal range of motion. Neuro: Awake and alert, GCS 15, oriented to person, place, time, and situation. Cranial nerves II-XII grossly intact. Motor strength 5/5 in all extremities. Sensory grossly intact. Cerebellar exam normal. Normal gait. Psych: Awake, alert, with orientation to person, place and time. Behavior, mood, and affect are within normal limits. 03:02 ECG was reviewed by the Attending Physician. 03:02 Abdomen/GI: Mild tenderness diffusely without rebound, guarding, distention. Vital Signs: 02:27 BP 122 / 83; Pulse 134; Resp 18; Temp 100.5; Pulse Ox 99% ; Weight 62.6 kg; Height 5 aa9 ft. 2 in. ; 02:45 BP 114 / 74; Pulse 125; Resp 18 S; Pulse Ox 99% on R/A; aa9 03:15 BP 117 / 75; Pulse 114; Resp 20; Pulse Ox 100% ; vc1 04:19 BP 103 / 68; Pulse 108; Resp 18; Temp 99.3(O); Pulse Ox 99% ; vc1 05:15 BP 103 / 75; Pulse 105; Resp 18; Pulse Ox 100% ; vc1 02:27 Body Mass Index 25.24 (62.60 kg, 157.48 cm) aa9 MDM: 02:27 Patient medically screened. rt 04:45 Differential diagnosis: Ulcerative colitis flare, colitis, C. difficile colitis. Data rt reviewed: vital signs, nurses notes, lab test result(s), EKG, radiologic studies. Consideration of Admission/Observation Patient was admitted/placed on observation. Management of patient was discussed with the following: Hospitalist: Agrees to admit. Independent interpretation of the following test(s) in the Emergency Department CT Scan: My interpretation is No obstruction seen on interpretation of the CT scan images. Care significantly affected by the following chronic conditions: Ulcerative colitis. Counseling: I had a detailed discussion with the patient and/or guardian regarding: the historical points, exam findings, and any diagnostic results supporting the discharge/admit diagnosis, lab results, radiology results, the need for further work-up and treatment in the hospital. Response to treatment: the patient's symptoms have mildly improved after treatment. ED course: Patient initially found to be tachycardic, with fever but without a clear source. Blood cultures, lactate were drawn on the last. Initial WBCs are less than 12. Once a source, proctocolitis, was found on CT scan, IV antibiotics were ordered, patient to be admitted for further care.. 11/04 02:35 Order name: CBC with Diff; Complete Time: 04:35 rt 11/04 02:35 Order name: CMP; Complete Time: 04:35 rt 11/04 02:35 Order name: Blood Culture Adult (2) rt 11/04 02:35 Order name: Lactate w/ 2H reflex if indic.; Complete Time: 03:28 rt 11/04 02:35 Order name: Protime (+inr); Complete Time: 04:35 rt 11/04 02:35 Order name: Ptt, Activated; Complete Time: 04:35 rt 11/04 02:35 Order name: Urinalysis w/ reflexes; Complete Time: 09:31 rt 11/04 02:35 Order name: TSH; Complete Time: 04:35 rt 11/04 02:35 Order name: Test, Serum; Complete Time: 03:28 rt 11/04 02:38 Order name: C.difficile GDH Ag EDMS 11/04 03:04 Order name: Glucose, Ancillary Testing; Complete Time: 03:28 EDMS 11/04 04:21 Order name: C.difficile GDH Ag ; Complete Time: 09:31 EDMS 11/04 02:35 Order name: CT Abd/Pelvis - IV Contrast Only rt 11/04 02:35 Order name: EKG; Complete Time: 02:35 rt 11/04 02:35 Order name: EKG - Nurse/Tech; Complete Time: 02:49 rt 11/04 02:35 Order name: Accucheck; Complete Time: 02:53 rt 11/04 02:35 Order name: Cardiac monitoring; Complete Time: 02:48 rt 11/04 02:35 Order name: IV Saline Lock - Large Bore; Complete Time: 03:04 rt 11/04 02:35 Order name: Labs collected and sent; Complete Time: 03:04 rt 11/04 02:35 Order name: O2 Per Protocol; Complete Time: 02:48 rt 11/04 02:35 Order name: O2 Sat Monitoring; Complete Time: 02:48 rt 11/04 02:35 Order name: Vital Signs; Complete Time: 02:48 rt EC:02 Rate is 127 beats/min. Rhythm is regular, Sinus tachycardia with No ectopy. QRS [place] is rt Normal. VT interval is normal. QRS interval is normal. QT interval is normal. No Q waves. Interpreted by me. Administered Medications: 02:53 Drug: NS 0.9% IV 1000 ml Route: IV; Rate: 1 bolus; Site: right antecubital; aa9 03:53 Follow up: IV Status: Completed infusion; IV Intake: 1000ml vc1 03:05 Drug: Acetaminophen PO 1000 mg Route: PO; aa9 05:31 Follow up: Response: No adverse reaction; Marked relief of symptoms; Temperature is vc1 decreased 05:08 Drug: Potassium Chloride IV 20 mEq Route: IV; Rate: 50 calculated rate; Site: right vc1 antecubital; 05:31 Follow up: IV Status: Infusion continued upon admission vc1 05:08 Drug: MethylPrednisoLONE IVP 125 mg Route: IVP; Site: right antecubital; vc1 05:31 Follow up: Response: No adverse reaction vc1 05:09 Drug: Ciprofloxacin IVPB 400 mg Volume: 200 ml; Route: IVPB; Infused Over: 60 mins; vc1 Site: left hand; 05:31 Follow up: IV Status: Infusion continued upon admission vc1 06:12 Follow up: Response: No adverse reaction; IV Status: Completed infusion; IV Intake: aa9 200ml 05:09 Drug: metroNIDAZOLE IVPB 500 mg Volume: 100 ml; Route: IVPB; Rate: 200 ml/hr; Infused vc1 Over: 30 mins; Site: left hand; 05:31 Follow up: IV Status: Infusion continued upon admission vc1 06:12 Follow up: Response: No adverse reaction; IV Status: Completed infusion; IV Intake: aa9 100ml Disposition Summary: 11/04/22 04:44 Hospitalization Ordered Hospitalization Status: Inpatient Admission rt Provider: Gerry Cruz rt Condition: Fair rt Problem: an acute exacerbation rt Symptoms: have improved rt Bed/Room Type: Standard rt Location: Telemetry/MedSurg (Inpatient)(11/04/22 09:34) eb Room Assignment: 211(11/04/22 09:34) Diagnosis - Ulcerative colitis flare rt - Sepsis rt - Hypokalemia rt Forms: - Medication Reconciliation Form rt - SBAR form rt Signatures: Dispatcher [employer] EDLisy Ricci RN RN Nikki Cain Vanessa, RN RN vc1 Meka Landa RN RN aa9 Ted Moore MD MD bs3 Miguel Ángel Prince MD MD rt Corrections: (The following items were deleted from the chart) 05:03 04:44 Telemetry/MedSurg (Inpatient) rt cg 05:03 04:44 rt cg 09:34 05:03 [facility] ER HOLD cg eb 09:34 05:03 ERHOLD- cg eb
--- NOTE | 2022-11-04 04:45 | ER ---
Nurse's Notes [facility] Name: Kaitlynn Orourke Age: 42 yrs Sex: Female : 1980 Arrival Date: 11/04/2022 Time: 02:17 Bed 7 Private MD: Diagnosis: Ulcerative colitis flare;Sepsis;Hypokalemia Presentation: 11/04 02:27 Chief complaint: Patient states: I have ulcerative colitis and I can't seem to control aa9 this diarrhea, its been happening since Tuesday. I have nausea, no vomiting. I am also having L upper arm pain. Last like I had a bowel movement was about 20 min ago. Coronavirus screen: Vaccine status: Patient reports receiving the 1st dose of the Covid vaccine. Ebola Screen: No symptoms or risks identified at this time. Initial Sepsis Screen: Does the patient meet any 2 criteria? Temp <36.0*C (96.8*F)) or > 38.3*C (100.9*F). HR > 90 bpm. Yes. Initial Sepsis Screen: Does the patient have a suspected source of infection? Yes: Acute abdominal pain. Risk Assessment: Do you want to hurt yourself or someone else? Patient reports no desire to harm self or others. Onset of symptoms was November 04, 2022. 02:27 Method Of Arrival: Ambulatory aa9 02:27 Acuity: DELMY 3 aa9 Triage Assessment: 02:31 General: Appears uncomfortable, Behavior is cooperative, anxious. Pain: Complains of aa9 pain in abdomen Pain currently is 7 out of 10 on a pain scale. Noted to be guarding, resistant to movement, Also complains of nausea, inability to perform activities of daily living. Neuro: Level of Consciousness is awake, alert, obeys commands, Oriented to person, place, time, situation. Cardiovascular: Denies chest pain, shortness of breath, Patient's skin is warm and dry. Respiratory: Airway is patent Respiratory effort is even, unlabored. GI: Abdomen is flat, Reports diarrhea, nausea, Patient currently denies vomiting. : No signs and/or symptoms were reported regarding the genitourinary system. Derm: Skin is intact, is healthy with good turgor. Musculoskeletal: Reports pain in left tricep. Historical: - Allergies: 02:30 No Known Allergies; aa9 - PMHx: 02:30 C DIFF; Colitis; aa9 - PSHx: 02:30 None; aa9 - Immunization history:: Client reports receiving the 1st dose of the Covid vaccine. - Social history:: Smoking status: Patient denies any tobacco usage or history of. - Family history:: not pertinent. Screenin:33 Nutritional screening: Has had N/V for 3 or more days. aa9 03:31 [facility] ED Fall Risk Assessment (Adult) History of falling in the last 3 months, vc1 including since admission No falls in past 3 months (0 pts) Confusion or Disorientation No (0 pts) Intoxicated or Sedated No (0 pts) Impaired Gait No (0 pts) Mobility Assist Device Used No (0 pt) Altered Elimination No (0 pt) Score/Fall Risk Level 0 - 2 = Low Risk Oriented to surroundings, Maintained a safe environment, Educated pt \T\ family on fall prevention, incl call for assistance when getting out of bed. Abuse screen: Denies threats or abuse. Tuberculosis screening: No symptoms or risk factors identified. Assessment: 02:49 Cardiovascular: Rhythm is sinus tachycardia. aa9 04:22 Reassessment: No changes from previously documented assessment. Patient and/or family vc1 updated on plan of care and expected duration. Pain level reassessed. Patient is alert, oriented x 3, equal unlabored respirations, skin warm/dry/pink. 05:28 Reassessment: Patient and/or family updated on plan of care and expected duration. Pain vc1 level reassessed. Patient is alert, oriented x 3, equal unlabored respirations, skin warm/dry/pink. Patient states feeling better. Patient states symptoms have improved. Vital Signs: 02:27 BP 122 / 83; Pulse 134; Resp 18; Temp 100.5; Pulse Ox 99% ; Weight 62.6 kg; Height 5 aa9 ft. 2 in. ; 02:45 BP 114 / 74; Pulse 125; Resp 18 S; Pulse Ox 99% on R/A; aa9 03:15 BP 117 / 75; Pulse 114; Resp 20; Pulse Ox 100% ; vc1 04:19 BP 103 / 68; Pulse 108; Resp 18; Temp 99.3(O); Pulse Ox 99% ; vc1 05:15 BP 103 / 75; Pulse 105; Resp 18; Pulse Ox 100% ; vc1 02:27 Body Mass Index 25.24 (62.60 kg, 157.48 cm) aa9 ED Course: 02:20 Patient arrived in ED. ja2 02:23 Miguel Ángel Prince MD is Attending Physician. rt 02:30 Triage completed. aa9 02:32 Arm band placed on Patient placed in an exam room, on a stretcher. aa9 02:32 Family accompanied patient. aa9 02:32 Patient has correct armband on for positive identification. Bed in low position. Call aa9 light in reach. Side rails up X 1. Adult w/ patient. Pulse ox on. NIBP on. 02:45 Inserted saline lock: 22 gauge in right antecubital area, using aseptic technique. vc1 Blood collected. 03:03 Vannessa Richardson, VELIA is Primary Nurse. vc1 03:04 TSH Sent. vc1 03:04 Blood Culture Adult (2) Sent. vc1 03:04 Lactate w/ 2H reflex if indic. Sent. vc1 03:04 Protime (+inr) Sent. vc1 03:04 Ptt, Activated Sent. vc1 03:04 Urinalysis w/ reflexes Sent. vc1 03:04 CMP Sent. vc1 03:04 CBC with Diff Sent. vc1 03:05 Inserted saline lock: 22 gauge in left hand, using aseptic technique. vc1 03:31 No provider procedures requiring assistance completed. vc1 03:56 CT Abd/Pelvis - IV Contrast Only In Process Unspecified. EDMS 04:16 C.difficile GDH Ag Sent. vc1 04:43 Gerry Cruz MD is Hospitalizing Provider. rt 05:30 Patient admitted, IV remains in place. vc1 Administered Medications: 02:53 Drug: NS 0.9% IV 1000 ml Route: IV; Rate: 1 bolus; Site: right antecubital; aa9 03:53 Follow up: IV Status: Completed infusion; IV Intake: 1000ml vc1 03:05 Drug: Acetaminophen PO 1000 mg Route: PO; aa9 05:31 Follow up: Response: No adverse reaction; Marked relief of symptoms; Temperature is vc1 decreased 05:08 Drug: Potassium Chloride IV 20 mEq Route: IV; Rate: 50 calculated rate; Site: right vc1 antecubital; 05:31 Follow up: IV Status: Infusion continued upon admission vc1 05:08 Drug: MethylPrednisoLONE IVP 125 mg Route: IVP; Site: right antecubital; vc1 05:31 Follow up: Response: No adverse reaction vc1 05:09 Drug: Ciprofloxacin IVPB 400 mg Volume: 200 ml; Route: IVPB; Infused Over: 60 mins; vc1 Site: left hand; 05:31 Follow up: IV Status: Infusion continued upon admission vc1 06:12 Follow up: Response: No adverse reaction; IV Status: Completed infusion; IV Intake: aa9 200ml 05:09 Drug: metroNIDAZOLE IVPB 500 mg Volume: 100 ml; Route: IVPB; Rate: 200 ml/hr; Infused vc1 Over: 30 mins; Site: left hand; 05:31 Follow up: IV Status: Infusion continued upon admission vc1 06:12 Follow up: Response: No adverse reaction; IV Status: Completed infusion; IV Intake: aa9 100ml Medication: 03:31 VIS not applicable for this client. vc1 Intake: 03:53 IV: 1000ml; Total: 1000ml. vc1 06:12 IV: 200ml; Total: 1200ml. aa9 06:12 IV: 100ml; Total: 1300ml. aa9 Outcome: 04:44 Decision to Hospitalize by Provider. rt 05:30 Admitted to ER Hold. Please see [facility] for further documentation. vc1 05:30 Condition: good 05:30 Instructed on the need for admit. 11:04 Patient left the ED. sc3 Signatures: Dispatcher [employer] EDMS Kristi Parsons Vanessa, RN RN vc1 Meka Landa RN RN aa9 Miguel Ángel Prince MD MD rt Franco Crocker RN RN sc3
--- NOTE | 2022-11-04 04:55 | P.HP ---
Certification for Inpatient Patient admitted to: Inpatient With expected LOS: >2 Midnights Patient will require the following post-hospital care: None Practitioner: I am a practitioner with admitting privileges, knowledge of patient current condition, hospital course, and medical plan of care. Services: Services provided to patient in accordance with Admission requirements found in Title 42 Section 412.3 of the Code of Federal Regulations Patient History Date of Service: 11/04/22 Reason for admission: Colitis/UC Flare History of Present Illness: Ms. Orourke is a 42 year old female with past medical history of ulcerative colitis who presented to the emergency department with complaints of 4 days of diarrhea and abdominal pain. She reports she has noticed some blood in it and is concerned about cdiff. She was tachycardic and febrile upon arrival. Labs are significant for WBC 11.3, hemoglobin 11, hematocrit 34.2, sodium 132, potassium 2.8. C. difficile negative. CT abdomen pelvis showed "Mucosal thickening with adjacent stranding involving the rectum and distal colon suggestive of proctocolitis." She was started on Cipro, Flagyl, Solu-Medrol in emergency department. We will admit for further management. Allergies No Known Allergies Allergy (Verified 09/15/19 01:26) Home medications list reviewed: Yes Home Medications: Codeine/APAP [Tylenol #3*] 1 tab PO TIDP PRN 09/15/19 Ferrous Fumarate [Hemocyte] 324 mg PO BID #60 tablet 09/16/19 metroNIDAZOLE [Flagyl] 500 mg PO Q8H #20 tablet 09/16/19 predniSONE [Prednisone*] 20 mg PO BID #20 tab 09/16/19 - Past Medical/Surgical History Diabetic: No -: Ulcerative Colitis -: EGD and colonoscopy Psychosocial/ Personal History: Patient lives at home alone. - Family History Father -: Hypertension, Other (see notes) Notes: hyprlipedemia Mother -: Diabetes, Cancer Notes: Leukemia - Social History Smoking Status: Never smoker Alcohol use: No CD- Drugs: No Caffeine use: No Place of Residence: Home Review of Systems Gastrointestinal: Abdominal Pain, Diarrhea Physical Examination - Vital Signs Temperature: 99.3 F Blood Pressure: 103/68 Pulse: 108 Respirations: 18 Pulse Ox (%): 99 - Physical Exam General: Alert, In no apparent distress HEENT: Atraumatic, EOMI, Sclerae nonicteric Neck: Supple, 2+ carotid pulse no bruit Respiratory: Clear to auscultation bilaterally, Normal air movement Cardiovascular: Regular rate/rhythm, Normal S1 S2 Gastrointestinal: Normal bowel sounds, No tenderness Musculoskeletal: No tenderness Integumentary: No rashes Neurological: Normal speech, Normal affect - Studies Laboratory Data (last 24 hrs) 11/04/22 02:45: PT 13.7 H, INR 1.25, APTT 29.5 11/04/22 02:45: Sodium 132 L, Potassium 2.8 L, BUN 5 L, Creatinine 0.51 L, Glucose 104, Total Bilirubin 0.3, AST 25, ALT 25, Alkaline Phosphatase 103 11/04/22 02:45: WBC 11.30 H, Hgb 11.0 L, Hct 34.2 L, Plt Count 393 Assessment and Plan - Problems (Diagnosis) (1) Ulcerative colitis Current Visit: Yes Status: Acute Qualifiers: Ulcerative colitis location: unspecified ulcerative colitis location Digestive disease complication type: other complication Qualified Code(s): K51.918 - Ulcerative colitis, unspecified with other complication (2) Sepsis Current Visit: Yes Status: Acute Qualifiers: Sepsis type: sepsis due to unspecified organism Sepsis acute organ dysfunction status: without acute organ dysfunction Qualified Code(s): A41.9 - Sepsis, unspecified organism (3) Anemia Current Visit: Yes Status: Acute Qualifiers: Anemia type: unspecified type Qualified Code(s): D64.9 - Anemia, unspecified (4) Colitis Current Visit: Yes Status: Acute (5) Hypokalemia Current Visit: Yes Status: Acute - Plan Patient is admitted for further management proctocolitis/ulcerative colitis flare. Continue antibiotics, steroids, and IV hydration. Patient states that she is not on any medications for her ulcerative colitis. She has tried several in the past without any success. She does report blood in her stool, last colonoscopy approximately 3 years ago. Monitor H&H closely. Transfuse as necessary. GI is available if needed. She does meet sepsis criteria. Lactate with normal limits. Blood cultures obtained. Continue to replete potassium. Discharge Plan: Home Plan to discharge in: Greater than 2 days - Advance Directives Does patient have a Living Will: No Does patient have a Durable POA for Healthcare: No - Code Status/Comfort Care Code Status Assessed: Yes Code Status: Full Code Physician Review: Patient Assessed, Agree with Above Assessment and Plan Critical Care: No Time Spent Managing Pts Care (In Minutes): 50
[2022-11-04] MEDS ORDERED: METHYLPREDNISOLONE 125 MG INJ ONE (04:58)
[2022-11-04 04:59] LABS: Specific Gravity 1.017 (1.005-1.030); Urine Bacteria None Seen /HPF (<20); Urine Bilirubin NEGATIVE (Negative); Urine Blood 1+ (Negative); Urine Clarity Clear (Clear); Urine Color Light-Yellow (Yellow); Urine Glucose NEGATIVE (Negative); Urine Mucus Slight /HPF (None Seen); Urine Protein NEGATIVE (Negative); Urine RBC <5 /HPF (None Seen); Urine Urobilinogen Normal (Normal)
[2022-11-04] MEDS ORDERED: CIPROFLOXACIN 400mg IV 400 MG/200 ML BAG IV ONE ×2 (04:59→08:25)
[2022-11-04] MEDS ORDERED: KCL 20 MEQ/100 mL IVPB 100 ML IV ONE (04:59)
[2022-11-04] MEDS ORDERED: METRONIDAZOLE 500mg IVPB 500 MG/100 ML BAG IV ONE ×2 (04:59→08:24)
[2022-11-04 05:10] LABS: C.diff Antigen/Toxin Ag neg : Tox neg (NEG : NEG)
[2022-11-04] MEDS ORDERED: DICYCLOMINE HCL 10 MG CAP PO PRN (05:35)
[2022-11-04] MEDS ORDERED: LOPERAMIDE HCL 2 MG CAPSULE PO PRN (05:35)
[2022-11-04] MEDS ORDERED: MORPHINE 2 MG/ML SYR IV PRN (05:35)
[2022-11-04] MEDS ORDERED: ACETAMINOPHEN 500 MG TAB PO PRN (05:35)
[2022-11-04] MEDS ORDERED: ONDANSETRON 4 MG/2 ML VIAL IV PRN (05:35)
[2022-11-04] MEDS: METHYLPREDNISOLONE 125 MG INJ IV SCH ×3 (05:53→17:23)
--- NOTE | 2022-11-04 07:20 | EKG ---
Test Date: 2022-11-04 Test Time: 02:44:47 Oceanographer Geological: SUMAN MEASUREMENT RESULTS: Intervals: Rate: 127 NC: 140 QRSD: 72 QT: 308 QTc: 447 [place]: P: 50 NC: 140 QRS: 42 T: 6 INTERPRETIVE STATEMENTS: Sinus tachycardia Possible Left atrial enlargement Cannot rule out Anterior infarct, age undetermined Abnormal ECG Compared to ECG 09/14/2019 22:21:00 Myocardial infarct finding now present ST (T wave) deviation no longer present Possible ischemia no longer present Electronically Signed On 11-04-22 07:19:47 CDT by Jose Gates
[2022-11-04] MEDS ORDERED: NS KCL 20MEQ 1,000 ML IV ONE (07:24)
[2022-11-04] MEDS: NS KCL 20MEQ 20 MEQ/1,000 ML BAG IV SCH ×2 (07:25→17:25)
[2022-11-04] MEDS: ENOXAPARIN 40 MG/0.4 ML SQ SCH (08:19)
[2022-11-04] MEDS: METRONIDAZOLE 500mg IVPB 500 MG/100 ML BAG IV SCH ×2 (08:19→17:24)
[2022-11-04] MEDS ORDERED: ENOXAPARIN 40 MG/0.4 ML SQ ONE (08:24)
[2022-11-04] MEDS: CIPROFLOXACIN 400mg IV 400 MG/200 ML BAG IV SCH ×2 (10:00→20:27)
[2022-11-04 11:16] VITALS: O2SAT 100
--- NOTE | 2022-11-04 19:38 | RAD REPORT ---
EXAM DESCRIPTION: CT - Abdomen Pelvis W Contrast - 11/04/2022 4:53 am CLINICAL HISTORY: The patient is 42 years old and is Female; ABD PAIN, DIARRHEA TECHNIQUE: Axial computed tomography images of the abdomen and pelvis with intravenous contrast. S agittal and coronal reformatted images were created and reviewed. This CT exam was performed using one or more of the following dose reduction techniques: automated exposure control, adjustment of t he mA and/or kV according to patient size, and/or use of iterative reconstruction technique. COMPARISON: No relevant prior studies available. FINDINGS: Lung bases: Unremarkable. No mass. No consolidation. ABDOMEN: Liver: Unremarkable. No mass. Gallbladder and bile ducts: Unremarkable. No calcified stones. No ductal dilation. Pancreas: Unremarkable. No mass. No ductal dilation. Spleen: Unremarkable. No splenomegaly. Adrenals: Unremarkable. No mass. Kidneys and ureters: Unremarkable. No solid mass. No hydronephrosis. Stomach and bowel: Mucosal thickening with adjacent stranding involving the rectum and distal col on suggestive of proctocolitis. No obstruction. PELVIS: Appendix: No findings to suggest acute appendicitis. Bladder: Unremarkable. Reproductive: 2 cm simple right ovarian cyst. No follow-up imaging is recommended. Heterogeneous appearance to the lower uterine segment/cervix. ABDOMEN and PELVIS: Intraperitoneal space: Unremarkable. No free air. No significant fluid collection. Bones/joints: No acute fracture. No dislocation. Soft tissues: Unremarkable. Vasculature: Unremarkable. No abdominal aortic aneurysm. Lymph nodes: Unremarkable. No enlarged lymph nodes. IMPRESSION: Mucosal thickening with adjacent stranding involving the rectum and distal colon suggest zev of proctocolitis. Electronically signed by: Eyad Pink MD 11/04/2022 4:19 AM CDT Due to temporary technical issues with the PACS/Fluency reporting system, reports are being signed by the in house radiologists without review as a courtesy to insure prompt reporting. The interpreting radiologist is fully responsible for the content of the report.
[2022-11-05] MEDS: METHYLPREDNISOLONE 125 MG INJ IV SCH ×3 (01:03→12:23)
[2022-11-05] MEDS: METRONIDAZOLE 500mg IVPB 500 MG/100 ML BAG IV SCH ×2 (01:04→08:38)
[2022-11-05] MEDS: NS KCL 20MEQ 20 MEQ/1,000 ML BAG IV SCH ×2 (01:11→12:00)
[2022-11-05 03:16] LABS: Absolute Lymphocytes (CBC) 0.5 K/uL (0.7-4.9); Hematocrit 28.3 % (36.0-45.0); Lymphocytes % 7.3 % (15.3-44.8); MCV 76.2 fL (80-100); MPV 7.4 fL (7.6-11.3); RBC Red Blood Cell Count 3.71 M/uL (3.86-4.86)
[2022-11-05 03:33] LABS: Magnesium 2.2 mg/dL (1.6-2.4); Potassium 3.8 mEq/L (3.5-5.1)
[2022-11-05 03:51] LABS: Phosphorus 1.1 mg/dL (2.5-4.9)
[2022-11-05] MEDS ORDERED: NA CHLORIDE 0.9% 0 ML ONE (05:53)
[2022-11-05] MEDS ORDERED: POTASSIUM PHOS 30 MM in NA CHLORIDE 0.9% 500 ML IV ONE (06:00)
[2022-11-05] MEDS ORDERED: POTASS/SODIUM PHOSPHATE 1 PKT POWD.PACK PO SCH (06:30)
[2022-11-05 06:43] VITALS: BMI 26.0
[2022-11-05] MEDS ORDERED: SODIUM PHOSPHATE 20 MM in NA CHLORIDE 0.9% 250 ML IV ONE (08:00)
[2022-11-05] MEDS: ENOXAPARIN 40 MG/0.4 ML SQ SCH (08:37)
[2022-11-05] MEDS: CIPROFLOXACIN 400mg IV 400 MG/200 ML BAG IV SCH (08:38)
[2022-11-05 16:50] VITALS: BP 112/70; TEMP 98.7
== END 2022-11-05 17:08 | disposition home or self-care (01) ==
LOC: ER 02:17 → INTOOBSV 04:48 → ERHOLD 04:48 → 2ND 10:46
PROVIDERS: ADMIT Hospitalist; ATTEND Hospitalist
DX: K51.918 Ulcerative colitis, unspecified with other complication (principal); A41.9 Sepsis, unspecified organism; D64.9 Anemia, unspecified; E87.6 Hypokalemia
CPT/HCPCS: 93005; 87040 ×2; 85025 ×2; 81001; 80048; 36415 ×2; 83735; 84703; 84100 ×2; 85610; 80061; 82947; 83605; 85730; 84443; 87324; 80053; 74177; 99285; Q9967; J3480 ×4; J1650 ×2; J2930 ×6; J0744 ×4; J7050; J7030 ×2; G0378; J7040

== ENCOUNTER 2022-11-13 19:52 | Emergency (ER) | payer OTHER ==
--- OUTSIDE RECORDS SUMMARY | 2022-11-13 19:58 | XMS REPORT | Continuity of Care Document ---
:[address] [facility] t Address [address] [place] [address] Care Team Providers Name Role Phone No, Pcp [facility] Primary Care Physician Unavailable Janet Salazar Attending Clinician Unavailable Lab, Adc Fam Pob I Attending Clinician Unavailable Sara Rothman Attending Clinician Ania Keen Attending Clinician ANIA GARCIA Attending Clinician Unavailable Bree Cortes Attending Clinician BREE ZAMBRANO Attending Clinician Unavailable Doctor Unassigned, [place] Attending Clinician Unavailable Radha Hancock RN Attending Clinician Unavailable Melva Burrows RN Attending Clinician Unavailable Pob1, Acute Care Clinic Attending Clinician Unavailable SARA GORDON Attending Clinician Unavailable INGRID HARRIS Attending Clinician Unavailable QUOC CARMONA Attending Clinician Unavailable QUOC CARMONA Admitting Clinician Unavailable Payers Payer Name Policy Type Policy Number Effective Date Expiration Date S samrace Blue Cross and C1 [id number] [facility] [place] [facility] Blue Cross and C1 [id number] [facility] Blue Shield - [facility] [...] anemia 11-22 ICD10 ity of 00:00: Diagnosis [address] Magistrate Branch Utility Maternal Maternal Disease Active Overview: Un cesar pyrexia pyrexia 11-22 ICD10 ity of during during 00:00: Diagnosis [place] labor, labor, 00 Term Medical delivered delivered [address] [facility] Magistrate Br anch Utility Multiparit Multiparit Disease Active U nivers y y 11-22 ity of 00:00: [place] [facility] Status Status Disease Active Overview: Univer s post tubal post tubal 11-22 ICD10 it y of ligation ligation 00:00: Diagnosis Scotty as [address] Magistrate Branch Utility [id number] Fatigue, Problem Active Commo n unspecifie [facility] [id number] Internal Problem Active Commo n hemorrhoid Spirit s [facility] [id number] Subcutaneo Problem Active Com mon us nodules [facility] [id number] Blood in Problem Active Comm on stool [facility] [id number] Clostridio Problem Active Co mmon ides [facility] difficile [facility] infection [facility] [id number] Transfusio Problem Active Co mmon n history [facility] [id number] Abdominal Problem Active Comm on pain, Spirit unspecifie - [facility] d [facility] [id number] Follow-up Problem Active Com mon exam [facility] [id number] Diarrhea, Problem Active Comm on unspecifie Spirit d [facility] [id number] Nausea Problem Active Common [facility] [id number] Hypokalemi Problem Active Com mon a [facility] [id number] Counseling Problem Active Co mmon and Spirit coordinati - CHI on of care [facility] [id number] Axillary Problem Active Comm on lymphadeno Spirit marcos [facility] [id number] Thrombocyt Problem Active Co mmon openia [facility] 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 Spirit syndrome bowel - CHI syndrome) [facility] [id number] Shortness Problem Active Com mon of breath [facility] [id number] Anemia, Problem Active Commo n unspecifie Spirit d type [facility] Seasonal Seasonal Problem Active Commo n allergy allergies [facility] [id number] Ulcerative Problem Active Com mon colitis Spirit without - [facility] complicati [facility] unspecifie Medica l d location Center [id number] Abnormal Problem Active Comm on ultrasound [facility] Allergies, Adverse Reactions, Alerts Allergy Allergy Status Severity Reaction(s) Onset Inactive Treating Comm ents Source Name Type Date Date Clinician GENTAMIC DRUG Active Unknown-Cmnt Un cesar IN INGREDI 11-22 ity of 00:00: [place] 00 Medical Branch Gentamic Propensi Active Unknown - numbness U nivers in ty to See comments 11-22 ity of adverse 00:00: [place] reaction 00 Medical s Branch Family History Family Member Diagnosis Comments Start Date Stop Date Source Natural mother Cancer [facility] Social History Social Habit Start Date Stop Date Quantity Comments Source History of Common Spirit - Tobacco Use [facility] Exposure to Not sure University of SARS-CoV-2 [place] [facility] (event) Branch History SDOH [facility] Alcohol Std Medical Cente r Drinks History SDOH [facility] Alcohol Binge Medical [address] ter Alcohol intake 2022-08-08 2022-08-08 [facility] 00:00:00 00:00:00 non-drinker of Medical Ce nter alcohol (finding) Tobacco use and 2019-08-30 2019-08-30 Never used Universit y of exposure 00:00:00 00:00:00 [place] [facility] History SDOH 2018-11-25 2018-11-[address] [facility] Alcohol Frequency 00:00:00 00:00:00 [facility] Center Sex Assigned At [birth year] [facility] Kavya kes 00:00:00 00:00:00 [facility] Center Smoking Status Start Date Stop Date Source Never Smoker Common [facility] Medications Ordered Filled Start Stop Current Ordering Indication Dosage Frequency Signature Comments Components Source Medication Medication Date Date Medication? Clinician (SIG) Name Name valerie 2020-0 2020- No [id number] 5mL Take 5 mL Univers mine-pseudo 08-2920 by mouth 4 i ty of ephedrine-D 00:00: 04:59 (four) Scotty as M (BROMFED 00 :00 times Medical DM) 2-30-10 daily as Bran ch mg/5 mL needed for syrup Congestion /Allergies or Cough for up to 10 days. bromphenira 2020-0 2020- No [id number] 5mL Take 5 mL Univers mine-pseudo 08-2920 by mouth 4 i ty of ephedrine-D 00:00: 04:59 (four) Scotty as M (BROMFED 00 :00 times Medical DM) 2-30-10 daily as Bran ch mg/5 mL needed for syrup Congestion /Allergies or Cough for up to 10 days. REMICADE 2019-0 Yes Univers 100 mg 3-23 ity of injection 00:00: [address] Branch REMICADE 2020-0 Yes Univers 100 mg 3-23 ity of injection 00:00: [address] REMICADE 2020-0 Yes Univers 100 mg 3-23 ity of injection 00:00: [address] Branch REMICADE 2020-0 Yes Univers 100 mg 3-23 ity of injection 00:00: [address] REMICADE 2020-0 Yes Univers 100 mg 3-23 ity of injection 00:00: [address] Branch REMICADE 2020-0 Yes Univers 100 mg 3-23 ity of injection 00:00: [address] Branch REMICADE 2020-0 Yes Univers 100 mg 3-23 ity of injection 00:00: [address] ondansetron 2019-0 Yes 4mg Take [address] (ZOFRAN) 4 9-09 tablet (4 Luke s MG tablet 00:00: mg total) Med ical 00 by mouth 3 Center (three) times daily as needed for Nausea for up to 10 doses. ondansetron 2019-0 Yes 4mg Take [address] (ZOFRAN) 4 9-09 tablet (4 Luke s MG tablet 00:00: mg total) Med ical 00 by mouth 3 Center (three) times daily as needed for Nausea for up to 10 doses. ondansetron 2019-0 Yes 4mg Take [address] (ZOFRAN) 4 01-29 tablet (4 Luke s MG tablet 00:00: mg total) Med ical 00 by mouth 3 Center (three) times daily as needed for Nausea for up to 10 doses. Yes Janet (OTC) 1 Com mon [place] Millender tablet Spirit - [facility] Entyvio 300 Entyvio 300 No Entyvio MG [...] ts Source Name Name PNEUMAVAX 23 PNEUMAVAX 23 2019-03-14 Completed Common Spi rit 16:53:00 - [facility] PNEUMAVAX 23 PNEUMAVAX 23 2019-03-14 Completed Common Spi rit 16:53:00 - [facility] Flucelvax - single Flucelvax - single 2019-03-14 Completed Common Spirit dose syringe dose syringe 16:52:00 - [facility] Flucelvax - single Flucelvax - single 2019-03-14 Completed Common Spirit dose syringe dose syringe 16:52:00 - [facility] Flucelvax - single Flucelvax - single 2019-03-14 Completed Common Spirit dose syringe dose syringe 00:00:00 - [facility] PNEUMAVAX 23 PNEUMAVAX 23 2019-03-14 Completed Common Spi rit 00:00:00 - [facility] Vital Signs Vital Name Observation Time Observation Value Comments Source height 2020-07-29 14:45:00 61 [in_i] [facility] weight 2020-07-29 14:45:00 139.0 [lb_av] [facility] temperature 2020-07-29 14:45:00 98.2 [degF] [facility] bmi 2020-07-29 14:45:00 26.26 kg/m2 [facility] oximetry 2020-07-29 14:45:00 98 % [facility] blood pressure 2020-07-29 14:45:00 106 mm[Hg] [facility] - systolic [facility] blood pressure 2020-07-29 14:45:00 60 mm[Hg] [facility] - diastolic [facility] Systolic blood 2019-08-30 13:35:00 113 mm[Hg] Univer sity of pressure [facility] Diastolic blood 2019-08-30 13:35:00 78 mm[Hg] Unive rsity of pressure [facility] Heart rate 2019-08-30 13:35:00 106 /min Universi [facility] Body temperature 2019-08-30 13:35:00 37.67 [facility] 2019-08-30 13:35:00 20 /min Univ ersity of [facility] Body height 2019-08-30 13:35:00 154.9 cm Universi ty [facility] [place] [facility] Body weight 2019-08-30 13:35:00 63.504 kg Universi ty [facility] [place] [facility] BMI 2019-08-30 13:35:00 26.45 kg/m2 Universi ty of [facility] Oxygen saturation in 2019-08-30 13:35:00 99 /min University of Arterial blood by [facility] Pulse oximetry Branch Systolic blood 2019-08-30 13:35:00 113 mm[Hg] Univer sity of pressure [facility] Diastolic blood 2019-08-30 13:35:00 78 mm[Hg] Unive rsity of pressure [facility] Heart rate 2019-08-30 13:35:00 106 /min Universi ty [facility] [place] [facility] [place] Body temperature 2019-08-30 13:35:00 37.67 Taryn [facility] Respiratory rate 2019-08-30 13:35:00 20 /min [facility] ersity of [facility] Body height 2019-08-30 13:35:00 154.9 cm [facility] [place] [facility] Body weight 2019-08-30 13:35:00 63.504 kg Universi ty of [facility] Branch BMI 2019-08-30 13:35:00 26.45 kg/m2 Universi ty of [facility] Branch Oxygen saturation in 2019-08-30 13:35:00 99 /min University of Arterial blood by [facility] Pulse oximetry Branch Procedures Procedure Date / Time Performed Performing Clinician Sourc e POCT GRP A STREP 2019-08-30 13:43:00 Bree Zambrano [facility] (MOLECULAR) [facility] Encounters Start End Encounter Admission Attending Care Care Encounter Source Date/Time Date/Time Type Type Clinicians Facility Department ID 2021-06-17 Outpatient Millender, STLMLC [facility] [id number] Common 12:36:13 Janet [id number] [facility] 2021-06-17 Outpatient Millender, STLMLC [facility] [id number] Common 11:04:45 Janet [id number] [facility] 2021-06-17 Outpatient Millender, STLMLC [facility] [id number] Common 10:59:44 Janet [id number] [facility] 2020-07-29 2020-07-29 OFFICE STLMLC ST[facility]C [id number] Co mmon 00:00:00 00:00:00 VISIT NEW Spir it PT LEVEL 3 - [facility] 2020-07-28 2020-07-28 (TEL) STLMLC STLMLC [id number] Co mmon 00:00:00 00:00:00 [facility] 2020-07-16 2020-07-16 Laboratory Lab, [facility] Fam Pob I [facility] 1.2. [id number] Univers 10:24:15 10:44:15 Only [facility] [id number] ity of [place] 4.2.7.2.686 Scotty as Professio [phone] [address] One 2020-07-16 2020-07-16 Outpatient [facility] [id number] Univers 10:20:00 10:20:00 ity of [facility] 2020-05-21 2020-05-21 Laboratory Lab, [facility] Fam Pob I [facility] 1.2. 840.114 [id number] Univers 18:37:35 18:57:35 Only Ania Garcia [facility] 350.1.13.10 ity of [place] 4.2.7.2.686 Scotty as Professio [phone] [address] One 2020-05-21 2020-05-21 [facility]patient [facility] [id number] Univers 18:40:00 18:40:00 ANIA salasy o f [facility] 2020-01-26 2020-01-26 Laboratory Lab, [facility] Fam Pob I [facility] 1.2. 840.114 [id number] Univers 08:37:22 08:57:22 Only Bree Zambrano Health [id number] ity of [place] 4.2.7.2.686 Scotty as Professio [phone] [address] Office Building One 2020-01-26 2020-01-26 Outpatient R [facility] [id number] Univers 08:40:00 08:40:00 BREE ity of [facility] 2020-01-26 2020-01-26 Letter Doctor MICHELL [id number] 00:00:00 00:00:00 (Out) Unassigned, RICHARD [id number] ity of [place] [facility] 4.2.7.2.686 Scotty as [phone] [address] 2020-01-26 2020-01-26 Telephone Karissa Radhamaría GALARZA 1.2.840.114 [id number] [facility] 00:00:00 00:00:00 RICHARD [id number] it y of [facility] 4.2.7.2.686 Scotty as [phone] [address] 2019-08-31 2019-08-31 Telephone MICHELL Burrows [id number] [facility] 00:00:00 00:00:00 Melva RAMOS [id number] i ty of [facility] 4.2.7.2.686 Scotty as [phone] [address] 2019-08-31 2019-08-31 Telephone MICHELL Burrows [id number] 00:00:00 00:00:00 Melva RAMOS [id number] [facility] [id number] [id number] [facility] 2019-08-30 2019-08-30 Urgent Pob1, Acute Care Clinic [facility] 1. 2.840.114 [id number] [facility] 08:24:35 08:57:39 [facility] Sara Gorodn [facility] [id number] ity of [place] 4.2.7.2.686 Scotty as Professio [phone] Ia dical [address] Office Building One 2019-08-30 2019-08-30 Urgent Pob1, Acute [facility] [id number] 08:24:35 08:57:39 [facility] Health [id number] [place] 4.2.7.2.686 Professio [phone] [place] [address] Office Building One 2019-08-30 2019-08-30 [facility] [id number] Univers 08:40:00 08:40:00 SARA mays [facility] 2019-04-26 2019-04-26 [facility] [id number] Common 14:40:00 14:40:[address] Sp[address] [facility] 2019-04-11 2019-04-11 Outpatient [facility] [id number] Common 20:49:00 20:49:[address] Sp[address] [facility] 2019-03-14 2019-03-14 Outpatient [facility] [id number] Common 10:40:00 10:40:[address] Sp[address] [facility] 2019-03-06 2019-03-06 Outpatient [facility] [id number] Common 02:35:00 02:35:[address] Sp[address] [facility] 2019-02-28 2019-02-28 Outpatient [facility] [id number] Common 09:29:00 09:29:[address] [facility] 2019-02-23 2019-02-23 Outpatient [facility] [id number] Common 11:20:00 11:20:[address] [facility] 2018-11-02 2018-11-02 Outpatient [facility] [id number] Common 10:01:00 10:01:[address] [facility] 2018-10-06 2018-10-06 Outpatient [facility] [id number] Common 15:20:00 15:20:[address] Sp[address] [facility] Results Test Description Test Time Test Comments Results Result Comments Source POCT GRP A STREP (MOLECULAR) 2019-08-30 13:53:00 Test Item Value Reference Range Interpretation Comme nts POCT GP A STREP (test code = neg Negative - Negative 49431-1) DAWIT (test code = DAWIT) accurate development and interpretation of all internal controls Lab Interpretation (test code = Normal 49310-8) [facility], [id number] 02:33:00 Test Item Value Reference Range Interpretation Comments TEST URINE (BEAKER) (test Negative code = 583) URINALYSIS W/ REFLEX URINE [id number] 02:31:00 Test Item Value Reference Range Interpretation [...] 1584) SOURCE(BEAKER) (test code = 2795) CT, [id number] 02:09:00Reason for exam:->ABDOMINAL PAINReason for exam:->NAUSEAReason for [...] MDReport Verified Date/Time: 01/29/2019 02:09:01 Reading Location: [address] Reading Room HCG, QUANTITATIVE, [id number] 01:30:00 Test Item Value Reference Range Interpretation Comments GONADOTROPIN, CHORIONIC (HCG) QUANT < mIU/mL 0-10 (Rocket Relief) (test code = 649) Non- Females: <10 mIU/mL Females: Gestation Age Reference Range(mIU/mL) 0.2-1 Week 5-50 1-2 Weeks 50-500 2-3 Weeks 100-5,000 3-4 Weeks 500-10,000 4-5 Weeks 1,000-50,000 5-6 Weeks 10,000-100,000 6-8 Weeks 15,000- 200,000 2-3 Months 10,000-100,000POCT-LACTIC ACID, [id number] 23:56:00 Test Item Value Reference Range Interpretation Comments POC-LACTIC ACID, 0.8 mmol/L 0.9-1.7 L TESTED AT [facility] [address] ([facility]) (test [facility] code = 2805) 20397 CBC W/PLT COUNT & AUTO [id number] 21:42:00 Test Item Value Reference Range Interpretation [...] to report due WIDTH (BEAKER) ([facility] RBC code = 412) population distribution. PLATELET [...] Received comment: User comments: Slide comments:BASIC METABOLIC [id number] 21:21:00 Test Item Value Reference Range Interpretation [...] FOR DIALYSIS PATIEN TS. OVA AND PARASITE [id number] 08:15:00 Test Item Value Reference Range Interpretation [...] seen seen code = 248) BASIC METABOLIC [id number] 05:42:00 Test Item Value Reference Range Interpretation [...] PATIEN TS. CBC W/PLT COUNT & AUTO [id number] 05:35:00 Test Item Value Reference Range Interpretation [...] PERCENT (BEAKER) (test code = 2801) TISSUE [id number] 09:51:00Surgical Pathology Report Case: [id number] Authorizing Provider: Ike Huynh Collected: 11/27/2018 1108 Ordering Location: [address] Received: 11/27/2018 1400 Service Pathologist: Jack [...] ADENOMA.NEGATIVE FOR HIGH GRADE DYSPLASIA OR INVASIVE CARCI NOMA.PART C TRANSVERSE COLON, BIOPSY:MILDLY EDEMATOUS COLONIC MUCOSA WITHOUT SIGNIFICANT HISTOPATHOLOGIC ALTERATION.NEGATIVE FOR INCREASED EPITHELIAL LYMPHOCYTES, GRANULOMAS, DYSPLASIA, OR INVASIVE CARCINOMA.PART D LEFT DESCENDING COLON BIOPSY:MILDLY EDEMATOUS COLONIC MUCOSA WITHOUT SIGNIFICANT HISTOPA THOLOGIC ALTERATION.NEGATIVE FOR INCREASED EPITHELIAL LYMPHOCYTES, GRANULOMAS, DYSPLASIA, OR INVASIVE CARCINOMA.PART E SIGMOID COLON, BIOPSY FOR SUSPECTED POLYP:MILDLY ACTIVE COLITIS WITH FOCAL SUPERFICIAL ULCERATION.SUBEPITHELIAL REACTIVE LYMPHOID AGGREGATE.NEGATIVE FOR GRANULOMAS, DYSPLASIA, OR INVASIVE CARCINOMA.PART F RECTAL BIOPSY:MILDLY ACTIVE COLITIS WITH FOCAL SUPERFICIAL ULCERATION.SUBEPITHELIAL REACTIVE LYMPHOID AGGREGATE.NEGATIVE FOR GRANULOMAS, DYSPLASIA, OR INVASIVE CARCINOMA. Signing Pathologist Direct Phone Line: [phone] signed by Jack Batista MD on 11/28/2018 at 9:51 [id number] and postop diagnosis: colitisA. Polyp, colon - [...] "large intestine, colon - transverse" are two irregulartan soft tissue fragments measuring 0.3 cm and 0.2 cm which are submitted in toto in C1. D. Receivedin formalin labeled with the patient's name, accession [...] are submitted in toto in F1. CG/pl PERFORMED.[id number] 04:33:00 Test Item Value Reference Range Interpretation Comments MAGNESIUM (BEAKER) (test code = 1.9 mg/dL 1.6-2.6 627) BASIC METABOLIC [id number] 04:33:00 Test Item Value Reference Range Interpretation [...] APPLICABLE FOR DIALYSIS PATIEN TS. HEPATIC FUNCTION [id number] 04:33:00 Test Item Value Reference Range Interpretation [...] code = 19 U/L 6-55 347) CALCIUM, [id number] 04:30:00 Test Item Value Reference Range Interpretation Comments CALCIUM IONIZED (BEAKER) (test 1.09 mmol/L 1.12-1.27 L code = 698) PH, BLOOD (BEAKER) (test code = 7.41 1810) PROTHROMBIN [id number] 04:20:00 Test Item Value Reference Range Interpretation [...] wiht mechanical heart valves.STOOL CULTURE + SHIGA [id number] 11:46:00 Test Item Value Reference Range Interpretation Comments CULTURE (BEAKER) No Salmonella, Shigella (test code = 1095) or Campylobacter isolated HIV-1 ANTIGEN WITH HIV-1/2 [id number] 09:38:00 Test Item Value Reference Range Interpretation Comments HIV-1 ANTIGEN WITH HIV 1\\T\\2 Nonreactive Nonreactive ANTIBODY (2) (BEAKER) (test code = 2586) [id number] 05:10:00 Test Item Value Reference Range Interpretation Comments MAGNESIUM (BEAKER) (test code = 2.1 mg/dL 1.6-2.6 627) BASIC METABOLIC [id number] 05:10:00 Test Item Value Reference Range Interpretation [...] APPLICABLE FOR DIALYSIS PATIEN TS. HEPATIC FUNCTION [id number] 05:10:00 Test Item Value Reference Range Interpretation [...] code = 17 U/L 6-55 347) CALCIUM, [id number] 04:48:00 Test Item Value Reference Range Interpretation Comments CALCIUM IONIZED (BEAKER) (test 1.02 mmol/L 1.12-1.27 L code = 698) PH, BLOOD (BEAKER) (test code = 7.42 1810) PROTHROMBIN [id number] 04:39:00 Test Item Value Reference Range Interpretation [...] (BEAKER) (test code = 413) STOOL PATH [id number] 18:28:00 Test Item Value Reference Range Interpretation Comments PATHOGEN EXAM CHARGED (BEAKER) (test Done code = 2381) SHIGA TOXIN [id number] 14:40:00 Test Item Value Reference Range Interpretation Comments SHIGA TOXIN 1 (BEAKER) (test Not detected Not detected code = 2177) SHIGA TOXIN 2 (BEAKER) (test Not detected Not detected code = 2179) CBC W/PLT COUNT & AUTO [id number] 06:26:00 Test Item Value Reference Range Interpretation [...] 0-1 PERCENT (BEAKER) (test code = 2801) [id number] 06:21:00 Test Item Value Reference Range Interpretation Comments MAGNESIUM (BEAKER) (test code = 2.1 mg/dL 1.6-2.6 627) BASIC METABOLIC [id number] 06:21:00 Test Item Value Reference Range Interpretation [...] APPLICABLE FOR DIALYSIS PATIEN TS. HEPATIC FUNCTION [id number] 06:21:00 Test Item Value Reference Range Interpretation [...] code = 20 U/L 6-55 347) PROTHROMBIN [id number] 06:19:00 Test Item Value Reference Range Interpretation [...] 2.5-3.5 for patients wiht mechanical heart valves.CALCIUM, [id number] 05:52:00 Test Item Value Reference Range Interpretation Comments CALCIUM IONIZED (BEAKER) (test 1.08 mmol/L 1.12-1.27 L code = 698) PH, BLOOD (BEAKER) (test code = 7.41 1810) GI PATHOGEN PROFILE BY [id number] 18:49:00 Test Item Value Reference Range Interpretation [...] Not detected BY PCR (test code = 3941744) ENTEROPATHOGENIC E. COLI (EPEC) Not detected Not detected BY PCR (test code = 6742651) ENTEROTOXIGENIC E. COLI (ETEC) Not detected Not detected LT/ST BY PCR (test code = 2264143) SHIGA-LIKE TOXIN-PRODUCING E. Not detected Not detected COLI (STEC) STX1/STX2 (test code = 7296176) E. COLI O157 (PCR) (test code = Not detected 6439738) SHIGELLA/ENTEROINVASIVE E. COLI Not detected Not detected (EIEC) BY PCR (test code = 6447582) CRYPTOSPORIDIUM (PCR) (test code Not detected Not detected = 20151230) CYCLOSPORA CAYETANENSIS (PCR) Not detected Not detected (test code = 3893691) ENTAMOEBA HISTOLYTICA (PCR) Not detected Not detected [...] Not detected Not detected (test code = 5924834) VIBRIO (PARAHAEMOLYTICUS, Not detected Not detected VULNIFICUS) [...] decisions. This sample was tested at the [facility] Molecular [facility]ostics [facility] using the [employer] Gastrointestinal Panel. It is FDA cleared and has been verified and approved by the [facility] for clinical use. This laboratory is CLIA-certified and College ofAmerican Pathologists (CAP)-accredited to perform high complexity testing.[facility] [id number] 17:47:00 Test Item Value Reference Range Interpretation Comments CDT TOXIN (test code Negative Negative = [id number]) CDT GDH ANTIGEN (test Negative Negative No ind ication of code = 8143999222) Clostridi um difficile infection and n o colonization. Discontinue ent janay isolation and t herapy. Testing performed by [employer] Rapid Cassette Assay. For GDH, published sensitivity of the assay is 98.7% compared to cytotoxicity testing. For Toxin AB, published sensitivity is 87.8% and specificity 99.4% compared to cytotoxicity testing.Verification of kit performance was done by the [facility] prior to clinical use.[id number] 17:01:00 Test Item Value Reference Range Interpretation [...] 20-55 L (test code = 2590) C-REACTIVE [id number] 16:39:00 Test Item Value Reference Range Interpretation Comments C-REACTIVE PROTEIN (BEAKER) (test 7.69 mg/dL 0.00-0.50 H code = 676) RETICULOCYTE [id number] 16:24:00 Test Item Value Reference Range Interpretation Comments RETICULOCYTE COUNT PCT (BEAKER) (test 0.8 % 0.5-1.7 code = 575)
--- NOTE | 2022-11-13 21:00 | RAD REPORT ---
EXAM DESCRIPTION: RAD - Knee Right 3 View - 11/13/2022 8:50 pm CLINICAL HISTORY: Right knee pain status post injury FINDINGS: No fracture or dislocation is seen.
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
[2022-11-13] MEDS ORDERED: HYDROCODONE/APAP 5/325 MG TAB ONE (22:00)
[2022-11-13 22:21] VITALS: TEMP 99.3
[2022-11-13 22:22] VITALS: BP 118/70; O2SAT 99
== END 2022-11-13 22:10 | disposition home or self-care (01) ==
LOC: ER 19:52
DX: M25.561 Pain in right knee (principal)
CPT/HCPCS: 99284

== ENCOUNTER 2022-12-24 17:20 | Emergency (ER) | payer OTHER ==
--- OUTSIDE RECORDS SUMMARY | 2022-12-24 17:24 | XMS REPORT | Continuity of Care Document ---
:1980 Author Organization [facility] t Address [address] [place] [address] Care Team Providers Name Role Phone No, Pcp [facility] Primary Care Physician Unavailable Janet Salazar Attending Clinician Unavailable Lab, Adc Fam Pob I Attending Clinician Unavailable Sara Rothman Attending Clinician Ania Keen Attending Clinician ANIA GARCIA Attending Clinician Unavailable Bree Cortes Attending Clinician BREE ZAMBRANO Attending Clinician Unavailable Doctor Unassigned, Mcloud Attending Clinician Unavailable Radha Hancock RN Attending Clinician Unavailable Melva Burrows RN Attending Clinician Unavailable Pob1, Acute Care Clinic Attending Clinician Unavailable SARA GORDON Attending Clinician Unavailable INGRID HARRIS Attending Clinician Unavailable QUOC CAROMNA Attending Clinician Unavailable QUOC CARMONA Admitting Clinician Unavailable Payers Payer Name Policy Type Policy Number Effective Date Expiration Date S samrace Blue Cross and C1 [id number] Common S [facility] Blue Cross and C1 [id number] Common S [facility] Problems Condition Condition Condition Status Onset Resolution Last Treating Co mments Source Name Details Category Date Date Treatment Clinician Date Colitis Colitis Disease Active [facility] 00:00: Medical 00 Center Normal Normal Disease Active Univers Delivery Delivery 11-22 ity of 00:00: [place] 00 Medical Branch Disease Active Overview : Univers anemia anemia 11-22 ICD10 ity of 00:00: Diagnosis Term Medical [employer] Branch Utility Maternal Maternal Disease Active Overview: Un cesar pyrexia pyrexia 11-22 ICD10 ity of during during 00:00: Diagnosis [place] labor, labor, 00 Term Medical delivered delivered [employer] Br anch Utility Multiparit Multiparit Disease Active U nivers y y 11-22 ity of 00:00: [place] [facility] Status Status Disease Active Overview: Univer s post tubal post tubal 11-22 ICD10 it y of ligation ligation 00:00: Diagnosis Scotty as 00 Term Medical [employer] Branch Utility [id number] Fatigue, Problem Active Commo n unspecifie Spirit d [facility] [id number] Internal Problem Active Commo n hemorrhoid Spirit s [facility] [id number] Subcutaneo Problem Active Com mon us nodules [facility] [id number] Blood in Problem Active Comm on stool [facility] [id number] Clostridio Problem Active Co mmon ides Spirit difficile - [facility] infection [facility] [id number] Transfusio Problem Active Co mmon n history [facility] [id number] Abdominal Problem Active Comm on pain, Spirit unspecifie - [facility] [id number] Follow-up Problem Active Com mon exam [facility] [id number] Diarrhea, Problem Active Comm on unspecifie Spirit d [facility] [id number] Nausea Problem Active Common [facility] [id number] Hypokalemi Problem Active Com mon a [facility] [id number] Counseling Problem Active Co mmon and Spirit coordinati - CHI on of care [facility] [id number] Axillary Problem Active Comm on lymphadeno Spirit marcos [facility] [id number] Thrombocyt Problem Active Co mmon openia [facility] 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 Spirit syndrome bowel - CHI syndrome) [facility] [id number] Shortness Problem Active Com mon of breath [facility] [id number] Anemia, Problem Active Commo n unspecifie Spirit d type [facility] Seasonal Seasonal Problem Active Commo n allergy allergies [facility] [id number] Ulcerative Problem Active Com mon colitis Spirit without - [facility] complicati [facility] unspecifie Medica l d location Center [id number] Abnormal Problem Active Comm on ultrasound [facility] Allergies, Adverse Reactions, Alerts Allergy Allergy [...] Date Stop Date Source Natural mother Cancer [facility] Social History Social Habit Start Date Stop Date Quantity Comments Source History of Common Spirit - Tobacco Use [facility] Exposure to Not sure University of SARS-CoV-2 [place] [facility] (event) Branch History SDOH [facility] Alcohol Std Medical Cente r Drinks History SDOH [facility] Binge Medical [address] Alcohol intake 2022-08-08 2022-08-08 Current [facility] 00:00:00 00:00:00 non-drinker of Medical Ce nter alcohol (finding) Tobacco use and 2019-08-30 2019-08-30 Never used Universit y of exposure 00:00:00 00:00:00 [place] [facility] History SDOH 2018-11-25 2018-11-[address] [facility] Alcohol Frequency 00:00:00 00:00:00 Medical Center Sex Assigned At [birth year] [facility] Kavya nashs 00:00:00 00:00:00 Medical Center Smoking Status Start Date Stop Date Source Never Smoker Common [facility] Medications Ordered Filled Start Stop Current Ordering Indication Dosage Frequency Signature Comments Components Source Medication Medication Date Date Medication? Clinician (SIG) Name Name valerie 2020-0 2020- No [id number] 5mL Take 5 mL Univers mine-pseudo 08-2920 by mouth 4 i ty of ephedrine-D 00:00: 04:59 (four) Scotty as M (BROMFED 00 :00 times Medical DM) 2-30-10 daily as Bran ch mg/5 mL needed for syrup Congestion /Allergies or Cough for up to 10 days. bromphenira 2020-0 2020- No [id number] 5mL Take 5 mL Univers mine-pseudo 08-2920 by mouth 4 i ty of ephedrine-D 00:00: 04:59 (four) Scotty as M (BROMFED 00 :00 times Medical DM) 2-30-10 daily as Bran ch mg/5 mL needed for syrup Congestion /Allergies or Cough for up to 10 days. REMICADE 2020-0 Yes Univers 100 mg 3-23 ity of injection 00:00: [address] REMICADE 2020-0 Yes Univers 100 mg 3-23 ity of injection 00:00: [address] REMICADE 2020-0 Yes Univers 100 mg 3-23 ity of injection 00:00: [address] Branch REMICADE 2020-0 Yes Univers 100 mg 3-23 ity of injection 00:00: [address] REMICADE 2020-0 Yes Univers 100 mg 3-23 ity of injection 00:00: [address] REMICADE 2020-0 Yes Univers 100 mg 3-23 ity of injection 00:00: [address] REMICADE 2020-0 Yes Univers 100 mg 3-23 ity of injection 00:00: [address] ondansetron 2019-0 Yes 4mg Take 1 [...] 4mg Take [address] (ZOFRAN) 4 -09 tablet (4 Luke s MG tablet 00:00: mg total) Med ical 00 by mouth 3 Center (three) times daily as needed for Nausea for up to 10 doses. Yes Janet (OTC) 1 Com mon [place] tablet Spirit - [facility] Entyvio 300 Entyvio 300 No [...] 23 2019-03-14 Completed Common Spi rit 16:53:00 [facility] PNEUMAVAX 23 PNEUMAVAX 23 2019-03-14 Completed Common Spi rit 16:53:00 - [facility] Flucelvax - single Flucelvax - single 2019-03-14 Completed Common Spirit dose syringe dose syringe 16:52:00 - [facility] Flucelvax - single Flucelvax - single 2019-03-14 Completed Common Spirit dose syringe dose syringe 16:52:00 - [facility] Flucelvax - single Flucelvax - single 2019-03-14 Completed Common Spirit dose syringe dose syringe 00:00:00 [facility] PNEUMAVAX 23 PNEUMAVAX 23 2019-03-14 Completed Common Spi rit 00:00:00 [facility] Vital Signs Vital Name Observation Time Observation Value Comments Source height 2020-07-29 14:45:00 61 [in_i] [facility] weight 2020-07-29 14:45:00 139.0 [lb_av] [facility] temperature 2020-07-29 14:45:00 98.2 [degF] [facility] bmi 2020-07-29 14:45:00 26.26 kg/m2 [facility] oximetry 2020-07-29 14:45:00 98 % [facility] blood pressure 2020-07-29 14:45:00 106 mm[Hg] [facility] - systolic [facility] blood pressure 2020-07-29 14:45:00 60 mm[Hg] [facility] - diastolic [facility] Systolic blood 2019-08-30 13:35:00 113 mm[Hg] Univer sity of pressure [facility] Diastolic blood 2019-08-30 13:35:00 78 mm[Hg] Unive rsity of pressure [place] [facility] Heart rate 2019-08-30 13:35:00 106 /min Universi ty of [place] [facility] Body temperature 2019-08-30 13:35:00 37.67 Taryn Univ ersity of [place] [facility] Respiratory rate 2019-08-30 13:35:00 20 /min Univ ersity of [place] [facility] Body height 2019-08-30 13:35:00 154.9 cm Universi ty [facility] [place] [facility] Body weight 2019-08-30 13:35:00 63.504 kg Universi ty [facility] [place] [facility] BMI 2019-08-30 13:35:00 26.45 kg/m2 Universi ty of [place] [facility] Oxygen saturation in 2019-08-30 13:35:00 99 /min University of Arterial blood by [facility] Pulse oximetry Branch Systolic blood 2019-08-30 13:35:00 113 mm[Hg] Univer sity of pressure [place] [facility] Diastolic blood 2019-08-30 13:35:00 78 mm[Hg] Unive rsity of pressure [place] [facility] Heart rate 2019-08-30 13:35:00 106 /min Universi ty of [place] [facility] Body temperature 2019-08-30 13:35:00 37.67 Taryn Univ ersity of [place] [facility] Respiratory rate 2019-08-30 13:35:00 20 /min Univ ersity of [place] [facility] Body height 2019-08-30 13:35:00 154.9 cm Universi ty [facility] [place] [facility] Body weight 2019-08-30 13:35:00 63.504 kg Universi ty [facility] [place] [facility] BMI 2019-08-30 13:35:00 26.45 kg/m2 Universi ty of [place] [facility] Oxygen saturation in 2019-08-30 13:35:00 99 /min University of Arterial blood by [facility] Pulse oximetry Branch Procedures Procedure Date / Time Performed Performing Clinician Sourc e POCT GRP A STREP 2019-08-30 13:43:00 Bree Zambrano [facility] ([facility]) [facility] Branch Encounters Start End Encounter Admission Attending Care Care Encounter Source Date/Time Date/Time Type Type Clinicians Facility Department ID 2021-06-17 Outpatient Martin STJORGE [facility] [id number] Common 12:36:13 Janet [id number] [facility] 2021-06-17 Outpatient Martin, STLMLC STLMLC [id number] Common 11:04:45 Janet [id number] [facility] 2021-06-17 Outpatient Martin STJORGE STLMLC [id number] Common 10:59:44 Janet [id number] [facility] 2020-07-29 2020-07-29 OFFICE STLMLC STLMLC [id number] Co mmon 00:00:00 00:00:00 VISIT NEW Spir it PT LEVEL 3 - [facility] 2020-07-28 2020-07-28 (TEL) STLMLC STLMLC [id number] Co mmon 00:00:00 00:00:00 [facility] 2020-07-16 2020-07-16 Laboratory Lab, [facility] 1.2. [id number] Univers 10:24:15 10:44:15 Only Sara [facility] [id number] ity of [place] 4.2.7.2.686 Scotty as Professio [phone] [address] One 2020-07-16 2020-07-16 Outpatient R [facility] [id number] Univers 10:20:00 10:20:00 ity of [facility] 2020-05-21 2020-05-21 Laboratory Lab, [facility] 1.2. 840.114 [id number] Univers 18:37:35 18:57:35 Only Ania Garcia Health [id number] ity of [place] 4.2.7.2.686 Scotty as Professio [phone] [address] Building One 2020-05-21 2020-05-21 Outpatient R [facility] [id number] Univers 18:40:00 18:40:00 ANIA shay [facility] 2020-01-26 2020-01-26 Laboratory Lab, [facility] 1.2. 840.114 [id number] Univers 08:37:22 08:57:22 Only Bree Zambrano Health [id number] ity of [place] 4.2.7.2.686 Scotty as Professio [phone] [address] Office Building One 2020-01-26 2020-01-26 Outpatient R RAJAN, [facility] [id number] Univers 08:40:00 08:40:00 BREE ity of [facility] 2020-01-26 2020-01-26 Letter Doctor MICHELL [id number] Univers 00:00:00 00:00:00 (Out) UnassRICHARD rojas [id number] ity of [place] [facility] 4.2.7.2.686 Scotty as [phone] [address] 2020-01-26 2020-01-26 Telephone Radha Hancock [id number] Univers 00:00:00 00:00:00 RICHARD [id number] it y of [facility] 4.2.7.2.686 Scotty as [phone] [address] 2019-08-31 2019-08-31 Telephone MICHELL Burrows [id number] Univers 00:00:00 00:00:00 Melva RAMOS [id number] i ty of [facility] 4.2.7.2.686 Scotty as [phone] [address] 2019-08-31 2019-08-31 Telephone MICHELL Burrows [id number] 00:00:00 00:00:00 Melva RAMOS 350.1.13.10 HOSPITAL 4.2.7.2.686 [id number] [facility] 2019-08-30 2019-08-30 Urgent Pob1, Acute Care Clinic [facility] 1. [id number] Univers 08:24:35 08:57:39 Care JanelleSara jerez A Health [id number] ity of [place] 4.2.7.2.686 Scotty as Professio [phone] [address] Office Building One 2019-08-30 2019-08-30 Urgent Pob1, Acute [facility] 1.2.840.114 [id number] 08:24:35 08:57:39 Care Care Clinic Health [id number] [place] 4.2.7.2.686 Valentín [phone] [address]al [address] One 2019-08-30 2019-08-30 Outpatient Kate GORDON [facility] [id number] Univers 08:40:00 08:40:00 SARA mays [facility] 2019-04-26 2019-04-26 Outpatient Beth Campost [id number] Common 14:40:00 14:40:[address] [facility] [address] Spir [address] Road [facility] 2019-04-11 2019-04-11 Outpatient Beth Campost [id number] Common 20:49:00 20:49:[address] [facility] [address] Spir [address] Road [facility] 2019-03-14 2019-03-14 Outpatient Beth Campost [id number] Common 10:40:00 10:40:[address] [facility] [address] Spir [address] [facility] 2019-03-06 2019-03-06 Outpatient Beth Campost [id number] Common 02:35:00 02:35:[address] [facility] [address] Spir [address] [facility] 2019-02-28 2019-02-28 Outpatient [place] [id number] Common 09:29:00 09:29:[address] [facility] [address] Sp[address] [facility] 2019-02-23 2019-02-23 Outpatient Beth Campost [id number] Common 11:20:00 11:20:[address] [facility] [address] Sp[address] [facility] 2018-11-02 2018-11-02 Outpatient [place] [id number] Common 10:01:00 10:01:[address] [facility] [address] Sp[address] [facility] 2018-10-06 2018-10-06 Outpatient Beth [place] [id number] Common 15:20:00 15:20:00 [address] Spir [address] Road [facility] Results Test Description Test Time Test Comments Results Result Comments Source POCT GRP A STREP (MOLECULAR) 2019-08-30 13:53:00 Test Item Value Reference Range Interpretation Comme nts POCT GP A STREP (test code = neg Negative - Negative 86215-8) DAWIT (test code = DAWIT) accurate development and interpretation of all internal controls Lab Interpretation (test code = Normal 95569-8) [facility], [id number] 02:33:00 Test Item Value Reference Range Interpretation Comments TEST URINE (BEAKER) (test Negative code = 583) URINALYSIS W/ REFLEX URINE [id number] 02:31:00 Test Item Value Reference Range Interpretation [...] 1584) SOURCE(BEAKER) (test code = 2795) CT, [id number] 02:09:00Reason for exam:->ABDOMINAL PAINReason for exam:->NAUSEAReason for [...] MDReport Verified Date/Time: 01/29/2019 02:09:01 Reading Location: [address] Reading Room HCG, QUANTITATIVE, [id number] 01:30:00 Test Item Value Reference Range Interpretation Comments GONADOTROPIN, CHORIONIC (HCG) QUANT < mIU/mL 0-10 (BEAKER) (test code = 649) Non- Females: <10 mIU/mL Females: Gestation Age Reference Range(mIU/mL) 0.2-1 Week 5-50 1-2 Weeks 50-500 2-3 Weeks 100-5,000 3-4 Weeks 500-10,000 4-5 Weeks 1,000-50,000 5-6 Weeks 10,000-100,000 6-8 Weeks 15,000- 200,000 2-3 Months 10,000-100,000POCT-LACTIC ACID, [id number] 23:56:00 Test Item Value Reference Range Interpretation Comments POC-LACTIC ACID, 0.8 mmol/L 0.9-1.[address] [facility] [address] (BEAKER) (test [place] code = 2805) 73885 CBC W/PLT COUNT & AUTO [id number] 21:42:00 Test Item Value Reference Range Interpretation [...] to report due WIDTH (BEAKER) (test to [facility] RBC code = 412) population distribution. PLATELET [...] Received comment: User comments: Slide comments:BASIC METABOLIC [id number] 21:21:00 Test Item Value Reference Range Interpretation [...] FOR DIALYSIS PATIEN TS. OVA AND PARASITE [id number] 08:15:00 Test Item Value Reference Range Interpretation [...] seen seen code = 248) BASIC METABOLIC [id number] 05:42:00 Test Item Value Reference Range Interpretation [...] PATIEN TS. CBC W/PLT COUNT & AUTO [id number] 05:35:00 Test Item Value Reference Range Interpretation [...] PERCENT (BEAKER) (test code = 2801) TISSUE [id number] 09:51:00Surgical Pathology Report Case: [id number] Authorizing Provider: Amina Ike Stubbsammed Collected: 11/27/2018 1108 Ordering Location: [address] Received: 11/27/2018 1400 Service Pathologist: Jack [...] INVASIVE CARCINOMA. Signing Pathologist Direct Phone Line: [phone] signed by Jack Batista MD on 11/28/2018 at 9:51 [id number] and postop diagnosis: colitisA. Polyp, colon - [...] are submitted in toto in F1. CG/pl PERFORMED.[id number] 04:33:00 Test Item Value Reference Range Interpretation Comments MAGNESIUM (BEAKER) (test code = 1.9 mg/dL 1.6-2.6 627) BASIC METABOLIC [id number] 04:33:00 Test Item Value Reference Range Interpretation [...] APPLICABLE FOR DIALYSIS PATIEN TS. HEPATIC FUNCTION [id number] 04:33:00 Test Item Value Reference Range Interpretation [...] code = 19 U/L 6-55 347) CALCIUM, [id number] 04:30:00 Test Item Value Reference Range Interpretation Comments CALCIUM IONIZED (BEAKER) (test 1.09 mmol/L 1.12-1.27 L code = 698) PH, BLOOD (BEAKER) (test code = 7.41 1810) PROTHROMBIN [id number] 04:20:00 Test Item Value Reference Range Interpretation [...] wiht mechanical heart valves.STOOL CULTURE + SHIGA [id number] 11:46:00 Test Item Value Reference Range Interpretation Comments CULTURE (BEAKER) No Salmonella, Shigella (test code = 1095) or Campylobacter isolated HIV-1 ANTIGEN WITH HIV-1/2 [id number] 09:38:00 Test Item Value Reference Range Interpretation Comments HIV-1 ANTIGEN WITH HIV 1\\T\\2 Nonreactive Nonreactive ANTIBODY (2) (BEAKER) (test code = 2586) [id number] 05:10:00 Test Item Value Reference Range Interpretation Comments MAGNESIUM (BEAKER) (test code = 2.1 mg/dL 1.6-2.6 627) BASIC METABOLIC [id number] 05:10:00 Test Item Value Reference Range Interpretation [...] APPLICABLE FOR DIALYSIS PATIEN TS. HEPATIC FUNCTION [id number] 05:10:00 Test Item Value Reference Range Interpretation [...] code = 17 U/L 6-55 347) CALCIUM, [id number] 04:48:00 Test Item Value Reference Range Interpretation Comments CALCIUM IONIZED (BEAKER) (test 1.02 mmol/L 1.12-1.27 L code = 698) PH, BLOOD (BEAKER) (test code = 7.42 1810) PROTHROMBIN [id number] 04:39:00 Test Item Value Reference Range Interpretation [...] (BEAKER) (test code = 413) STOOL PATH [id number] 18:28:00 Test Item Value Reference Range Interpretation Comments PATHOGEN EXAM CHARGED (BEAKER) (test Done code = 2381) SHIGA TOXIN [id number] 14:40:00 Test Item Value Reference Range Interpretation Comments SHIGA TOXIN 1 (BEAKER) (test Not detected Not detected code = 2177) SHIGA TOXIN 2 (BEAKER) (test Not detected Not detected code = 2179) CBC W/PLT COUNT & AUTO [id number] 06:26:00 Test Item Value Reference Range Interpretation [...] 0-1 PERCENT (BEAKER) (test code = 2801) [id number] 06:21:00 Test Item Value Reference Range Interpretation Comments MAGNESIUM (BEAKER) (test code = 2.1 mg/dL 1.6-2.6 627) BASIC METABOLIC [id number] 06:21:00 Test Item Value Reference Range Interpretation [...] APPLICABLE FOR DIALYSIS PATIEN TS. HEPATIC FUNCTION [id number] 06:21:00 Test Item Value Reference Range Interpretation [...] code = 20 U/L 6-55 347) PROTHROMBIN [id number] 06:19:00 Test Item Value Reference Range Interpretation [...] 2.5-3.5 for patients wiht mechanical heart valves.CALCIUM, [id number] 05:52:00 Test Item Value Reference Range Interpretation Comments CALCIUM IONIZED (BEAKER) (test 1.08 mmol/L 1.12-1.27 L code = 698) PH, BLOOD (BEAKER) (test code = 7.41 1810) GI PATHOGEN PROFILE BY [id number] 18:49:00 Test Item Value Reference Range Interpretation [...] Not detected BY PCR (test code = 8034253) ENTEROPATHOGENIC E. COLI (EPEC) Not detected Not detected BY PCR (test code = 9351690) ENTEROTOXIGENIC E. COLI (ETEC) Not detected Not detected LT/ST BY PCR (test code = 6580510) SHIGA-LIKE TOXIN-PRODUCING E. Not detected Not detected COLI (STEC) STX1/STX2 (test code = 5765696) E. COLI O157 (PCR) (test code = Not detected 20151228) SHIGELLA/ENTEROINVASIVE E. COLI Not detected Not detected (EIEC) BY PCR (test code = 20151229) CRYPTOSPORIDIUM (PCR) (test code Not detected Not detected = 20151230) CYCLOSPORA CAYETANENSIS (PCR) Not detected Not detected (test code = ) ENTAMOEBA HISTOLYTICA (PCR) Not detected Not detected [...] Not detected Not detected (test code = 7887074) VIBRIO (PARAHAEMOLYTICUS, Not detected Not detected VULNIFICUS) (test code = 1154723) Other viruses, parasites and bacteria not targeted by this PCR panel cannot be excluded; therefore clinical correlation and follow up of serology, culture results, and other molecular studies is required. The results are not intended to be used as the sole means for clinical diagnosis or patient management decisions. This sample was tested at the [facility] Molecular Diagnostics Laboratory using the [employer] Gastrointestinal Panel. It is FDA cleared and has been verified and approved by the [facility] Molecular Diagnostics Laboratory for clinical use. This laboratory is CLIA-certified and College ofAmerican Pathologists (CAP)-accredited to perform high complexity testing.C. DIFFICILE GDH [id number] 17:47:00 Test Item Value Reference Range Interpretation Comments CDT TOXIN (test code Negative Negative = 6265918882) CDT GDH ANTIGEN (test Negative Negative No ind ication of code = 6259936039) Clostridi um difficile infection and n o colonization. Discontinue ent janay isolation and t herapy. Testing performed by [employer] Rapid Cassette Assay. For GDH, published sensitivity of the assay is 98.7% compared to cytotoxicity testing. For Toxin AB, published sensitivity is 87.8% and specificity 99.4% compared to cytotoxicity testing.Verification of kit performance was done by the [facility] MicrobiologyLab prior to clinical use.[id number] 17:01:00 Test Item Value Reference Range Interpretation [...] 20-55 L (test code = 2590) C-REACTIVE [id number] 16:39:00 Test Item Value Reference Range Interpretation Comments C-REACTIVE PROTEIN (BEAKER) (test 7.69 mg/dL 0.00-0.50 H code = 676) RETICULOCYTE [id number] 16:24:00 Test Item Value Reference Range Interpretation Comments RETICULOCYTE COUNT PCT (BEAKER) (test 0.8 % 0.5-1.7 code = 575)
[2022-12-24] MEDS ORDERED: CIPROFLOXACIN HCL 500 MG TAB ONE (21:44)
[2022-12-24] MEDS ORDERED: NA CHLORIDE 0.9% 1,000 ML ONE (21:44)
[2022-12-24] MEDS ORDERED: metroNIDAZOLE 500 MG TABLET ONE (21:44)
[2022-12-24 21:45] LABS: Absolute Lymphocytes (CBC) 1.7 K/uL (0.7-4.9); Hematocrit 34.3 % (36.0-45.0); Lymphocytes % 14.6 % (15.3-44.8); MCV 73.4 fL (80-100); MPV 6.6 fL (7.6-11.3); RBC Red Blood Cell Count 4.67 M/uL (3.86-4.86)
[2022-12-24 21:58] LABS: Albumin 3.2 g/dL (3.4-5.0); Bilirubin Total 0.3 mg/dL (0.2-1.0)
--- NOTE | 2022-12-24 22:20 | RAD REPORT ---
EXAM DESCRIPTION: CT - Abdomen Pelvis W Contrast - 12/24/2022 10:07 pm CLINICAL HISTORY: Abdominal pain COMPARISON: October 2022 TECHNIQUE: Computed axial tomography of the abdomen pelvis was obtained. 100 cc Isovue-300 was admin istered intravenously. Oral contrast was not requested which limits evaluation of bowel and appendix All CT scans are performed using dose optimization technique as appropriate and may include automated exposure control or mA/KV adjustment according to patient size. FINDINGS: The liver, spleen, pancreas, adrenal and kidneys appear unremarkable. Mild thickening of the wall of the transverse colon. Moderate thickening of the wall of descending co luan, sigmoid colon and rectum. No pneumatosis intestinalis. No adnexal mass IMPRESSION: Mild ulcerative colitis transverse colon Moderate ulcerative colitis descending colon, sigmoid colon and rectum
[2022-12-24] MEDS ORDERED: METHYLPREDNISOLONE 125 MG INJ ONE (22:38)
[2022-12-24] MEDS ORDERED: ACETAMINOPHEN 500 MG TAB ONE (23:50)
[2022-12-25] LABS: Specific Gravity > 1.030 (1.005-1.030)
[2022-12-25 00:02] LABS: Specific Gravity > 1.030 (1.005-1.030); Urine Bacteria <20 /HPF (<20); Urine Bilirubin NEGATIVE (Negative); Urine Blood 1+ (Negative); Urine Clarity Clear (Clear); Urine Color Colorless (Yellow); Urine Glucose NEGATIVE (Negative); Urine Mucus Slight /HPF (None Seen); Urine Protein NEGATIVE (Negative); Urine Urobilinogen Normal (Normal); Urine pH 6.5 (5.0-7.0)
[2022-12-25] MEDS ORDERED: ONDANSETRON 4 MG/2 ML VIAL ONE (00:31)
[2022-12-25] MEDS ORDERED: MORPHINE 4 MG/ML SYR ONE (00:31)
[2022-12-25] MEDS ORDERED: LACTULOSE 20 GM/30 ML UCUP ONE (00:31)
--- NOTE | 2022-12-25 01:22 | EDPHYS ---
Physician Documentation [facility] Name: Kaitlynn Orourke Age: 42 yrs Sex: Female : 1980 Arrival Date: 12/24/2022 Time: 17:20 Bed 18 Private MD: ED Physician Bruce Case HPI: 12/24 23:57 This 42 yrs old Female presents to ER via Ambulatory with complaints of sb4 Abdominal Pain. 23:57 The patient presents with abdominal pain that is diffuse. sb4 23:58 Onset: The symptoms/episode began/occurred 2 week(s) ago. The symptoms do not radiate. sb4 Associated signs and symptoms: Pertinent positives: constipation, Pertinent negatives: nausea, vomiting, and diarrhea. The patient has experienced similar episodes in the past, a few times. Patient states that she has generalized abdominal pain that is similar to her prior ulcerative colitis flares she also reports blood in her stool. States she has not had a decent bowel movement in 4 days. She is not on any preventative medication. 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 - Social history:: Smoking status: Patient denies any tobacco usage or history of. ROS: 23:58 Constitutional: Negative for fever, chills, and weight loss, Eyes: Negative for injury, sb4 pain, redness, and discharge, ENT: Negative for injury, pain, and discharge, Cardiovascular: Negative for chest pain, palpitations, and edema, Respiratory: Negative for shortness of breath, cough, wheezing, and pleuritic chest pain, Back: Negative for injury and pain, MS/Extremity: Negative for injury and deformity, Skin: Negative for injury, rash, and discoloration. 23:58 Abdomen/GI: Positive for abdominal pain, constipation, rectal bleeding, Negative for nausea, vomiting, and diarrhea. 23:58 All other systems are negative. Exam: 23:58 Constitutional: This is a well developed, well nourished patient who is awake, alert, sb4 and in no acute distress. Head/Face: Normocephalic, atraumatic. Eyes: Extra-ocular motions intact. Periorbital areas with no swelling, redness, or edema. Cardiovascular: Regular rate and rhythm with a normal S1 and S2. Respiratory: Lungs have equal breath sounds bilaterally, clear to auscultation and percussion. No rales, rhonchi or wheezes noted. No increased work of breathing, no retractions or nasal flaring. Abdomen/GI: Soft, non-tender, no distension. Skin: Warm, dry with normal turgor. Normal color with no rashes, no lesions, and no evidence of cellulitis. MS/ Extremity: Pulses equal, no cyanosis. Neurovascular intact. Full, normal range of motion. Vital Signs: 17:39 BP 114 / 82; Pulse 112; Resp 18; Temp 100.2; Pulse Ox 99% on R/A; Weight 63.05 kg; mb9 Height 5 ft. 1 in. ; Pain 10/10; 22:20 BP 118 / 78; Pulse 110; Resp 18 S; Pulse Ox 98% on R/A; ha1 23:00 BP 106 / 67; Pulse 114; Resp 18 S; Pulse Ox 99% on R/A; ha1 12/25 00:00 BP 103 / 72; Pulse 116; Resp 18 S; Pulse Ox 98% on R/A; ha1 01:00 BP 100 / 72; Pulse 95; Resp 18 S; Temp 98.9(O); Pulse Ox 98% on R/A; ha1 12/24 17:39 Body Mass Index 26.26 (63.05 kg, 154.94 cm) [facility] 12/24 17:39 Pain Scale: Adult [facility] MDM: 12/24 20:57 Patient medically screened. sb4 23:58 Differential diagnosis: bowel obstruction, diverticulitis, gastritis, GI Bleed, sb4 non-specific abd pain, Peptic Ulcer Disease, Perf. Duodenal Ulcer, Perf. Gastric Ulcer, UC flare. Data reviewed: vital signs, nurses notes, lab test result(s), radiologic studies, and as a result, I will discharge patient. Consideration of Admission/Observation Escalation of care including admission/observation considered. Care significantly affected by the following chronic conditions: Ulcerative Colitis. Counseling: I had a detailed discussion with the patient and/or guardian regarding: the historical points, exam findings, and any diagnostic results supporting the discharge/admit diagnosis, lab results, radiology results, the need for outpatient follow up, a delivery person, to return to the emergency department if symptoms worsen or persist or if there are any questions or concerns that arise at home. Transition of care: Care assumed from Bruce Case MD. 12/24 17:47 Order name: CBC with Diff; Complete Time: 21:55 kdr 12/24 17:47 Order name: CMP; Complete Time: 22:03 kdr 12/24 17:47 Order name: Lipase; Complete Time: 22:03 kdr 12/24 17:47 Order name: Urinalysis w/ reflexes; Complete Time: 00:03 kdr 12/24 17:57 Order name: Test, Urine; Complete Time: 00:01 kdr 12/24 22:56 Order name: CREATININE WHOLE BLOOD; Complete Time: 23:11 EDMS 12/24 17:57 Order name: CT Abd/Pelvis - IV Contrast Only; Complete Time: 22:21 kdr 12/24 17:47 Order name: IV Saline Lock; Complete Time: 21:36 kdr 12/24 17:47 Order name: Labs collected and sent; Complete Time: 21:37 kdr 12/25 00:03 Order name: Vital Signs; Complete Time: 00:09 sb4 Administered Medications: 21:49 Drug: NS 0.9% IV 1000 ml Route: IV; Rate: 1 bolus; Site: right antecubital; ha1 21:49 Drug: Ciprofloxacin PO 500 mg Route: PO; ha1 12/25 01:46 Follow up: Response: No adverse reaction ha1 12/24 21:49 Drug: metroNIDAZOLE PO 500 mg Route: PO; ha1 22:30 Drug: MethylPrednisoLONE IVP 125 mg Route: IVP; Site: right antecubital; ha1 23:40 Drug: Acetaminophen PO 1000 mg Route: PO; ha1 12/25 01:45 Follow up: Response: No adverse reaction; Temperature is decreased ha1 00:10 Drug: Lactulose PO 20 grams Volume: 30 ml; Route: PO; ha1 01:44 Follow up: Response: No adverse reaction ha1 00:16 Drug: Ondansetron IVP 4 mg Route: IVP; Site: right antecubital; ha1 00:40 Follow up: Response: No adverse reaction ha1 00:20 Drug: morphine IVP or IV 4 mg Route: IVP; Infused Over: 4 mins; Site: right antecubital;ha1 00:40 Follow up: Response: No adverse reaction; Pain is decreased; RASS: Alert and Calm (0) ha1 01:20 Drug: Potassium Chloride PO 40 mEq Route: PO; ha1 01:44 Follow up: Response: No adverse reaction ha1 Disposition Summary: 12/25/22 01:22 Discharge Ordered Location: Home sb4 Problem: an acute exacerbation sb4 Symptoms: have improved sb4 Condition: Stable sb4 Diagnosis - Ulcerative Colitis Flare sb4 Followup: sb4 - With: - When: 2 - 3 days - Reason: Further diagnostic work-up, Recheck today's complaints, Re-evaluation by your physician Discharge Instructions: - Discharge Summary Sheet sb4 - Ulcerative Colitis, Adult sb4 Forms: - Medication Reconciliation Form sb4 - Thank You Letter sb4 - Antibiotic Education sb4 - Prescription Opioid Use sb4 - Patient Portal Instructions sb4 Prescriptions: - Flagyl 500 mg Oral Tablet - take 1 tablet by ORAL route every 12 hours for 7 days; 14 tablet; Refills: 0, sb4 Product Selection Permitted - Cipro 500 mg Oral Tablet - take 1 tablet by ORAL route every 12 hours for 7 days; 14 tablet; Refills: 0, sb4 Product Selection Permitted - Medrol (Jackson) 4 mg Oral Tablets, Dose Pack - take 1 tablet by ORAL route as directed - follow package instructions; 1 sb4 packet; Refills: 0, Product Selection Permitted Signatures: Dispatcher [employer] Bruce Albarran MD MD kdr Ayala, Heidy RN RN ha1 Karol Major PA-C PA-C sb4 Brittni Madrid RN RN mb9
--- NOTE | 2022-12-25 01:22 | ER ---
Nurse's Notes [facility] Name: Kaitylnn Orourke Age: 42 yrs Sex: Female : 1980 Arrival Date: 12/24/2022 Time: 17:20 Bed 18 Private MD: Diagnosis: Ulcerative Colitis Flare Presentation: 12/24 17:39 Chief complaint: Patient states: "I have ulcerative collitis and I haven't had a decent mb9 bowel movement for 2 weeks now. I'm in a lot of pain on my left side of my stomach. I can't even drink any water without being sick and in pain." Pt denies N/V. Coronavirus screen: Vaccine status: Patient reports receiving the 2nd dose of the covid vaccine. Ebola Screen: No symptoms or risks identified at this time. Initial Sepsis Screen: Does the patient meet any 2 criteria? No. Patient's initial sepsis screen is negative. Does the patient have a suspected source of infection? No. Patient's initial sepsis screen is negative. Risk Assessment: Do you want to hurt yourself or someone else? Patient reports no desire to harm self or others. Onset of symptoms was December 24, 2022. 17:39 Method Of Arrival: Ambulatory mb9 17:39 Acuity: DELMY 3 mb9 Triage Assessment: 17:42 General: Appears uncomfortable, Behavior is cooperative. Pain: Complains of pain in mb9 abdomen Pain radiates to LLQ. Pain: Pain currently is 10 out of 10 on a pain scale. Quality of pain is described as crampy, Pain began suddenly, Is continuous. Neuro: Walker Agitation-Sedation Scale (RASS): 0 - Alert and Calm Level of Consciousness is awake, alert, obeys commands, Oriented to person, place, time, situation, Appropriate for age. Cardiovascular: Patient's skin is warm and dry. Respiratory: Airway is patent Respiratory effort is even, unlabored, Respiratory pattern is regular, symmetrical. GI: Reports lower abdominal pain, upper abdominal pain, constipation, bloody stool. Musculoskeletal: Range of motion: intact in all extremities. 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 - Social history:: Smoking status: Patient denies any tobacco usage or history of. Screenin:50 [facility] ED Fall Risk Assessment (Adult) History of falling in the last 3 months, ha1 including since admission No falls in past 3 months (0 pts) Confusion or Disorientation No (0 pts) Intoxicated or Sedated No (0 pts) Impaired Gait No (0 pts) Mobility Assist Device Used No (0 pt) Altered Elimination No (0 pt) Score/Fall Risk Level 0 - 2 = Low Risk Oriented to surroundings, Maintained a safe environment, Educated pt \\T\\ family on fall prevention, incl call for assistance when getting out of bed. Abuse screen: Denies threats or abuse. Denies injuries from another. Nutritional screening: No deficits noted. Tuberculosis screening: No symptoms or risk factors identified. Assessment: 17:43 Reassessment: see triage assessment. 9 21:35 General: Appears uncomfortable, Behavior is calm, cooperative. Pain: Complains of pain ha1 in abdomen Pain does not radiate. Pain currently is 8 out of 10 on a pain scale. Quality of pain is described as burning, crampy. Neuro: Level of Consciousness is awake, alert, obeys commands, Oriented to person, place, time, situation. Cardiovascular: Patient's skin is warm and dry. Respiratory: Airway is patent Respiratory effort is even, unlabored, Respiratory pattern is regular, symmetrical. GI: GI: Abdomen is flat, non-distended, Bowel sounds present X 4 quads. Abd is soft and non tender Reports lower abdominal pain, constipation, cramping. Derm: Skin is pink, warm \\T\\ dry. Musculoskeletal: Circulation, motion, and sensation intact. Range of motion: intact in all extremities. 22:30 Reassessment: Patient and/or family updated on plan of care and expected duration. Pain ha1 level reassessed. Patient is alert, oriented x 3, equal unlabored respirations, skin warm/dry/pink. 22:33 Reassessment: Patient and/or family updated on plan of care and expected duration. Pain ha1 level reassessed. Patient is alert, oriented x 3, equal unlabored respirations, skin warm/dry/pink. 23:30 Reassessment: Patient and/or family updated on plan of care and expected duration. Pain ha1 level reassessed. Patient is alert, oriented x 3, equal unlabored respirations, skin warm/dry/pink. 12/25 00:30 Reassessment: Patient and/or family updated on plan of care and expected duration. Pain ha1 level reassessed. Patient is alert, oriented x 3, equal unlabored respirations, skin warm/dry/pink. Vital Signs: 12/24 17:39 BP 114 / 82; Pulse 112; Resp 18; Temp 100.2; Pulse Ox 99% on R/A; Weight 63.05 kg; mb9 Height 5 ft. 1 in. ; Pain 10/10; 22:20 BP 118 / 78; Pulse 110; Resp 18 S; Pulse Ox 98% on R/A; ha1 23:00 BP 106 / 67; Pulse 114; Resp 18 S; Pulse Ox 99% on R/A; ha1 12/25 00:00 BP 103 / 72; Pulse 116; Resp 18 S; Pulse Ox 98% on R/A; ha1 01:00 BP 100 / 72; Pulse 95; Resp 18 S; Temp 98.9(O); Pulse Ox 98% on R/A; ha1 12/24 17:39 Body Mass Index 26.26 (63.05 kg, 154.94 cm) mb9 12/24 17:39 Pain Scale: Adult mb9 ED Course: 12/24 17:36 Patient arrived in ED. im 17:41 Triage completed. mb9 17:41 Arm band placed on. mb9 17:45 Bruce Case MD is Attending Physician. kdr 20:57 Karol Major PA-C is PHCP. sb4 21:35 Patient has correct armband on for positive identification. Placed in gown. Bed in low ha1 position. Call light in reach. Side rails up X 1. 21:35 Inserted saline lock: 20 gauge in right antecubital area, using aseptic technique. ha1 Blood collected. 21:37 CBC with Diff Sent. ha1 21:37 CMP Sent. ha1 21:37 Lipase Sent. ha1 21:38 Radiology exam delayed due to test not completed at this time. eh4 21:48 Vicki Boateng, VELIA is Primary Nurse. ha1 22:09 CT Abd/Pelvis - IV Contrast Only In Process Unspecified. EDMS 12/25 01:22 Poli Pearce MD is Referral Physician. sb4 01:47 No provider procedures requiring assistance completed. IV discontinued, intact, ha1 bleeding controlled, No redness/swelling at site. Pressure dressing applied. Administered Medications: 12/24 21:49 Drug: NS 0.9% IV 1000 ml Route: IV; Rate: 1 bolus; Site: right antecubital; ha1 21:49 Drug: Ciprofloxacin PO 500 mg Route: PO; ha1 12/25 01:46 Follow up: Response: No adverse reaction ha1 12/24 21:49 Drug: metroNIDAZOLE PO 500 mg Route: PO; ha1 22:30 Drug: MethylPrednisoLONE IVP 125 mg Route: IVP; Site: right antecubital; ha1 23:40 Drug: Acetaminophen PO 1000 mg Route: PO; ha1 12/25 01:45 Follow up: Response: No adverse reaction; Temperature is decreased ha1 00:10 Drug: Lactulose PO 20 grams Volume: 30 ml; Route: PO; ha1 01:44 Follow up: Response: No adverse reaction ha1 00:16 Drug: Ondansetron IVP 4 mg Route: IVP; Site: right antecubital; ha1 00:40 Follow up: Response: No adverse reaction ha1 00:20 Drug: morphine IVP or IV 4 mg Route: IVP; Infused Over: 4 mins; Site: right antecubital;ha1 00:40 Follow up: Response: No adverse reaction; Pain is decreased; RASS: Alert and Calm (0) ha1 01:20 Drug: Potassium Chloride PO 40 mEq Route: PO; ha1 01:44 Follow up: Response: No adverse reaction ha1 Medication: 01:49 VIS not applicable for this client. ha1 Outcome: 01:22 Discharge ordered by . sb4 01:48 Discharged to home ambulatory. ha1 01:48 Condition: stable 01:48 Discharge instructions given to patient, Instructed on discharge instructions, follow up and referral plans. medication usage, Demonstrated understanding of instructions, follow-up care, medications, Prescriptions given X 3. 01:51 Patient left the ED. ha1 Signatures: Dispatcher [employer] EDNE Bruce Case MD MD kdr Ayala, Heidy, RN RN 1 Kushal Mendez eh4 Karol Major PA-C PAAnithaC sb4 Brittni Madrid, RN RN mb9 Trina Coker Corrections: (The following items were deleted from the chart) 12/24 21:38 19:16 Radiology exam delayed due to lab results not completed at this time. eh4 (BUN/Creatinine) test not completed at this time. IV insertion attempt and/or patient not having appropriate IV at this time. eh4
[2022-12-25] MEDS ORDERED: POTASSIUM CL SA 10 MEQ TAB PO ONE (01:45)
[2022-12-25 03:02] VITALS: O2SAT 98
[2022-12-25 03:03] VITALS: BP 100/72; TEMP 98.9
== END 2022-12-25 01:51 | disposition home or self-care (01) ==
LOC: ER 17:20
DX: K51.90 Ulcerative colitis, unspecified, without complications (principal)
CPT/HCPCS: 85025; 81001; 36415; 81025; 82565; 83690; 80053; 74177; 96375; 96374; 99284; Q9967; J2930; J2405; J7030

== ENCOUNTER 2023-01-09 05:03 | Emergency (ER) | payer OTHER ==
--- OUTSIDE RECORDS SUMMARY | 2023-01-09 05:07 | XMS REPORT | Continuity of Care Document ---
:1980 Author Organization [facility] t Address [address] [place] [address] Care Team Providers Name Role Phone No, Pcp [facility] Primary Care Physician Unavailable Janet Salazar Attending Clinician Unavailable Lab, Adc Fam Pob I Attending Clinician Unavailable Sara Rothman Attending Clinician Ania Keen Attending Clinician ANIA GARCIA Attending Clinician Unavailable Bree Cortes Attending Clinician BREE ZAMBRANO Attending Clinician Unavailable Doctor Unassigned, [place] Attending Clinician Unavailable Radha Hancock RN Attending Clinician Unavailable Melva Burrows RN Attending Clinician Unavailable Pob1, Acute [facility] Attending Clinician Unavailable SARA GORDON Attending Clinician Unavailable INGRID HARRIS Attending Clinician Unavailable QUOC CARMONA Attending Clinician Unavailable QUOC CARMONA Admitting Clinician Unavailable Payers Payer Name Policy Type Policy Number Effective Date Expiration Date S samrace Blue Cross and C1 [id number] [facility] Blue Cross and C1 [id number] Common S [facility] [place] Blue Shield - [facility] [...] ICD10 ity of 00:00: Diagnosis Term Medical Shared Services Representative Branch Utility Maternal Maternal Disease Active Overview: Un cesar pyrexia pyrexia 11-22 ICD10 ity of during during 00:00: Diagnosis [place] labor, labor, 00 Term Medical delivered delivered Shared Services Representative Br anch Utility Multiparit Multiparit Disease Active U nivers y y 11-22 ity of 00:00: [place] [facility] Status Status Disease Active Overview: Univer s post tubal post tubal 11-22 ICD10 it y of ligation ligation 00:00: Diagnosis Scotty as 00 Term Medical Shared Services Representative Branch Utility [id number] Internal Problem Active Commo n hemorrhoid Spirit s [facility] [id number] Subcutaneo Problem Active Com mon us nodules [facility] [id number] Blood in Problem Active Comm on stool [facility] [id number] Clostridio Problem Active Co mmon ides Spirit difficile - [facility] infection [facility] [id number] Transfusio Problem Active Co mmon n history [facility] [id number] Abdominal Problem Active Comm on pain, Spirit unspecifie - [facility] [id number] Follow-up Problem Active Com mon exam [facility] [id number] Diarrhea, Problem Active Comm on unspecifie Spirit d type [facility] [id number] Nausea Problem Active Common [facility] [id number] Hypokalemi Problem Active Com mon a [facility] [id number] Counseling Problem Active Co mmon and Spirit coordinati - CHI on of care [facility] [id number] Axillary Problem Active Comm on lymphadeno [facility] marcos [facility] [id number] Thrombocyt Problem Active Co mmon openia [facility] 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 Spirit syndrome bowel - [facility] syndrome) [facility] [id number] Shortness Problem Active Com mon of breath [facility] [id number] Anemia, Problem Active Commo n unspecifie Spirit d [facility] Seasonal Seasonal Problem Active Commo n allergy allergies [facility] 29252759 Ulcerative Problem Active Com mon colitis Spirit without - CHI complicati [facility] unspecifie Medica l d location Center [id number] Abnormal Problem Active Comm on ultrasound [facility] [id number] Fatigue, Problem Active Commo n unspecifie Spirit d [facility] Allergies, Adverse Reactions, Alerts Allergy Allergy [...] Date Stop Date Source Natural mother Cancer [facility] Social History Social Habit Start Date Stop Date Quantity Comments Source Exposure to Not sure University of SARS-CoV-2 [place] [facility] (event) Branch History SDOH [facility] Drinks History SDOH [facility] Alcohol Binge Medical [address] [facility] History of Common Spirit - Tobacco Use [facility] Alcohol intake 2022-08-08 2022-08-08 Current [facility] es 00:00:00 00:00:00 non-drinker of Medical Ce nter alcohol (finding) Tobacco use and 2019-08-30 2019-08-30 Never used Universit y of exposure 00:00:00 00:00:00 [place] [facility] History SDOH 2018-11-25 2018-11-[address] [facility] Alcohol Frequency 00:00:00 00:00:[address] [facility] Sex Assigned At [address] [facility] k[facility] 00:00:00 00:00:00 [facility] Smoking Status Start Date Stop Date Source Never Smoker Common [facility] Medications Ordered Filled Start Stop Current Ordering Indication Dosage Frequency Signature Comments Components Source Medication Medication Date Date Medication? Clinician (SIG) Name Name valerie 2020-0 2020- No [id number] 5mL Take 5 mL Univers mine-pseudo 08-2920 by mouth 4 i ty of ephedrine-D 00:00: 04:59 (four) Scotty as M (BROMFED 00 :00 times Medical DM) 2-30-10 daily as Bran ch mg/5 mL needed for syrup Congestion /Allergies or Cough for up to 10 days. bromphenira 2020-0 2020- No [id number] 5mL Take 5 mL Univers mine-pseudo 08-2920 by mouth 4 i ty of ephedrine-D 00:00: 04:59 (four) Scotty as M (BROMFED 00 :00 times Medical DM) 2-30-10 daily as Bran ch mg/5 mL needed for syrup Congestion /Allergies or Cough for up to 10 days. REMICADE 2019-0 Yes Univers 100 mg 3-23 ity of injection 00:00: [address] Branch REMICADE 2020-0 Yes Univers 100 mg 3-23 ity of injection 00:00: [address] REMICADE 2020-0 Yes Univers 100 mg 3-23 ity of injection 00:00: [address] Branch REMICADE 2020-0 Yes Univers 100 mg 3-23 ity of injection 00:00: [address] REMICADE 2020-0 Yes Univers 100 mg 3-23 ity of injection 00:00: [address] Branch REMICADE 2020-0 Yes Univers 100 mg 3-23 ity of injection 00:00: [address] Branch REMICADE 2020-0 Yes Univers 100 mg 3-23 ity of injection 00:00: [address] ondansetron 2019-0 Yes 4mg Take 1 [...] 4mg Take [address] (ZOFRAN) 4 9- tablet (4 Luke s MG tablet 00:00: mg total) Med ical 00 by mouth 3 Center (three) times daily as needed for Nausea for up to 10 doses. ondansetron 2019-0 Yes 4mg Take 1 [facility] [address] (ZOFRAN) 4 9- tablet (4 Luke s MG tablet 00:00: mg total) Med ical 00 by mouth 3 Center (three) times daily as needed for Nausea for up to 10 doses. ondansetron 2019-0 Yes 4mg Take 1 [facility] [address] (ZOFRAN) 4 - tablet (4 Luke s MG tablet 00:00: mg total) Med ical 00 by mouth 3 Center (three) times daily as needed for Nausea for up to 10 doses. Yes Janet (OTC) 1 Com mon [place] Millender tablet [facility] Entyvio 300 Entyvio 300 No Entyvio [...] 1{table QD Ondansetro 4 MG 4 MG t_on_ n 4 MG e_tongu e_and_a llow_to _dissol [...] 23 2019-03-14 Completed Common Spi rit 16:53:00 [facility] PNEUMAVAX 23 PNEUMAVAX 23 2019-03-14 Completed Common Spi rit 16:53:00 [facility] Flucelvax - single Flucelvax - single 2019-03-14 Completed Common Spirit dose syringe dose syringe 16:52:00 [facility] Flucelvax - single Flucelvax - single 2019-03-14 Completed Common Spirit dose syringe dose syringe 16:52:00 [facility] Flucelvax - single Flucelvax - single 2019-03-14 Completed Common Spirit dose syringe dose syringe 00:00:00 [facility] PNEUMAVAX 23 PNEUMAVAX 23 2019-03-14 Completed Common Spi rit 00:00:00 [facility] Vital Signs Vital Name Observation Time Observation Value Comments Source height 2020-07-29 14:45:00 61 [in_i] [facility] weight 2020-07-29 14:45:00 139.0 [lb_av] [facility] temperature 2020-07-29 14:45:00 98.2 [degF] [facility] bmi 2020-07-29 14:45:00 26.26 kg/m2 [facility] oximetry 2020-07-29 14:45:00 98 % [facility] blood pressure 2020-07-29 14:45:00 106 mm[Hg] [facility] systolic [facility] blood pressure 2020-07-29 14:45:00 60 mm[Hg] [facility] - diastolic [facility] Systolic blood 2019-08-30 13:35:00 113 mm[Hg] Univer sity of pressure [place] [facility] Diastolic blood 2019-08-30 13:35:00 78 mm[Hg] Unive rsity of pressure [place] [facility] Heart rate 2019-08-30 13:35:00 106 /min Universi ty of [place] [facility] Body temperature 2019-08-30 13:35:00 37.67 Taryn Univ ersity of [place] [facility] Respiratory rate 2019-08-30 13:35:00 20 /min Univ ersity of [place] [facility] Body height 2019-08-30 13:35:00 154.9 cm Universi ty [facility] [place] [facility] Body weight 2019-08-30 13:35:00 63.504 kg Universi ty [facility] [place] [facility] BMI 2019-08-30 13:35:00 26.45 kg/m2 Universi ty of [place] [facility] Oxygen saturation in 2019-08-30 13:35:00 99 /min University of Arterial blood by [place] [employer] Pulse oximetry Branch Systolic blood 2019-08-30 13:35:00 113 mm[Hg] Univer sity of pressure [place] [facility] Diastolic blood 2019-08-30 13:35:00 78 mm[Hg] Unive rsity of pressure [place] [facility] Heart rate 2019-08-30 13:35:00 106 /min Universi ty of [place] [facility] Body temperature 2019-08-30 13:35:00 37.67 Taryn Univ ersity of [place] [facility] Respiratory rate 2019-08-30 13:35:00 20 /min Univ ersity of [place] [facility] Body height 2019-08-30 13:35:00 154.9 cm Universi ty [facility] [place] [facility] Body weight 2019-08-30 13:35:00 63.504 kg Universi ty [facility] [place] [facility] BMI 2019-08-30 13:35:00 26.45 kg/m2 Universi ty [facility] [place] [facility] Oxygen saturation in 2019-08-30 13:35:00 99 /min University of Arterial blood by [place] [employer] Pulse oximetry Branch Procedures Procedure Date / Time Performed Performing Clinician Sourc e POCT GRP A STREP 2019-08-30 13:43:00 Bree Zambrano [facility] Medical Branch Encounters Start End Encounter Admission Attending Care Care Encounter Source Date/Time Date/Time Type Type Clinicians Facility Department ID 2021-06-17 Outpatient Martin, STJORGE STLMLC [id number] Common 12:36:[id number] [facility] 2021-06-17 Outpatient Martin STJORGE STLMLC [id number] Common 11:04:[id number] [facility] 2021-06-17 Outpatient Martin STJORGE STLMLC [id number] Common 10:59:[id number] [facility] 2020-07-29 2020-07-29 OFFICE STLMLC STLMLC [id number] Co mmon 00:00:00 00:00:00 VISIT [facility] it PT LEVEL 3 [facility] 2020-07-28 2020-07-28 (TEL) STLMLC STLMLC [id number] Co mmon 00:00:00 00:00:00 [facility] 2020-07-16 2020-07-16 Laboratory Lab, Adc Fam Pob [facility] 1.2. [id number] [id number] Univers 10:24:15 10:44:15 Only [facility] [id number] ity [facility] 4.2.7.2.686 Scotty as Professio [phone] [address] Building One 2020-07-16 2020-07-16 Outpatient R [facility] [id number] Univers 10:20:00 10:20:00 ity [facility] 2020-05-21 2020-05-21 Laboratory Lab, [facility] Fam Pob I [facility] 1.2. 840.114 [id number] Univers 18:37:35 18:57:35 Only Ania Garcia [facility] [id number] ity [facility] 4.2.7.2.686 Scotty as Professio [phone] [address] Office Building One 2020-05-21 2020-05-21 Outpatient R NILSON [facility] [id number] Univers 18:40:00 18:40:00 ANIA mays o f [facility] 2020-01-26 2020-01-26 Laboratory Lab, Adc Fam Pob I [facility] 1.2. 840.114 [id number] Univers 08:37:22 08:57:22 Only Bree Zambrnao Health 350.1.13.10 ity of [place] 4.2.7.2.686 Scotty as Professio [phone] [place] [address] Office Building One 2020-01-26 2020-01-26 Outpatient R ELIMARY [facility] [id number] Univers 08:40:00 08:40:00 BREE ity of [facility] 2020-01-26 2020-01-26 Letter Doctor MICHELL [id number] Univers 00:00:00 00:00:00 (Out) Unassigned, RICHARD [id number] ity of [place] [facility] 4.2.7.2.686 Scotty as [phone] [address] 2020-01-26 2020-01-26 Telephone Radha Hancock 1.2.840.114 [id number] Univers 00:00:00 00:00:00 RICHARD [id number] it y of HOSPITAL 4.2.7.2.686 Scotty as [phone] [address] 2019-08-31 2019-08-31 Telephone MICHELL Burrows 1.2.840.114 [id number] Univers 00:00:00 00:00:00 Melva RAMOS 350.1.13.10 i ty of HOSPITAL 4.2.7.2.686 Scotty as [phone] [address] 2019-08-31 2019-08-31 Telephone MICHELL Burrows 1.2.840.114 [id number] 00:00:00 00:00:00 Melva RAMOS 350.1.13.10 HOSPITAL 4.2.7.2.686 [id number] [facility][note 3] 2019-08-30 2019-08-30 Urgent Pob1, Acute Care Clinic [facility] 1. 2.840.114 [id number] Univers 08:24:35 08:57:39 Care [facility] [id number] ity of [place] 4.2.7.2.686 Scotty as Professio [phone] Wa dical nal [address] Office [address] One 2019-08-30 2019-08-30 Urgent Pob1, Acute [facility] 1.2.840.114 [id number] 08:24:35 08:57:39 [place] [id number] [place] 4.2.7.2.686 Professio [phone] nal [address] One 2019-08-30 2019-08-30 Outpatient Kate GORDON, [facility] [id number] Univers 08:40:00 08:40:00 SARA josueyariel [facility] 2019-04-26 2019-04-26 Outpatient [place] [id number] Common 14:40:00 14:40:00 t [facility] [address] Sp[address] [facility] 2019-04-11 2019-04-11 Outpatient Beth [place] [id number] Common 20:49:00 20:49:00 t [facility] [address] Sp[address] [facility] 2019-03-14 2019-03-14 Outpatient [place] [place] [id number] Common 10:40:00 10:40:00 t [facility] [address] Sp[address] [facility] 2019-03-06 2019-03-06 Outpatient [place] [id number] Common 02:35:00 02:35:00 t [facility] [address] Sp[address] Road [facility] 2019-02-28 2019-02-28 Outpatient [place] [id number] Common 09:29:00 09:29:[address] [facility] 2019-02-23 2019-02-23 Outpatient [place] [id number] Common 11:20:00 11:20:[address] [facility] 2018-11-02 2018-11-02 Outpatient [place] [id number] Common 10:01:00 10:01:[address] [facility] 2018-10-06 2018-10-06 Outpatient [place] [id number] Common 15:20:00 15:20:00 t [facility] Spir it Road [facility] Results Test Description Test Time Test Comments Results Result Comments Source POCT GRP A STREP (MOLECULAR) 2019-08-30 13:53:00 Test Item Value Reference Range Interpretation Comme nts POCT GP A STREP (test code = neg Negative - Negative 47380-0) DAWIT (test code = DAWIT) accurate development and interpretation of all internal controls Lab Interpretation (test code = Normal 85570-2) [facility] [id number] 02:33:00 Test Item Value Reference Range Interpretation Comments TEST URINE (BEAKER) (test Negative code = 583) URINALYSIS W/ REFLEX URINE [id number] 02:31:00 Test Item Value Reference Range Interpretation [...] 1584) SOURCE(BEAKER) (test code = 2795) CT, [id number] 02:09:00Reason for exam:->ABDOMINAL PAINReason for exam:->NAUSEAReason for [...] MDReport Verified Date/Time: 01/29/2019 02:09:01 Reading Location: [address] Reading Room HCG, QUANTITATIVE, [id number] 01:30:00 Test Item Value Reference Range Interpretation Comments GONADOTROPIN, CHORIONIC (HCG) QUANT < mIU/mL 0-10 (BEAKER) (test code = 649) Non- Females: <10 mIU/mL Females: Gestation Age Reference Range(mIU/mL) 0.2-1 Week 5-50 1-2 Weeks 50-500 2-3 Weeks 100-5,000 3-4 Weeks 500-10,000 4-5 Weeks 1,000-50,000 5-6 Weeks 10,000-100,000 6-8 Weeks 15,000- 200,000 2-3 Months 10,000-100,000POCT-LACTIC ACID, [id number] 23:56:00 Test Item Value Reference Range Interpretation Comments POC-LACTIC ACID, 0.8 mmol/L 0.9-1.7 L TESTED AT [facility] [address] (BEAKER) (test [place] code = 2805) 86400 CBC W/PLT COUNT & AUTO [id number] 21:42:00 Test Item Value Reference Range Interpretation [...] to report due WIDTH (BEAKER) (test to [facility] RBC code = 412) population distribution. [...] Received comment: User comments: Slide comments:BASIC METABOLIC [id number] 21:21:00 Test Item Value Reference Range Interpretation [...] FOR DIALYSIS PATIEN TS. OVA AND PARASITE [id number] 08:15:00 Test Item Value Reference Range Interpretation [...] seen seen code = 248) BASIC METABOLIC [id number] 05:42:00 Test Item Value Reference Range Interpretation [...] PATIEN TS. CBC W/PLT COUNT & AUTO [id number] 05:35:00 Test Item Value Reference Range Interpretation [...] PERCENT (BEAKER) (test code = 2801) TISSUE [id number] 09:51:00Surgical Pathology Report Case: [id number] Authorizing Provider: Ike Huynh Collected: 11/27/2018 1108 Ordering Location: [address] Received: 11/27/2018 1400 Service Pathologist: Jack [...] COLON BIOPSY:MILDLY EDEMATOUS COLONIC MUCOSA WITHOUT SIGNIFICANT HI STOPATHOLOGIC ALTERATION.NEGATIVE FOR INCREASED EPITHELIAL LYMPHOCYTES, GRANULOMAS, DYSPLASIA, OR INVASIVE CARCINOMA.PART E SIGMOID COLON, BIOPSY FOR SUSPECTED POLYP:MILDLY ACTIVE COLITIS WITH FOCAL SUPERFICIAL ULCERATION.SUBEPITHELIAL REACTIVE LYMPHOID AGGREGATE.NEGATIVE FOR GRANULOMAS, DYSPLASIA, ORINVASIVE CARCINOMA.PART F RECTAL BIOPSY:MILDLY ACTIVE COLITIS WITH FOCAL SUPERFICIAL ULCERATION.SUBEPITHELIAL REACTIVE LYMPHOID AGGREGATE.NEGATIVE FOR GRANULOMAS, DYSPLASIA, OR INVASIVE CARCINOMA. Signing Pathologist Direct Phone Line: [phone] signed by Jack Batista MD on 11/28/2018 at 9:51 [id number] and postop diagnosis: colitisA. Polyp, colon - [...] accession number and "large intestine, colon - left /descending" are two irregular bernal soft tissue fragments [...] are submitted in toto in F1. CG/pl PERFORMED.[id number] 04:33:00 Test Item Value Reference Range Interpretation Comments MAGNESIUM (BEAKER) (test code = 1.9 mg/dL 1.6-2.6 627) BASIC METABOLIC [id number] 04:33:00 Test Item Value Reference Range Interpretation [...] APPLICABLE FOR DIALYSIS PATIEN TS. HEPATIC FUNCTION [id number] 04:33:00 Test Item Value Reference Range Interpretation [...] code = 19 U/L 6-55 347) CALCIUM, [id number] 04:30:00 Test Item Value Reference Range Interpretation Comments CALCIUM IONIZED (BEAKER) (test 1.09 mmol/L 1.12-1.27 L code = 698) PH, BLOOD (BEAKER) (test code = 7.41 1810) PROTHROMBIN [id number] 04:20:00 Test Item Value Reference Range Interpretation [...] wiht mechanical heart valves.STOOL CULTURE + SHIGA [id number] 11:46:00 Test Item Value Reference Range Interpretation Comments CULTURE (BEAKER) No Salmonella, Shigella (test code = 1095) or Campylobacter isolated HIV-1 ANTIGEN WITH HIV-1/2 [id number] 09:38:00 Test Item Value Reference Range Interpretation Comments HIV-1 ANTIGEN WITH HIV 1\\T\\2 Nonreactive Nonreactive ANTIBODY (2) (BEAKER) (test code = 2586) [id number] 05:10:00 Test Item Value Reference Range Interpretation Comments MAGNESIUM (BEAKER) (test code = 2.1 mg/dL 1.6-2.6 627) BASIC METABOLIC [id number] 05:10:00 Test Item Value Reference Range Interpretation [...] APPLICABLE FOR DIALYSIS PATIEN TS. HEPATIC FUNCTION [id number] 05:10:00 Test Item Value Reference Range Interpretation [...] code = 17 U/L 6-55 347) CALCIUM, [id number] 04:48:00 Test Item Value Reference Range Interpretation Comments CALCIUM IONIZED (BEAKER) (test 1.02 mmol/L 1.12-1.27 L code = 698) PH, BLOOD (BEAKER) (test code = 7.42 1810) PROTHROMBIN [id number] 04:39:00 Test Item Value Reference Range Interpretation [...] (BEAKER) (test code = 413) STOOL PATH [id number] 18:28:00 Test Item Value Reference Range Interpretation Comments PATHOGEN EXAM CHARGED (BEAKER) (test Done code = 2381) SHIGA TOXIN [id number] 14:40:00 Test Item Value Reference Range Interpretation Comments SHIGA TOXIN 1 (BEAKER) (test Not detected Not detected code = 2177) SHIGA TOXIN 2 (BEAKER) (test Not detected Not detected code = 2179) CBC W/PLT COUNT & AUTO [id number] 06:26:00 Test Item Value Reference Range Interpretation [...] 0-1 PERCENT (BEAKER) (test code = 2801) [id number] 06:21:00 Test Item Value Reference Range Interpretation Comments MAGNESIUM (BEAKER) (test code = 2.1 mg/dL 1.6-2.6 627) BASIC METABOLIC [id number] 06:21:00 Test Item Value Reference Range Interpretation [...] APPLICABLE FOR DIALYSIS PATIEN TS. HEPATIC FUNCTION [id number] 06:21:00 Test Item Value Reference Range Interpretation [...] code = 20 U/L 6-55 347) PROTHROMBIN [id number] 06:19:00 Test Item Value Reference Range Interpretation [...] 2.5-3.5 for patients wiht mechanical heart valves.CALCIUM, [id number] 05:52:00 Test Item Value Reference Range Interpretation Comments CALCIUM IONIZED (BEAKER) (test 1.08 mmol/L 1.12-1.27 L code = 698) PH, BLOOD (BEAKER) (test code = 7.41 1810) GI PATHOGEN PROFILE BY [id number] 18:49:00 Test Item Value Reference Range Interpretation [...] Not detected BY PCR (test code = 9642159) ENTEROPATHOGENIC E. COLI (EPEC) Not detected Not detected BY PCR (test code = 0576822) ENTEROTOXIGENIC E. COLI (ETEC) Not detected Not [...] Not detected Not detected (test code = 20160128) VIBRIO (PARAHAEMOLYTICUS, Not detected Not detected VULNIFICUS) (test code = 1209860) Other viruses, parasites and bacteria not targeted by this PCR panel cannot be excluded; therefore clinical correlation and follow up of serology, culture results, and other molecular studies is required. The results are not intended to be used as the sole means for clinical diagnosis or patient management decisions. This sample was tested at the [facility] using the CriticalBlue Gastrointestinal Panel. It is FDA cleared and has been verified and approved by the [facility] for clinical use. This laboratory is CLIA-certified and College ofAmerican Pathologists (CAP)-accredited to perform high complexity testing.C. DIFFICILE GDH [id number] 17:47:00 Test Item Value Reference Range Interpretation Comments CDT TOXIN (test code Negative Negative = 4450006611) CDT GDH ANTIGEN (test Negative Negative No ind ication of code = 6983485994) Clostridi um difficile infection and n o colonization. Discontinue ent janay isolation and t herapy. Testing performed by [employer] Rapid Cassette Assay. For GDH, published sensitivity of the assay is 98.7% compared to cytotoxicity testing. For Toxin AB, published sensitivity is 87.8% and specificity 99.4% compared to cytotoxicity testing.Verification of kit performance was done by the [facility] prior to clinical use.[id number] 17:01:00 Test Item Value Reference Range Interpretation [...] 20-55 L (test code = 2590) C-REACTIVE [id number] 16:39:00 Test Item Value Reference Range Interpretation Comments C-REACTIVE PROTEIN (BEAKER) (test 7.69 mg/dL 0.00-0.50 H code = 676) RETICULOCYTE [id number] 16:24:00 Test Item Value Reference Range Interpretation Comments RETICULOCYTE COUNT PCT (BEAKER) (test 0.8 % 0.5-1.7 code = 575)
[2023-01-09 06:18] LABS: Absolute Lymphocytes (CBC) 1.2 K/uL (0.7-4.9); Hematocrit 28.7 % (36.0-45.0); Lymphocytes % 12.8 % (15.3-44.8); MCV 72.2 fL (80-100); MPV 6.5 fL (7.6-11.3); Platelets 471 thou/uL (152-406); RBC Red Blood Cell Count 3.98 M/uL (3.86-4.86)
[2023-01-09] MEDS ORDERED: NA CHLORIDE 0.9% 1,000 ML ONE (06:18)
[2023-01-09 06:47] LABS: BUN Blood Urea Nitrogen 11 mg/dL (7-18); Bicarbonate 26 mEq/L (21-32); Glomerular Filtration Rate 113 ml/min (=/>90); Glucose Level 104 mg/dL (74-106); Sodium Level 137 mEq/L (136-145); Troponin High Sensitivity < 3.0 pg/mL (<58.9)
--- NOTE | 2023-01-09 06:59 | EDPHYS ---
Physician Documentation [facility] Name: Kaitlynn Orourke Age: 42 yrs Sex: Female : 1980 Arrival Date: 01/09/2023 Time: 05:03 Bed 14 Private MD: ED Physician Bre Valencia HPI: 01/09 06:33 This 42 yrs old Female presents to ER via Ambulatory with complaints of Leg sd2 Swelling, Arrhythmia. 06:33 42 yo F presents with CC of bilateral leg cramping and palpitations. Reports sd2 intermittent for the past few days but has progressively worsened and feels as if her heart is racing. States she was seen here 2 weeks ago for a UC flare and was treated with abx and steroids with improvement of her abdominal pain but has had continued diarrhea. She was also hypokalemic and has been taking oral potassium replacement but is unsure what dosage. . Historical: - Allergies: 05:43 No Known Allergies; pf1 - PMHx: 05:43 C DIFF; Colitis; hypokalemia; pf1 - PSHx: 05:43 None; pf1 - Immunization history:: Adult Immunizations up to date, Client reports receiving the 1st dose of the Covid vaccine, Client reports receiving the Jluis \T\ Jluis single-dose vaccine. Last tetanus immunization: < 5 years ago Flu vaccine is up to date. - Social history:: Smoking status: Patient denies any tobacco usage or history of. Patient/guardian denies using alcohol, street drugs. ROS: 06:33 Constitutional: Negative for fever, chills, and weight loss, Eyes: Negative for injury, sd2 pain, redness, and discharge. 06:33 Respiratory: Negative for shortness of breath, cough, wheezing. 06:33 Skin: Negative for injury, rash, and discoloration. 06:33 Cardiovascular: Positive for palpitations, Negative for chest pain, edema. 06:33 Abdomen/GI: Positive for diarrhea, Negative for abdominal pain, nausea and vomiting. 06:33 MS/extremity: Positive for pain, cramping. Exam: 06:33 Constitutional: This is a well developed, well nourished patient who is awake, alert, sd2 and in no acute distress. Head/Face: Normocephalic, atraumatic. Eyes: EOMI, normal conjunctiva bilaterally Chest/axilla: Normal chest wall appearance and motion. Nontender with no deformity. Cardiovascular: Regular rate and rhythm with a normal S1 and S2. No gallops, murmurs, or rubs. 2+ distal pulses. Respiratory: Lungs have equal breath sounds bilaterally, clear to auscultation and percussion. No rales, rhonchi or wheezes noted. No increased work of breathing, no retractions or nasal flaring. Abdomen/GI: Soft, non-tender, with normal bowel sounds. No guarding or rebound. No evidence of tenderness throughout. Skin: Warm, dry with normal turgor. Normal color with no rashes, no lesions, and no evidence of cellulitis. MS/ Extremity: Pulses equal, no cyanosis. Neurovascular intact. Full, normal range of motion. Ambulatory without difficulty. Psych: Awake, alert, with orientation to person, place and time. Behavior, mood, and affect are within normal limits. 06:33 ECG was reviewed by the Attending Physician. NSR, rate 91, no STEMI criteria sd2 Vital Signs: 05:19 BP 105 / 68; Pulse 103; Resp 18; Temp 97.9; Pulse Ox 100% on R/A; Weight 62.6 kg; pf1 Height 5 ft. 1 in. ; Pain 4/10; 07:15 BP 102 / 62; Pulse 88; Resp 16; Pulse Ox 100% on R/A; db 05:19 Body Mass Index 26.07 (62.60 kg, 154.94 cm) pf1 05:19 Pain Scale: Adult pf1 MDM: 05:27 Patient medically screened. sd2 06:36 Differential Diagnosis electrolyte abnormality, arrhythmia, ACS, dehydration among sd2 others. Data reviewed: vital signs, nurses notes, lab test result(s). Test considered but Not performed: CT: Pt with no current blood in stool or abdominal pain and no significant change in her diarrhea since treatment for her flare. Last CT 2 weeks ago at most recent visit. No indication for repeat at this time. . 06:55 I considered the following discharge prescriptions or medication management in the sd2 emergency department Medications were administered in the Emergency Department. See MAR. Care significantly affected by the following chronic conditions: Ulcerative COlitis. Counseling: I had a detailed discussion with the patient and/or guardian regarding the historical points, exam findings, and any diagnostic results supporting the discharge/admit diagnosis, lab results, the need for outpatient follow up, to return to the emergency department if symptoms worsen or persist or if there are any questions or concerns that arise at home. ED course: Pt's HR improved and has remained steady in the 80s. No significant leg edema on exam. Labs grossly WNCL. Potassium does not appear to be the culprit of her symptoms at this time. No arrhythmias noted on telemetry. Pt with no actual physical swelling, just the sensation of swelling in both legs and cramping. Pt with no significant risk factors for PE or DVT and no leg asymmetry. Discussed all results with patient. Will trial muscle relaxer and have patient follow up with PCP and GI this week on as well. She is comfortable with this plan and verbalizes understanding of discharge plan and strict return precautions. . 01/09 05:49 Order name: CBC with Diff; Complete Time: 06:32 sd2 01/09 05:49 Order name: BMP; Complete Time: 06:49 sd2 01/09 05:49 Order name: Troponin High Sensitivity; Complete Time: 06:49 sd2 01/09 05:49 Order name: EKG - Nurse/Tech; Complete Time: 06:06 sd2 Administered Medications: 06:10 Drug: NS 0.9% IV 1000 ml Route: IV; Rate: 1 bolus; Site: right antecubital; ll3 07:35 Follow up: Response: No adverse reaction; IV Status: Completed infusion; IV Intake: db 1000ml 07:31 Drug: Cyclobenzaprine PO 10 mg Route: PO; db Disposition Summary: 01/09/23 06:58 Discharge Ordered Location: Home sd2 Problem: new sd2 Symptoms: have improved sd2 Condition: Stable sd2 Diagnosis - Muscle cramping of bilateral lower extremities sd2 - Palpitations sd2 Followup: sd2 - With: Private Physician - When: 2 - 3 days - Reason: Recheck today's complaints, Continuance of care, Re-evaluation by your physician Discharge Instructions: - Discharge Summary Sheet sd2 - Muscle Cramps and Spasms sd2 - Palpitations sd2 Forms: - Medication Reconciliation Form sd2 - Thank You Letter sd2 - Antibiotic Education sd2 - Prescription Opioid Use sd2 - Patient Portal Instructions sd2 - Leadership Thank You Letter sd2 Prescriptions: - Cyclobenzaprine 10 mg Oral Tablet - take 1 tablet by ORAL route every 8 hours As needed; 15 tablet; Refills: 0, sd2 Product Selection Permitted Signatures: Dispatcher [employer] Latrice Cota RN RN ll3 Bre Valencia MD MD sd2 Gaby Puga RN RN db Pastora Rudd RN RN pf1 Corrections: (The following items were deleted from the chart) 07:00 06:55 ED course: Pt's HR improved and has remained steady in the 80s. No significant sd2 leg edema on exam. Labs grossly WNCL. Potassium does not appear to be the culprit of her symptoms at this time. No arrhythmias noted on telemetry. Discussed all results with patient. Will trial muscle relaxer and have patient follow up with PCP and GI this week on as well. She is comfortable with this plan and verbalizes understanding of discharge plan and strict return precautions. . sd2
--- NOTE | 2023-01-09 06:59 | ER ---
Nurse's Notes [facility] Name: Kaitlynn Orourke Age: 42 yrs Sex: Female : 1980 Arrival Date: 01/09/2023 Time: 05:03 Bed 14 Private MD: Diagnosis: Muscle cramping of bilateral lower extremities;Palpitations Presentation: 01/09 05:19 Chief complaint: Patient states: LLQ pain of 4 with diarrhea for 2 weeks and bilateral pf1 leg swelling and heart racing sensation,onset 4 days. Patient stated history of UC and diarrhea, was last treated here 2 weeks ago for diarrhea. 05:19 Coronavirus screen: Vaccine status: Patient reports receiving the 1st dose of the Covid pf1 vaccine. Client denies travel out of the [place] in the last 14 days. Client presents with at least one sign or symptom that may indicate coronavirus-19. Ebola Screen: Patient negative for fever greater than or equal to 101.5 degrees Fahrenheit, and additional compatible Ebola Virus Disease symptoms. Initial Sepsis Screen: Does the patient meet any 2 criteria? HR > 90 bpm. No. Patient's initial sepsis screen is negative. Does the patient have a suspected source of infection? No. Patient's initial sepsis screen is negative. Risk Assessment: Do you want to hurt yourself or someone else? Patient reports no desire to harm self or others. 05:19 Method Of Arrival: Ambulatory pf1 05:19 Acuity: DELMY 3 pf1 Historical: - Allergies: 05:43 No Known Allergies; pf1 - PMHx: 05:43 C DIFF; Colitis; hypokalemia; pf1 - PSHx: 05:43 None; pf1 - Immunization history:: Adult Immunizations up to date, Client reports receiving the 1st dose of the Covid vaccine, Client reports receiving the Jluis \T\ Jluis single-dose vaccine. Last tetanus immunization: < 5 years ago Flu vaccine is up to date. - Social history:: Smoking status: Patient denies any tobacco usage or history of. Patient/guardian denies using alcohol, street drugs. Screenin:15 [facility] ED Fall Risk Assessment (Adult) History of falling in the last 3 months, db including since admission No falls in past 3 months (0 pts) Confusion or Disorientation No (0 pts) Intoxicated or Sedated No (0 pts) Impaired Gait No (0 pts) Mobility Assist Device Used No (0 pt) Altered Elimination No (0 pt) Score/Fall Risk Level 0 - 2 = Low Risk Oriented to surroundings, Maintained a safe environment. Abuse screen: Denies threats or abuse. Denies injuries from another. Nutritional screening: No deficits noted. Tuberculosis screening: No symptoms or risk factors identified. Assessment: 07:36 Reassessment: Patient appears in no apparent distress at this time. Patient and/or db family updated on plan of care and expected duration. Pain level reassessed. Patient is alert, oriented x 3, equal unlabored respirations, skin warm/dry/pink. Patient states feeling better. Patient states symptoms have improved. General: Appears in no apparent distress. comfortable, Behavior is calm, cooperative. Pain: Complains of pain in right leg and left leg. Neuro: Level of Consciousness is awake, alert, obeys commands. Vital Signs: 05:19 BP 105 / 68; Pulse 103; Resp 18; Temp 97.9; Pulse Ox 100% on R/A; Weight 62.6 kg; pf1 Height 5 ft. 1 in. ; Pain 4/10; 07:15 BP 102 / 62; Pulse 88; Resp 16; Pulse Ox 100% on R/A; db 05:19 Body Mass Index 26.07 (62.60 kg, 154.94 cm) pf1 05:19 Pain Scale: Adult pf1 ED Course: 05:08 Patient arrived in ED. [email or web address] 05:26 Bre Valencia MD is Attending Physician. sd2 05:43 Triage completed. pf1 06:06 Initial lab(s) drawn, by me, sent to lab. Inserted saline lock: 20 gauge in right ll3 antecubital area, using aseptic technique. Blood collected. 07:15 No provider procedures requiring assistance completed. IV discontinued, intact, db bleeding controlled, No redness/swelling at site. 07:15 Patient has correct armband on for positive identification. Bed in low position. Call db light in reach. Side rails up X 1. Provided Education on: DISCHARGE. Administered Medications: 06:10 Drug: NS 0.9% IV 1000 ml Route: IV; Rate: 1 bolus; Site: right antecubital; ll3 07:35 Follow up: Response: No adverse reaction; IV Status: Completed infusion; IV Intake: db 1000ml 07:31 Drug: Cyclobenzaprine PO 10 mg Route: PO; db Medication: 07:36 VIS not applicable for this client. db Intake: 07:35 IV: 1000ml; Total: 1000ml. db Outcome: 06:58 Discharge ordered by . [email or web address] 07:15 Discharged to home ambulatory. db 07:15 Condition: stable 07:15 Discharge instructions given to patient, Instructed on discharge instructions, follow up and referral plans. Prescriptions given X 1. 07:38 Patient left the ED. db Signatures: Taylor Ventura [email or web address] Latrice Cody, RN RN ll3 Bre Valencia MD MD sd2 Gaby Puga, RN RN db Pastora Rudd RN RN pf1
[2023-01-09 07:51] VITALS: TEMP 97.9; O2SAT 100
[2023-01-09 07:57] VITALS: BP 102/62
--- NOTE | 2023-01-10 18:00 | EKG ---
Test Date: 2023-01-09 Test Time: 05:55:07 Deputy County Clerk: AURY MEASUREMENT RESULTS: Intervals: Rate: 91 IN: 144 QRSD: 80 QT: 380 QTc: 467 [place]: P: 20 IN: 144 QRS: 42 T: 32 INTERPRETIVE STATEMENTS: Normal sinus rhythm Low voltage QRS Borderline ECG Compared to ECG 11/04/2022 02:44:47 Low QRS voltage now present Sinus tachycardia no longer present Myocardial infarct finding no longer present Electronically Signed On 01-10-23 17:57:01 CDT by Daniele Perdue
== END 2023-01-09 07:38 | disposition home or self-care (01) ==
LOC: ER 05:03
DX: R25.2 Cramp and spasm (principal); R00.2 Palpitations; R19.7 Diarrhea, unspecified
CPT/HCPCS: 93005; 85025; 80048; 36415; 84484; 96360; 99284; J7030

== ENCOUNTER 2023-01-30 19:33 | Emergency (ER) | payer OTHER ==
--- OUTSIDE RECORDS SUMMARY | 2023-01-30 19:39 | XMS REPORT | Continuity of Care Document ---
:1980 Author Organization [facility] t Address [address] [facility] [place] [address] Care Team Providers Name Role Phone No, Pcp [facility] Primary Care Physician Unavailable Janet Salazar Attending Clinician Unavailable Rashaun Erickson Attending Clinician Unavailable Matias Page Attending Clinician Unavailable Lab, [facility] Pob I Attending Clinician Unavailable Sara Rothman Attending Clinician Linda Keen Attending Clinician LINDA GARCIA Attending Clinician Unavailable Riya Cortes Attending Clinician RIYA ZAMBRANO Attending Clinician Unavailable Doctor Unassigned, [place] Attending Clinician Unavailable Radha Hancock RN Attending Clinician Unavailable Melva Burrows RN Attending Clinician Unavailable Pob1, Acute [facility] Clinic Attending Clinician Unavailable SARA GORDON Attending Clinician Unavailable INGRID HARRIS Attending Clinician Unavailable QUOC CARMONA Attending Clinician Unavailable Matias Page Admitting Clinician Unavailable QUOC CARMONA Admitting Clinician Unavailable Payers Payer Name Policy Type Policy Number Effective Date Expiration Date S lucita Blue Cross and C1 [id number] Common S pirit Blue [facility] Blue Cross and C1 [id number] Common S pirit [facility] Problems Condition Condition Condition Status Onset Resolution Last Treating Co mments Source Name Details Category Date Date Treatment Clinician Date Colitis Colitis Disease Active [facility] 00:00: Medical 00 Center Normal Normal Disease Active Univers Delivery Delivery 11-22 ity of 00:00: [place] 00 Medical Branch Disease Active Overview : Univers anemia anemia 11-22 ICD10 ity of 00:00: Diagnosis [place] 00 Term Medical [employer] [facility] Utility Maternal Maternal Disease Active Overview: Un cesar pyrexia pyrexia 11-22 ICD10 ity of during during 00:00: Diagnosis [place] labor, labor, 00 Term Medical delivered delivered [employer] [facility] anch Utility Multiparit Multiparit Disease Active U nivers y y 11-22 ity of 00:00: [place] [facility] Status Status Disease Active Overview: Univer s post tubal post tubal 11-22 ICD10 it y of ligation ligation 00:00: Diagnosis Scotty as 00 Term Medical [employer] [facility] Utility [id number] Internal Problem Active Commo n hemorrhoid [facility] [id number] Subcutaneo Problem Active Com mon us nodules [facility] [id number] Blood in Problem Active Comm on stool [facility] [id number] Clostridio Problem Active Co mmon ides [facility] difficile - [facility] infection [facility] [id number] Transfusio Problem Active Co mmon n history [facility] [id number] Abdominal Problem Active Comm on pain, Spirit unspecifie - [facility] d [facility] [id number] Follow-up Problem Active Com mon exam [facility] [id number] Diarrhea, Problem Active Comm on unspecifie Spirit d [facility] [id number] Nausea Problem Active Common [facility] [id number] Hypokalemi Problem Active Com mon a Spirit - [facility] [id number] Counseling Problem Active Co mmon and Spirit coordinati - [facility] on of care [facility] [id number] Axillary Problem Active Comm on lymphadeno Spirit marcos [facility] [id number] Thrombocyt Problem Active Co mmon openia [facility] 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 Spirit syndrome bowel - CHI syndrome) [facility] [id number] Shortness Problem Active Com mon of breath [facility] [id number] Anemia, Problem Active Commo n unspecifie Spirit d type [facility] Seasonal Seasonal Problem Active Commo n allergy allergies [facility] [id number] Ulcerative Problem Active Com mon colitis [facility] complicati [facility] unspecifie Medica l location Center [id number] Abnormal Problem Active Comm on ultrasound [facility] [id number] Fatigue, Problem Active Commo n unspecifie [facility] d [facility] Allergies, Adverse Reactions, Alerts Allergy Allergy Status Severity Reaction(s) Onset Inactive Treating Comm ents Source Name Type Date Date Clinician No Known DA Active U [facility] All[facility]ie 01-16 Clear s 00:00: [place] [facility] GENTAMIC DRUG Active Unknown-Cmnt Un cesar IN INGREDI 11-22 ity of 00:00: [place] 00 Medical Branch Gentamic Propensi Active Unknown - numbness U nivers in ty to See comments 11-22 ity of adverse 00:00: [place] reaction 00 Medical s Branch Family History Family Member Diagnosis Comments Start Date Stop Date Source Natural mother Cancer [facility] Social History Social Habit Start Date Stop Date Quantity Comments Source Exposure to Not sure University of SARS-CoV-2 [place] Medical (event) Branch History SDOH [facility] Alcohol Std Medical Cente r Drinks History SDOH [facility] Alcohol Binge Medical [address] ter History of Common Spirit - Tobacco Use [facility] Alcohol intake 2022-08-08 2022-08-08 Current [facility] 00:00:00 00:00:00 non-drinker of Medical Ce nter alcohol (finding) Tobacco use and 2019-08-30 2019-08-30 Never used Universit y of exposure 00:00:00 00:00:00 [facility] History SDOH 2018-11-25 2018-11-[address] [facility] Alcohol Frequency 00:00:00 00:00:00 Medical Center Sex Assigned At [birth year] ZACHARY Tran Kavya kes 00:00:00 00:00:00 Medical Center Smoking Status Start Date Stop Date Source Never Smoker Common [facility] - [facility] Medications Ordered Filled Start Stop Current Ordering Indication Dosage Frequency Signature Comments Components Source Medication Medication Date Date Medication? Clinician (SIG) Name Name bromphenira 2019- 2020- No [id number] 5mL Take 5 mL Univers mine-pseudo 08-2920 by mouth 4 i ty of ephedrine-D 00:00: 04:59 (four) Scotty as M (BROMFED 00 :00 times Medical DM) 2-30-10 daily as Bran ch mg/5 mL needed for syrup Congestion /Allergies or Cough for up to 10 days. bromphenira 2019-2019- No [id number] 5mL Take 5 mL Univers mine-pseudo 08-2920 by mouth 4 i ty of ephedrine-D 00:00: 04:59 (four) [place] as M (BROMFED 00 :00 times Medical DM) 2-30-10 daily as Bran ch mg/5 mL needed for syrup Congestion /Allergies or Cough for up to 10 days. REMICADE 0 Yes Univers 100 mg 3-23 ity of injection 00:00: [place] [facility] REMICADE 0 Yes Univers 100 mg 3-23 ity of injection 00:00: [place] [facility] REMICADE 2019-0 Yes Univers 100 mg 3-23 ity of injection 00:00: [place] [facility] REMICADE 2020-0 Yes Univers 100 mg 3-23 ity of injection 00:00: [place] [facility] REMICADE 2020-0 Yes Univers 100 mg 3-23 ity of injection 00:00: [place] [facility] REMICADE 2020-0 Yes Univers 100 mg 3-23 ity of injection 00:00: [facility] REMICADE 2019-0 Yes Univers 100 mg 3-23 ity of injection 00:00: [address] ondansetron Yes 4mg Take [address] [...] mon [place] tablet [facility] Entyvio 300 Entyvio 300 No Entyvio [...] 2019-03-14 Completed Common Spi rit 16:53:00 - [facility] PNEUMAVAX 23 PNEUMAVAX 2019-03-14 Completed Common Spi rit 16:53:00 - [facility] Flucelvax - single Flucelvax - single 2019-03-14 Completed Common Spirit dose syringe dose syringe 16:52:00 - [facility] Flucelvax - single Flucelvax - single 2019-03-14 Completed Common Spirit dose syringe dose syringe 16:52:00 - [facility] Flucelvax - single Flucelvax - single 2019-03-14 Completed Common Spirit dose syringe dose syringe 00:00:00 - [facility] PNEUMAVAX 23 PNEUMAVAX 23 2019-03-14 Completed Common Spi rit 00:00:00 [facility] Vital Signs Vital Name Observation Time Observation Value Comments Source height 2020-07-29 14:45:00 61 [in_i] [facility] weight 2020-07-29 14:45:00 139.0 [lb_av] Common [facility] temperature 2020-07-29 14:45:00 98.2 [degF] Common [facility] bmi 2020-07-29 14:45:00 26.26 kg/m2 [facility] oximetry 2020-07-29 14:45:00 98 % [facility] blood pressure 2020-07-29 14:45:00 106 mm[Hg] [facility] - systolic [facility] blood pressure 2020-07-29 14:45:00 60 mm[Hg] [facility] - diastolic [facility] Systolic blood 2019-08-30 13:35:00 113 mm[Hg] Univer sity of [facility] Diastolic blood 2019-08-30 13:35:00 78 mm[Hg] Unive rsity of [facility] Heart rate 2019-08-30 13:35:00 106 /min [facility] Body temperature 2019-08-30 13:35:00 37.67 Taryn [facility] Respiratory rate 2019-08-30 13:35:00 20 /min [facility] Body height 2019-08-30 13:35:00 154.9 cm [facility] Body weight 2019-08-30 13:35:00 63.504 kg [facility] BMI 2019-08-30 13:35:00 26.45 kg/m2 [facility] Oxygen saturation in 2019-08-30 13:35:00 99 /min [facility] Arterial blood by [facility] Pulse oximetry Branch Systolic blood 2019-08-30 13:35:00 113 mm[Hg] Univer sity of [facility] Diastolic blood 2019-08-30 13:35:00 78 mm[Hg] Unive rsity of pressure [facility] Heart rate 2019-08-30 13:35:00 106 /min [facility] Body temperature 2019-08-30 13:35:00 37.67 Taryn [facility] Respiratory rate 2019-08-30 13:35:00 20 /min [facility] Body height 2019-08-30 13:35:00 154.9 [facility] weight 2019-08-30 13:35:00 63.504 kg [facility] BMI 2019-08-30 13:35:00 26.45 kg/m2 [facility] Oxygen saturation in 2019-08-30 13:35:00 99 /min [facility] Arterial blood by [facility] Pulse oximetry Branch Procedures Procedure Date / Time Performed Performing Clinician Sourc e POCT GRP A STREP 2019-08-30 13:43:00 Riya Zambrano [facility]) [facility] Encounters Start End Encounter Admission Attending Care Care Encounter Source Date/Time Date/Time Type Type Clinicians Facility Department ID 2021-06-17 Outpatient Martin, STLMLC STLMLC [id number] Common 12:36:13 Janet [id number] [facility] 2021-06-17 Outpatient Martin, STLMLC STLC [id number] Common 11:04:45 Janet 47803 [facility] 2021-06-17 Outpatient Martin, STLMLC STLC [id number] Common 10:59:44 Janet [id number] [facility] 2023-01-16 2023-01-16 Emergency EL JALEN Erickson EMILEE [id number] [facility] 10:53:00 19:16:00 Rashaun 29 [facility] 2023-01-16 2023-01-16 Outpatient ELLA Erickson LABO [id number] [facility] 18:37:00 18:37:00 Rashaun 82 [facility] 2023-01-10 2023-01-10 Outpatient JALEN Goddard RADI [id number] [facility] 15:28:00 15:28:00 Matias 81 [facility] [place] 2020-07-29 2020-07-29 OFFICE STLMLC STLMLC [id number] Co mmon 00:00:00 00:00:00 VISIT NEW Spir it PT LEVEL [address] - [facility] 2020-07-28 2020-07-28 (TEL) STLMLC STLMLC [id number] Co mmon 00:00:00 00:00:00 Spirit - [facility] 2020-07-16 2020-07-16 Laboratory Lab, [facility] Pob I [facility] 1.2. 840.114 [id number] Univers 10:24:15 10:44:15 Only Sara Gordon [facility] [id number] ity of [place] 4.2.7.2.686 Scotty as Professio [phone] [address] Office [address] 2020-07-16 2020-07-16 Outpatient R [facility] [id number] Univers 10:20:00 10:20:00 ity of [facility] 2020-05-21 2020-05-21 Laboratory Lab, [facility] 1.2. 840.114 [id number] Univers 18:37:35 18:57:35 Only Linda Garcia [facility] [id number] ity of [place] 4.2.7.2.686 [place]ty as Professio [phone] [address] Building One 2020-05-21 2020-05-21 Outpatient R NILSON [facility] [id number] Univers 18:40:00 18:40:00 LINDA mays o f [facility] 2020-01-26 2020-01-26 Laboratory Lab, [facility] I [facility] 1.2. 840.114 [id number] Univers 08:37:22 08:57:22 Only Riya Zambrano Health [id number] ity of [place] 4.2.7.2.686 Scotty as Professio [phone] [address] Office Building One 2020-01-26 2020-01-26 Outpatient R RAJAN [facility] [id number] Univers 08:40:00 08:40:00 [facility] 2020-01-26 2020-01-26 Letter Doctor MICHELL [id number] Univers 00:00:00 00:00:00 (Out) Unassigned RICHARD [id number] ity of [place] [facility] 4.2.7.2.686 Scotty as [id number] [address] 2020-01-26 2020-01-26 Telephone Karissa Radha Francisco GALARZA 1.2.840.114 [id number] Univers 00:00:00 00:00:00 RICHARD [id number] it y of HOSPITAL 4.2.7.2.686 Scotty as [id number] [address] 2019-08-31 2019-08-31 Telephone MICHELL Burrows 1.2.840.114 [id number] Univers 00:00:00 00:00:00 Melva RAMOS [id number] i ty of HOSPITAL 4.2.7.2.686 Scotty as [id number] [address] 2019-08-31 2019-08-31 Telephone MICHELL Burrows 1.2.840.114 [id number] 00:00:00 00:00:00 Melva Shayla RAMOS [id number] HOSPITAL 4.2.7.2.686 [id number] 2019-08-30 2019-08-30 Urgent Pob1, Acute Care Clinic [facility] 1. 2.840.114 [id number] Univers 08:24:35 08:57:39 Sara Barahona [facility] [id number] ity of [place] 4.2.7.2.686 Scotty as Professio [id number] Wy dical [address] Office [address] One 2019-08-30 2019-08-30 Urgent Pob1, Acute [facility] 1.2.840.114 [id number] 08:24:35 08:57:39 Care Care Clinic Health [id number] [place] 4.2.7.2.686 Professio [id number] nal [facility] Office Building One 2019-08-30 2019-08-30 Outpatient R [place] [id number] Univers 08:40:00 08:40:00 SARA mays [facility] 2019-04-26 2019-04-26 Out[facility] [id number] Common 14:40:00 14:40:[address] [facility] 2019-04-11 2019-04-11 Outpatient [facility] [id number] Common 20:49:00 20:49:[address] [facility] 2019-03-14 2019-03-14 Outpatient [facility] [id number] Common 10:40:00 10:40:[address] [facility] 2019-03-06 2019-03-06 Outpatient [facility] [id number] Common 02:35:00 02:35:[address] [facility] 2019-02-28 2019-02-28 Outpatient [facility] [id number] Common 09:29:00 09:29:[address] [facility] 2019-02-23 2019-02-23 Outpatient [facility] [id number] Common 11:20:00 11:20:[address] [facility] 2018-11-02 2018-11-02 Outpatient [facility] [id number] Common 10:01:00 10:01:[address] [facility] 2018-10-06 2018-10-06 Outpatient [facility] [id number] Common 15:20:00 15:20:[address] [facility] Results Test Description Test Time Test Comments Results Result Comments Source LIPASE 2023-01-16 12:58:00 Test Item Value Reference Range Interpretation Comme nts LIPASE (test code = LIP) 69 Unit/L 114-286 L TROP-I HIGH [id number] 12:58:00 Test Item Value Reference Range Interpretation Comments TROP-I HIGH < 3.0 ng/L 0-54 N CAUTION: Units of the SENSITIVITY (test current te st methodology code = TROPIHS) (ng/L) diffe rfrom the prior test meth odology (ng/mL) by a fa ctor of 1000. 9 9th Percentile Uppe r Reference Limit (URL):Females: 54 ng/LMales: 79 n g/L In order to distin guish acute elevation s of high sensitivitytrop onin from other clinical conditions, the FourthUniversal Definition of M yocardial Infarction stressesclinica l assessment and the demonstration o f a rise and/orfall in s erial troponin result s above the URL. Result s from different metho dologies should not be c omparedto one another as quantitative re sults and URLs may varyby method. BASIC METABOLIC [id number] 12:58:00 Test Item Value Reference Range Interpretation Comments SODIUM (test code 139 mmol/L 134-147 N = NA) POTASSIUM (test 3.1 mmol/L 3.4-5.0 L code = K) CHLORIDE (test 107 mmol/L 100-108 N code = CL) CARBON DIOXIDE 28 mmol/L 21-32 N (test code = CO2) ANION GAP (test 4.0 GAP calc 4.0-15.0 N code = GAP) GLUCOSE (test code 91 MG/DL 70-110 N = GLU) BLOOD UREA 14 MG/DL 7-18 N NITROGEN (test code = BUN) GLOMERULAR >=60 max >60 The Glomerular FILTRATION RATE estimate estGFR Filtratio n Rate is a (test code = GFR) calculated parameterbased on serum Creatinin e, patient age and sex. GFR valuesless than 60 mL/min/1.73 square meters are terence cative ofChronic Kidne y Disease. Values less than 15 mL/min/1.73squa re meters indicate Kidney failure. The calculation for GFR is based on the CK D-EPI (2020) calculat ion. This formulais race indifferent and is the recommended formula for GFR by the National Kidney Foundation for Adults.The GFR will not calculate i f the sex is unknown or if thepatient's ag e is <18 years. CREATININE (test 0.6 MG/DL 0.6-1.0 N code = CREAT) CALCIUM (test code 8.1 MG/DL 8.5-10.1 L = CA) HEPATIC FUNCTION [id number] 12:58:00 Test Item Value Reference Range Interpretation Comments TOTAL PROTEIN (test code = PROT) 7.2 G/DL 6.4-8.2 N ALBUMIN (test code = ALB) 3.0 G/DL 3.4-5.0 L BILIRUBIN TOTAL (test code = 0.50 MG/DL 0.2-1.2 N BILT) BILIRUBIN DIRECT (test code = < 0.10 MG/DL 0.00-0.30 N BILD) BILIRUBIN INDIRECT (test code = 0.40 MG/DL 0.2-1.2 N BILIND) SGOT/AST (test code = AST) 13 Unit/L 15-37 L SGPT/ALT (test code = ALT) 53 Unit/L 12-78 N ALKALINE PHOSPHATASE TOTAL (test 136 Unit/L 45-117 H code = ALKP) NT PRO-BRAIN NATRIURETIC [id number] 12:56:00 Test Item Value Reference Range Interpretation Comments NT PRO-BRAIN NATRIURETIC PEPTI (test 63 PG/ML 0-100 N code = PROBNP) UA RFLX MICR CULT IF [id number] 12:56:00 Test Item Value Reference Range Interpretation Comments UA COLOR (test code = STRAW discript YEL/STRAW COLU) UA APPEARANCE (test code SL CLOUDY discript CLEAR = APPU) UA GLUCOSE DIPSTICK (test NEGATIVE mg/dL NEG code = DGLUU) UA BILIRUBIN DIPSTICK NEGATIVE mg/dL NEG (test code = BILU) UA KETONE DIPSTICK (test NEGATIVE mg/dL NEG code = KETU) UA SPECIFIC GRAVITY (test 1.015 SG 1.005-1.030 code = SGU) UA BLOOD DIPSTICK (test 3+ mg/DL NEG A code = DAVID) UA PH DIPSTICK (test code 6.0 pH UNITS 5.0-7.0 = ZACKERY) UA PROTEIN DIPSTICK (test NEGATIVE mg/dL NEG code = PROU) UA UROBILINIOGEN DIPSTICK 0.2 mg/dL <2.0 (test code = URO) UA NITRITE DIPSTICK (test NEGATIVE SCREEN NEG code = TASHI) UA LEUKOCYTE ESTERASE NEGATIVE Leuk/mcL NEGATIVE DIPSTICK (test code = LEUU) UA WBC (test code = WBCU) 0-1 #WBC/HPF 0-3 UA RBC (test code = RBCU) 10-20 #RBC/HPF 0-3 A UA BACTERIA (test code = 1+ /HPF NONE-TRACE A BACU) UA SQUAMOUS CELLS (test TRACE /HPF NONE code = SQU) UA RENAL CELLS (test code TRACE /HPF NONE SEEN A = ARNALDO) UA CULTURE NEEDED? (test NO, WBC<10 Criteria Culture CHK code = UACULT) Indication for culture: Flank PainSOURCE OF URINE: CLEAN CATCHPROTHROMBIN TIME 2023-01-16 12:50:00 Test Item Value Reference Range Interpretation Comments PT PATIENT (test 11.7 SECONDS 9.3-12.9 N code = PTP) INTERNATIONAL NORMAL 1.05 INR Unit 0.8-1.2 N TARGE T INR BY RATIO (test code = INDICATIO N Indication INR) INR1. Prophylax is of venous thrombos is 2.0 - 3.0 (orthoped ic surgery), Proph ylaxis of venous throm bosis (other than hig h-risk surgery), Treat ment of Deep Vein Thrombosis/Pulm onary Embolism, Preve ntion of systemic emb olism - Tissue heart va lves, Acute Myocardia l Infarction (to prevent systemic emboli sm), Valvular heart disease, Acute Myocardial Infa rction (to prevent sys temic embolism), Valv ular heart disease, Atrial Fibrillation, Bileaflet mecha nical valve in aortic position.2. Mec hanical prosthetic valv es (high risk), 2. 5 - 3.5 Presence of Lup us Anticoagulant o r Antiphospholipi d Antibodies, Pre vention of systemic emb olism - Acute Myocardia l Infarction (to prevent recurrent infar ct). THROMBOPLASTIN TIME [id number] 12:50:00 Test Item Value Reference Range Interpretation Comments THROMBOPLASTIN TIME PARTIAL 26.3 SECONDS 26-35 N (test code = PTT) CBC W/AUTO [id number] 12:36:00 Test Item Value Reference Range Interpretation Comments WHITE BLOOD CELL (test code = 7.3 K/mm3 3.5-11.0 N WBC) RED BLOOD CELL (test code = 4.24 M/mm3 4.70-6.10 L RBC) HEMOGLOBIN (test code = HGB) 9.6 G/DL 10.4-14.9 L HEMATOCRIT (test code = HCT) 31.0 % 31.5-44.1 L MEAN CELL VOLUME (test code = 73.1 Fl 84.5-98.6 L MCV) MEAN CELL HGB (test code = MCH) 22.6 pg 27.0-34.2 L MEAN CELL HGB CONCETRATION 31.0 G/DL 31.5-34.0 L (test code = MCHC) RED CELL DISTRIBUTION WIDTH 16.5 SD 11.5-14.5 H (test code = RDW) PLATELET COUNT (test code = 417 K/mm3 150-450 N PLT) MEAN PLATELET VOLUME (test code 8.40 fL 7.0-10.5 N = MPV) NEUTROPHIL % (test code = NT%) 74.9 % 40-76 N IMMATURE GRANULOCYTE % (test 0.3 % 0.0-5.0 N code = IG%) LYMPHOCYTE % (test code = LY%) 14.5 % 20.5-51.1 L MONOCYTE % (test code = MO%) 8.1 % 1.7-9.3 N EOSINOPHIL % (test code = EO%) 1.8 % 0.0-6.0 N BASOPHIL % (test code = BA%) 0.4 % 0.0-2.0 N NUCLEATED RBC % (test code = 0.0 /100WBC% 0.0-1.0 N NRBC%) NEUTROPHIL # (test code = NT#) 5.4 K/mm3 1.8-7.6 N IMMATURE GRANULOCYTE # (test 0.02 x10 3/uL 0.00-0.03 N code = IG#) LYMPHOCYTE # (test code = LY#) 1.1 K/mm3 0.6-3.2 N MONOCYTE # (test code = MO#) 0.6 K/mm3 0.3-1.1 N EOSINOPHIL # (test code = EO#) 0.1 K/mm3 0.0-0.4 N BASOPHIL # (test code = BA#) 0.0 K/mm3 0.0-0.1 N NUCLEATED RBC # (test code = 0.0 K/mm3 0.0-0.1 N NRBC#) MANUAL DIFF REQUIRED (test code NO DIFF/SCN CRITERIA = MDIFF) - XR SHOULDER 2+V [id number] 12:17:00 [facility] : 1980 Sex: F Name: MARLA OROURKE [facility] : 1980 Age/S: 42 / F [address] Unit #: [id number] Loc: [place] [address] Phys: Rashaun Erickson MD Acct: [id number] Dis Date: Status: REG ER PHONE #: [phone] Exam Date: 01/16/2023 1210 FAX #: Reason: headache shoulder ankle pain EXAMS: CPT: [id number] XR SHOULDER 2+[place] [id number] Fluoro Time: DAP (Gy m2): Air Kerma (mGy): EXAM: - XR SHOULDER 2+V LT LOCATION: H47 HISTORY: headache shoulder ankle pain COMPARISON: None available at the time of interpretation. FINDINGS: Internal/external rotation and scapular Y views of the left shoulder are provided. No acute fracture or malalignment. No soft tissue findings are apparent. IMPRESSION: No acute fracture or dislocation. at 1217 Reported and signed by: FIDENCIO JHAVERI M.D. CC: Matias Pgae DO; Rashaun Erickson MD PAGE 1 Signed ReportName: MARLA OROURKE [facility] : 1980 Age/S: 42 / F [id number] Unit #: [id number]: Yudi [place] [id number] Phys: Rashaun Erickson MD Acct: [id number] Dis Date: Status: REG ER PHONE #: [phone] Exam Date: 01/16/2023 1210 FAX #: Reason: headache shoulder ankle pain EXAMS: CPT: [id number] XR SHOULDER 2+[place] [address] Fluoro Time: DAP (Gy m2): Air Kerma (mGy): (Continued) Technologist: Dianne Harper Trnohb Date/Time: 01/16/2023 (1216) [email or web address] Orig Print D/T: S: 01/16/2023 (3280) PAGE 2 Signed Report- XR CHEST 1 [id number] 12:17:00 [facility] 1980 Sex: F Name: MARLA OROURKE [facility] : 1980 Age/S: 42 / F [address] Unit #: [id number] Loc: [place] [address] Phys: Rashaun Erickson MD Acct: [id number] Dis Date: Status: REG ER PHONE #: [phone] Exam Date: 01/16/2023 1210 FAX #: Reason: weakness EXAMS: CPT: [id number] XR CHEST 1 V 25862 Fluoro Time: DAP (Gy m2): Air Kerma (mGy): EXAM: - XR CHEST 1 V COMPARISON: None available at the timeof interpretation. LOCATION: [facility] HISTORY: weakness FINDINGS: Single view of the chest. No indwelling lines or tubes. No pneumothorax. The lungs are clear without significant effusions. The mediastinalcontours are unremarkable/unchanged. No acute osseous findings are present. IMPRESSION: No acute cardiopulmonary abnormality. at 1217 Reported and signed by: FIDENCIO JHAVERI M.D. CC: Matias Page DO; Rashaun Erickson MD PAGE 1 Signed Report Name: MARLA OROURKE [facility] : 1980 Age/S: 42 / F [id number] Unit #:[id number] Loc: [place] [address] Phys: Rashaun Erickson MD Acct: [id number] Dis Date: Status: REG ER PHONE #: [phone] Exam Date: 01/16/2023 1210 FAX #: Reason: weakness EXAMS: CPT: [id number] XR CHEST 1 V 73677 Fluoro Time: DAP (Gy m2): Air Kerma (mGy): (Continued) Technologist: Dianne Harper Trnohb Date/Time: 01/16/2023 (1216) [email or web address] Orig Print D/T: S: 01/16/2023 (0900) PAGE 2 SignedReport- CT HEAD/BRAIN W/O [id number] 12:15:00 [facility] 1980 Sex: F Name: MARLA OROURKE [facility] : 1980 Age/S: 42 / F [id number] Unit #: [id number] Loc: [place] [address] Phys: Rashaun Erickson MD Acct: [id number] Dis Date: Status: REG ER PHONE #: [phone] Exam Date: 01/16/2023 1150 FAX #: Reason: headache EXAMS: CPT: [id number] CT HEAD/BRAIN W/O CONT 06227 INDICATIONS: headache TECHNIQUE: Contiguous axial CT sections were obtained from the skull base to the vertex without intravenous contrast administration. CT DLP dose: 732 mGy centimeters. One or more of the following dose reduction techniques were used: Automated exposure control, adjustment of the mA and/or kV according to patient size, and/or utilization of iterative reconstruction technique. Location: H54 COMPARISON: None available. FINDINGS: The brain parenchyma is unremarkable. The septum pellucidum and third ventricle are midline. The ventricles are normal in size, shape and position. There is no evidence of acute intracranial hemorrhage, acute infarction, or an intracranial mass lesion. The skull and extracranial soft tissues are grossly within normal limits. Small air-fluid level is present within the left maxillary sinus. IMPRESSION: 1. No evidence of acute intracranial abnormality. 2. Specifically, no evidence of hemorrhage, mass or stroke. 3. Acute left maxillary sinusitis. at 1215 Reported and signed by: Ran Gray M.D. CC: Matias Erickson MD Technologist:Dianne Harper CTDI: DLP: Trnscb Date/Time: 01/16/2023 (1215) [email or web address] Orig Print D/T: S: 01/16/2023 (9580) PAGE 1 Signed Report- XR ANKLE 3+V [id number] 12:14:00 [facility] 1980 Sex: F [facility]: [facility] : 1980 Age/S: 42 / F [id number] Unit #: [id number] Loc: [place] [address] Phys: Rashaun Erickson MD Acct: [id number] Dis Date: Status: REG ER PHONE #: [phone] Exam Date: 01/16/2023 1210 FAX #: Reason: ankle sweeling EXAMS: CPT: [id number] XR ANKLE 3+V [id number] Fluoro Time: DAP (Gy m2): Air Kerma (mGy): EXAM: - XR ANKLE 3+V LT, - XR ANKLE 3+V RT INDICATION: ankle sweeling LOCATION: B2 COMPARISON: None available. TECHNIQUE: 3 views of the bilateral ankles were obtained. FINDINGS: No acute fracture or malalignment is seen. The soft tissues are unremarkable. IMPRESSION: No acute fracture or malalignment. at 1214 Reported and signed by: Nikki Valle MD CC: Matias Page DO; Rashaun Erickson MD PAGE 1 Signed Report Name: MARLA OROURKE [place] : 1980 Age/S:42 / F [id number] [place] [address] Unit #: [id number] Loc: [place] [address] Phys: Rashaun Erickson MD Acct: [id number] Dis Date: Status: REG ER PHONE #: [phone] Exam Date: 01/16/2023 1210 FAX #: Reason: ankle sweeling EXAMS: CPT: [id number] XR ANKLE 3+[place] [address] Fluoro Time: DAP (Gy m2): Air Kerma (mGy): (Continued) Technologist: Dianne Harper Trnscb Date/Time: 01/16/2023 (1214) [email or web address] Orig Print D/T: S: 01/16/2023 (4117) PAGE 2 Signed Report- XR ANKLE 3+V [id number] 12:14:00 [facility] : 1980 Sex: F Name: MARLA OROURKE [place] : 1980 Age/S: 42 / F [address] Unit #: [id number] Loc: [place] [address] Phys: Rashaun Erickson MD Acct: [id number] Dis Date: Status: REG ER PHONE #: [phone] Exam Date: 01/16/2023 1210 FAX #: Reason: headache ankle swelling EXAMS: CPT: [id number] XR ANKLE 3+V RT 216[address] Fluoro Time: DAP (Gy m2): Air Kerma (mGy): EXAM: - XR ANKLE 3+V LT, - XR ANKLE 3+V RT INDICATION: ankle sweeling LOCATION: B2 COMPARISON: None available. TECHNIQUE: 3 views of the bilateral ankles were obtained. FINDINGS: No acute fracture or malalignment is seen. The soft tissues are unremarkable. IMPRESSION: No acute fracture or malalignment. at 1214 Reported and signed by: Nikki Valle MD CC: Matias Page DO; Rashaun Erickson MD PAGE 1 Signed Report Name: MARLA OROURKE [place] : 1980 Age/S: 42 / F [address] Unit #: [id number] Loc: [place] [address] Phys: Gilda Erickson Acct: [id number] Dis Date: Status: REG ER PHONE #: [phone] Exam Date: 01/16/2023 1210 FAX #: Reason: headache ankle swelling EXAMS: CPT: [id number] XR ANKLE 3+V [place] 82197 Fluoro Time: DAP (Gy m2): Air Kerma (mGy): (Continued) Technologist: Dianne Harper Trnscb Date/Time: 01/16/2023 (0204)[email or web address] Orig Print D/T: S: 01/16/2023 (9723) PAGE 2 Signed Report- XR KNEE 1 OR 2 V LT 2023-01-10 16:01:00 [facility] : 1980 Sex: F Name: MARLA OROURKE [facility] : 1980 Age/S: 42 / F [address] Unit #: [id number] Loc: [place] [address] Phys: Matias Page DO Acct: [id number] Dis Date: Status: REG CLI PHONE #: [phone] Exam Date: 01/10/2023 1551 FAX #: Reason: LEFT ANTERIOR KNEE PAIN EXAMS: CPT: [id number] XR KNEE 1 OR 2 [place] [address] Fluoro Time: DAP (Gy m2): Air Kerma (mGy): Location Code: S17 EXAMINATION: -XR KNEE 1 OR 2 V LT CLINICAL INDICATION: Female, 42 years old with LEFT ANTERIOR KNEE PAIN COMPARISON: None FINDINGS: Three view(s) of the knee obtained. Joint spaces: Mild narrowing of the medial kneejoint compartment. Bones: No evidence for acute fracture. Soft tissues: Unremarkable. IMPRESSION: No evidence for acute fracture. at 1601 Reported and signed by: Sher Graves M.D. CC: Matias Page DO PAGE 1 Signed Report Name: MARLA OROURKE : 1980 Age/S: 42 / F [address] Unit #: [id number] Loc: [place] [address] Phys: Matias Page DO Acct: [id number] Dis Date: Status: REG CLI PHONE #: [phone] Exam Date: 01/10/2023 1551 FAX #: Reason: LEFT ANTERIOR KNEE PAIN EXAMS: CPT: [id number] XR KNEE 1 OR 2 [place] [address] Fluoro Time: DAP (Gy m2): Air Kerma (mGy): (Continued) Technologist: Marylin Castillo, RT(R)(CT) Trnscb Date/Time: 01/10/2023 (1601) [email or web address] Orig Print D/T: S: 01/10/2023 (6925) PAGE 2 Signed ReportPOCT GRP A STREP (MOLECULAR)2019-08-30 13:53:00 Test Item Value Reference Range Interpretation Comments POCT GP A STREP (test neg Negative - code = 34391-3) Negative DAWIT (test code = DAWIT) accurate development and interpretation of all internal controls Lab Interpretation Normal (test code = 39418-9) [facility] [id number] 02:33:00 Test Item Value Reference Range Interpretation Comments TEST URINE (BEAKER) (test Negative code = 583) URINALYSIS W/ REFLEX URINE [id number] 02:31:00 Test Item Value Reference Range Interpretation [...] 1584) SOURCE(BEAKER) (test code = 2795) CT, [id number] 02:09:00Reason for exam:->ABDOMINAL PAINReason for exam:->NAUSEAReason for [...] and inflammatory causes are considered. Signed: Eliz Bustillos MDReport Verified Date/Time: 01/29/2019 02:09:01 Reading Location: [address] Reading Room HCG, QUANTITATIVE, [id number] 01:30:00 Test Item Value Reference Range Interpretation Comments GONADOTROPIN, CHORIONIC (HCG) QUANT < mIU/mL 0-10 (BEAKER) (test code = 649) Non- Females: <10 mIU/mL Females: Gestation Age Reference Range(mIU/mL) 0.2-1 Week 5-50 1-2 Weeks 50-500 2-3 Weeks 100-5,000 3-4 Weeks 500-10,000 4-5 Weeks 1,000-50,000 5-6 Weeks 10,000-100,000 6-8 Weeks 15,000- 200,000 2-3 Months 10,000-100,000POCT-LACTIC ACID, [id number] 23:56:00 Test Item Value Reference Range Interpretation Comments POC-LACTIC ACID, 0.8 mmol/L 0.9-1.7 L TESTED AT [facility] [address] (BEAKER) (test [facility] [place] code = 2805) [address] CBC W/PLT COUNT & AUTO [id number] 21:42:00 Test Item Value Reference Range Interpretation [...] to report due WIDTH (BEAKER) (test to [facility] RBC code = 412) population distribution. [...] Received comment: User comments: Slide comments:BASIC METABOLIC [id number] 21:21:00 Test Item Value Reference Range Interpretation [...] FOR DIALYSIS PATIEN TS. OVA AND PARASITE [id number] 08:15:00 Test Item Value Reference Range Interpretation [...] seen seen code = 248) BASIC METABOLIC [id number] 05:42:00 Test Item Value Reference Range Interpretation [...] PATIEN TS. CBC W/PLT COUNT & AUTO [id number] 05:35:00 Test Item Value Reference Range Interpretation [...] PERCENT (BEAKER) (test code = 2801) TISSUE [id number] 09:51:00Surgical Pathology Report Case: [id number] Authorizing Provider: Ike Huynh Collected: 11/27/2018 1108 Ordering Location: [address] Received: 11/27/2018 1400 Service Pathologist: Jack [...] INVASIVE CARCINOMA. Signing Pathologist Direct Phone Line: [phone] signed by Jack Batista MD on 11/28/2018 at 9:51 [id number] and postop diagnosis: colitisA. Polyp, colon - [...] are submitted in toto in F1. CG/pl PERFORMED.[id number] 04:33:00 Test Item Value Reference Range Interpretation Comments MAGNESIUM (BEAKER) (test code = 1.9 mg/dL 1.6-2.6 627) BASIC METABOLIC [id number] 04:33:00 Test Item Value Reference Range Interpretation [...] APPLICABLE FOR DIALYSIS PATIEN TS. HEPATIC FUNCTION [id number] 04:33:00 Test Item Value Reference Range Interpretation [...] code = 19 U/L 6-55 347) CALCIUM, [id number] 04:30:00 Test Item Value Reference Range Interpretation Comments CALCIUM IONIZED (BEAKER) (test 1.09 mmol/L 1.12-1.27 L code = 698) PH, BLOOD (BEAKER) (test code = 7.41 1810) PROTHROMBIN [id number] 04:20:00 Test Item Value Reference Range Interpretation [...] wiht mechanical heart valves.STOOL CULTURE + SHIGA [id number] 11:46:00 Test Item Value Reference Range Interpretation Comments CULTURE (BEAKER) No Salmonella, Shigella (test code = 1095) or Campylobacter isolated HIV-1 ANTIGEN WITH HIV-1/2 [id number] 09:38:00 Test Item Value Reference Range Interpretation Comments HIV-1 ANTIGEN WITH HIV 1\\T\\2 Nonreactive Nonreactive ANTIBODY (2) (BEAKER) (test code = 2586) [id number] 05:10:00 Test Item Value Reference Range Interpretation Comments MAGNESIUM (BEAKER) (test code = 2.1 mg/dL 1.6-2.6 627) BASIC METABOLIC [id number] 05:10:00 Test Item Value Reference Range Interpretation [...] APPLICABLE FOR DIALYSIS PATIEN TS. HEPATIC FUNCTION [id number] 05:10:00 Test Item Value Reference Range Interpretation [...] code = 17 U/L 6-55 347) CALCIUM, [id number] 04:48:00 Test Item Value Reference Range Interpretation Comments CALCIUM IONIZED (BEAKER) (test 1.02 mmol/L 1.12-1.27 L code = 698) PH, BLOOD (BEAKER) (test code = 7.42 1810) PROTHROMBIN TIME/[id number] 04:39:00 Test Item Value Reference Range Interpretation [...] (BEAKER) (test code = 413) STOOL PATH [id number] 18:28:00 Test Item Value Reference Range Interpretation Comments PATHOGEN EXAM CHARGED (BEAKER) (test Done code = 2381) SHIGA TOXIN [id number] 14:40:00 Test Item Value Reference Range Interpretation Comments SHIGA TOXIN 1 (BEAKER) (test Not detected Not detected code = 2177) SHIGA TOXIN 2 (BEAKER) (test Not detected Not detected code = 2179) CBC W/PLT COUNT & AUTO [id number] 06:26:00 Test Item Value Reference Range Interpretation [...] 0-1 PERCENT (BEAKER) (test code = 2801) [id number] 06:21:00 Test Item Value Reference Range Interpretation Comments MAGNESIUM (BEAKER) (test code = 2.1 mg/dL 1.6-2.6 627) BASIC METABOLIC [id number] 06:21:00 Test Item Value Reference Range Interpretation [...] APPLICABLE FOR DIALYSIS PATIEN TS. HEPATIC FUNCTION [id number] 06:21:00 Test Item Value Reference Range Interpretation [...] code = 20 U/L 6-55 347) PROTHROMBIN [id number] 06:19:00 Test Item Value Reference Range Interpretation [...] 2.5-3.5 for patients wiht mechanical heart valves.CALCIUM, [id number] 05:52:00 Test Item Value Reference Range Interpretation Comments CALCIUM IONIZED (BEAKER) (test 1.08 mmol/L 1.12-1.27 L code = 698) PH, BLOOD (BEAKER) (test code = 7.41 1810) GI PATHOGEN PROFILE BY [id number] 18:49:00 Test Item Value Reference Range Interpretation [...] detected Not detected VULNIFICUS) (test code = 8492527) Other viruses, parasites and bacteria not targeted by this PCR panel cannot be excluded; therefore clinical correlation and follow up of serology, culture results, and other molecular studies is required. The results are not intended to be used as the sole means for clinical diagnosis or patient management decisions. This sample was tested at the [facility] using the [employer] Software Gastrointestinal Panel. It is FDA cleared and has been verified and approved by the [facility] for clinical use. This laboratory is CLIA-certified and College ofAmerican Pathologists (CAP)-accredited to perform high complexity testing.C. DIFFICILE GDH [id number] 17:47:00 Test Item Value Reference Range Interpretation Comments CDT TOXIN (test code Negative Negative = 8643113505) CDT GDH ANTIGEN (test Negative Negative No ind ication of code = 6759056682) Clostridi um difficile infection and n o colonization. Discontinue ent janay isolation and t herapy. Testing performed by [employer] Rapid Cassette Assay. For GDH, published sensitivity of the assay is 98.7% compared to cytotoxicity testing. For Toxin AB, published sensitivity is 87.8% and specificity 99.4% compared to cytotoxicity testing.Verification of kit performance was done by the [facility] prior to clinical use.[id number] 17:01:00 Test Item Value Reference Range Interpretation [...] 20-55 L (test code = 2590) C-REACTIVE [id number] 16:39:00 Test Item Value Reference Range Interpretation Comments C-REACTIVE PROTEIN (BEAKER) (test 7.69 mg/dL 0.00-0.50 H code = 676) RETICULOCYTE [id number] 16:24:00 Test Item Value Reference Range Interpretation Comments RETICULOCYTE COUNT PCT (BEAKER) (test 0.8 % 0.5-1.7 code = 575) Notes Date/Time Note Provider Source 2023-01-16 11:34:00-00:00 [facility] ([facility]) EMERGENCY PROVIDER REPORT REPORT#:[id number] REPORT STATUS: Signed DATE:01/16/23 TIME:1134 PATIENT: MARLA OROURKE UNIT #: [id number] ROOM/BED: : 80 AGE: 42 SEX: F PCP PHYS: Matias Page DO SERVICE AUTHOR: Rashaun Erickson MD * ALL edits or amendments must be made on the el [employer] Text/computer document * See Addendum HPI-Abd Pain F 40 and Over General Initial Greet Date/Time 01/16/23 1057 Presentation Chief Complaint ankle swelling Sudden in Onset? No Free Text HPI Notes Free Text HPI Notes 42-year-old female history of ulcerative colitis currently not on any medication. Presents to the ED with left ankle p ain and swelling with right ankle pain and swelling. Left shoulder pain. Pat ient states associated headache. Not getting any better. Patient states generalized fatigue and tiredness. Patient states she has an inflamed ly mph node on the upper arm. Risk-Abd Pain F 40 and Over )( Abdominal Aortic Aneurysm Risk factors review ed Review of Systems ROS Statements All systems rev neg except as marked. Past Medical History - Adult Stated Complaint SWOLLEN ANKLES, L ARM PAIN W/SW OLLEN LYMPH NODE Allergies Coded Allergies: No Known Allergies (01/16/23) Calculated Suicide Risk (nurs) No risk Smoking status for patients 13 years old or olde r: Never Smoker Physical Exam Vital Signs Vital Signs First Documented: Result Date Time Pulse Ox 100 01/16 1120 B/P 120/75 01/16 1120 B/P Mean 90 01/16 1120 O2 Delivery Room air 01/16 1120 Temp 36.4 01/16 1120 Pulse 93 01/16 1120 Resp 14 01/16 1120 Last Documented: Result Date Time Pulse Ox 100 01/16 1120 B/P 120/75 01/16 1120 B/P Mean 90 01/16 1120 O2 Delivery Room air 01/16 1120 Temp 36.4 01/16 1120 Pulse 93 01/16 1120 Resp 14 01/16 1120 Review of Vital Signs Reviewed Basic Physical Exam Basic PE HEAD: Atraumatic/NC Focused PE General/Const General/Const Awake, Alert MS Head Head Normocephalic Eyes Eyes PERRL Ears/Nose/Throat Ears/Nose/Throat Airway patent, Mucous membrane s moist, Pharynx NL Resp/Chest Respiratory/Chest Breath sounds NL, Breath soun ds = bilat, No rhonchi, No wheezing Cardiovascular Cardiovascular Heart rate NL, Regular rhythm, H eart sounds NL, Peripheral circulation NL Abdomen/GI Abdomen/GI Soft, Non-tender, McBurney's non-ten yasmin, No guarding, No rebound, BS normoactive, No distention, No hernia, No pal pable mass, No pulsatile mass MS Back Back Inspection NL, Non-tender, No CVA tenderne ss Skin Skin Color NL Text/Dict Notes left inner lymph nodes tenderness no fluctuance Neurologic Neurologic Oriented X3, Speech NL, No motor def icits, No sensory deficits Additional PE MS Upper Extrem Right Shoulder Tenderness present. Negative: Swelling present, Ecchymosis present, Erythema present, Warmth present, ROM reduced. MS Wrist/Hand Wrist/Hand Atraumatic, Inspection NL MS Ankle/Foot Right Ankle Swelling present, Tenderness present. Left Ankle Swelling present, Tenderness present. Negative: Tender lat ligaments, Tender medial ligaments. Interpretation Diagnostics Lab Results Interpretation Considerations Independ review imaging, Reviewed prior records Results Laboratory Tests 08/27/23 1224: [Embedded Image Not Available] Laboratory Tests: 01/16 01/16 1224 1224 Chemistry Sodium (134 - 147 mmol/L) 139 Potassium (3.4 - 5.0 mmol/L) 3.1 L Chloride (100 - 108 mmol/L) 107 Carbon Dioxide (21 - 32 mmol/L) 28 Anion Gap (4.0 - 15.0 GAP calc) 4.0 BUN (7 - 18 MG/DL) 14 Creatinine (0.6 - 1.0 MG/DL) 0.6 Glomerular Filtr Rate (>60 estGFR) >=60 max es timate Glucose (70 - 110 MG/DL) 91 Calcium (8.5 - 10.1 MG/DL) 8.1 L Total Bilirubin (0.2 - 1.2 MG/DL) 0.50 Direct Bilirubin (0.00 - 0.30 MG/DL) < 0.10 Indirect Bilirubin (0.2 - 1.2 MG/DL) 0.40 AST (15 - 37 Unit/L) 13 L ALT (12 - 78 Unit/L) 53 Total Alk Phosphatase (45 - 117 Unit/L) 136 H Troponin I High Sens (0 - 54 ng/L) < 3.0 NT-Pro-B Natriuret Pep (0 - 100 PG/ML) 63 Total Protein (6.4 - 8.2 G/DL) 7.2 Albumin (3.4 - 5.0 G/DL) 3.0 L Lipase (114 - 286 Unit/L) 69 L Coagulation INR (0.8 - 1.2 INR Unit) 1.05 PTT (Kev) (26 - 35 SECONDS) 26.3 PT Patient/Control Mix (9.3 - 12.9 SECONDS) 11. 7 Hematology WBC (3.5 - 11.0 K/mm3) 7.3 RBC (4.70 - 6.10 M/mm3) 4.24 L Hgb (10.4 - 14.9 G/DL) 9.6 L Hct (31.5 - 44.1 %) 31.0 L MCV (84.5 - 98.6 Fl) 73.1 L MCH (27.0 - 34.2 pg) 22.6 L MCHC (31.5 - 34.0 G/DL) 31.0 L RDW (11.5 - 14.5 SD) 16.5 H Plt Count (150 - 450 K/mm3) 417 MPV (7.0 - 10.5 fL) 8.40 Neut % (Auto) (40 - 76 %) 74.9 Lymph % (Auto) (20.5 - 51.1 %) 14.5 L [place] % (Auto) (1.7 - 9.3 %) 8.1 Eos % (Auto) (0.0 - 6.0 %) 1.8 Baso % (Auto) (0.0 - 2.0 %) 0.4 Neut # (Auto) (1.8 - 7.6 K/mm3) 5.4 Lymph # (Auto) (0.6 - 3.2 K/mm3) 1.1 [place] # (Auto) (0.3 - 1.1 K/mm3) 0.6 Eos # (Auto) (0.0 - 0.4 K/mm3) 0.1 Baso # (Auto) (0.0 - 0.1 K/mm3) 0.0 Abs Immat Gran (auto) (0.00 - 0.03 x10 3/uL) 0. 02 Add Manual Diff (CRITERIA DIFF/SCN) NO Immature Gran % (0.0 - 5.0 %) 0.3 Nucleated RBC % (0.0 - 1.0 /100WBC%) 0.0 01/16 1211 Urines Urine Color (YEL/STRAW discript) STRAW Urine Appearance (CLEAR discript) SL CLOUDY Urine pH (5.0 - 7.0 pH UNITS) 6.0 Ur Specific [place] (1.005 - 1.030 SG) 1.015 Urine Protein (NEG mg/dL) NEGATIVE Urine Glucose (UA) (NEG mg/dL) NEGATIVE Urine Ketones (NEG mg/dL) NEGATIVE Urine Blood (NEG mg/DL) 3+ H Urine Nitrite (NEG SCREEN) NEGATIVE Urine Bilirubin (NEG mg/dL) NEGATIVE Urine Urobilinogen (<2.0 mg/dL) 0.2 Ur Leukocyte Esterase (NEGATIVE Leuk/mcL) NEGAT LUIS A Urine RBC (0 - 3 #RBC/HPF) 10-20 H Urine WBC (0 - 3 #WBC/HPF) 0-1 Ur Squamous Epith Cells (NONE /HPF) TRACE Ur Renal Epithelial Cell (NONE SEEN /HPF) TRACE H Urine Bacteria (NONE - TRACE /HPF) 1+ H Urine Culture Screen (Culture CHK Criteria) NO, WBC<10 Microbiology: Date/Time Procedure - Status Source Growth 01/16 1211 Urine Culture - COMP URINE 01/16 1136 Influenza Virus Type B Antigen - CAN NASOPHARG Cancelled: Auto-cancelled after 5 day s. 01/16 1136 Influenza Virus Type A Antigen - CAN NASOPHARG Cancelled: Auto-cancelled after 5 day s. Recent Impressions: CAT SCAN - CT HEAD/BRAIN W/O CONT 01/16 1149 Report Impression - Status: SIGNED Entered: 01/16/2023 1218 IMPRESSION: 1. No evidence of acute intracranial abnormality . 2. Specifically, no evidence of hemorrhage, mass or stroke. 3. Acute left maxillary sinusitis. Impression By: [email or web address] Anitha Gray M.D. RADIOLOGY - XR ANKLE 3+V LT 01/16 1150 Report Impression - Status: SIGNED Entered: 01/16/2023 1217 IMPRESSION: No acute fracture or malalignment. Impression By: Ivan Valle MD RADIOLOGY - XR SHOULDER 2+V LT 01/16 1150 Report Impression - Status: SIGNED Entered: 01/16/2023 1220 IMPRESSION: No acute fracture or dislocation. Impression By: Christie JHAVERI M.D. RADIOLOGY - XR ANKLE 3+V RT 01/16 1150 Report Impression - Status: SIGNED Entered: 01/16/2023 1217 IMPRESSION: No acute fracture or malalignment. Impression By: Ivan Valle MD RADIOLOGY - XR CHEST 1 V 01/16 1150 Report Impression - Status: SIGNED Entered: 01/16/2023 1220 IMPRESSION: No acute cardiopulmonary abnormality. Impression By: Christie JHAVERI M.D. Lab Statement Laboratory studies reviewed and considered in e medical decision-making. Imaging Statement Radiographic studies reviewed and considered in the medical decision-making. Lab Imaging Statement Laboratory radiographic studies reviewed and con sidered in the medical decision-making. Point of Care Testing Pulse Oximetry Pulse Ox % 98 On: Room air Interpretation Interpreted by me, Pulse oximetr y normal Re-Evaluation MDM Free Text MDM Notes Free Text MDM Notes No abscess on the left inner upper axilla lympha denitis. Patient declined. Patient declines COVID and flu testing )( Re-Evaluation/Progress #1 )( Re-Eval Status Improved Re-Eval Abdomen Soft, Non-tender Eval Following Treatment Condition improved Exam Post Tx - General Active, Alert Exam Post Tx - Sys Review Lungs clear ED Course Medication(s) Ordered Medication(s) Ordered: Central Nervous System Agents Sig/Rosalind Start time Last Medication Dose Route Stop Time Status Admin Morphine Sulfate 4 MG X1ED STA 01/16 1132 DC IV 01/16 1133 1224 Electrolytic, Caloric, And Jayce Sig/Rosalind Start time Last Medication Dose Route Stop Time Status Admin Potassium Chloride 40 MEQ X1ED STA 01/16 1320 D C 01/16 PO 01/16 1321 1351 Sodium Chloride 1,000 ML X1ED STA 01/16 1132 DC 01/16 IV 01/16 1232 1226 Gastrointestinal Drugs Sig/Rosalind Start time Last Medication Dose Route Stop Time Status Admin Ondansetron HCl 4 MG X1ED STA 01/16 1132 DC IV 01/16 1133 1224 Differential Diagnosis )( Differential Diagnosis Abdominal aortic aneur ysm, Cellulitis, Cervicitis, Cholangitis, Cholecystitis, Cholelithiasis, Diarrhea, Gastritis, Gastroenteritis , Hernia, Inguinal hernia, Pancreatitis, Urinary retention, Urinary tract infection Patient Discharge Departure Vital Signs/Condition Vital Signs First Documented: Result Date Time Pulse Ox 100 01/16 1120 B/P 120/75 01/16 1120 B/P Mean 90 01/16 1120 O2 Delivery Room air 01/16 1120 Temp 36.4 01/16 1120 Pulse 93 01/16 1120 Resp 01/16 1120 Last Documented: Result Date Time Pulse Ox 100 01/16 1120 B/P 120/75 01/16 1120 B/P Mean 90 01/16 1120 O2 Delivery Room air 01/16 1120 Temp 36.4 01/16 1120 Pulse 93 01/16 1120 Resp 01/16 1120 All vital signs available at the time of this en try have been reviewed. Condition Stable, Improved Clinical Impression Clinical Impression Primary Impression: Shoulder pain Secondary Impressions: Ankle swelling, Hypokalem ia, Lymphadenitis, Sinusitis Disposition Decision Discharge )( Discharged to Home Yes Discharge/Care Plan Counseled Regarding Diagnosi s, Lab results, Imaging studies, Need for follow-up, When to return to ED Rx Drug Database Reviewed Yes (Auto) Prescriptions Current Visit Scripts ACETAMINOPHEN/CODEINE (TYLENOL WITH CODE INE #3 300/30 MG) 1 TAB PO Q4H PRN PRN ACUTE PAIN ACETAMINOPHEN/CODEINE (TYLENOL WITH CODEINE #3 300/30 MG) 1 TAB PO Q4H PRN PRN ACUTE PAIN #15 TABS AMOXICILLIN/CLAV K (AUGMENTIN 875/125 MG) 875 MG PO Q12H AMOXICILLIN/CLAV K (AUGMENTIN 875/125 MG) 875 M G PO Q12H #20 TABS Prescriptions Reviewed Risks, Benefits, Alternat luis a treatment Patient Instructions ED Headache Unspeci fied, ED Leg Swelling in Both Legs, ED Shoulder Sprain, ED Sinusitis (Antibiotic Treatm ent) Referrals Provider Referral: Ramone Reinoso MD Address: [address] [place] [address], [address] [place] [address] Provider Referral: Blanche Lucero MD Address: [address] [facility] [place] [address] Provider Referral: Christa Garland MD Address: [address] [facility] [address] [place] [address] Departure Forms WORK/SCHOOL EXCUSE-CAREGIVER 2 Discharge Note I have spoken with the patie nt and/or caregivers. I have explained the patient's condition, diagnoses and dora atment plan based on the information available to me at this time. I have answered the patient's and/ or caregiver's questions and addressed any concerns. The patient and/or careg cesar have as good an understanding of the patient 's diagnosis, condition and treatment plan as can be expected at this point. The vital signs have bee n stable. The patient's condition is stable and appr opriate for discharge from the emergency department. The patient will pursue further outpatient evalu ation with the primary care physician or other designated or consulting phys ician as outlined in the discharge instructions. The patient and/or caregivers are agreeable to this plan of care and follow-up instructions have been exp lained in detail. The patient and/or caregivers have received these instructio ns in written format and have expressed an understanding of the discharge inst ructions. The patient and/or caregivers are aware that any significant change in condition or worsening of symptoms should prompt an immediate return to [facility] or the closest emergency department or a call to 911. Electronically Signed by Rashaun Erickson MD on 10/12 at 1125 Addendum 1: 01/27/232148 by Rashaun Erickson MD Provider Time Updates Greet Date/Time Date/Time Seen by Provider 01/16/23 1057 Disposition Discharge )( Discharged to Home Yes )( Time 1415 )( Date 01/16/23 Electronically Signed by Rashaun Erickson MD on 12/12 at 2149 RPT #: [id number] END OF REPORT
--- NOTE | 2023-01-30 21:02 | ER ---
Nurse's Notes [facility] Name: Kaitlynn Orourke Age: 42 yrs Sex: Female : 1980 Arrival Date: 01/30/2023 Time: 19:33 Bed [id number] Private MD: Diagnosis: Presentation: 01/30 20:12 Chief complaint: Patient states: Swelling on both legs for about 3 weeks, left has nj1 gotten worse, seen here when it first started. Denies pain at this time. Coronavirus screen: Vaccine status: Patient reports receiving the 2nd dose of the covid vaccine. Ebola Screen: Patient denies travel to an Ebola-affected area in the 21 days before illness onset. Initial Sepsis Screen: Does the patient meet any 2 criteria? HR > 90 bpm. No. Patient's initial sepsis screen is negative. Does the patient have a suspected source of infection? No. Patient's initial sepsis screen is negative. Risk Assessment: Do you want to hurt yourself or someone else? Patient reports no desire to harm self or others. Onset of symptoms was December 2022. 20:12 Method Of Arrival: Ambulatory nj1 20:12 Acuity: DELMY 3 nj1 Historical: - Allergies: 20:15 No Known Allergies; nj1 - PMHx: 20:15 C DIFF; Colitis; Hypokalemia; nj1 - PSHx: 20:15 None; nj1 - Immunization history:: Client reports receiving the 2nd dose of the Covid vaccine. - Social history:: Smoking status: Patient denies any tobacco usage or history of. Vital Signs: 20:12 BP 110 / 78; Pulse 92; Resp 16; Temp 98.7(O); Pulse Ox 100% ; Weight 60.78 kg; Height 5 nj1 ft. 1 in. ; 20:12 Body Mass Index 25.32 (60.78 kg, 154.94 cm) nj1 ED Course: 19:35 Patient arrived in ED. mr 19:53 [facility] sb4 19:53 Julio Khoury MD is Attending Physician. sb4 20:15 Triage completed. nj1 20:16 Arm band placed on right wrist. nj1 21:01 Patient's name was called from ER lobby. No response. Unable to locate patient. Will as6 disposition as left without being seen by a provider. Administered Medications: No medications were administered Outcome: 21:02 Patient left the ED. as6 Signatures: Brittni Garcia Samuel Capps, RN RN as6 Karol Major PA-C PA-C sb4 Jessy Coleman RN RN nj1 Corrections: (The following items were deleted from the chart) 20:16 20:12 Chief complaint: Patient states: Swelling on both legs for about 3 weeks, left nj1 has gotten worse, seen here when it first started. nj1
[2023-01-30 21:45] VITALS: BP 110/78; TEMP 98.7; O2SAT 100
== END 2023-01-30 21:02 | disposition left against medical advice (07) ==
LOC: ER 19:33
DX: R22.43 Localized swelling, mass and lump, lower limb, bilateral (principal); E87.6 Hypokalemia; Z53.21 Procedure and treatment not carried out due to patient leaving prior to being seen by health care provider
CPT/HCPCS: 99281

== ENCOUNTER 2023-05-03 15:30 | Observation (INO) | payer OTHER ==
[2023-05-03 16:42] LABS: Absolute Lymphocytes (CBC) 2.7 K/uL (0.7-4.9); Hematocrit 32.7 % (36.0-45.0); Lymphocytes % 18.6 % (15.3-44.8); MCV 81.3 fL (80-100); MPV 6.6 fL (7.6-11.3); Platelets 443 thou/uL (152-406); RBC Red Blood Cell Count 4.02 M/uL (3.86-4.86)
[2023-05-03 16:54] LABS: ALT/SGPT 27 U/L (13-56); AST/SGOT 9 U/L (15-37); Alkaline Phosphatase 122 U/L (45-117); BUN Blood Urea Nitrogen 19 mg/dL (7-18); Bicarbonate 28 mEq/L (21-32); Glomerular Filtration Rate 78 ml/min (=/>90); Glucose Level 109 mg/dL (74-106); Lipase 21 U/L (13-75); Protein, Total 7.2 g/dL (6.4-8.2); Sodium Level 139 mEq/L (136-145)
[2023-05-03 16:58] LABS: Bilirubin Total < 0.1 mg/dL (0.2-1.0)
[2023-05-03] MEDS ORDERED: METHYLPREDNISOLONE 125 MG INJ ONE (17:49)
[2023-05-03] MEDS ORDERED: POTASSIUM 25 MEQ EFFERV TAB ONE (17:49)
--- NOTE | 2023-05-03 19:30 | RAD REPORT ---
EXAM DESCRIPTION: CT - Abdomen Pelvis W Contrast - 05/03/2023 5:48 pm CLINICAL HISTORY: ABD PAIN COMPARISON: Abdomen Pelvis W Contrast dated 12/24/2022; Abdomen Pelvis W Contrast dated 11/04/2022; Abdomen Pelvis W Contrast dated 09/07/2022; Abdomen Pelvis W Contrast dated 09/14/2019 TECHNIQUE: Thin cut axial CT imaging of the abdomen and pelvis was performed following intravenous a dministration of 100mL Isovue 300. Multiplanar reformats were generated and reviewed. All CT scans are performed using dose optimization technique as appropriate and may include automated exposure control or mA/KV adjustment according to patient size. FINDINGS: No suspicious findings in the lung bases. The liver, spleen, adrenal glands, and pancreas show no suspicious findings. Gallbladder is decompres sed limiting evaluation Symmetric renal function is seen with no hydronephrosis or suspicious renal mass. No dilated bowel loops. Progressive segmental wall of the colon with wall thickening, mucosal hyper a and adjacent fat stranding. His oral starts at the hepatic flexure or trauma extending around the de scending and sigmoid colon the level the rectum. Patulous appearance of the anal canal, please correl ate for evidence of incontinence/ pelvic floor insufficiency. No free air, free fluid or fluid colle ction. No hernia, mass or bulky lymphadenopathy. The urinary bladder is without significant finding. No suspicious bony findings. IMPRESSION: More extensive inflammatory changes involving the colon common of starting at the hepati c flexure. This is concerning for progressive inflammatory bowel disease.
--- NOTE | 2023-05-03 19:45 | ER ---
Nurse's Notes [facility] Name: Kaitlynn Orourke Age: 42 yrs Sex: Female : 1980 Arrival Date: 05/03/2023 Time: 15:30 Bed 10 Private MD: Diagnosis: Colitis Presentation: 05/03 15:39 Chief complaint: Patient states: Pt c/o abdominal cramping and bright red bleeding of me1 unknown origin. Pt states she started her menstrual period today. Pt also is having an ulcerative colitis flare, but does not normally have bleeding associated with it. Pt states her cycle is not usually this heavy. 15:42 Coronavirus screen: Vaccine status: Patient reports receiving the 2nd dose of the covid tl4 vaccine. At this time, the client does not indicate any symptoms associated with coronavirus-19. Ebola Screen: Patient negative for fever greater than or equal to 101.5 degrees Fahrenheit, and additional compatible Ebola Virus Disease symptoms Patient denies exposure to infectious person. Patient denies travel to an Ebola-affected area in the 21 days before illness onset. No symptoms or risks identified at this time. Initial Sepsis Screen: Does the patient meet any 2 criteria? No. Patient's initial sepsis screen is negative. Does the patient have a suspected source of infection? No. Patient's initial sepsis screen is negative. Risk Assessment: Do you want to hurt yourself or someone else? Patient reports no desire to harm self or others. Onset of symptoms was May 03, 2023. 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 - Social history:: Smoking status: Patient denies any tobacco usage or history of. Screenin:11 [facility] ED Fall Risk Assessment (Adult) History of falling in the last 3 months, me1 including since admission No falls in past 3 months (0 pts) Confusion or Disorientation No (0 pts) Intoxicated or Sedated No (0 pts) Impaired Gait No (0 pts) Mobility Assist Device Used No (0 pt) Altered Elimination No (0 pt) Score/Fall Risk Level 0 - 2 = Low Risk Maintained a safe environment, Provided non-skid footwear, Hourly rounding (assess needs \T\ fall precautionary measures) done. Abuse screen: Denies threats or abuse. Nutritional screening: No deficits noted. Tuberculosis screening: No symptoms or risk factors identified. Assessment: 16:11 General: Appears uncomfortable, well groomed, well developed, well nourished, Behavior me1 is calm, cooperative, appropriate for age, Reports Pt c/o abdominal cramping and bright red bleeding of unknown origin. Pt states she started her menstrual period today. Pt also is having an ulcerative colitis flare, but does not normally have bleeding associated with it. Pt states her cycle is not usually this heavy. Pain: Complains of pain in abdomen Pain does not radiate. Pain currently is 7 out of 10 on a pain scale. Quality of pain is described as crampy, Pain began 2-3 days ago. Is episodic. Neuro: Level of Consciousness is awake, alert, obeys commands, Oriented to person, place, time, situation, Appropriate for age. Cardiovascular: Capillary refill < 3 seconds Patient's skin is warm and dry. Respiratory: Airway is patent Respiratory effort is even, unlabored, Respiratory pattern is regular, symmetrical. GI: Bowel sounds present X 4 quads. Abd is soft X 4 quads Abdomen is tender to palpation in left upper quadrant and left lower quadrant Reports cramping, diarrhea, bloody stool, nausea. 16:11 : Reports vaginal bleeding that is Started her period today. Unsure if the blood me1 clots are from her period or if they are in her stool. Concerned about the amount of blood loss. 20:48 Reassessment: Patient appears in no apparent distress at this time. Patient and/or jb4 family updated on plan of care and expected duration. Pain level reassessed. Patient is alert, oriented x 3, equal unlabored respirations, skin warm/dry/pink. 21:33 Reassessment: Patient appears in no apparent distress at this time. Patient is alert, kl oriented x 3, equal unlabored respirations, skin warm/dry/pink. Patient states feeling better. Patient states symptoms have improved. Vital Signs: 15:42 BP 132 / 72; Pulse 113; Resp 16; Temp 97.1(TE); Pulse Ox 100% ; Weight 63.5 kg; Height tl4 5 ft. 1 in. ; Pain 8/10; 16:10 BP 117 / 77; Pulse 105; Resp 18; Pulse Ox 100% on R/A; Pain 7/10; me1 17:00 BP 131 / 81; Pulse 105; Resp 16; Pulse Ox 100% ; me1 17:50 BP 120 / 58; Pulse 97; Resp 18; Pulse Ox 100% on R/A; me1 18:45 BP 106 / 73; Pulse 92; Resp 17; Pulse Ox 100% on R/A; me1 19:45 BP 111 / 58; Pulse 91; Resp 16; Pulse Ox 100% on R/A; me1 20:48 BP 108 / 72; Pulse 100; Resp 16; Pulse Ox 98% on R/A; jb4 21:28 BP 111 / 74; Pulse 100; Resp 16; Pulse Ox 100% on R/A; kl 15:42 Body Mass Index 26.45 (63.50 kg, 154.94 cm) tl4 15:42 Pain Scale: Adult tl4 16:10 Pain Scale: Adult ny1 ED Course: 15:32 Patient arrived in ED. mg5 15:34 Lex Laird DO is Attending Physician. ms3 15:44 Triage completed. tl4 15:44 Arm band placed on Patient placed in an exam room, on a stretcher. tl4 16:03 Natalie Mckeon, RN is Primary Nurse. me1 16:11 Patient has correct armband on for positive identification. Bed in low position. Call ny1 light in reach. Side rails up X 1. Provided Education on: POC. Verbalized understanding. . 16:11 No provider procedures requiring assistance completed. me1 16:26 Inserted saline lock: 22 gauge in right antecubital area, using aseptic technique. me1 16:26 CBC with Diff Sent. me1 16:26 CMP Sent. me1 16:26 Lipase Sent. me1 17:42 Test, Urine Sent. me1 17:50 CT Abd/Pelvis - IV Contrast Only In Process Unspecified. EDMS 17:54 Vanessa Ventura FNP-C [facility]. ms3 19:44 Jostin Gomez MD is Hospitalizing Provider. kb 21:33 Patient admitted, IV remains in place. kl Administered Medications: 17:40 Drug: Potassium PO Effervescent Tablet 50 mEq PO once; dissolve in 4 ounces of water or me1 juice Route: PO; 19:25 Follow up: Response: No adverse reaction me1 17:40 Drug: MethylPrednisoLONE IVP 125 mg IVP once Route: IVP; Site: right antecubital; me1 19:25 Follow up: Response: No adverse reaction me1 20:48 Drug: metroNIDAZOLE IVPB 500 mg 100 ml IVPB at 200 ml/hr once over 30 mins Volume: 100 jb4 ml; Route: IVPB; Rate: 200 ml/hr; Infused Over: 30 mins; Site: right antecubital; 21:23 Follow up: IV Status: Completed infusion; IV Intake: 100ml 21:23 Drug: Ciprofloxacin IVPB 400 mg 200 ml IVPB once over 60 mins Volume: 200 ml; Route: kl IVPB; Infused Over: 60 mins; Site: right antecubital; Medication: 16:11 VIS not applicable for this client. me1 Intake: 21:23 IV: 100ml; Total: 100ml. Outcome: 19:44 Decision to Hospitalize by Provider. kb 21:33 Admitted to Med/surg accompanied by tech, via wheelchair, room 211, Report called to geovani keller RN 21:33 Condition: stable 21:33 Discharge instructions given to patient, Instructed on the need for admit, Demonstrated understanding of instructions, 21:50 Patient left the ED. geovani Signatures: Dispatcher [employer] EDAL Vanessa Ventura, TIGHTENING MACHINE OPERATOR-C TIGHTENING MACHINE OPERATOR-Linda King RN RN kl Bryson, James, RN RN jb4 Lex Laird DO DO ms3 Natalie Mckeon RN RN me1 Ciara Benson mg5 Dennis Recio tl4 Corrections: (The following items were deleted from the chart) 16:10 15:39 Chief complaint: Patient states: Pt c/o abdominal cramping and bright red me1 bleeding of unknown origin. Pt states she started her menstrual period today. Pt also is having an ulcerative colitis flare, but does not normally have bleeding associated with it. Pt states her cycle is not usually this heavy. tl4 19:55 17:50 BP 106 / 73; Pulse 92bpm; Resp 17bpm; Pulse Ox 100% RA; me1 me1 20:54 20:48 BP 107 / 2; Pulse 100bpm; Resp 16bpm; Pulse Ox 98% RA; jb4 jb4
--- NOTE | 2023-05-03 19:46 | EDPHYS ---
Physician Documentation [facility] Name: Kaitlynn Orourke Age: 42 yrs Sex: Female : 1980 Arrival Date: 05/03/2023 Time: 15:30 Bed 10 Private MD: ED Physician Lex Laird HPI: 05/03 17:14 This 42 yrs old Female presents to ER via Ambulatory with complaints of ms3 Abdominal Pain, Passing Blood Clots. 17:14 42-year-old female past medical history of C. difficile, ulcerative colitis, ms3 hypokalemia presents to the emergency department for abdominal pain/cramping that began today. Patient states she also started her menstrual cycle today and is not sure if the blood clots are coming from her vagina or rectum. Patient states she sees Dr. Ly for her ulcerative colitis.. 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 - Social history:: Smoking status: Patient denies any tobacco usage or history of. ROS: 17:14 Constitutional: Negative for fever, and chills. Neck: Negative for injury, pain, and ms3 swelling, Cardiovascular: Negative for chest pain, and palpitations. Respiratory: Negative for shortness of breath, cough, wheezing, and pleuritic chest pain, 17:14 Abdomen/GI: Positive for abdominal pain, rectal bleeding, 17:14 All other systems are negative, Exam: 17:14 Constitutional: This is a well developed, well nourished patient who is awake, alert, ms3 and in no acute distress. Head/Face: Normocephalic, atraumatic. Neck: Trachea midline, no cervical lymphadenopathy. Supple, full range of motion without nuchal rigidity, or vertebral point tenderness. No Meningismus. Chest/axilla: Normal chest wall appearance and motion. Nontender with no deformity. Cardiovascular: Regular rate and rhythm with a normal S1 and S2. No gallops, murmurs, or rubs. Normal PMI, no JVD. No pulse deficits. Respiratory: Lungs have equal breath sounds bilaterally, clear to auscultation and percussion. No rales, rhonchi or wheezes noted. No increased work of breathing, no retractions or nasal flaring. 17:14 Abdomen/GI: Inspection: abdomen appears normal, Bowel sounds: normal, Palpation: moderate abdominal tenderness, in the left lower quadrant, Vital Signs: 15:42 BP 132 / 72; Pulse 113; Resp 16; Temp 97.1(TE); Pulse Ox 100% ; Weight 63.5 kg; Height tl4 5 ft. 1 in. ; Pain 8/10; 16:10 BP 117 / 77; Pulse 105; Resp 18; Pulse Ox 100% on R/A; Pain 7/10; me1 17:00 BP 131 / 81; Pulse 105; Resp 16; Pulse Ox 100% ; me1 17:50 BP 120 / 58; Pulse 97; Resp 18; Pulse Ox 100% on R/A; me1 18:45 BP 106 / 73; Pulse 92; Resp 17; Pulse Ox 100% on R/A; me1 19:45 BP 111 / 58; Pulse 91; Resp 16; Pulse Ox 100% on R/A; me1 20:48 BP 108 / 72; Pulse 100; Resp 16; Pulse Ox 98% on R/A; jb4 21:28 BP 111 / 74; Pulse 100; Resp 16; Pulse Ox 100% on R/A; kl 15:42 Body Mass Index 26.45 (63.50 kg, 154.94 cm) tl4 15:42 Pain Scale: Adult tl4 16:10 Pain Scale: Adult me1 MDM: 15:50 Patient medically screened. ms3 17:14 Differential diagnosis: non-specific abd pain, Ulcerative colitis vs Menses. ms3 17:53 Transition of care: After a detail discussion of the patient's case, care is ms3 transferred to [facility]. 19:44 Data reviewed: vital signs, nurses notes. Consideration of Admission/Observation kb Patient was admitted/placed on observation. Escalation of care including admission/observation considered. Management of patient was discussed with the following: Hospitalist: Dr Gomez. Counseling: I had a detailed discussion with the patient and/or guardian regarding the historical points, exam findings, and any diagnostic results supporting the discharge/admit diagnosis, lab results, radiology results, the need for further work-up and treatment in the hospital. 05/03 15:49 Order name: CBC with Diff; Complete Time: 20:26 ms3 05/03 15:49 Order name: CMP; Complete Time: 17:11 ms3 05/03 15:49 Order name: Lipase; Complete Time: 17:11 ms3 05/03 17:33 Order name: Test, Urine ms3 05/03 20:16 Order name: CBC Smear Scan; Complete Time: 20:26 EDMS 05/03 21:14 Order name: CBC with Automated Diff EDMS 05/03 21:14 Order name: CBC with Automated Diff EDMS 05/03 21:14 Order name: Comprehensive Metabolic Panel EDMS 05/03 21:14 Order name: Comprehensive Metabolic Panel EDMS 05/03 15:49 Order name: CT Abd/Pelvis - IV Contrast Only; Complete Time: 19:31 ms3 05/03 15:49 Order name: IV Saline Lock; Complete Time: 16:26 ms3 05/03 15:49 Order name: Labs collected and sent; Complete Time: 16:26 ms3 Administered Medications: 17:40 Drug: Potassium PO Effervescent Tablet 50 mEq PO once; dissolve in 4 ounces of water or me1 juice Route: PO; 19:25 Follow up: Response: No adverse reaction me1 17:40 Drug: MethylPrednisoLONE IVP 125 mg IVP once Route: IVP; Site: right antecubital; me1 19:25 Follow up: Response: No adverse reaction me1 20:48 Drug: metroNIDAZOLE IVPB 500 mg 100 ml IVPB at 200 ml/hr once over 30 mins Volume: 100 jb4 ml; Route: IVPB; Rate: 200 ml/hr; Infused Over: 30 mins; Site: right antecubital; 21:23 Follow up: IV Status: Completed infusion; IV Intake: 100ml kl 21:23 Drug: Ciprofloxacin IVPB 400 mg 200 ml IVPB once over 60 mins Volume: 200 ml; Route: kl IVPB; Infused Over: 60 mins; Site: right antecubital; Disposition: 05/04 13:56 I was immediately available on-site in the Emergency Department for consultation in the nh3 care of the patient. Disposition Summary: 05/03/23 19:44 Hospitalization Ordered Notes: Hospitalization Status: Observation kb Provider: Jostin Gomez Location: Telemetry/MedSurg (observation) kb Condition: Stable kb Problem: new kb Symptoms: are unchanged kb Bed/Room Type: Standard kb Room Assignment: 211(05/03/23 21:28) rv1 Diagnosis - Colitis kb Forms: - Medication Reconciliation Form kb - SBAR form kb - Leadership Thank You Letter kb Signatures: Dispatcher [employer] EDVanessa Del Valle, YARI-C YARI-Linda King RN RN kl Cliff Woody RN RN jb4 Lex Laird DO DO ms3 Gwendolyn Kelley rv1 Natalie Mckeon RN RN me1 Dennis Recio tl4 Corrections: (The following items were deleted from the chart) 05/03 21:28 19:44 kb rv1
[2023-05-03 20:15] LABS: Anisocytosis 1+; Blood Morphology Comment NOTED (NOT SEEN); Platelet Estimate INCR; White Blood Cell Scan OK (OK)
[2023-05-03] MEDS ORDERED: CIPROFLOXACIN 400mg IV 400 MG/200 ML BAG IV ONE (20:57)
[2023-05-03] MEDS ORDERED: METRONIDAZOLE 500mg IVPB 500 MG/100 ML BAG IV ONE (20:57)
[2023-05-03] MEDS ORDERED: ACETAMINOPHEN 325 MG TABLET PO PRN (21:08)
[2023-05-03] MEDS ORDERED: ONDANSETRON 4 MG/2 ML VIAL IV PRN (21:08)
[2023-05-03] MEDS ORDERED: HYDROMORPHONE HCL 0.5 MG/0.5 ML INJ IV PRN (21:13)
--- NOTE | 2023-05-03 21:14 | P.HP ---
Certification for Inpatient Patient admitted to: Inpatient With expected LOS: >2 Midnights Patient will require the following post-hospital care: None Practitioner: I am a practitioner with admitting privileges, knowledge of patient current condition, hospital course, and medical plan of care. Services: Services provided to patient in accordance with Admission requirements found in Title 42 Section 412.3 of the Code of Federal Regulations Patient History Date of Service: 05/04/23 Reason for admission: Abdominal pain, bloody diarrhea. History of Present Illness: 42-year-old female patient was medical history significant for ulcerative colitis for which she sees outpatient cord maker Dr. Mejia. She had been off biologic agent secondary to insurance related issue and is in the process of getting this reinstated. She complained of abdominal pain and diarrhea that started on the day of presentation. No nausea, no vomiting reported. She came to the ED for evaluation and in ED had CT of the abdomen/pelvis that revealed significant colonic inflammation and there was concern for colitis. She was started on empiric antibiotic therapy of Cipro and Flagyl and was given steroid dose and was admitted for inpatient care. Allergies No Known Allergies Allergy (Verified 09/15/19 01:26) Home Medications: Metronidazole 500 mg PO Q8H 7 Days #21 tab 11/05/22 Ondansetron [Zofran] 4 mg PO Q6H PRN #30 tab 11/05/22 Potassium Phos,O-Rqxzt-P-Basic [Qmyhdx-Abus-M] 1 each PO DAILY #30 packet 11/05/22 predniSONE [Prednisone*] 20 mg PO BID #11 tab 11/05/22 - Past Medical/Surgical History Diabetic: No -: Ulcerative Colitis -: EGD and colonoscopy Psychosocial/ Personal History: Patient lives at home alone. - Family History Father -: Hypertension, Other (see notes) Notes: hyprlipedemia Mother -: Diabetes, Cancer Notes: Leukemia - Social History Alcohol use: No CD- Drugs: No Caffeine use: No Review of Systems General: Weakness Eyes: Unremarkable Respiratory: Unremarkable Cardiovascular: Unremarkable Gastrointestinal: Abdominal Pain, Diarrhea Genitourinary: Unremarkable Musculoskeletal: Unremarkable Integumentary: Unremarkable Neurological: Unremarkable Physical Examination - Physical Exam General: Alert, Oriented x3 HEENT: Atraumatic Neck: Supple Respiratory: Normal air movement Cardiovascular: Regular rate/rhythm, Normal S1 S2 Gastrointestinal: Tenderness Neurological: Normal speech - Studies Laboratory Data (last 24 hrs) 05/03/23 05/03/23 16:25 16:25 WBC 14.40 H Hgb 10.9 L Hct 32.7 L Plt Count 443 H Sodium 139 Potassium 3.0 L BUN 19 H Creatinine 0.94 Glucose 109 H Total Bilirubin < 0.1 L AST 9 L ALT 27 Alkaline Phosphatase 122 H Lipase 21 Assessment and Plan - Plan History of ulcerative colitis/colitis: Patient has a confirmed history of ulcerative colitis and imaging studies confirmed inflammation in the colon depicting possible inflammatory colitis flare. We have started empiric antibiotic therapy of ciprofloxacin and Flagyl. Continue as needed Dilaudid for pain control. Continue IV Solu-Medrol for management of inflammation. She will be evaluated by cord maker while inpatient. Will continue supportive care with IV isotonic fluid. Prophylaxis: SCDs for DVT prophylaxis due to colonic bleed related issues. CODE STATUS: Full code Disposition: We will treat her ulcerative colitis flare and discharge her when she is deemed clinically stable Discharge Plan: Home - Advance Directives Does patient have a Living Will: No Does patient have a Durable POA for Healthcare: No Time Spent Managing Pts Care (In Minutes): 65
[2023-05-03] MEDS ORDERED: NA CHLORIDE 0.9% 1,000 ML IV SCH (22:00)
[2023-05-03] MEDS: METHYLPREDNISOLONE 40 MG INJ IV SCH (22:11)
[2023-05-03 22:46] VITALS: BMI 26.4
[2023-05-03 23:40] VITALS: O2SAT 100
[2023-05-04] MEDS: METRONIDAZOLE 500mg IVPB 500 MG/100 ML BAG IV SCH ×2 (01:20→09:06)
[2023-05-04 02:52] LABS: Absolute Lymphocytes (CBC) 0.7 K/uL (0.7-4.9); Hematocrit 29.5 % (36.0-45.0); Lymphocytes % 8.6 % (15.3-44.8); MCV 81.6 fL (80-100); MPV 6.7 fL (7.6-11.3); Platelets 393 thou/uL (152-406); RBC Red Blood Cell Count 3.61 M/uL (3.86-4.86)
[2023-05-04 03:06] LABS: Albumin 2.8 g/dL (3.4-5.0); Bilirubin Total 0.1 mg/dL (0.2-1.0); Potassium 4.5 mEq/L (3.5-5.1); Protein, Total 6.4 g/dL (6.4-8.2)
[2023-05-04 04:38] LABS: Anisocytosis 1+; Blood Morphology Comment NOTED (NOT SEEN); Platelet Estimate ADEQ
[2023-05-04] MEDS ORDERED: ENOXAPARIN 40 MG/0.4 ML SQ SCH (09:00)
[2023-05-04] MEDS ORDERED: CIPROFLOXACIN 400mg IV 400 MG/200 ML BAG IV SCH (09:00)
[2023-05-04 09:05] VITALS: BP 104/62; TEMP 97.6
[2023-05-04] MEDS: METHYLPREDNISOLONE 40 MG INJ IV SCH (09:05)
--- NOTE | 2023-05-04 09:34 | P.DS ---
Admission Date: 05/03/23 Discharge Date: 05/04/23 Disposition: ROUTINE DISCHARGE Discharge Condition: FAIR Reason for Admission: Abdominal pain, bloody diarrhea. - Problems (1) Lower GI bleeding Status: Acute (2) Ulcerative colitis Status: Acute Qualifiers: Ulcerative colitis location: unspecified ulcerative colitis location Digestive disease complication type: other complication Qualified Code(s): K51.918 - Ulcerative colitis, unspecified with other complication Brief History of Present Illness: 42-year-old female patient was medical history significant for ulcerative colitis for which she sees outpatient mica builder at [place] She had been off biologic agent secondary to insurance related issue and is in the process of getting another refill. She developed abdominal pain and diarrhea that started on the day of presentation. No nausea, no vomiting reported. She came to the ED for evaluation and in ED had CT of the abdomen/pelvis that revealed significant colonic inflammation and there was concern for colitis. She was started on empiric antibiotic therapy of Cipro and Flagyl and was given steroid dose and was admitted for inpatient care. Hospital Course: Patient was treated with IV Cipro and Flagyl IV steroid. His symptoms improved. She stated age to move her bowel and diarrhea frequency decreased considerably overnight. No nausea vomiting. Patient tolerated regular diet. She was also h ydrated with IV fluid. She had mild leukocytosis which resolved. Patient is deemed stable for discharge. She is discharged with prednisone taper and oral antibiotics. She is informed to follow-up with her mica builder at [place] to review ulcerative colitis for further treatment. Vital Signs/Physical Exam: Temp Pulse Resp BP Pulse Ox 97.6 F 92 H 16 104/62 99 05/04/23 08:00 05/04/23 08:00 05/04/23 08:00 05/04/23 08:00 05/04/23 08:00 General: Alert, In no apparent distress, Oriented x3 HEENT: Mucous membr. moist/pink Neck: Supple, JVD not distended Respiratory: Clear to auscultation bilaterally, Normal air movement Cardiovascular: No edema, Regular rate/rhythm, Normal S1 S2 Gastrointestinal: Normal bowel sounds, Soft and benign, Non-distended, No tenderness Musculoskeletal: No swelling Integumentary: No rashes, No cyanosis Neurological: Normal strength at 5/5 x4 extr Laboratory Data at Discharge: WBC 7.70 thou/uL (4.3-10.9) 12/13/23 02:22 Hgb 9.7 g/dL (12.0-15.0) L D 05/04/23 02:22 Hct 29.5 % (36.0-45.0) L 05/04/23 02:22 Plt Count 393 thou/uL (152-406) 05/04/23 02:22 Sodium 137 mEq/L (136-145) 05/04/23 02:22 Potassium 4.5 mEq/L (3.5-5.1) D 05/04/23 02:22 BUN 15 mg/dL (7-18) 05/04/23 02:22 Creatinine 0.68 mg/dL (0.55-1.02) 05/04/23 02:22 Glucose 175 mg/dL (74-106) H 05/04/23 02:22 Total Bilirubin 0.1 mg/dL (0.2-1.0) L 05/04/23 02:22 AST 20 U/L (15-37) 05/04/23 02:22 ALT 40 U/L (13-56) 05/04/23 02:22 Alkaline Phosphatase 110 U/L (45-117) 05/04/23 02:22 Lipase 21 U/L (13-75) 05/03/23 16:25 Home Medications: Ciprofloxacin HCl [Cipro] 500 mg PO BID #14 tab 05/04/23 Metronidazole 500 mg PO Q8H 7 Days #21 tab 05/04/23 Ondansetron [Zofran (Odt)*] 4 mg PO Q6H PRN #30 tab 05/04/23 predniSONE [Deltasone*] 10 mg PO DAILY #30 tab 05/04/23 traMADol HCL [Ultram*] 50 mg PO Q6H PRN #20 tab 05/04/23 New Medications: Ciprofloxacin HCl [Cipro] 500 mg PO BID #14 tab predniSONE [Deltasone*] 10 mg PO DAILY #30 tab Metronidazole 500 mg PO Q8H 7 Days #21 tab traMADol HCL [Ultram*] 50 mg PO Q6H PRN #20 tab PRN Reason: Pain Ondansetron [Zofran (Odt)*] 4 mg PO Q6H PRN #30 tab PRN Reason: Nausea / Vomiting Physician Discharge Instructions: Soft diet for the next 3 days recommended and then advance to solid diet. Please follow up with your Clin Nurse Spec for further treatment of Ulcerative colitis. Diet: Regular Activity: Ad joanne Followup: [facility] [Primary Care Provider] - 1-2 Weeks Time spent managing pt's care (in minutes): 26
== END 2023-05-04 10:48 | disposition home or self-care (01) ==
LOC: ER 15:30 → INTOOBSV 21:08 → ERHOLD 21:08 → 2ND 21:30
PROVIDERS: ADMIT Internal Medicine Nephrology; ATTEND Internal Medicine
DX: K92.2 Gastrointestinal hemorrhage, unspecified (principal); K51.918 Ulcerative colitis, unspecified with other complication; D72.829 Elevated white blood cell count, unspecified
CPT/HCPCS: 96365; 85025 ×2; 36415; 83690; 80053 ×2; 74177; 96375; 99285; Q9967; J1650; J2930; J0744 ×2; J7030; J2920 ×2

== ENCOUNTER 2023-05-24 14:50 | Emergency (ER) | payer OTHER ==
[2023-05-24 16:42] LABS: Absolute Lymphocytes (CBC) 1.4 K/uL (0.7-4.9); Hematocrit 31.9 % (36.0-45.0); Lymphocytes % 15.1 % (15.3-44.8); MCV 77.3 fL (80-100); MPV 6.1 fL (7.6-11.3); Platelets 303 thou/uL (152-406); RBC Red Blood Cell Count 4.13 M/uL (3.86-4.86)
[2023-05-24 17:03] LABS: Albumin 3.1 g/dL (3.4-5.0); Bilirubin Total 0.5 mg/dL (0.2-1.0); Potassium 2.8 mEq/L (3.5-5.1); Protein, Total 7.7 g/dL (6.4-8.2)
[2023-05-24] MEDS ORDERED: ACETAMINOPHEN 500 MG TAB ONE (17:23)
[2023-05-24] MEDS ORDERED: POTASSIUM 25 MEQ EFFERV TAB ONE (19:44)
[2023-05-24] MEDS ORDERED: KCL 20 MEQ/100 mL IVPB 100 ML IV ONE (19:46)
[2023-05-24] MEDS ORDERED: NA CHLORIDE 0.9% 1,000 ML ONE (19:46)
[2023-05-24] MEDS ORDERED: ONDANSETRON 4 MG/2 ML VIAL ONE (20:29)
--- NOTE | 2023-05-24 21:19 | RAD REPORT ---
EXAM DESCRIPTION: CT - Abdomen Pelvis W Contrast - 05/24/2023 8:43 pm CLINICAL HISTORY: ABD PAIN COMPARISON: Abdomen Pelvis W Contrast dated 05/03/2023; Abdomen Pelvis W Contrast dated 12/24/2022 ; Abdomen Pelvis W Contrast dated 11/04/2022; Abdomen Pelvis W Contrast dated 09/07/2022 TECHNIQUE: Thin cut axial CT imaging of the abdomen and pelvis was performed following intravenous a dministration of 100 mL Isovue 300. Multiplanar reformats were generated and reviewed. All CT scans are performed using dose optimization technique as appropriate and may include automated exposure control or mA/KV adjustment according to patient size. FINDINGS: No suspicious findings in the lung bases. The liver, spleen, adrenal glands, and pancreas show no suspicious findings. Gallbladder and biliary tree are also without suspicious finding. Symmetric renal function is seen with no hydronephrosis or suspicious renal mass. No dilated bowel loops. Progressive wall thickening, mucosal hyperenhancement, and transmural edema i nvolving the distal colon, and new similar involvement of the ascending colon and cecum. No free air, free fluid or inflammatory stranding. No hernia, mass or bulky lymphadenopathy. The urinary bladder is without significant finding. No suspicious bony findings. IMPRESSION: Progressive pancolitis as above, concerning for an inflammatory or infectious process, w ith inflammatory bowel disease such as ulcerative colitis being a primary consideration.
--- NOTE | 2023-05-24 21:26 | EDPHYS ---
Physician Documentation [facility] Name: Kaitlynn Orourke Age: 42 yrs Sex: Female : 1980 Arrival Date: 05/24/2023 Time: 14:50 Bed 16 Private MD: ED Physician Julio Khoury HPI: 05/24 15:01 This 42 yrs old Female presents to ER via EMS with complaints of diarrhea, sb4 abdominal pain, syncope. 15:01 The patient presents to the emergency department with diarrhea, every 30 minutes. sb4 Onset: The symptoms/episode began/occurred 3 day(s) ago. Possible causes: antibiotics, cipro/flagyl, flare up of bowel problem, ulcerative colitis. The symptoms are aggravated by food , The symptoms are alleviated by nothing. Associated signs and symptoms: Pertinent positives: abdominal pain, diarrhea, rectal pain, Pertinent negatives: fever, GI bleeding. The patient has experienced a previous episode, approximately 3 years ago, and the symptoms today are exactly the same, . The patient has been recently been admitted at [facility], was discharged a couple of weeks ago, for similar complaints, but despite evaluation and treatment the patient now has worsening symptoms. 05/25 00:45 patient with history of ulcerative colitis, not on any immunosuppressants presents with sb4 2 days of profuse diarrhea. was discharged from here about 3 weeks ago with colitis with cipro, flagyl, and prednisone. she is concerned about cdiff as she has had it before and is having diarrhea BMs every 30 minutes. reports blood in her stool and rectal pain. no abdominal pain, nausea, vomiting . 03:38 Patient care was assumed from physician physician assistant surgery at 1 AM. Patient's record states that sp4 on 09/15/2019 patient was managed for ulcerative colitis flare. Patient was admitted to the hospital and in the past patient was on Remicade. 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 Patient back then was admitted for dehydration nausea vomiting left lower quadrant pain, fever 102. CT revealed moderate colitis in the transverse colon associated with constipation. At that time patient was planned to be switched to an Entyvio, Stelara or some of the medication. Patient also has tried Humira in the past. Patient was discharged home with prednisone 40 mg a day with a 4-week taper. She was advised to change to an Entyvio. . Patient was admitted again here on 05/03/2023 for ulcerative colitis flare. Patient was noted to be managed by geophysical manager in [place]. She has been off [employer] secondary to insurance related problems. CAT scan and ER revealed significant colonic inflammation concerning for colitis. She was started on ciprofloxacin and Flagyl and given steroid doses. While in the hospital patient has improved with IV Cipro, IV Flagyl, and IV steroids. Patient tolerated a regular diet and was hydrated with IV fluids. Patient was stable for discharge with prednisone taper and oral antibiotics. Patient's medication on discharge included ciprofloxacin 500 mg p.o. bid, prednisone 10 mg with taper, metronidazole 500 mg every 8 hours for 7 days, tramadol 50 mg every 6 hours as needed, ondansetron 4 mg every 6 hours as needed, . Historical: - Allergies: 05/24 14:51 No Known Allergies; ll1 - PMHx: 14:51 C DIFF; Colitis; Hypokalemia; ll1 05/25 00:42 ulcerative colitis; sb4 - Immunization history:: Adult Immunizations up to date. - Social history:: Smoking status: Patient denies any tobacco usage or history of. ROS: 05/24 15:01 Constitutional: Negative for fever, chills, and weight loss, sb4 Abdomen/GI: Positive for abdominal pain, diarrhea, rectal pain, Neuro: Positive for syncope, All other systems are negative, Exam: 15:01 Head/Face: Normocephalic, atraumatic. Eyes: Extra-ocular motions intact. Periorbital sb4 areas with no swelling, redness, or edema. Respiratory: Lungs have equal breath sounds bilaterally, clear to auscultation and percussion. No rales, rhonchi or wheezes noted. No increased work of breathing, no retractions or nasal flaring. Abdomen/GI: Soft, non-tender, no distension. Skin: Warm, dry with normal turgor. Normal color with no rashes, no lesions, and no evidence of cellulitis. MS/ Extremity: Pulses equal, no cyanosis. Neurovascular intact. Full, normal range of motion. Neuro: Awake and alert, GCS 15, oriented to person, place, time, and situation. Motor strength 5/5 in all extremities. Sensory grossly intact. 15:01 Constitutional: The patient appears alert, awake, obviously ill, pale, 15:01 ENT: Mouth: Oral mucosa: dry, 15:01 Cardiovascular: Rate: tachycardic, Rhythm: regular, Pulses: no pulse deficits are appreciated, Vital Signs: 15:25 BP 130 / 86; Pulse 151; Resp 20; Temp 102.5(O); Pulse Ox 100% on R/A; Weight 63.05 kg; me1 Height 5 ft. 1 in. ; Pain 7/10; 20:32 Temp 98.7(O); me1 21:30 BP 116 / 73; Pulse 126; Resp 17 S; Pulse Ox 98% on R/A; ha1 21:40 Pulse 128; sb4 22:17 BP 107 / 82; Pulse 138; Resp 17 S; Temp 98.5; Pulse Ox 100% on R/A; ha1 23:15 BP 119 / 85; Pulse 139; Resp 17 S; Pulse Ox 100% on R/A; ha1 23:22 BP 119 / 85; sb4 05/25 00:12 BP 119 / 75; Pulse 140; Resp 17 S; Pulse Ox 100% on R/A; ha1 01:00 BP 119 / 75; Pulse 124; Resp 17 S; Pulse Ox 98% on R/A; ha1 01:30 BP 115 / 75; Pulse 124; Resp 17 S; Temp 99.9(O); Pulse Ox 98% on R/A; ha1 02:00 BP 109 / 69; Pulse 115; Resp 17 S; Pulse Ox 97% on R/A; ha1 02:30 BP 109 / 72; Pulse 115; Resp 20 S; Pulse Ox 98% on R/A; ha1 03:00 BP 110 / 74; Pulse 108; Resp 17 S; Temp 98.2(O); Pulse Ox 100% on R/A; ha1 03:40 BP 106 / 67; Pulse 102; Resp 18 S; Pulse Ox 99% on R/A; ha1 04:30 BP 101 / 62; Pulse 99; Resp 17 S; Pulse Ox 99% on R/A; ha1 05:18 BP 103 / 70; Pulse 96; Resp 17 S; Pulse Ox 99% on R/A; ha1 06:20 BP 106 / 69; Pulse 96; Resp 17 S; Pulse Ox 99% on R/A; ha1 05/24 15:25 Body Mass Index 26.26 (63.05 kg, 154.94 cm) me1 05/24 15:25 Pain Scale: Adult me1 Procedures: 03:19 Central Line: the site was prepped with in sterile fashion, Chlorhexidine, sterile sp4 prep, a triple lumen catheter was inserted, in the right internal jugular vein, in 1 attempts. placement was verified, by CXR, by blood return, Ultrasound-guided central line, the site was dressed with Tegaderm, using sterile technique, the patient tolerated the procedure, well, Ultrasound-guided triple-lumen 7 Maltese central line placed right internal jugular vein without complication. MDM: 05/24 14:54 Patient medically screened. sb4 15:01 Differential diagnosis: C. difficile, colitis, gastroenteritis, hypovolemia, sb4 electrolyte abnormality, diverticulitis, rotavirus. 21:25 Data reviewed: vital signs, nurses notes, lab test result(s), radiologic studies, and sb4 as a result, I will admit patient. Consideration of Admission/Observation Patient was admitted/placed on observation. Management of patient was discussed with the following: Hospitalist: Dr. Panda. Counseling: I had a detailed discussion with the patient and/or guardian regarding the historical points, exam findings, and any diagnostic results supporting the discharge/admit diagnosis, lab results, radiology results, the need for further work-up and treatment in the hospital. 22:10 ED course: hospitalist declines to accept patient, requests transfer for GI. patient sb4 requests [facility] as [facility] is where her GI doctor is located. 23:28 ED course: [facility] james[facility] is closed for transfers at this time. [facility] aisha vazquez does not sb4 have GI availability. [facility]ader hospitalist declined, states patient needs ICU and their ICU is also at capacity. will now try [facility]. cdiff came back positive, no oral vancomycin available in this hospital at this time. 23:52 ED course: all [facility] facilities are at ICU capacity. sb4 05/25 00:04 ED course: [facility] at ICU capacity. sb4 00:06 ED course: [facility] at ICU capacity. sb4 00:14 Data reviewed: I have discussed the patient's presentation/case with the attending sb4 Emergency Department Physician;. 00:47 Transition of care: After a detail discussion of the patient's case, care is sb4 transferred to Julio Khoury MD. 03:23 Differential Diagnosis: cardiac arrhythmia, drug effect, emotional response, GI bleed, sp4 idiopathic syncope, pseudo seizure, sepsis. ED course: CT - EXAM DESCRIPTION: CT - Abdomen Pelvis W Contrast - 05/24/2023 8:43 pm CLINICAL HISTORY: ABD PAIN COMPARISON: Abdomen Pelvis W Contrast dated 05/03/2023; Abdomen Pelvis W Contrast dated 12/24/2022; Abdomen Pelvis W Contrast dated 11/04/2022; Abdomen Pelvis W Contrast dated 09/07/2022 TECHNIQUE: Thin cut axial CT imaging of the abdomen and pelvis was performed following intravenous administration of 100 mL Isovue 300. Multiplanar reformats were generated and reviewed. All CT scans are performed using dose optimization technique as appropriate and may include automated exposure control or mA/KV adjustment according to patient size. FINDINGS: No suspicious findings in the lung bases. The liver, spleen, adrenal glands, and pancreas show no suspicious findings. Gallbladder and biliary tree are also without suspicious finding. Symmetric renal function is seen with no hydronephrosis or suspicious renal mass. No dilated bowel loops. Progressive wall thickening, mucosal hyperenhancement, and transmural edema involving the distal colon, and new similar involvement of the ascending colon and cecum. No free air, free fluid or inflammatory stranding. No hernia, mass or bulky lymphadenopathy. The urinary bladder is without significant finding. No suspicious bony findings. IMPRESSION: Progressive pancolitis as above, concerning for an inflammatory or infectious process, with inflammatory bowel disease such as ulcerative colitis being a primary consideration. . 05:16 ED course: Patient was accepted at [facility] at 5 AM to regular sp4 telemetry floor.. 05/24 15:01 Order name: Blood Culture Adult (2) 4 05/24 15:01 Order name: CBC with Diff; Complete Time: 16:50 4 05/24 15:01 Order name: CMP; Complete Time: 17:06 4 05/24 15:01 Order name: Lactate w/ 2H reflex if indic.; Complete Time: 17:06 4 05/24 15:01 Order name: Lipase; Complete Time: 17:06 4 05/24 15:01 Order name: Fecal Leukocyte Stain 4 05/24 15:01 Order name: Ova And Parasites 4 05/24 15:01 Order name: Rotavirus Antigen; Complete Time: 18:46 sb4 05/24 15:01 Order name: Stool Culture sb4 05/24 15:01 Order name: CDIFF; Complete Time: 23:23 sb4 05/24 18:47 Order name: Test, Serum; Complete Time: 19:30 mo1 05/24 21:59 Order name: Lactate Sepsis 2 HR Follow-up; Complete Time: 22:01 EDMS 05/24 23:32 Order name: CBC w/o diff; Complete Time: 04:47 sb4 05/25 05:59 Order name: BMP ha1 05/24 15:01 Order name: CT Abd/Pelvis - IV Contrast Only; Complete Time: 21:22 sb4 05/25 03:20 Order name: Chest Single View XRAY 4 05/25 00:20 Order name: EKG; Complete Time: 00:20 sb4 05/24 15:01 Order name: Cardiac monitoring; Complete Time: 17:02 sb4 05/24 15:01 Order name: IV Saline Lock - Large Bore; Complete Time: 17:02 sb4 05/24 15:01 Order name: Labs collected and sent; Complete Time: 17:02 sb4 05/24 15:01 Order name: Vital Signs; Complete Time: 15:27 4 05/25 01:00 Order name: Central Line Kit; Complete Time: 01:45 sp4 Administered Medications: 05/24 17:02 Drug: NS 0.9% IV (30 ml/kg) 30 ml/kg IV at bolus once; Sepsis Protocol Route: IV; Rate: me1 bolus; Site: right forearm; 17:26 Drug: Acetaminophen PO 1000 mg PO once Route: PO; me1 18:38 Follow up: Response: No adverse reaction; Pain is decreased me1 20:14 Drug: Potassium Chloride IV 20 mEq IV at calculated rate once; administer over 1-2 me1 hours Route: IV; Rate: calculated rate; Site: right forearm; 23:15 Follow up: IV Status: Completed infusion me1 20:14 Drug: Potassium PO Effervescent Tablet 50 mEq PO once; dissolve in 4 ounces of water or me1 juice Route: PO; 20:24 Follow up: Response: No adverse reaction me1 20:30 Drug: Ondansetron IVP 4 mg IVP once; over 2 minutes Route: IVP; Site: right forearm; me1 20:41 Follow up: Response: No adverse reaction me1 23:00 Drug: Piperacillin-Tazobactam IVPB 3.375 grams IVPB once over 60 mins; (mix in NS 100 ha1 mL) Route: IVPB; Infused Over: 60 mins; Site: right forearm; 23:10 Drug: MethylPrednisoLONE IVP 125 mg IVP once Route: IVP; Site: right forearm; 1 05/25 00:30 Drug: metroNIDAZOLE IVPB 500 mg 100 ml IVPB at 200 ml/hr once over 30 mins Volume: 100 ha1 ml; Route: IVPB; Rate: 200 ml/hr; Infused Over: 30 mins; Site: right forearm; 01:15 Follow up: Response: No adverse reaction; IV Status: Completed infusion; IV Intake: ha1 100ml 01:23 Drug: vancoMYCIN IVPB 1 grams IVPB once over 2 hrs Route: IVPB; Infused Over: 2 hrs; ha1 Site: right forearm; 03:00 Follow up: Response: No adverse reaction; IV Status: Completed infusion; IV Intake: ha1 250ml 01:50 Drug: Albumin IVPB 25 grams 100 ml IVPB once; (Note: Albumin 25% concentration) Volume: ha1 100 ml; Route: IVPB; Site: right forearm; 01:50 Drug: Albumin IVPB 25 grams 100 ml IVPB once; (Note: Albumin 25% concentration) Volume: ha1 100 ml; Route: IVPB; Site: right forearm; 02:15 Follow up: Response: No adverse reaction; IV Status: Completed infusion ha1 02:00 Drug: Acetaminophen PO 1000 mg PO once Route: PO; ha1 03:00 Follow up: Response: No adverse reaction; Temperature is decreased ha1 02:10 Drug: Ondansetron IVP 4 mg IVP once; over 2 minutes Route: IVP; Site: right forearm; ha1 02:30 Follow up: Response: No adverse reaction ha1 02:12 Drug: Metoprolol PO 25 mg PO once Route: PO; ha1 03:00 Follow up: Response: No adverse reaction ha1 02:12 Drug: fentaNYL (PF) IVP 25 mcg IVP once Route: IVP; Site: right forearm; ha1 02:30 Follow up: Response: No adverse reaction; Pain is decreased; RASS: Alert and Calm (0) ha1 06:38 Not Given (not in inventory ): [id number] mg PO once ha1 Disposition: 04:26 Co-signature as Attending Physician, Julio Khoury MD I agree with the assessment sp4 and plan of care. I reviewed the patient's care provided by Advanced Practice Provider \T\ agree w/ the diagnosis \T\ care plan. I personally saw the pt \T\ performed a substantive portion of the visit, incldng all aspects of the (History/Exam/Medical Decision Making). Disposition Summary: 05/24/23 22:08 Transfer Ordered Notes: Reason: Higher level of care sb4 Condition: Fair(05/24/23 22:08) sb4 Problem: new(05/24/23 22:08) sb4 Symptoms: are unchanged(05/24/23 22:08) sb4 Transfer Location: [facility](05/25/23 05:15) sp4 Accepting Physician: GI(05/25/23 06:41) ha1 Diagnosis - Ulcerative (chronic) pancolitis with rectal bleeding sb4 - Severe sepsis without septic shock(05/24/23 22:08) sb4 - Hypokalemia(05/24/23 22:08) sb4 - Enterocolitis due to Clostridium difficile sb4 Forms: - Medication Reconciliation Form sb4 - SBAR form sb4 Signatures: Dispatcher [employer] EDTodd Gutierrez RN RN 1 Vicki Boateng RN RN ha1 Karol Major PA-C PA-C sb4 Julio Khoury MD MD sp4 Natalie Mckeon RN RN me1 Corrections: (The following items were deleted from the chart) 05/24 22:07 21:26 Inpatient Admission sb4 sb4 22:07 21:26 Kali Panda sb4 sb4 22:07 21:26 Telemetry/MedSurg (Inpatient) sb4 sb4 22:07 21:26 Fair sb4 sb4 22:07 21:26 new sb4 sb4 22:07 21:26 are unchanged sb4 sb4 22:07 21:26 Standard sb4 sb4 22:07 21:26 sb4 sb4 22:07 21:26 Ulcerative (chronic) pancolitis with unspecified complications sb4 sb4 : 21:26 Severe sepsis without septic shock sb4 sb4 : 21:26 Hypokalemia sb4 sb4 23:23 22:08 GI sb4 sb4 05/25 05:15 01 22:08 Other Acute Care Facility sb4 sp4 05/25 05:15 0102 23:23 GI sb4 sp4 05/25 06:41 05:15 GI sp4 ha1
--- NOTE | 2023-05-24 21:26 | ER ---
Nurse's Notes [facility] Name: Kaitlynn Orourke Age: 42 yrs Sex: Female : 1980 Arrival Date: 05/24/2023 Time: 14:50 Bed 16 Private MD: Diagnosis: Ulcerative (chronic) pancolitis with rectal bleeding;Severe sepsis without septic shock;Hypokalemia;Enterocolitis due to Clostridium difficile Presentation: 05/24 14:51 Chief complaint: EMS states: Syncopal episode. Has been having diarrhea. Coronavirus ll1 screen: Client denies travel out of the [place] in the last 14 days. fatigue, nausea, vomiting. Client presents with at least one sign or symptom that may indicate coronavirus-19. Standard/surgical mask placed on the client. Ebola Screen: Patient denies travel to an Ebola-affected area in the 21 days before illness onset. Initial Sepsis Screen: Does the patient meet any 2 criteria? No. Patient's initial sepsis screen is negative. Does the patient have a suspected source of infection? No. Patient's initial sepsis screen is negative. Risk Assessment: Do you want to hurt yourself or someone else? Patient reports no desire to harm self or others. 14:51 Method Of Arrival: EMS: [facility] ll1 14:51 Acuity: DELMY 3 ll1 Historical: - Allergies: 14:51 No Known Allergies; ll1 - PMHx: 14:51 C DIFF; Colitis; Hypokalemia; ll1 05/25 00:42 ulcerative colitis; sb4 - Immunization history:: Adult Immunizations up to date. - Social history:: Smoking status: Patient denies any tobacco usage or history of. Screenin/02 15:27 [facility] ED Fall Risk Assessment (Adult) History of falling in the last 3 months, me1 including since admission Yes- physiologic fall (2 pts) Confusion or Disorientation No (0 pts) Intoxicated or Sedated No (0 pts) Impaired Gait No (0 pts) Mobility Assist Device Used No (0 pt) Altered Elimination No (0 pt) Score/Fall Risk Level 0 - 2 = Low Risk Maintained a safe environment, Educated pt \T\ family on fall prevention, incl call for assistance when getting out of bed, Provided non-skid footwear, Hourly rounding (assess needs \T\ fall precautionary measures) done. Abuse screen: Denies threats or abuse. Nutritional screening: No deficits noted. Tuberculosis screening: No symptoms or risk factors identified. Assessment: 15:28 General: Appears uncomfortable, ill, well groomed, well developed, well nourished, me1 Behavior is calm, cooperative, appropriate for age, Reports diarrhea x a few days with LLQ pain that started today. Reports a syncopal episode while in the shower, woke up and called EMS. Per EMS ST 170s, bp 120/70. 22g to right hand with about 200 ml of NS administered by EMS. Pain: Complains of pain in left lower quadrant Pain does not radiate. Pain currently is 7 out of 10 on a pain scale. Quality of pain is described as crampy, Pain began suddenly, 4 hours ago. Is intermittent, Aggravated by episodes of diarrhea. Neuro: Level of Consciousness is awake, alert, obeys commands, Oriented to person, place, time, situation, Appropriate for age. Cardiovascular: Capillary refill < 3 seconds Patient's skin is warm and dry. Respiratory: Airway is patent Respiratory effort is even, unlabored, Respiratory pattern is regular, symmetrical. GI: Reports lower abdominal pain, diarrhea, nausea, vomiting. 20:30 Reassessment: Patient and/or family updated on plan of care and expected duration. Pain ha1 level reassessed. Patient is alert, oriented x 3, equal unlabored respirations, skin warm/dry/pink. 22:30 Reassessment: Patient and/or family updated on plan of care and expected duration. Pain ha1 level reassessed. Patient is alert, oriented x 3, equal unlabored respirations, skin warm/dry/pink. 23:30 Reassessment: Patient and/or family updated on plan of care and expected duration. Pain ha1 level reassessed. Patient is alert, oriented x 3, equal unlabored respirations, skin warm/dry/pink. 05/25 00:30 Reassessment: Patient and/or family updated on plan of care and expected duration. Pain ha1 level reassessed. Patient is alert, oriented x 3, equal unlabored respirations, skin warm/dry/pink. 01:30 Reassessment: notified Goyo Welch of elevated temperature. ha1 02:30 Reassessment: Patient and/or family updated on plan of care and expected duration. Pain ha1 level reassessed. Patient is alert, oriented x 3, equal unlabored respirations, skin warm/dry/pink. Patient denies pain at this time. Patient states feeling better. Patient states symptoms have improved. 03:30 Reassessment: Patient and/or family updated on plan of care and expected duration. Pain ha1 level reassessed. Patient is alert, oriented x 3, equal unlabored respirations, skin warm/dry/pink. 04:30 Reassessment: Patient and/or family updated on plan of care and expected duration. Pain ha1 level reassessed. Patient is alert, oriented x 3, equal unlabored respirations, skin warm/dry/pink. Patient denies pain at this time. Patient states feeling better. 05:18 Reassessment: eyes closed. Respiratory: Airway Respiratory effort is even, unlabored, ha1 Respiratory pattern is regular, symmetrical. 05:58 Reassessment: report given to VELIA Bonilla. ha1 06:20 Reassessment: Patient and/or family updated on plan of care and expected duration. Pain ha1 level reassessed. Patient is alert, oriented x 3, equal unlabored respirations, skin warm/dry/pink. Vital Signs: 05/24 15:25 BP 130 / 86; Pulse 151; Resp 20; Temp 102.5(O); Pulse Ox 100% on R/A; Weight 63.05 kg; me1 Height 5 ft. 1 in. ; Pain 7/10; 20:32 Temp 98.7(O); me1 21:30 BP 116 / 73; Pulse 126; Resp 17 S; Pulse Ox 98% on R/A; ha1 21:40 Pulse 128; sb4 22:17 BP 107 / 82; Pulse 138; Resp 17 S; Temp 98.5; Pulse Ox 100% on R/A; ha1 23:15 BP 119 / 85; Pulse 139; Resp 17 S; Pulse Ox 100% on R/A; ha1 23:22 BP 119 / 85; sb4 03 00:12 BP 119 / 75; Pulse 140; Resp 17 S; Pulse Ox 100% on R/A; ha1 01:00 BP 119 / 75; Pulse 124; Resp 17 S; Pulse Ox 98% on R/A; ha1 01:30 BP 115 / 75; Pulse 124; Resp 17 S; Temp 99.9(O); Pulse Ox 98% on R/A; ha1 02:00 BP 109 / 69; Pulse 115; Resp 17 S; Pulse Ox 97% on R/A; ha1 02:30 BP 109 / 72; Pulse 115; Resp 20 S; Pulse Ox 98% on R/A; ha1 03:00 BP 110 / 74; Pulse 108; Resp 17 S; Temp 98.2(O); Pulse Ox 100% on R/A; ha1 03:40 BP 106 / 67; Pulse 102; Resp 18 S; Pulse Ox 99% on R/A; ha1 04:30 BP 101 / 62; Pulse 99; Resp 17 S; Pulse Ox 99% on R/A; ha1 05:18 BP 103 / 70; Pulse 96; Resp 17 S; Pulse Ox 99% on R/A; ha1 06:20 BP 106 / 69; Pulse 96; Resp 17 S; Pulse Ox 99% on R/A; ha1 05/24 15:25 Body Mass Index 26.26 (63.05 kg, 154.94 cm) [facility] 05/24 15:25 Pain Scale: Adult [facility] ED Course: 05/24 14:51 Patient arrived in ED. em1 14:51 Arm band placed on. ll1 14:52 Triage completed. ll1 14:54 Karol Degroot PA-C is PHCP. sb4 14:54 Seng Lee MD is Attending Physician. sb4 15:24 Natalie Mckeon, VELIA is Primary Nurse. me1 15:27 Patient has correct armband on for positive identification. Bed in low position. Call [facility] light in reach. Side rails up X 1. Provided Education on: POC. Verbalized understanding. . 15:27 No provider procedures requiring assistance completed. Maintain EMS IV. Dressing mn1 intact. Good blood return noted. Site clean \T\ dry. Gauge \T\ site: 22g right hand.. 15:41 CDIFF Sent. me1 15:41 Fecal Leukocyte Stain Sent. me1 15:41 Ova And Parasites Sent. me1 15:41 Rotavirus Antigen Sent. me1 15:41 Stool Culture Sent. me1 16:56 Radiology exam delayed due to lab results not completed at this time. (BUN/Creatinine). nj 17:02 Inserted saline lock: 20 gauge in right forearm, using aseptic technique. Blood cm10 collected. 20G US IV. 17:02 Blood Culture Adult (2) Sent. me1 17:02 CMP Sent. me1 17:02 Lactate w/ 2H reflex if indic. Sent. me1 17:07 Radiology exam delayed due to test not completed at this time. nj 18:55 Test, Serum Sent. me1 19:04 Radiology exam delayed due to test not completed at this time. nj 20:45 CT Abd/Pelvis - IV Contrast Only In Process Unspecified. EDMS 21:25 Kali Panda is Hospitalizing Provider. sb4 22:11 \T\22:11 I CONTACTED [facility] FOR TRANSFER. WAS TOLD THEY WOULD CALL BACK. [facility] CALLED BACK AT [facility] 22:39 TO SPEAK TO Suzan DEGROOT PA-C. FURTHER DISCUSSIONS WITH [facility] , IT WAS RECOMMENDED THAT THE PT NEEDED A ICU BED AND [facility] ICU BEDS WERE AT CAPACITY. 23:00 Door closed. Warm blanket given. Pillow given. Head of bed elevated. Turned to right ha1 side. 23:21 CONTACTED MOHAN WITH [facility] FOR PT TRANSFER. [facility] 23:30 Report received from VELIA Stone. ha 23:30 Assisted with bedpan. Repositioned patient. Cleaned of incontinence. Linen changed. ha1 23:51 MOHAN WITH [facility] CALLED BACK TO INFORM ME SHE TRIED ALL [facility] FACILITIES. ALL WERE kmf ON ICU SATURATION. 23:55 CONTACTED [facility] AND SPOKE WITH FILOMENA. SHE INFORMED ME ALL [facility] CAMPUSES WERE ON ICU kmf SATURATION. 0103 00:02 CONTACTED [facility] TO INQUIRE ABOUT ICU BEDS, THEY INFORMED ME THEY HAVE NO ICU BEDS AT [facility] THE MOMENT. 00:06 CALLED [facility] TO INQUIRY ON ICU BEDS. NO ICU BEDS AVAILABLE. [facility] 00:12 SPOKE WITH Suzan DEGROOT PA-C ON PT TRANSFER, WAS INFORMED THE TRANSFER CENTER TOLD HER THAT kmf IF NEEDED THEY COULD OPEN THE [place] LOCATION. I RE-CALLED THE TRANSFER CENTER, THEY WANTED TO CONFIRM THAT THE PT WOULD BE OK WITH BEING SENT TO [place]. I WENT TO SPEAK TO THE PT ABOUT THE TRANSFER AND THE LOCATION, IN WHICH SHE DENIED WANTING TO BE TRANSFERRED TO [place]. AT THIS TIME Suzan DEGROOT PA-C ADVISED ME TO HOLD OFF ON THE TRANSFER. 00:46 Attending Physician role handed off by Seng Lee MD sp4 00:46 Julio Khoury MD is Attending Physician. sp4 01:00 Assisted to bedside commode. ha1 02:00 Assisted provider with central line placement. Set up central line tray. Triple lumen ha1 line placed in right internal jugular. Line placed by Julio Khoury MD Placement verified by CXR, blood return, Dressed with Tegaderm, Blood was collected. Patient tolerated well. Before procedure, did Practitioner(s) obtain informed consent? Yes. Patient \T\ family education about procedure, CLABSI prevention and S/S of infection? Yes. 03:37 Chest Single View XRAY In Process Unspecified. EDMS 04:03 STARTED TRANSFER AGAIN WITH [facility]\ [facility]. kmf 04:45 DOC TO DOC. kmf 05:13 PT ACCEPTED TO [facility] ROOM 1538. ACCEPTING ADMIN [facility] WARNER. ACCEPTING Estefanía BYRNES MD kmf \T\ 0455. [facility] CALLED \T\ 0530 WITH ETA OF 0615. 06:40 Patient transferred, IV remains in place. ha1 Administered Medications: 02 17:02 Drug: NS 0.9% IV (30 ml/kg) 30 ml/kg IV at bolus once; Sepsis Protocol Route: IV; Rate: me1 bolus; Site: right forearm; 17:26 Drug: Acetaminophen PO 1000 mg PO once Route: PO; me1 18:38 Follow up: Response: No adverse reaction; Pain is decreased me1 20:14 Drug: Potassium Chloride IV 20 mEq IV at calculated rate once; administer over 1-2 me1 hours Route: IV; Rate: calculated rate; Site: right forearm; 23:15 Follow up: IV Status: Completed infusion me1 20:14 Drug: Potassium PO Effervescent Tablet 50 mEq PO once; dissolve in 4 ounces of water or me1 juice Route: PO; 20:24 Follow up: Response: No adverse reaction me1 20:30 Drug: Ondansetron IVP 4 mg IVP once; over 2 minutes Route: IVP; Site: right forearm; me1 20:41 Follow up: Response: No adverse reaction me1 23:00 Drug: Piperacillin-Tazobactam IVPB 3.375 grams IVPB once over 60 mins; (mix in NS 100 ha1 mL) Route: IVPB; Infused Over: 60 mins; Site: right forearm; 23:10 Drug: MethylPrednisoLONE IVP 125 mg IVP once Route: IVP; Site: right forearm; ha1 05/25 00:30 Drug: metroNIDAZOLE IVPB 500 mg 100 ml IVPB at 200 ml/hr once over 30 mins Volume: 100 ha1 ml; Route: IVPB; Rate: 200 ml/hr; Infused Over: 30 mins; Site: right forearm; 01:15 Follow up: Response: No adverse reaction; IV Status: Completed infusion; IV Intake: ha1 100ml 01:23 Drug: vancoMYCIN IVPB 1 grams IVPB once over 2 hrs Route: IVPB; Infused Over: 2 hrs; ha1 Site: right forearm; 03:00 Follow up: Response: No adverse reaction; IV Status: Completed infusion; IV Intake: ha1 250ml 01:50 Drug: Albumin IVPB 25 grams 100 ml IVPB once; (Note: Albumin 25% concentration) Volume: ha1 100 ml; Route: IVPB; Site: right forearm; 01:50 Drug: Albumin IVPB 25 grams 100 ml IVPB once; (Note: Albumin 25% concentration) Volume: ha1 100 ml; Route: IVPB; Site: right forearm; 02:15 Follow up: Response: No adverse reaction; IV Status: Completed infusion ha1 02:00 Drug: Acetaminophen PO 1000 mg PO once Route: PO; ha1 03:00 Follow up: Response: No adverse reaction; Temperature is decreased ha1 02:10 Drug: Ondansetron IVP 4 mg IVP once; over 2 minutes Route: IVP; Site: right forearm; ha1 02:30 Follow up: Response: No adverse reaction ha1 02:12 Drug: Metoprolol PO 25 mg PO once Route: PO; ha1 03:00 Follow up: Response: No adverse reaction ha1 02:12 Drug: fentaNYL (PF) IVP 25 mcg IVP once Route: IVP; Site: right forearm; ha1 02:30 Follow up: Response: No adverse reaction; Pain is decreased; RASS: Alert and Calm (0) ha1 06:38 Not Given (not in inventory ): [id number] mg PO once ha1 Medication: 05/24 15:28 VIS not applicable for this client. me1 Intake: 05/25 01:15 IV: 100ml; Total: 100ml. ha1 03:00 IV: 250ml; Total: 350ml. ha1 Outcome: 05/24 21:26 Decision to Hospitalize by Provider. sb4 22:08 ER care complete, transfer ordered by . sb4 05/25 06:40 Transferred by ground EMS to [facility], Transfer form completed. ha1 Condition: stable Discharge instructions given to patient, Instructed on the need for transfer, Demonstrated understanding of instructions, 06:41 Patient left the ED. ha1 Signatures: Dispatcher [employer] Dax Alvarado em1 Denilson Lopez Lynsay, RN RN ll1 Vicki Boateng RN RN ha1 Karol Degroot PA-C PA-C sb4 Julio Khoury MD MD sp4 Akanksha Watson RN RN cm10 Natalie Mckoen RN RN me1 [facility] Corrections: (The following items were deleted from the chart) 05/24 17:04 17:02 Inserted saline lock: 20 gauge in right forearm, using aseptic technique. Blood cm10 collected. me1 05/25 03:46 05/24 19:30 Reassessment: Patient and/or family updated on plan of care and expected ha1 duration. Pain level reassessed. Patient is alert, oriented x 3, equal unlabored respirations, skin warm/dry/pink. ha1 05/25 03:46 05/24 20:30 Reassessment: Patient and/or family updated on plan of care and expected ha1 duration. Pain level reassessed. Patient is alert, oriented x 3, equal unlabored respirations, skin warm/dry/pink. ha1 05/25 03:46 05/24 21:30 Reassessment: Patient and/or family updated on plan of care and expected ha1 duration. Pain level reassessed. Patient is alert, oriented x 3, equal unlabored respirations, skin warm/dry/pink. ha1 05/25 03:54 05/24 23:00 Family accompanied patient. ha1 ha1 05/25 03:56 05/24 21:30 Reassessment: Patient and/or family updated on plan of care and expected ha1 duration. Pain level reassessed. Patient is alert, oriented x 3, equal unlabored respirations, skin warm/dry/pink. ha1
[2023-05-24] MEDS ORDERED: METHYLPREDNISOLONE 125 MG INJ ONE (23:11)
[2023-05-24] MEDS ORDERED: NA CHLORIDE 0.9% 100 ML ONE (23:12)
[2023-05-24] MEDS ORDERED: NA CHLORIDE 0.9% 250 ML ONE (23:12)
[2023-05-24] MEDS ORDERED: VANCOMYCIN 1 GM/VIAL ONE (23:12)
[2023-05-24] MEDS ORDERED: PIPERACIL/TAZO 3.375 GM VIAL IV ONE (23:13)
[2023-05-24 23:22] LABS: C.diff Antigen/Toxin Ag pos : Tox pos (NEG : NEG)
[2023-05-25] MEDS ORDERED: METRONIDAZOLE 500mg IVPB 500 MG/100 ML BAG IV ONE (00:35)
[2023-05-25] MEDS ORDERED: ALBUMIN HUMAN 25% 100 ML IV ONE ×2 (00:48→02:24)
[2023-05-25] MEDS ORDERED: FENTANYL CITR 100 MCG/2 ML ONE (02:05)
[2023-05-25] MEDS ORDERED: ONDANSETRON 4 MG/2 ML VIAL ONE (02:06)
[2023-05-25] MEDS ORDERED: ACETAMINOPHEN 500 MG TAB ONE (02:07)
[2023-05-25] MEDS ORDERED: METOPROLOL TAR 25 MG TAB ONE (02:07)
[2023-05-25 03:35] LABS: Hematocrit 21.6 % (36.0-45.0); MCV 76.6 fL (80-100); MPV 5.9 fL (7.6-11.3); Platelets 145 thou/uL (152-406); RBC Red Blood Cell Count 2.82 M/uL (3.86-4.86)
[2023-05-25 06:30] LABS: Potassium 3.6 mEq/L (3.5-5.1)
[2023-05-25 09:18] VITALS: TEMP 98.2; O2SAT 99
[2023-05-25 09:29] VITALS: BP 106/69
--- NOTE | 2023-05-25 10:30 | RAD REPORT ---
EXAM DESCRIPTION: RAD - Chest Single View - 05/25/2023 3:36 am CLINICAL HISTORY: Female, 42 years old, after R CVL placement TECHNIQUE: 1 view COMPARISON: None available FINDINGS: SUPPORT DEVICES: Right IJ catheter tip overlies the superior cavoatrial junction. Addition al overlying leads. LUNGS/PLEURA: No consolidation, pleural effusion, or pneumothorax. HEART/MEDIASTINUM: Normal size and configuration. OTHER: No acute osseous findings. IMPRESSION: 1. Right IJ catheter projects in appropriate position. 2. No acute cardiopulmonary findings. Electronically signed by: Ramy Josue MD 05/25/2023 04:56 AM DIRECTOR OF INFECTION PREVENTION Due to temporary technical issues with the PACS/Fluency reporting system, reports are being signed by the in house radiologist without review as a courtesy to ensure prompt reporting. The interpreting r adiologist is fully responsible for the content of the report.
== END 2023-05-25 06:41 | disposition short-term general hospital (02) ==
LOC: ER 14:50
DX: A04.72 Enterocolitis due to Clostridium difficile, not specified as recurrent (principal); R65.20 Severe sepsis without septic shock; K51.011 Ulcerative (chronic) pancolitis with rectal bleeding; E87.6 Hypokalemia
CPT/HCPCS: 96365; 96367; 96368; 87040 ×2; 87045; 85025; 36415; 89055; 87177; 84703; 87046; 83605 ×2; 87209; 87324; 83690; 80053; 87425; 74177; 71045; 96375; 99285; 96366; Q9967; J3480; J2543; J2930; J2405; J7050; J7030

== ENCOUNTER → 2023-07-19 | Emergency (ER) | payer OTHER ==
[~2023-07-19] MED LIST: METRONIDAZOLE 500mg IVPB 500 MG/100 ML BAG IV ONE; MORPHINE 4 MG/ML SYR ONE; NA CHLORIDE 0.9% 1,000 ML ONE; ONDANSETRON 4 MG/2 ML VIAL ONE; dexAMETHasone 10 MG/ML VIAL ONE
[2023-07-19 18:02] LABS: Urine Bacteria <20 /HPF (<20); Urine Bilirubin NEGATIVE (Negative); Urine Blood 2+ (Negative); Urine Clarity Turbid (Clear); Urine Color Yellow (Yellow); Urine Glucose NEGATIVE (Negative); Urine Mucus Slight /HPF (None Seen); Urine Protein TRACE (Negative); Urine Urobilinogen Normal (Normal)
[2023-07-19 18:06] LABS: Absolute Lymphocytes (CBC) 0.8 K/uL (0.7-4.9); Hematocrit 32.8 % (36.0-45.0); Lymphocytes % 9.8 % (15.3-44.8); MCV 75.9 fL (80-100); MPV 6.4 fL (7.6-11.3); Platelets 430 thou/uL (152-406); RBC Red Blood Cell Count 4.32 M/uL (3.86-4.86)
[2023-07-19 18:09] LABS: Albumin 3.5 g/dL (3.4-5.0); Bilirubin Total 0.3 mg/dL (0.2-1.0); Potassium 3.2 mEq/L (3.5-5.1); Protein, Total 7.9 g/dL (6.4-8.2)
[2023-07-19 18:10] LABS: Protime INR 1.21
--- NOTE | 2023-07-19 19:08 | RAD REPORT ---
EXAM DESCRIPTION: CTAbdomen Pelvis W Contrast - 07/19/2023 6:51 pm CLINICAL HISTORY: ABD PAIN COMPARISON: Abdomen Pelvis W Contrast dated 05/24/2023; Abdomen Pelvis W Contrast dated 05/03/2023 ; Abdomen Pelvis W Contrast dated 12/24/2022; Abdomen Pelvis W Contrast dated 11/04/2022 TECHNIQUE: CT of the abdomen and pelvis was performed. All CT scans are performed using dose optimization technique as appropriate and may include automated exposure control or mA/KV adjustment according to patient size. FINDINGS: Lower chest: No acute abnormality. Liver: No acute abnormality or suspicious lesions. Biliary: No biliary ductal dilatation. Stomach: No significant focal abnormality. Duodenum: No significant focal abnormality. Pancreas: No significant abnormality. Spleen: No significant abnormality. Adrenal: No suspicious lesions. Kidney/ureter: No hydronephrosis. No renal calculi. Retroperitoneum: No retroperitoneal adenopathy. Vascular: No aneurysm. Bowel: Colitis extending from the hepatic flexure through the rectum. This is marginally improved com pared with 05/24/2023. The degree of wall thickening and hyperenhancement has mildly improved. Normal appendix. Peritoneum: No ascites or free air. Bladder: Grossly unremarkable. Reproductive: Corpus luteum in the left ovary. Bones: No acute fracture. Other: n/a IMPRESSION: Persistent colitis extending from the hepatic flexure through the rectum with marginal i mprovement compared with prior. No bowel obstruction, perforation, or abscess.
[2023-07-19 19:42] LABS: C.diff Antigen/Toxin Ag neg : Tox neg (NEG : NEG)
--- NOTE | 2023-07-19 22:03 | ER ---
Nurse's Notes [facility] Name: Kaitlynn Orourke Age: 43 yrs Sex: Female : 1980 Arrival Date: 07/19/2023 Time: 17:07 Bed 6 Private MD: Diagnosis: Colitis Presentation: 07/19 17:13 Chief complaint: Patient states: "I think I have c-diff again" pt states she has had it as6 2 other times and is having all the same symptoms again. pt has recently taken abx. Coronavirus screen: At this time, the client does not indicate any symptoms associated with coronavirus-19. Ebola Screen: No symptoms or risks identified at this time. Initial Sepsis Screen: Does the patient meet any 2 criteria? HR > 90 bpm. No. Patient's initial sepsis screen is negative. Does the patient have a suspected source of infection? No. Patient's initial sepsis screen is negative. Risk Assessment: Do you want to hurt yourself or someone else? Patient reports no desire to harm self or others. Onset of symptoms was July 18, 2023. 17:13 Method Of Arrival: Ambulatory as6 17:13 Acuity: DELMY 2 as6 Historical: - Allergies: 17:16 No Known Allergies; as6 - PMHx: 17:16 C DIFF; Colitis; Hypokalemia; ulcerative colitis; as6 - PSHx: 17:16 None; as6 - Immunization history:: Adult Immunizations up to date. - Social history:: Smoking status: Patient denies any tobacco usage or history of. Screenin:09 [facility] ED Fall Risk Assessment (Adult) Score/Fall Risk Level 0 - 2 = Low Risk ll1 Oriented to surroundings, Maintained a safe environment, Educated pt \\T\\ family on fall prevention, incl call for assistance when getting out of bed, Hourly rounding (assess needs \\T\\ fall precautionary measures) done. Abuse screen: Denies threats or abuse. Nutritional screening: No deficits noted. Tuberculosis screening: No symptoms or risk factors identified. Assessment: 17:20 General: Appears uncomfortable, ill, Behavior is calm, cooperative, appropriate for ll1 age. General: Reports feeling ill for fatigue for. Pain: Complains of pain in abdomen Pain currently is 8 out of 10 on a pain scale. Quality of pain is described as aching, crampy. Neuro: Reports headache. GI: Bowel sounds present X 4 quads. Abd is soft and non tender X 4 quads. Reports lower abdominal pain, upper abdominal pain, cramping, diarrhea, nausea. 17:58 Reassessment: No changes from previously documented assessment. Patient and/or family cm10 updated on plan of care and expected duration. Pain level reassessed. Patient is alert, oriented x 3, equal unlabored respirations, skin warm/dry/pink. 18:08 Reassessment: No changes from previously documented assessment. Patient and/or family ll1 updated on plan of care and expected duration. Pain level reassessed. Patient is alert, oriented x 3, equal unlabored respirations, skin warm/dry/pink. 18:46 Reassessment: No changes from previously documented assessment. To CT via wheelchair. ll1 19:30 Reassessment: Patient is alert, oriented x 3, equal unlabored respirations, skin jj7 warm/dry/pink. ASSUMED CARE OF PT. LY SITTING IN BED LIGHTS DIMMED. PT STATES SHE IS FEELING MUCH BETTER THEN WHEN SHE FIRST CAME IN. Vital Signs: 17:13 BP 137 / 90; Pulse 142; Resp 18 S; Temp 99.8(O); Pulse Ox 100% on R/A; Weight 61.69 kg as6 (R); Height 5 ft. 1 in. (R); Pain 4/10; 18:07 BP 110 / 80; Pulse 126; Resp 17; ll1 18:26 BP 116 / 84; Pulse 124; ll1 18:45 BP 121 / 84; Pulse 123; Resp 17; ll1 19:30 BP 111 / 75; Pulse 125; Resp 16; Pulse Ox 97% ; jj7 20:34 BP 119 / 84; Pulse 129; Resp 16; Pulse Ox 97% ; jj7 21:15 BP 111 / 69; Pulse 117; Resp 16; Pulse Ox 100% ; vc1 22:07 BP 106 / 66; Pulse 115; Resp 16; Pulse Ox 100% ; vc1 17:13 Body Mass Index 25.70 (61.69 kg, 154.94 cm) as6 17:13 Pain Scale: Adult as6 ED Course: 17:09 Patient arrived in ED. rg4 17:11 Vanessa Ventura FNP-C is [facility]. kb 17:11 Emery Bonner MD is Attending Physician. kb 17:16 Triage completed. as6 17:16 Arm band placed on. as6 17:25 Todd Sifuentes, RN is Primary Nurse. ll1 17:30 Provided Education on: ER procedures and process. ll1 17:30 No provider procedures requiring assistance completed. Inserted saline lock: 22 gauge ll1 in right antecubital area, using aseptic technique. 17:38 Lactate w/ 2H reflex if indic. Sent. ll1 17:54 Stool Culture Sent. cm10 18:09 Patient has correct armband on for positive identification. Bed in low position. Call ll1 light in reach. Side rails up X 1. Client placed on continuous cardiac and pulse oximetry monitoring. NIBP monitoring applied. probe operator on. 18:26 Stool Culture Sent. ll1 18:53 CT Abd/Pelvis - IV Contrast Only In Process Unspecified. EDMS 20:08 Primary Nurse role handed off by Todd Sifuentes, RN as6 22:30 IV discontinued, intact, bleeding controlled, No redness/swelling at site. Pressure jj7 dressing applied. Administered Medications: 17:54 Drug: NS 0.9% IV 1000 ml IV at 1 bolus Per protocol; 1000 mL bolus Route: IV; Rate: 1 cm10 bolus; Site: right antecubital; 17:54 Drug: Ondansetron IVP 4 mg IVP once; over 2 minutes Route: IVP; Site: right antecubital;cm10 18:46 Follow up: Response: No adverse reaction ll1 17:54 Drug: morphine IVP or IV 4 mg IVP once over 4 mins Route: IVP; Infused Over: 4 mins; cm10 Site: right antecubital; 18:46 Follow up: Response: No adverse reaction 1 20:33 Drug: NS 0.9% IV 1000 ml IV at 1000 ml once Route: IV; Rate: 1000 ml; Site: right jj7 antecubital; 21:40 Follow up: IV Status: Completed infusion jj7 20:33 Drug: metroNIDAZOLE IVPB 500 mg 100 ml IVPB at 200 ml/hr once over 30 mins Volume: 100 jj7 ml; Route: IVPB; Rate: 200 ml/hr; Infused Over: 30 mins; Site: right antecubital; 21:07 Follow up: IV Status: Completed infusion jj7 20:33 Drug: Decadron - Dexamethasone IVP 10 mg IVP once Route: IVP; Site: right antecubital; jj7 21:00 Follow up: Response: Marked relief of symptoms jj7 20:39 Drug: Ondansetron IVP 4 mg IVP once; over 2 minutes Route: IVP; Site: right antecubital;jj7 21:00 Follow up: Response: Nausea is decreased jj7 Medication: 18:09 VIS not applicable for this client. ll1 Outcome: 22:03 Discharge ordered by MD. reyes 22:30 Discharged to home ambulatory, with significant other, jj7 22:30 Condition: improved 22:30 Discharge instructions given to patient, Instructed on discharge instructions, medication usage, Demonstrated understanding of instructions, medications, 22:31 Patient left the ED. jj7 Signatures: Dispatcher [employer] EDMS Vanessa Ventura, SNUFF PACKING MACHINE OPERATOR-C SNUFF PACKING MACHINE OPERATOR-Yelena Joshi rg4 Todd Sifuentes RN RN ll1 Samuel Capps RN RN as6 Vannessa Richardson RN RN vc1 Maria Luisa Bazzi RN RN jj7 Akanksha Watson RN RN cm10
--- NOTE | 2023-07-19 22:03 | EDPHYS ---
Physician Documentation [facility] Name: Kaitlynn Orourke Age: 43 yrs Sex: Female : 1980 Arrival Date: 07/19/2023 Time: 17:07 Bed 6 Private MD: ED Physician Emery Bonner HPI: 07/19 23:43 This 43 yrs old Female presents to ER via Ambulatory with complaints of kb Abdominal Pain, Fever, Chills. 23:43 Pt is a 43 year old female who presents with diarrhea and abd pain that started 2 days kb ago. States she has had c.diff 2 times in the past and believes she has that again. States she recently took antibiotics for a tooth infection. Historical: - Allergies: 17:16 No Known Allergies; as6 - PMHx: 17:16 C DIFF; Colitis; Hypokalemia; ulcerative colitis; as6 - PSHx: 17:16 None; as6 - Immunization history:: Adult Immunizations up to date. - Social history:: Smoking status: Patient denies any tobacco usage or history of. ROS: 23:43 Constitutional: Negative for fever, chills, and weight loss, kb 23:43 Abdomen/GI: Positive for abdominal pain, diarrhea, Negative for nausea and vomiting, 23:43 All other systems are negative, Exam: 23:43 Constitutional: This is a well developed, well nourished patient who is awake, alert, kb and in no acute distress. Head/Face: Normocephalic, atraumatic. ENT: Moist Mucous membranes Cardiovascular: Regular rate Respiratory: Respirations even and unlabored. No increased work of breathing. Talking in full sentences Skin: Warm, dry with normal turgor. Normal color. MS/ Extremity: Pulses equal, no cyanosis. Neurovascular intact. Full, normal range of motion. Neuro: Awake and alert, GCS 15, oriented to person, place, time, and situation. Moves all extremities. Normal gait. 23:43 Abdomen/GI: Inspection: abdomen appears normal, Bowel sounds: normal, Palpation: soft, in all quadrants, mild abdominal tenderness, in the left upper quadrant and left lower quadrant, Vital Signs: 17:13 BP 137 / 90; Pulse 142; Resp 18 S; Temp 99.8(O); Pulse Ox 100% on R/A; Weight 61.69 kg as6 (R); Height 5 ft. 1 in. (R); Pain 4/10; 18:07 BP 110 / 80; Pulse 126; Resp 17; ll1 18:26 BP 116 / 84; Pulse 124; ll1 18:45 BP 121 / 84; Pulse 123; Resp 17; ll1 19:30 BP 111 / 75; Pulse 125; Resp 16; Pulse Ox 97% ; jj7 20:34 BP 119 / 84; Pulse 129; Resp 16; Pulse Ox 97% ; jj7 21:15 BP 111 / 69; Pulse 117; Resp 16; Pulse Ox 100% ; vc1 22:07 BP 106 / 66; Pulse 115; Resp 16; Pulse Ox 100% ; vc1 17:13 Body Mass Index 25.70 (61.69 kg, 154.94 cm) as6 17:13 Pain Scale: Adult as6 MDM: 17:11 Patient medically screened. kb 20:12 ED course: Discussed admission with pt. Pt prefers to get another liter of fluid and kb see if heart rate decreases with that. states she doesn't feel as bad as she did last time she was admitted so she would rather go home if possible. Will give another liter of NS, flagyl and decadron then reevaluate.. 23:40 Differential diagnosis: diverticulitis, colitis, abnormal electrolytes, dehydration. kb Data reviewed: vital signs, nurses notes. Consideration of Admission/Observation Escalation of care including admission/observation considered. pt does not want to be admitted. States she is feeling better after second liter of NS and wants to go home. Discussed return precautions with pt, verbal understanding received. . Counseling: I had a detailed discussion with the patient and/or guardian regarding the historical points, exam findings, and any diagnostic results supporting the discharge/admit diagnosis, lab results, radiology results, the need for outpatient follow up, to return to the emergency department if symptoms worsen or persist or if there are any questions or concerns that arise at home. 07/19 17:19 Order name: CBC with Diff; Complete Time: 18:11 kb 07/19 17:19 Order name: CMP; Complete Time: 18:11 kb 07/19 17:19 Order name: Lipase; Complete Time: 18:11 kb 07/19 17:19 Order name: Test, Urine; Complete Time: 18:01 kb 07/19 17:19 Order name: Urinalysis w/ reflexes; Complete Time: 18:02 kb 07/19 17:19 Order name: C.difficile; Complete Time: 19:47 kb 07/19 17:19 Order name: Lactate w/ 2H reflex if indic.; Complete Time: 18:11 kb 07/19 17:19 Order name: Protime (+inr); Complete Time: 18:11 kb 07/19 17:19 Order name: Ptt, Activated; Complete Time: 18:11 kb 07/19 17:19 Order name: Stool Culture kb 07/19 17:19 Order name: CT Abd/Pelvis - IV Contrast Only; Complete Time: 19:10 kb 07/19 17:19 Order name: EKG; Complete Time: 17:19 kb 07/19 17:19 Order name: IV Saline Lock; Complete Time: 17:38 kb 07/19 17:19 Order name: Labs collected and sent; Complete Time: 17:38 kb 07/19 17:19 Order name: Cardiac monitoring; Complete Time: 17:58 kb 07/19 17:19 Order name: EKG - Nurse/Tech; Complete Time: 17:58 kb 07/19 17:19 Order name: IV Saline Lock - Large Bore; Complete Time: 17:38 kb 07/19 17:19 Order name: O2 Per Protocol; Complete Time: 17:38 kb 07/19 17:19 Order name: O2 Sat Monitoring; Complete Time: 17:38 kb 07/19 17:19 Order name: Vital Signs; Complete Time: 17:58 kb Administered Medications: 17:54 Drug: NS 0.9% IV 1000 ml IV at 1 bolus Per protocol; 1000 mL bolus Route: IV; Rate: 1 cm10 bolus; Site: right antecubital; 17:54 Drug: Ondansetron IVP 4 mg IVP once; over 2 minutes Route: IVP; Site: right antecubital;cm10 18:46 Follow up: Response: No adverse reaction ll1 17:54 Drug: morphine IVP or IV 4 mg IVP once over 4 mins Route: IVP; Infused Over: 4 mins; cm10 Site: right antecubital; 18:46 Follow up: Response: No adverse reaction ll1 20:33 Drug: NS 0.9% IV 1000 ml IV at 1000 ml once Route: IV; Rate: 1000 ml; Site: right jj7 antecubital; 21:40 Follow up: IV Status: Completed infusion jj7 20:33 Drug: metroNIDAZOLE IVPB 500 mg 100 ml IVPB at 200 ml/hr once over 30 mins Volume: 100 jj7 ml; Route: IVPB; Rate: 200 ml/hr; Infused Over: 30 mins; Site: right antecubital; 21:07 Follow up: IV Status: Completed infusion jj7 20:33 Drug: Decadron - Dexamethasone IVP 10 mg IVP once Route: IVP; Site: right antecubital; jj7 21:00 Follow up: Response: Marked relief of symptoms jj7 20:39 Drug: Ondansetron IVP 4 mg IVP once; over 2 minutes Route: IVP; Site: right antecubital;jj7 21:00 Follow up: Response: Nausea is decreased 7 Disposition: 07/20 07:00 Co-signature as Attending Physician, Emery Bonner MD I reviewed the patient's care rn provided by the Advanced Practice Provider and agree with the diagnosis and treatment plan. Disposition Summary: 07/19/23 22:03 Discharge Ordered Notes: Location: Home kb Condition: Stable kb Diagnosis - Colitis kb Followup: kb - With: Emergency Department - When: As needed - Reason: Worsening of condition Followup: kb - With: Private Physician - When: 2 - 3 days - Reason: Recheck today's complaints, Continuance of care, Re-evaluation by your physician Discharge Instructions: - Colitis kb - Discharge Summary Sheet ll1 Forms: - Medication Reconciliation Form kb - Thank You Letter kb - Antibiotic Education kb - Prescription Opioid Use kb - Patient Portal Instructions kb - Leadership Thank You Letter kb - SBAR form ll1 Prescriptions: - Flagyl 500 mg Oral Tablet - take 1 tablet ORAL route every 8 hours for 10 days; 30 tablet; Refills: 0, kb Product Selection Permitted - Medrol ([place]) 4 mg Oral Tablets, Dose Pack - take 1 tablet ORAL route as directed - follow package instructions; 1 packet; kb Refills: 0, Product Selection Permitted Signatures: Dispatcher [employer] Vanessa Estrada FNP-C FNP-Emery Heath MD MD rn Slawson, Ashby, RN RN as6 Maria Luisa Bazzi RN RN jj7 Akanksha Watson RN RN cm10 Todd Sifuentes RN ll1 Corrections: (The following items were deleted from the chart) 07/19 18:26 17:19 Maria R reyes ll1
[2023-07-19 22:55] VITALS: TEMP 99.8; O2SAT 100
[2023-07-19 23:19] VITALS: BP 106/66
--- NOTE | 2023-07-21 15:29 | EKG ---
Test Date: 2023-07-19 Test Time: 18:03:36 Seam Finisher: NIKKI MEASUREMENT RESULTS: Intervals: Rate: 128 IA: 136 QRSD: 68 QT: 312 QTc: 455 [place]: P: 59 IA: 136 QRS: 67 T: -9 INTERPRETIVE STATEMENTS: Sinus tachycardia Low voltage QRS T wave abnormality, consider inferior ischemia Abnormal ECG Compared to ECG 01/09/2023 05:55:07 T-wave abnormality now present Possible ischemia now present Sinus rhythm no longer present Electronically Signed On 07-21-23 15:25:31 CLINICAL TEAM LEAD by Daniele Perdue
== END ==
LOC: ER 17:07
DX: K52.9 Noninfective gastroenteritis and colitis, unspecified (principal)
CPT/HCPCS: 96365; 96361; 93005; 87045; 85025; 81001; 36415; 81025; 85610; 87046; 83605; 85730; 87324; 83690; 80053; 74177; 96375; 99285; Q9967; J1100; J2405 ×2; J7030 ×2; 87040

== ENCOUNTER 2024-07-20 08:32 | Inpatient (IN) | payer OTHER ==
[2024-07-20] MEDS ORDERED: FAMOTIDINE 20 MG/2 ML VIAL IV ONE (09:31)
[2024-07-20] MEDS ORDERED: NA CHLORIDE 0.9% 100 ML ONE (09:31)
[2024-07-20] MEDS ORDERED: ONDANSETRON 4 MG/2 ML VIAL ONE ×3 (09:31→15:32)
[2024-07-20] MEDS ORDERED: NA CHLORIDE 0.9% 1,000 ML ONE (09:31)
[2024-07-20] MEDS ORDERED: MORPHINE 4 MG/ML SYR ONE ×2 (09:31→12:24)
[2024-07-20] MEDS ORDERED: PIPERACIL/TAZO 3.375 GM VIAL IV ONE (09:32)
--- NOTE | 2024-07-20 09:34 | ER ---
Nurse's Notes [facility] Name: Kaitlynn Orourke Age: 44 yrs Sex: Female : 1980 Arrival Date: 07/20/2024 Time: 08:32 Bed 5 Private MD: Diagnosis: Anal abscess;Anorectal abscess;Ulcerative colitis, unspecified with abscess;Anemia, unspecified;Hypokalemia;Left sided colitis without complications Presentation: 07/20 09:00 Chief complaint: Patient states: Abscess at the rectum x 3 weeks. jl7 09:00 Onset of symptoms was June 29, 2024. jl7 09:00 Acuity: DELMY 3 jl7 09:01 Coronavirus screen: Client denies travel out of the [place] in the last 14 days. At this 1 time, the client does not indicate any symptoms associated with coronavirus-19. Ebola Screen: Patient denies travel to an Ebola-affected area in the 21 days before illness onset. Initial Sepsis Screen: Does the patient meet any 2 criteria? No. Patient's initial sepsis screen is negative. Does the patient have a suspected source of infection? No. Patient's initial sepsis screen is negative. Risk Assessment: Do you want to hurt yourself or someone else? Patient reports no desire to harm self or others. 09:01 Method Of Arrival: Ambulatory ll1 Triage Assessment: 09:00 General: Appears in no apparent distress. uncomfortable, Behavior is calm, cooperative, jl7 appropriate for age. Pain: Complains of pain in buttocks Pain currently is 10 out of 10 on a pain scale. 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 - Infectious Disease History:: Denies. - Social history:: Smoking status: Patient denies any tobacco usage or history of. Screenin:23 [facility] ED Fall Risk Assessment (Adult) History of falling in the last 3 months, ll1 including since admission No falls in past 3 months (0 pts) Confusion or Disorientation No (0 pts) Intoxicated or Sedated No (0 pts) Impaired Gait No (0 pts) Mobility Assist Device Used No (0 pt) Altered Elimination No (0 pt) Score/Fall Risk Level 0 - 2 = Low Risk Maintained a safe environment, Hourly rounding (assess needs \T\ fall precautionary measures) done. Abuse screen: Denies threats or abuse. Nutritional screening: No deficits noted. Tuberculosis screening: No symptoms or risk factors identified. Assessment: 09:08 Reassessment: No changes from previously documented assessment. Patient and/or family ll1 updated on plan of care and expected duration. Pain level reassessed. Vital Signs: 09:02 Weight 64.41 kg; Height 5 ft. 1 in. ; Pain 10/10; jl7 09:08 BP 130 / 63; Pulse 100; Resp 17; Temp 98.1; Pulse Ox 100% ; ll1 09:02 Body Mass Index 26.83 (64.41 kg, 154.94 cm) jl7 09:02 Pain Scale: Adult [facility] ED Course: 07:00 Patient has correct armband on for positive identification. Provided Education on: ER 1 procedures and process. 08:35 Patient arrived in ED. al6 08:38 Seng Lee MD is Attending Physician. alivia 09:00 Todd Sifuentes, RN is Primary Nurse. ll1 09:01 Arm band placed on Patient placed in an exam room, on a stretcher. ll1 09:31 Laura Rolle MD is Hospitalizing Provider. alivia 09:36 Triage completed. jl7 09:43 EKG done, by ED staff, reviewed by Seng Lee MD. em1 09:49 Urinalysis w/ reflexes Sent. ll1 09:49 Test, Urine Sent. ll1 09:50 Initial lab(s) drawn, by ri, sent to lab. Inserted saline lock: 22 gauge in right ll1 antecubital area, using aseptic technique. Blood collected. Flushed with 10 mL NS. 10:17 Chest Single View XRAY In Process Unspecified. EDMS 14:23 No provider procedures requiring assistance completed. Patient admitted, IV remains in ll1 place. Administered Medications: 09:49 Drug: Famotidine IVP 20 mg IVP once; dilute with 10 mL 0.9% NaCl; give over 2 minutes ll1 Route: IVP; Site: right antecubital; 10:36 Follow up: Response: No adverse reaction ll1 09:49 Drug: Ondansetron IVP 4 mg IVP once; over 2 minutes Route: IVP; Site: right antecubital;ll1 10:36 Follow up: Response: No adverse reaction ll1 09:49 Drug: morphine IVP or IV 4 mg IVP once over 4 mins {Note: pain 8/10 RASS 0.} Route: ll1 IVP; Infused Over: 4 mins; Site: right antecubital; 10:36 Follow up: Response: No adverse reaction; Pain is decreased; RASS: Alert and Calm (0) ll1 09:49 Drug: NS 0.9% IV 1000 ml IV at 1 bolus Per protocol; to be given as a bolus over 60 ll1 minutes Route: IV; Rate: 1 bolus; Site: right antecubital; 11:33 Follow up: Response: No adverse reaction; IV Status: Completed infusion; IV Intake: ll1 1000ml 09:50 Drug: Piperacillin-Tazobactam IVPB 3.375 grams IVPB once over 60 mins; (mix in NS 100 ll1 mL) Route: IVPB; Infused Over: 60 mins; Site: right antecubital; 11:33 Follow up: Response: No adverse reaction; IV Status: Completed infusion; IV Intake: ll1 100ml 11:34 Not Given (given from floor admission orderss): ns 0.9% with kcl20 meq/l 1000 ml IV at ll1 125 ml/hr continuous 13:00 Not Given (given off floor orderso): [id number] mg 100 ml IVPB at 200 ml/hr once ll1 over 30 mins Medication: 14:24 VIS not applicable for this client. ll1 Intake: 11:33 IV: 100ml; Total: 100ml. ll1 11:33 IV: 1000ml; Total: 1100ml. ll1 Outcome: 09:34 Decision to Hospitalize by Provider. alivia 14:23 Admitted to ER Hold. Please see [facility] for further documentation. ll1 14:23 Condition: stable 14:23 Instructed on the need for admit, 14:27 Patient left the ED. ll1 Signatures: Dispatcher [employer] EDMS Seng Lee MD MD cha Martinez, Eric em1 Darian Spencer RN RN jl7 Todd Sifuentes RN RN ll1 Tasha Miguel6
--- NOTE | 2024-07-20 09:34 | EDPHYS ---
Physician Documentation [facility] Name: Kaitlynn Orourke Age: 44 yrs Sex: Female : 1980 Arrival Date: 07/20/2024 Time: 08:32 Bed 5 Private MD: ED Physician Seng Lee HPI: 07/20 09:27 This 44 yrs old Female presents to ER via Ambulatory with complaints of alivia Abscess. 09:27 The patient presents with an abscess of the gluteal cleft, the patient presents with a alivia swollen area of the gluteal cleft. Description: The affected area is localized. Onset: The symptoms/episode began/occurred 5 day(s) ago. Possible cause(s): unknown. Associated signs and symptoms: Pertinent positives: fever, swelling. Modifying factors: the symptoms are alleviated by remaining still, warm soaks, sitz bath, the symptoms are aggravated by movement, pressure. Severity of symptoms: At their worst the symptoms were moderate, in the emergency department the symptoms are unchanged. The patient has experienced similar episodes in the past, multiple times. 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 - Infectious Disease History:: Denies. - Social history:: Smoking status: Patient denies any tobacco usage or history of. ROS: 09:29 Constitutional: Negative for fever, chills, and weight loss, Eyes: Negative for injury, alivia pain, redness, and discharge, ENT: Negative for injury, pain, and discharge, Neck: Negative for injury, pain, and swelling, Cardiovascular: Negative for chest pain, palpitations, and edema, Respiratory: Negative for shortness of breath, cough, wheezing, and pleuritic chest pain, Back: Negative for injury and pain, : Negative for injury, bleeding, discharge, and swelling, MS/Extremity: Negative for injury and deformity, Skin: Negative for injury, rash, and discoloration, Neuro: Negative for headache, weakness, numbness, tingling, and seizure, Psych: Negative for depression, anxiety, suicide ideation, homicidal ideation, and hallucinations, Allergy/Immunology: Negative for hives, rash, and allergies, Endocrine: Negative for neck swelling, polydipsia, polyuria, polyphagia, and marked weight changes, Hematologic/Lymphatic: Negative for swollen nodes, abnormal bleeding, and unusual bruising, 09:29 Abdomen/GI: Positive for abdominal pain, abdominal cramps, rectal pain, of the suprapubic area, Exam: 09:29 Constitutional: This is a well developed, well nourished patient who is awake, alert, alivia and in no acute distress. Head/Face: Normocephalic, atraumatic. Eyes: Pupils equal round and reactive to light, extra-ocular motions intact. Lids and lashes normal. Conjunctiva and sclera are non-icteric and not injected. Cornea within normal limits. Periorbital areas with no swelling, redness, or edema. ENT: Nares patent. No nasal discharge, no septal abnormalities noted. Tympanic membranes are normal and external auditory canals are clear. Oropharynx with no redness, swelling, or masses, exudates, or evidence of obstruction, uvula midline. Mucous membranes moist. Neck: Trachea midline, no thyromegaly or masses palpated, and no cervical lymphadenopathy. Supple, full range of motion without nuchal rigidity, or vertebral point tenderness. No Meningismus. Chest/axilla: Normal chest wall appearance and motion. Nontender with no deformity. No lesions are appreciated. Cardiovascular: Regular rate and rhythm with a normal S1 and S2. No gallops, murmurs, or rubs. Normal PMI, no JVD. No pulse deficits. Respiratory: Lungs have equal breath sounds bilaterally, clear to auscultation and percussion. No rales, rhonchi or wheezes noted. No increased work of breathing, no retractions or nasal flaring. Back: No spinal tenderness. No costovertebral tenderness. Full range of motion. Skin: Warm, dry with normal turgor. Normal color with no rashes, no lesions, and no evidence of cellulitis. MS/ Extremity: Pulses equal, no cyanosis. Neurovascular intact. Full, normal range of motion., bilateral aka Neuro: Awake and alert, GCS 15, oriented to person, place, time, and situation. Cranial nerves II-XII grossly intact. Motor strength 5/5 in all extremities. Sensory grossly intact. Cerebellar exam normal. Normal gait. Psych: Awake, alert, with orientation to person, place and time. Behavior, mood, and affect are within normal limits. 09:29 Abdomen/GI: Inspection: abdomen appears normal, Bowel sounds: normal, Palpation: soft, nontender, in all quadrants, Rectal exam: swelling, that is moderate, tenderness, that is moderate, Liver: no appreciated palpable abnormalities, Hernia: not appreciated, 09:51 ECG was reviewed by the Attending Physician. [facility] Vital Signs: 09:02 Weight 64.41 kg; Height 5 ft. 1 in. ; Pain 10/10; jl7 09:08 BP 130 / 63; Pulse 100; Resp 17; Temp 98.1; Pulse Ox 100% ; ll1 09:02 Body Mass Index 26.83 (64.41 kg, 154.94 cm) 7 09:02 Pain Scale: Adult jl7 MDM: 08:38 Medical Screening Exam initiated alivia 09:48 Differential diagnosis: abscess, cellulitis, diverticulitis. Data reviewed: vital [facility] signs, nurses notes, lab test result(s), EKG, radiologic studies, CT scan, plain films. Consideration of Admission/Observation Patient was admitted/placed on observation. Escalation of care including admission/observation considered. I considered the following discharge prescriptions or medication management in the emergency department Medications were administered in the Emergency Department. See MAR. Independent interpretation of the following test(s) in the Emergency Department EKG: See my EKG interpretation above. Test considered but Not performed: Ultrasound no abd usg. Care significantly affected by the following chronic conditions: uc, c diff, colitis, hypokalemia. 07/20 09:27 Order name: CBC with Diff; Complete Time: 12:50 [facility] 07/20 09:27 Order name: CMP; Complete Time: 10:22 [facility] 07/20 09:27 Order name: Lipase; Complete Time: 10:22 [facility] 07/20 09:27 Order name: Test, Urine; Complete Time: 10:22 [facility] 07/20 09:27 Order name: Urinalysis w/ reflexes; Complete Time: 10:22 [facility] 07/20 10:26 Order name: Type And Screen [facility] 07/20 10:37 Order name: Basic Metabolic Panel [facility] 07/20 10:37 Order name: Basic Metabolic Panel [facility] 07/20 10:37 Order name: Basic Metabolic Panel [facility] 07/20 10:37 Order name: Basic Metabolic Panel [facility] 07/20 10:37 Order name: Basic Metabolic Panel [facility] 07/20 10:37 Order name: Basic Metabolic Panel [facility] 07/20 10:37 Order name: CBC with Automated Diff [facility] 07/20 10:37 Order name: CBC with Automated Diff [facility] 07/20 10:37 Order name: CBC with Automated Diff [facility] 07/20 10:37 Order name: CBC with Automated Diff [facility] 07/20 10:37 Order name: CBC with Automated Diff [facility] 07/20 10:37 Order name: CBC with Automated Diff [facility] 07/20 11:12 Order name: CBC Smear Scan; Complete Time: 12:50 [facility] 07/20 09:31 Order name: Chest Single View XRAY; Complete Time: 10:48 [facility] 07/20 10:59 Order name: CT; Complete Time: 12:50 [facility] 07/20 09:31 Order name: EKG; Complete Time: 09:31 [facility] 07/20 09:27 Order name: IV Saline Lock; Complete Time: 09:29 [facility] 07/20 09:27 Order name: Labs collected and sent; Complete Time: 09: [facility] 07/20 09:27 Order name: NPO; Complete Time: 09:28 [facility] 07/20 09:31 Order name: EKG - Nurse/Tech; Complete Time: 09:42 [facility] EC:51 Rate is 80 beats/min. Rhythm is regular. QRS [place] is Normal. [place] interval is normal. QRS alivia interval is normal. QT interval is normal. No Q waves. T waves are Normal. No ST changes noted. Clinical impression: Normal ECG and No evidence of ischemia. Interpreted by me. Reviewed by me. Administered Medications: 09:49 Drug: Famotidine IVP 20 mg IVP once; dilute with 10 mL 0.9% NaCl; give over 2 minutes ll1 Route: IVP; Site: right antecubital; 10:36 Follow up: Response: No adverse reaction ll1 09:49 Drug: Ondansetron IVP 4 mg IVP once; over 2 minutes Route: IVP; Site: right antecubital;ll1 10:36 Follow up: Response: No adverse reaction 1 09:49 Drug: morphine IVP or IV 4 mg IVP once over 4 mins {Note: pain 8/10 RASS 0.} Route: ll1 IVP; Infused Over: 4 mins; Site: right antecubital; 10:36 Follow up: Response: No adverse reaction; Pain is decreased; RASS: Alert and Calm (0) ll1 09:49 Drug: NS 0.9% IV 1000 ml IV at 1 bolus Per protocol; to be given as a bolus over 60 ll1 minutes Route: IV; Rate: 1 bolus; Site: right antecubital; 11:33 Follow up: Response: No adverse reaction; IV Status: Completed infusion; IV Intake: ll1 1000ml 09:50 Drug: Piperacillin-Tazobactam IVPB 3.375 grams IVPB once over 60 mins; (mix in NS 100 ll1 mL) Route: IVPB; Infused Over: 60 mins; Site: right antecubital; 11:33 Follow up: Response: No adverse reaction; IV Status: Completed infusion; IV Intake: ll1 100ml 11:34 Not Given (given from floor admission orderss): ns 0.9% with kcl20 meq/l 1000 ml IV at ll1 125 ml/hr continuous 13:00 Not Given (given off floor orderso): [id number] mg 100 ml IVPB at 200 ml/hr once ll1 over 30 mins Disposition Summary: 07/20/24 09:34 Hospitalization Ordered Notes: Hospitalization Status: Inpatient Admission alivia Provider: Laura Rolle cha Condition: Fair alivia Problem: new alivia Symptoms: have improved alivia Bed/Room Type: Standard alivia Location: [facility] ER HOLD(07/20/24 12:14) jl7 Room Assignment: ERHOLD-(07/20/24 12:14) [facility] Diagnosis - Anal abscess alivia - Anorectal abscess alivia - Ulcerative colitis, unspecified with abscess alivia - Anemia, unspecified alivia - Hypokalemia alivia - Left sided colitis without complications alivia Forms: - Medication Reconciliation Form alivia - SBAR form alivia - Leadership Thank You Letter alivia Signatures: Dispatcher [employer] Seng Ennis MD MD cha Attema, Lee, FNP-C TORTILLA MAKER-Cla1 Darian Spencer RN RN jl7 Todd Sifuentes RN RN ll1 Corrections: (The following items were deleted from the chart) 09:28 09:28 CBC+H.LAB.BRZ ordered. EDMS EDMS 09:28 09:28 COMPREHENSIVE METABOLIC PANEL+C.LAB.BRZ ordered. EDMS EDMS : 09:28 LIPASE+C.LAB.BRZ ordered. EDMS EDMS : 09:28 Test, Urine+UC.LAB.BRZ ordered. EDMS EDMS : 09:28 Urinalysis+U.LAB.BRZ ordered. EDMS EDMS : 09:28 Abdomen Pelvis W Con+CT.RAD.BRZ ordered. EDMS EDMS 10:27 10:26 TYPE AND SCREEN+BB.LAB.BRZ ordered. EDMS EDMS 12: 09:34 Telemetry/MedSurg (Inpatient) alivia sepulveda 12:14 09:34 alivia sepulveda
[2024-07-20 09:58] LABS: Specific Gravity 1.027 (1.005-1.030)
[2024-07-20 10:00] LABS: Specific Gravity 1.027 (1.005-1.030); Urine Bacteria None Seen /HPF (<20); Urine Bilirubin NEGATIVE (Negative); Urine Blood 2+ (Negative); Urine Clarity Extremely Turbid (Clear); Urine Color Yellow (Yellow); Urine Culture Reflex Order NOT NEEDED; Urine Glucose TRACE (Negative); Urine Ketones NEGATIVE (Negative); Urine Microscopic Reflex YN ORDER UMIC; Urine Mucus 4+ /HPF (None Seen); Urine Nitrite NEGATIVE (Negative); Urine Protein 1+ (Negative); Urine RBC 21-50 /HPF (None Seen); Urine Urobilinogen Normal (Normal); Urine WBC <5 /HPF (<5)
[2024-07-20 10:06] LABS: Absolute Eosinophils 0.2 K/uL (0-0.5); Absolute Lymphocytes (CBC) 0.9 K/uL (0.7-4.9); Absolute Monocytes 0.8 K/uL (0.1-1.3); Absolute Neutrophil 5.8 K/uL (1.8-8.0); Basophils % 0.5 % (0-1.3); Eosinophils % 2.6 % (0-4.4); Hematocrit 25.9 % (36.0-45.0); Lymphocytes % 11.9 % (15.3-44.8); MCH 18.6 pg (27.0-35.0); MCHC 30.7 g/dL (32.0-36.0); MCV 60.4 fL (80-100); MPV 6.3 fL (7.6-11.3); Monocytes % 9.9 % (3.3-12.3); Neutrophils % 75.1 % (41.7-73.7); Nucleated Red Blood Cells % 0.2 % (0-0); Platelets 557 thou/uL (152-406); RBC Red Blood Cell Count 4.28 M/uL (3.86-4.86); Red Cell Distribution Width 19.9 % (12.1-15.2)
[2024-07-20 10:19] LABS: Albumin 3.3 g/dL (3.4-5.0); Albumin/Globulin Ratio 0.7 (1.1-1.8); Anion Gap 8.4 mEq/L (5.0-15.0); Bilirubin Total 0.3 mg/dL (0.2-1.0); Globulin 4.7 g/dL (2.3-3.5); Potassium 3.4 mEq/L (3.5-5.1)
[2024-07-20] MEDS ORDERED: ACETAMINOPHEN 500 MG TAB PO PRN (10:31)
--- NOTE | 2024-07-20 10:33 | RAD REPORT ---
Procedure: Chest Single View HISTORY: Rectal abscess. Preop. COMPARISON: 2023 FINDINGS: The lungs appear clear of acute infiltrate. No significant pleural effusion noted. The heart is normal size. IMPRESSION: No acute abnormality is displayed.
--- NOTE | 2024-07-20 10:36 | P.HP ---
Certification for Inpatient Patient admitted to: Inpatient With expected LOS: >2 Midnights Patient will require the following post-hospital care: None Practitioner: I am a practitioner with admitting privileges, knowledge of patient current condition, hospital course, and medical plan of care. Services: Services provided to patient in accordance with Admission requirements found in Title 42 Section 412.3 of the Code of Federal Regulations Patient History Date of Service: 07/20/24 Reason for admission: Perianal abscess History of Present Illness: 44-year-old patient presented with draining fluid collection in the perianal area, this started around 4 weeks back, she was seen by PCP then the simplex printer installer, she was told to have anal fissure, it was managed conservatively with the sitz bath's and topical treatment, then she noticed increasing swelling and drainage 2 weeks back, she has pain for the last couple of weeks but pain worsened in the last 2 days so she present to the emergency room, she was found to have draining perianal abscess so surgery was consulted, started on IV antibiotics and we were asked admit her. She had some nausea yesterday but that is better now. She is complaining of on and off fever for the last couple of days. She is complaining of left leg swelling for the last 1 month or so. She had some on and off pain in the left flank area, no other abdominal pain. She has alternating constipation and diarrhea, this is common for her with ulcerative colitis, she also has on and off blood in the stool from ulcerative colitis. No headache or blackouts. No double vision or blurry vision. No cough or sputum production. No chest pain or shortness of breath. No blood in the urine. No joint pains. No recent change in the weight. Review of systems: All other 10 point review of systems are negative other than as mentioned above. Allergies and medications: Reviewed, as per med rec EMR. Past medical history: ulcerative colitis, chronic anemia, history of C. difficile infection Past surgical history: None Social history: No smoking or alcohol or drugs Family history: No family history of [place] or CVA Physical examination: Vital signs: Reviewed, as per EMR. General appearance: Alert and comfortable HEENT: Extraocular movements intact, oral mucosa moist. CVS: Normal S1-S2 Lungs: Clear to auscultation bilaterally Abdomen: Soft, bowel sounds present, no tenderness. Purulent Draining abscess present at the gluteal cleft Extremities: No right lower extremity edema, mild LLE edema BEAUTY DIRECTOR: Moves all 4 extremities, no obvious focal deficits Musculoskeletal: No obvious joint swelling or tenderness Allergies No Known Allergies Allergy (Verified 09/15/19 01:26) Home Medications: Ciprofloxacin HCl [Cipro] 500 mg PO BID #14 tab 05/04/23 Metronidazole 500 mg PO Q8H 7 Days #21 tab 05/04/23 Ondansetron [Zofran (Odt)*] 4 mg PO Q6H PRN #30 tab 05/04/23 predniSONE [Deltasone*] 10 mg PO DAILY #30 tab 05/04/23 traMADol HCL [Ultram*] 50 mg PO Q6H PRN #20 tab 05/04/23 - Past Medical/Surgical History Diabetic: No -: Ulcerative Colitis -: EGD and colonoscopy Psychosocial/ Personal History: Patient lives at home alone. - Family History Father -: Hypertension, Other (see notes) Notes: hyprlipedemia Mother -: Diabetes, Cancer Notes: Leukemia - Social History Alcohol use: No CD- Drugs: No Caffeine use: No Physical Examination - Studies Laboratory Data (last 24 hrs) 07/20/24 07/20/24 09:45 09:45 WBC 7.70 Hgb 8.0 L Hct 25.9 L Plt Count 557 H Sodium 138 Potassium 3.4 L BUN 11 Creatinine 0.67 Glucose 98 Total Bilirubin 0.3 AST 15 ALT 23 Alkaline Phosphatase 157 H Lipase 28 Assessment and Plan - Problems (Diagnosis) (1) Perianal abscess Current Visit: Yes Status: Acute - Plan Assessment and plan: 1. Perianal abscess: Patient was started on IV ciprofloxacin and metronidazole, surgical team was consulted, further evaluation and management as per surgical team, she is going to be taken to the operating room today, will follow-up on intraoperative cultures and adjust antibiotics. 2. Ulcerative colitis: She is not on any medications at this time, follow-up with GI as an outpatient. 3. Chronic anemia: Monitor closely. 4. Microscopic hematuria: Not sure at this urine is contaminated with her chronic issues with rectal bleeding, follow-up with PCP with repeat urinalysis. 5. Left leg swelling: Will get a venous Doppler to rule out DVT. 6. Hypokalemia: Replace and monitor. DVT prophylaxis: Lovenox CODE STATUS: She would like to be full code. I Did discuss all the above mentioned plan with the patient, she understands and agrees with the plan. She will be admitted the hospital as inpatient. - Advance Directives Does patient have a Living Will: No Does patient have a Durable POA for Healthcare: No
--- NOTE | 2024-07-20 10:59 | RAD REPORT ---
EXAMINATION: CT ABDOMEN AND PELVIS WITH CONTRAST CLINICAL INDICATION: Abdominal pain TECHNIQUE: CT abdomen and pelvis was performed, after the administration of 100 cc Isovue-300.. Sagit shahnaz and coronal reconstructions were obtained. One or more of the following dose reduction techniques were used: Automated exposure control, adjustment of the mA and kV according to patient si ze, and iterative reconstruction. Unless otherwise specified, incidental findings do not require dedicated imaging follow-up. [id number]. Oral contrast was not given which limits evaluation of bowel and appendix. COMPARISON: .June 2023 FINDINGS: Liver, spleen, pancreas, adrenals and kidneys appear unremarkable 2 cm right ovarian cyst is benign. No follow-up imaging recommended. No significant free fluid. Moderate thickening of the wall of the descending and sigmoid colon. Pneumatosis intestinalis not see n. 2 x 1 cm soft tissue structure right perianal region. It contains a sliver of fluid. : IMPRESSION: Moderate left colitis 2 x 1 cm soft tissue structure right perianal region containing a sliver of fluid presumably a very s mall abscess
[2024-07-20] MEDS: NA CHLORIDE 0.9% 1,000 ML IV SCH (11:00)
[2024-07-20 11:12] LABS: Anisocytosis 1+; Blood Morphology Comment NOTED (NOT SEEN); Hypochromasia 2+; Microcytosis 2+; Ovalocytes 1+; Platelet Estimate ADEQ; White Blood Cell Scan OK (OK)
[2024-07-20] MEDS ORDERED: NA CHLORIDE 0.9% 500 ML ONE (11:28)
[2024-07-20] MEDS: POTASSIUM CL 40 MEQ in NA CHLORIDE 0.9% 500 ML IV SCH (11:30)
[2024-07-20] MEDS: METRONIDAZOLE 500mg IVPB 500 MG/100 ML BAG IV SCH (12:00)
[2024-07-20] MEDS ORDERED: METRONIDAZOLE 500mg IVPB 500 MG/100 ML BAG IV ONE (12:08)
[2024-07-20] MEDS: ONDANSETRON 4 MG/2 ML VIAL IV PRN (12:30)
[2024-07-20] MEDS: MORPHINE 2 MG/ML SYR IV PRN (12:31)
--- NOTE | 2024-07-20 14:40 | RAD REPORT ---
EXAMINATION: US LOWER EXTREMITY VENOUS DOPPLER BILATERAL CLINICAL INDICATION: Female, 44 years old.leg swelling TECHNIQUE: Complete bilateral duplex sonography of the lower extremity veins was performed. The exami nation included compression for vein patency, color Doppler imaging and flow augmentation in response to distal compression of the distal external iliac, common femoral, femoral, popliteal, janis gaby, tibial and great saphenous veins. [id number]. COMPARISON: 10/10/2023 FINDINGS: Duplex sonography imaging demonstrates all deep examined to be fully compressible with spontaneous, p hasic and augmented flow bilaterally. IMPRESSION: No evidence of deep venous thrombosis seen in either lower extremity.
[2024-07-20] MEDS: NA CHLORIDE 0.9% 500 ML ONE (15:29)
[2024-07-20] MEDS ORDERED: KETOROLAC 30 MG/ML INJ ONE (15:32)
[2024-07-20] MEDS ORDERED: MIDAZOLAM HCL 2 MG/2 ML INJ ONE (15:32)
[2024-07-20] MEDS ORDERED: propofoL 200 MG/20 ML VIAL IV ONE (15:32)
[2024-07-20] MEDS ORDERED: FENTANYL CITR 100 MCG/2 ML ONE (15:32)
[2024-07-20] MEDS ORDERED: LIDOCAINE 1% MPF 5 ML VIAL ONE (15:32)
[2024-07-20 15:33] VITALS: O2SAT 100
[2024-07-20] MEDS: Ringers Lactate 1,000 ML IV ONE (15:45)
[2024-07-20] MEDS: LIDOCAINE HCL/EPINEPHRINE 20 ML MDV ONE (16:09)
[2024-07-20] MEDS: METHYLENE BLUE 1% 10 ML VIAL ONE (16:10)
--- NOTE | 2024-07-20 16:25 | P.OP ---
Preoperative diagnosis: RIGHT Perirectal Abscess Postoperative diagnosis: RIGHT Perirectal Abscess with Fistula Primary procedure: Exam under anesthesia Secondary procedure: Drainage of Perirectal Abscess Other procedure(s): Placement of Seton Anesthesia: GETA + Local Estimated blood loss: <10cc Specimen: Cultures Findings: Perirectal Fistula Complications: None Drain(s): Other (Seton) Transferred to: Recovery Room Condition: Good
[2024-07-20] MEDS: CIPROFLOXACIN 400mg IV 400 MG/200 ML BAG IV SCH (20:20)
--- NOTE | 2024-07-21 00:43 | OP ---
Date of Procedure: 07/20/2024 Surgeon: Babar Mcdonnell MD, Preoperative Diagnosis: Right perirectal abscess. Postoperative Diagnosis: Right perirectal abscess with fistula. Procedure: 1. Exam under anesthesia. 2. Drainage of perirectal abscess. 3. Placement of a Seton. Anesthesia: General endotracheal plus local. Estimated Blood Loss: 10 cc. Specimens: Culture sent for both aerobic and anaerobic speciation. Findings: Perirectal fistula to the right of midline. Complications: None. Drains: Seton, red rubber, vessel loop. The patient was transferred to recovery room in good condition. Procedure In Detail: After informed consent was obtained, the patient was brought to the operating r oom, prepped in the usual sterile fashion after adequate anesthesia achieved. I anesthetized the are a of the perirectal skin down to subcutaneous tissues. I injected methylene blue and instantly appre ciated fistulous tract coming from the anus visualized on anoscopy. I palpated the cavity and opened in its entirety after appropriately anesthetizing the skin, which is only about 1.5 to 2 cm in size. I then palpated the tract and passed a vessel loop through this area quite easily with a probe cons istent with a perianal fistula. After the vessel loop was passed, I secured using 2-0 silk sutures. I then irrigated out the abscess cavity after appropriately digitizing and draining all abscess mate rial, it was cultured both aerobic and anaerobic speciation. The area was irrigated once again and t hen packed with dressing, quarter-inch plain packing with Vashe, damp to dry and a sterile dressing p laced over top. The patient tolerated the procedure well without incident or complication and transf erred to PACU in good condition. All counts were correct at the end of the case. TK/MODL Voice ID: [id number] Report ID: [id number]
[2024-07-21 04:39] LABS: Absolute Eosinophils 0.1 K/uL (0-0.5); Absolute Lymphocytes (CBC) 0.8 K/uL (0.7-4.9); Absolute Monocytes 0.7 K/uL (0.1-1.3); Absolute Neutrophil 4.3 K/uL (1.8-8.0); Basophils % 0.5 % (0-1.3); Eosinophils % 1.5 % (0-4.4); Hematocrit 20.8 % (36.0-45.0); Hemoglobin 6.5 g/dL (12.0-15.0); Lymphocytes % 12.9 % (15.3-44.8); MCH 18.7 pg (27.0-35.0); MCHC 31.2 g/dL (32.0-36.0); MPV 6.4 fL (7.6-11.3); Monocytes % 12.4 % (3.3-12.3); Neutrophils % 72.7 % (41.7-73.7); Platelets 419 thou/uL (152-406); RBC Red Blood Cell Count 3.47 M/uL (3.86-4.86); Red Cell Distribution Width 19.6 % (12.1-15.2)
[2024-07-21 04:54] LABS: Anion Gap 8.4 mEq/L (5.0-15.0); Potassium 3.4 mEq/L (3.5-5.1)
[2024-07-21] MEDS ORDERED: NA CHLORIDE 0.9% 250 ML IV SCH (09:00)
[2024-07-21] MEDS: ENOXAPARIN 40 MG/0.4 ML SQ SCH (09:00)
[2024-07-21] MEDS: HYDROCODONE/APAP 5/325 MG TAB PO PRN (09:54)
[2024-07-21] MEDS: POTASSIUM CL SA 10 MEQ TAB PO ONE ×2 (09:55→11:36)
--- NOTE | 2024-07-21 11:35 | P.PN ---
Subjective Date of Service: 07/21/24 Chief Complaint: Perianal abscess Subjective: No chest pain or shortness of breath. c/o nausea, had small vomiting. No abdominal pain but c/o perianal pain. Looks comfortable in the bed. Objective: General appearance: Alert and comfortable CVS: Normal S1 and S2 Lungs: Clear to auscultation bilaterally Abdomen: Soft, bowel sounds present, no tenderness Extremities: No pedal edema Physical Examination - Vital Signs Temperature: 98.1 F Blood Pressure: 125/71 Pulse: 84 Respirations: 16 Pulse Ox (%): 100 - Studies Laboratory Results WBC 7.70 thou/uL (4.3-10.9) 07/20/24 09:45 RBC 4.28 M/uL (3.86-4.86) 07/20/24 09:45 Hgb 8.0 g/dL (12.0-15.0) L 07/20/24 09:45 Hct 25.9 % (36.0-45.0) L 07/20/24 09:45 MCV 60.4 fL (80-100) L 07/20/24 09:45 MCH 18.6 pg (27.0-35.0) L 07/20/24 09:45 MCHC 30.7 g/dL (32.0-36.0) L 07/20/24 09:45 RDW 19.9 % (12.1-15.2) H 07/20/24 09:45 Plt Count 557 thou/uL (152-406) H 07/20/24 09:45 MPV 6.3 fL (7.6-11.3) L 07/20/24 09:45 Neutrophils % 75.1 % (41.7-73.7) H 07/20/24 09:45 Lymphocytes % 11.9 % (15.3-44.8) L 07/20/24 09:45 Monocytes % 9.9 % (3.3-12.3) 07/20/24 09:45 Eosinophils % 2.6 % (0-4.4) 07/20/24 09:45 Basophils % 0.5 % (0-1.3) 07/20/24 09:45 Absolute Neutrophils 5.8 K/uL (1.8-8.0) 07/20/24 09:45 Absolute Lymphocytes 0.9 K/uL (0.7-4.9) 07/20/24 09:45 Absolute Monocytes 0.8 K/uL (0.1-1.3) 07/20/24 09:45 Absolute Eosinophils 0.2 K/uL (0-0.5) 07/20/24 09:45 Absolute Basophils 0.0 K/uL (0-0.5) 07/20/24 09:45 Platelet Estimate Adeq 07/20/24 09:45 Hypochromasia 2+ 07/20/24 09:45 Anisocytosis 1+ 07/20/24 09:45 Microcytosis 2+ 07/20/24 09:45 Ovalocytes 1+ 07/20/24 09:45 Morphology Comment Noted (NOT SEEN) 07/20/24 09:45 Sodium 138 mEq/L (136-145) 07/20/24 09:45 Potassium 3.4 mEq/L (3.5-5.1) L 07/20/24 09:45 Chloride 107 mEq/L (98-107) 07/20/24 09:45 Carbon Dioxide 26 mEq/L (21-32) 07/20/24 09:45 Anion Gap 8.4 mEq/L (5.0-15.0) 07/20/24 09:45 BUN 11 mg/dL (7-18) 07/20/24 09:45 Creatinine 0.67 mg/dL (0.55-1.02) 07/20/24 09:45 Est GFR (CKD-EPI) 110 ml/min (=/>90) 07/20/24 09:45 Glucose 98 mg/dL (74-106) 07/20/24 09:45 Calcium 8.2 mg/dL (8.5-10.1) L 07/20/24 09:45 Total Bilirubin 0.3 mg/dL (0.2-1.0) 07/20/24 09:45 AST 15 U/L (15-37) 07/20/24 09:45 ALT 23 U/L (13-56) 07/20/24 09:45 Alkaline Phosphatase 157 U/L (45-117) H 07/20/24 09:45 Serum Total Protein 8.0 g/dL (6.4-8.2) 07/20/24 09:45 Albumin 3.3 g/dL (3.4-5.0) L 07/20/24 09:45 Globulin 4.7 g/dL (2.3-3.5) H 07/20/24 09:45 Albumin/Globulin Ratio 0.7 (1.1-1.8) L 07/20/24 09:45 Lipase 28 U/L (13-75) 07/20/24 09:45 Urine Color Yellow (Yellow) 07/20/24 09:40 Urine Clarity Extremely turbid (Clear) H 07/20/24 09:40 Urine pH 6.0 (5.0-7.0) 07/20/24 09:40 Ur Specific Doyle 1.027 (1.005-1.030) 07/20/24 09:40 Ur Specific Doyle 1.027 (1.005-1.030) 07/20/24 09:40 Glucose (UA)(Auto) Trace (Negative) H 07/20/24 09:40 Urine Ketones Negative (Negative) 07/20/24 09:40 Urine Blood 2+ (Negative) H 07/20/24 09:40 Urine Nitrite Negative (Negative) 07/20/24 09:40 Urine Bilirubin Negative (Negative) 07/20/24 09:40 Urine Urobilinogen Normal (Normal) 07/20/24 09:40 Ur Leukocyte Esterase 25 Fabio/uL (Negative) H 07/20/24 09:40 Urine RBC 21-50 /HPF (None Seen) H 07/20/24 09:40 Urine WBC <5 /HPF (<5) 07/20/24 09:40 Ur Squamous Epith Cells 5-10 /HPF (None Seen) 07/20/24 09:40 Urine Bacteria None seen /HPF (<20) 07/20/24 09:40 Hyaline Casts 0-5 /LPF (None Seen) 07/20/24 09:40 Urine Mucus 4+ /HPF (None Seen) H 07/20/24 09:40 Urine Culture Reflexed Not needed 07/20/24 09:40 Urine Total Protein 1+ (Negative) H 07/20/24 09:40 Urine Test Neg (NEG) 07/20/24 09:40 Smear Scan Ok (OK) 07/20/24 09:45 Assessment And Plan - Current Problems (Diagnosis) (1) Perianal abscess Current Visit: Yes Status: Acute - Plan Assessment and plan: 1. Perianal abscess: Patient was started on IV ciprofloxacin and metronidazole - surgical team was consulted, hd surgery 07/20 - will follow-up on intraoperative cultures and adjust antibiotics. 2. Ulcerative colitis: She is not on any medications at this time, follow-up with GI as an outpatient. 3. Aucte on Chronic anemia: Tx 1 unit PRBC today, Monitor hgb closely. 4. Microscopic hematuria: Not sure at this urine is contaminated with her chronic issues with rectal bleeding, follow-up with PCP with repeat urinalysis. 5. Left leg swelling: f/u venous Doppler to rule out DVT. 6. Hypokalemia: Replaced, monitor. DVT prophylaxis: Lovenox I Did discuss all the above mentioned plan with the patient, she understands and agrees with the plan.
[2024-07-21] MEDS: NA CHLORIDE 0.9% 250 ML ONE (12:13)
[2024-07-21 18:59] LABS: Hematocrit 24.9 % (36.0-45.0); Hemoglobin 7.9 g/dL (12.0-15.0)
[2024-07-21 21:10] VITALS: BMI 26.8
[2024-07-22 03:26] VITALS: TEMP 97.9
[2024-07-22 07:46] LABS: Absolute Eosinophils 0.2 K/uL (0-0.5); Absolute Monocytes 0.8 K/uL (0.1-1.3); Absolute Neutrophil 2.8 K/uL (1.8-8.0); Basophils % 0.6 % (0-1.3); Eosinophils % 3.3 % (0-4.4); Hematocrit 24.8 % (36.0-45.0); Hemoglobin 7.9 g/dL (12.0-15.0); MCH 20.2 pg (27.0-35.0); MCHC 31.6 g/dL (32.0-36.0); MCV 63.9 fL (80-100); MPV 6.4 fL (7.6-11.3); Monocytes % 16.4 % (3.3-12.3); Neutrophils % 58.7 % (41.7-73.7); Nucleated Red Blood Cells % 0.5 % (0-0); Platelets 423 thou/uL (152-406); RBC Red Blood Cell Count 3.89 M/uL (3.86-4.86); Red Cell Distribution Width 23.4 % (12.1-15.2)
[2024-07-22 07:48] LABS: Anion Gap 8.3 mEq/L (5.0-15.0); Phosphorus 2.4 mg/dL (2.5-4.9); Potassium 3.3 mEq/L (3.5-5.1)
[2024-07-22] MEDS: POTASSIUM CL SA 10 MEQ TAB PO ONE (08:24)
[2024-07-22 08:35] VITALS: BP 113/69
[2024-07-22] MEDS ORDERED: POTASSIUM CL 40 MEQ in NA CHLORIDE 0.9% 500 ML IV SCH (09:00)
--- NOTE | 2024-07-22 10:10 | P.DS ---
Admission Date: 07/20/24 Discharge Date: 07/22/24 Disposition: DC HOME/HOME HEALTH CARE Discharge Condition: FAIR Reason for Admission: Perianal abscess - Problems (1) Perianal abscess Current Visit: Yes Status: Acute Brief History of Present Illness: 44-year-old patient presented wit perianal abscess, surgical team was consulted, started on IV antibiotics, she had drainage of the abscess, her cultures came back as E. coli, sensitive to ciprofloxacin, I discussed with surgical attending Dr. Groves this morning, he is okay to discharge the patient, when I see the patient today she is doing well without any acute problems, her perianal pain is reasonably controlled, feels ready to go home, otherwise no other acute issues going on so I am planning to discharge her to go home. Her hemoglobin dropped a little bit, given blood transfusion, today hemoglobin is better. She need close follow-up with the PCP and gastroenterology about her ulcerative colitis and anemia. She needs follow-up with surgical team next week. 1. Perianal abscess: on IV ciprofloxacin and metronidazole - surgical team was consulted, had surgery 07/20 - DC home on oral cipro, e.coli sensitive to cipro 2. Ulcerative colitis: She is not on any medications at this time, follow-up with GI as an outpatient. 3. Aucte on Chronic anemia: Tx 1 unit PRBC 07/21/24, hgb better post transfusion, f/u with PCP and GI 4. Microscopic hematuria: Not sure at this urine is contaminated with her chronic issues with rectal bleeding, follow-up with PCP with repeat urinalysis. 5. Left leg swelling: venous Doppler neg fort DVT. 6. Hypokalemia, hypophosphatemia: Replaced, f/u with PCP Subjective: No chest pain or shortness of breath. No nausea or vomiting. No abdominal pain. Looks comfortable in the bed. Perianal pain is controlled. Objective: General appearance: Alert and comfortable CVS: Normal S1 and S2 Lungs: Clear to auscultation bilaterally Abdomen: Soft, bowel sounds present, no tenderness Extremities: No lower extremity edema Vital Signs/Physical Exam: Temp Pulse Resp BP Pulse Ox 97.9 F 83 14 113/69 100 07/22/24 08:00 07/22/24 08:00 07/22/24 08:00 07/22/24 08:00 07/22/24 08:00 Laboratory Data at Discharge: WBC 4.80 thou/uL (4.3-10.9) 07/22/24 07:09 Hgb 7.9 g/dL (12.0-15.0) L 07/22/24 07:09 Hct 24.8 % (36.0-45.0) L 07/22/24 07:09 Plt Count 423 thou/uL (152-406) H 07/22/24 07:09 Sodium 136 mEq/L (136-145) 07/22/24 07:09 Potassium 3.3 mEq/L (3.5-5.1) L 07/22/24 07:09 BUN 3 mg/dL (7-18) L 07/22/24 07:09 Creatinine 0.57 mg/dL (0.55-1.02) 07/22/24 07:09 Glucose 106 mg/dL (74-106) 07/22/24 07:09 Phosphorus 2.4 mg/dL (2.5-4.9) L 07/22/24 07:09 Magnesium 2.0 mg/dL (1.6-2.4) 07/22/24 07:09 Total Bilirubin 0.3 mg/dL (0.2-1.0) 07/20/24 09:45 AST 15 U/L (15-37) 07/20/24 09:45 ALT 23 U/L (13-56) 07/20/24 09:45 Alkaline Phosphatase 157 U/L (45-117) H 07/20/24 09:45 Lipase 28 U/L (13-75) 07/20/24 09:45 Imagings Data: CT abd pelvis: Moderate left colitis 2 x 1 cm soft tissue structure right perianal region containing a sliver of fluid presumably a very small abscess Venous US: IMPRESSION: No evidence of deep venous thrombosis seen in either lower extremity. Home Medications: Ciprofloxacin HCl [Cipro 500 MG Tablet] 500 mg PO BID #20 tab 07/22/24 Hydrocodone 5/APAP 325 [[place] 5/325] 1 tab PO Q6H PRN #10 tab 07/22/24 Sodium,Potassium Phosphates [Phos-Nak Packet] 1 each PO DAILY #3 07/22/24 New Medications: Ciprofloxacin HCl [Cipro 500 MG Tablet] 500 mg PO BID #20 tab Hydrocodone 5/APAP 325 [[place] 5/325] 1 tab PO Q6H PRN #10 tab PRN Reason: Pain Sodium,Potassium Phosphates [Phos-Nak Packet] 1 each PO DAILY #3 Followup: Adeel Parker MD [Primary Care Provider] - 1 Week (f/u with PCP in 1 week with CBC, CMP, Mg, phos and UA) Babar Mcdonnell MD [ACTIVE - CAN ADMIT] - 1 Week (f/u in 1 week) Time spent managing pt's care (in minutes): 34
--- NOTE | 2024-07-22 12:28 | P.PN ---
Subjective Date of Service: 07/21/24 Chief Complaint: Perianal abscess Subjective: Improving (Patient feels significant symptomatic improvement) Patient feels significant symptomatic improvement. Physical Examination - Vital Signs Temperature: 97.9 F Blood Pressure: 113/69 Pulse: 83 Respirations: 14 Pulse Ox (%): 100 - Physical Exam General: Alert, In no apparent distress, Oriented x3, Cooperative HEENT: Atraumatic, Mucous membr. moist/pink Neck: Supple, No LAD Respiratory: Clear to auscultation bilaterally, Normal air movement Cardiovascular: No edema, Regular rate/rhythm Gastrointestinal: Soft and benign, Other (Rectal examination has seton in place no drainable abscess well packed at this time wound.) Neurological: Normal speech Rectal: Other (See abdominal exam) Assessment And Plan - Current Problems (Diagnosis) (1) Perianal fistula Current Visit: Yes Status: Acute Plan: -IV fluid hydration -Antibiotic coverage -Daily dressing changes with 1/4 inch plain packing damp with Vashe packing daily. -Follow-up in 1 to 2 weeks for evaluation of seton. -Sitz bath's and perianal wound care reviewed. -Okay to DC home from surgical standpoint with antibiotics and pain management. In addition to wound care supplies.
--- NOTE | 2024-07-22 16:39 | CON ---
Date of Consultation: 07/20/2024 Brief Hpi: The patient is a 44-year-old female, who presents with a history of ulcerative colitis re sistant to multiple treatments including multiple biologics and mesalamine, who presents with a perir ectal/perianal abscess. She has had several of these treated before in the past; however, on this oc casion, this occurred several days ago, exacerbated over the course of the last few weeks. She state s that over the past approximately 4-5 weeks, she has noted some swelling, tenderness in the area, bu t no drainage. However, over the past few days, it got significantly worse. She had been seen by edita dunn primary care doctor and a brake lining finisher asbestos, who told her she had an anal fissure. She was treated with sitz baths and topical treatment. However, this continued to get worse as she was noticing no signi ficant improvement. She had intermittent drainage, which began approximately 2 weeks ago, but it see med to improve and then recur and improve and recur over the last 2 days. However, it became severe in pain and tenderness and as such came to the emergency room with the above-stated complaints. She has had similar episodes before in the past as described above, but has not been told she has ever franco d a perianal fistula. She has had fissures and hemorrhoids as well as perirectal abscesses, but no f istula by her description. She is currently not on any management medication for her issues. Past Medical History: Ulcerative colitis, chronic anemia, C diff infection. Past Surgical History: She denies. Social History: She denies smoking, alcohol, or recreational drug use. Family History: Noncontributory and reviewed. Review of Systems: A 10-point review of systems other than HPI, denies. Physical Examination: General: At the time of my examination, she is awake, alert, oriented. Psychiatric: She is appropriate. Conversive. HEENT: She is normocephalic. Sclerae icteric. Mucous membranes are moist. Oropharynx clear. Neck: Supple without JVD. Chest: Normal to expansion and excursion. Cardiovascular: Regular rhythm. Pulmonary: Clear to auscultation bilaterally. Abdomen: Soft, nontender, nondistended. Extremities: Focused examination of the extremities, she does have some left lower extremity swellin g as compared with the right. She states this is chronic ever since she has been treated with certai n biologics. Perirectal examination shows a right midline gluteal abscess with drainage currently, c oncerning for fistula as there appears to be some fistula like material coming from the anus as well. Remainder of examination is unremarkable. Allergies: NO KNOWN DRUG ALLERGIES. Home Medications: Include Cipro, Flagyl, Zofran, prednisone, tramadol. Family History: Specifically, her father had hypertension and hyperlipidemia. Her mother had leukem ia, diabetes. Laboratory Exam: Which revealed a white blood cell count of 7.7, hemoglobin is 8.0, hematocrit 25.9, platelet count is 557. Her sodium 138, potassium 3.4, chloride 107, carbon dioxide 26, BUN 11, crea tinine 0.67, glucose 98, calcium 8.2. Her total bilirubin was 0.3, AST is 15, ALT 23, alkaline phosp hatase 157, lipase is 28. UA is essentially negative. test was negative. She had imaging performed, which included a CT of the abdomen and pelvis, officially read as 2 x [address] ructure right perianal area and contains sliver of fluid in the area. Moderate wall thickening of th e descending colon, sigmoid colon is noted as well. She had an ultrasound of the lower extremity moose wed no evidence of DVT in bilateral lower extremities. Assessment And Plan: This is a 44-year-old female, who comes in with signs and symptoms of a perirec shahnaz fistula/abscess in the context of history of ulcerative colitis, not currently managed medically. 1. IV fluid hydration. 2. Antibiotic coverage. 3. I have explained risks, benefits, alternatives. On exam under anesthesia, drainage of perirectal abscess, possible placement of seton, and indicated procedures. I have explained the risks include, but not limited to bleeding, infection, damage to surrounding tissues, need for further operative pro cedures, incontinence, blood clots, heart attack, strokes, and other unforeseen complications in ashleigh operative period. Both related to anesthesia, non-anesthesia related issues. The patient displayed understanding of the above stated plan and agreed to proceed as indicated. PRAVEEN/ROSA Voice ID: [id number] Report ID: [id number]
--- NOTE | 2024-07-23 12:14 | EKG ---
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
== END 2024-07-22 12:27 | disposition home health service (06) | DRG 330 ==
LOC: ER 08:32 → ERHOLD 10:31 → 2ND 14:42
PROVIDERS: ADMIT Hospitalist; ATTEND Hospitalist
PROC: 0D9P00Z Drainage of Rectum with Drainage Device, Open Approach (ICD-10-PCS; principal; 2024-07-20 16:45)
PROC: 30233N1 Transfusion of Nonautologous Red Blood Cells into Peripheral Vein, Percutaneous Approach (ICD-10-PCS; 2024-07-21)
DX: K61.2 Anorectal abscess (principal); K51.514 Left sided colitis with abscess; E87.6 Hypokalemia; D64.9 Anemia, unspecified; K59.00 Constipation, unspecified; R31.29 Other microscopic hematuria; Z60.2 Problems related to living alone; Z79.52 Long term (current) use of systemic steroids; Z79.899 Other long term (current) drug therapy
CPT/HCPCS: 36415; 36430; 71045; 74177; 80048; 80053; 81001; 81025; 83690; 83735; 84100; 84132; 85014; 85018; 85025; 86850; 86900; 86901; 86920; 87070; 87075; 87077; 87186; 87205; 93005; 93970; 96365; 96366; 96375; 99285; J0744; J1650; J2003; J2250; J2270; J2405; J2543; J2704; J3010; J3480; J7030; J7040; J7050; J7120; P9016; Q9967

== ENCOUNTER 2024-08-11 19:36 | Emergency (ER) | payer OTHER ==
[2024-08-11] MEDS ORDERED: ONDANSETRON 4 MG/2 ML VIAL ONE ×2 (19:56→23:14)
[2024-08-11] MEDS ORDERED: METHYLPREDNISOLONE 125 MG INJ ONE (19:56)
[2024-08-11] MEDS ORDERED: MORPHINE 4 MG/ML SYR ONE (19:57)
[2024-08-11] MEDS ORDERED: NA CHLORIDE 0.9% 1,000 ML ONE (19:57)
[2024-08-11 20:59] LABS: Specific Gravity 1.022 (1.005-1.030); Transitional Epithelial <5 /HPF (None Seen); Urine Bacteria <20 /HPF (<20); Urine Bilirubin NEGATIVE (Negative); Urine Blood 2+ (Negative); Urine Clarity Extremely Turbid (Clear); Urine Color Yellow (Yellow); Urine Culture Reflex Order NOT NEEDED; Urine Glucose NEGATIVE (Negative); Urine Ketones 2+ (Negative); Urine Microscopic Reflex YN ORDER UMIC; Urine Mucus Slight /HPF (None Seen); Urine Nitrite NEGATIVE (Negative); Urine Protein TRACE (Negative); Urine Urobilinogen Normal (Normal); Urine WBC <5 /HPF (<5)
[2024-08-11 21:13] LABS: Specific Gravity 1.022 (1.005-1.030)
[2024-08-11 21:15] LABS: Absolute Eosinophils 0.1 K/uL (0-0.5); Absolute Lymphocytes (CBC) 0.9 K/uL (0.7-4.9); Absolute Monocytes 0.7 K/uL (0.1-1.3); Absolute Neutrophil 5.1 K/uL (1.8-8.0); Basophils % 0.4 % (0-1.3); Hematocrit 29.7 % (36.0-45.0); Hemoglobin 9.5 g/dL (12.0-15.0); Lymphocytes % 13.6 % (15.3-44.8); MCH 20.2 pg (27.0-35.0); MCHC 31.9 g/dL (32.0-36.0); MCV 63.3 fL (80-100); MPV 8.1 fL (7.6-11.3); Monocytes % 10.5 % (3.3-12.3); Neutrophils % 74.5 % (41.7-73.7); Nucleated Red Blood Cells % 0.1 % (0-0); PT Prothrombin Time 13.3 SECONDS (10-13.0); PTT, Activated Partial Thromb 27.8 SECONDS (27.2-37.4); Platelets 283 thou/uL (152-406); Protime INR 1.18; Red Cell Distribution Width 24.7 % (12.1-15.2)
[2024-08-11 21:26] LABS: Albumin 3.3 g/dL (3.4-5.0); Albumin/Globulin Ratio 0.7 (1.1-1.8); Anion Gap 9.2 mEq/L (5.0-15.0); Bilirubin Total 0.4 mg/dL (0.2-1.0); Globulin 4.9 g/dL (2.3-3.5); Potassium 3.2 mEq/L (3.5-5.1); Protein, Total 8.2 g/dL (6.4-8.2)
[2024-08-11] MEDS ORDERED: POTASSIUM CL SA 10 MEQ TAB PO ONE (22:00)
--- NOTE | 2024-08-11 22:58 | ER ---
Nurse's Notes [facility] Name: Kaitlynn Orourke Age: 44 yrs Sex: Female : 1980 Arrival Date: 08/11/2024 Time: 19:36 Bed 19 Private MD: Diagnosis: Abdominal pain, unspecified;Diarrhea, unspecified;Other ulcerative colitis without complications Presentation: 08/11 19:52 Chief complaint: Patient states: c/o diffuse abd pain, 9/10, cramping in nature with me1 n/v/d x 3 days. Denies fever. Coronavirus screen: Vaccine status: Patient reports receiving the 2nd dose of the covid vaccine. Ebola Screen: No symptoms or risks identified at this time. Initial Sepsis Screen: Does the patient meet any 2 criteria? HR > 90 bpm. Risk Assessment: Do you want to hurt yourself or someone else? Patient reports no desire to harm self or others. Onset of symptoms was August 08, 2024. 19:52 Method Of Arrival: Ambulatory [facility] 19:52 Acuity: DELMY 3 me1 22:08 Initial Sepsis Screen: Does the patient have a suspected source of infection? No. kj2 Patient's initial sepsis screen is negative. Triage Assessment: 19:53 General:. General: Appears uncomfortable, ill, well groomed, well developed, well me1 nourished, Behavior is calm, cooperative, appropriate for age. Pain: Complains of pain in abdomen Pain currently is 9 out of 10 on a pain scale. Quality of pain is described as crampy, Pain began suddenly, Is continuous. EENT: No signs and/or symptoms were reported regarding the EENT system. Neuro: Level of Consciousness is awake, alert, obeys commands, Oriented to person, place, time, situation, Appropriate for age. Cardiovascular: Patient's skin is warm and dry. Respiratory: Airway is patent Respiratory effort is even, unlabored, Respiratory pattern is regular, symmetrical. GI: Abdomen is non-distended, Reports lower abdominal pain, upper abdominal pain, diarrhea, nausea, vomiting. : No signs and/or symptoms were reported regarding the genitourinary system. Derm: Skin is intact, is healthy with good turgor, Skin is pink, warm \T\ dry. Musculoskeletal: No signs and/or symptoms reported regarding the musculoskeletal system. 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 - Infectious Disease History:: Denies. - Social history:: Smoking status: Patient denies any tobacco usage or history of. Screenin:00 [facility] ED Fall Risk Assessment (Adult) History of falling in the last 3 months, kj2 including since admission No falls in past 3 months (0 pts) Confusion or Disorientation No (0 pts) Intoxicated or Sedated No (0 pts) Impaired Gait No (0 pts) Mobility Assist Device Used No (0 pt) Altered Elimination No (0 pt) Score/Fall Risk Level 0 - 2 = Low Risk Maintained a safe environment, Hourly rounding (assess needs \T\ fall precautionary measures) done. Abuse screen: Denies threats or abuse. Denies injuries from another. Nutritional screening: No deficits noted. Tuberculosis screening: No symptoms or risk factors identified. Assessment: 20:00 General: Appears in no apparent distress. uncomfortable, Behavior is cooperative. Pain: kj2 Complains of pain in abdomen Pain currently is 8 out of 10 on a pain scale. Neuro: Level of Consciousness is awake, alert, obeys commands, Oriented to person, place, time, situation. Cardiovascular: Patient's skin is warm and dry. 21:09 Respiratory: Airway is patent Respiratory effort is even, unlabored. GI: No signs kj2 and/or symptoms were reported involving the gastrointestinal system. : No signs and/or symptoms were reported regarding the genitourinary system. 22:08 Reassessment: Patient appears in no apparent distress at this time. kj2 23:19 Reassessment: Patient and/or family updated on plan of care and expected duration. Pain vc1 level reassessed. Patient is alert, oriented x 3, equal unlabored respirations, skin warm/dry/pink. Patient states feeling better. Vital Signs: 19:52 BP 132 / 78; Pulse 134; Resp 20; Temp 97.6; Pulse Ox 98% ; Weight 63.5 kg; Height 5 ft. me1 1 in. ; Pain 9/10; 21:00 BP 117 / 73; Pulse 101; Resp 18; Pulse Ox 100% ; kj2 22:08 BP 113 / 69; Pulse 102; Resp 18; Pulse Ox 100% on R/A; kj2 23:19 BP 112 / 68; Pulse 99; Resp 18; Pulse Ox 99% ; vc1 19:52 Body Mass Index 26.45 (63.50 kg, 154.94 cm) me1 19:52 Pain Scale: Adult me1 ED Course: 19:37 Patient arrived in ED. jj6 19:38 Vanessa Ventura FNP-C is [facility]. kb 19:38 Julio Khoury MD is Attending Physician. kb 19:45 Franchesca Lopez, VELIA is Primary Nurse. kj2 19:53 Triage completed. me1 19:53 Arm band placed on Patient placed in an exam room. me1 20:15 Patient has correct armband on for positive identification. Bed in low position. Call kj2 light in reach. Provided Education on: call light. 20:59 Blood Culture Adult (2) Sent. kj2 20:59 Lactate w/ 2H reflex if indic. Sent. kj2 20:59 Protime (+inr) Sent. kj2 20:59 Ptt, Activated Sent. kj2 21:00 Inserted saline lock: 22 gauge in right forearm, using aseptic technique. Blood kj2 collected. Flushed with 10 mL NS. 23:19 No provider procedures requiring assistance completed. IV discontinued, intact, vc1 bleeding controlled, No redness/swelling at site. Pressure dressing applied. Administered Medications: 20:59 Drug: Ondansetron IVP 4 mg IVP once; over 2 minutes Route: IVP; Site: right forearm; kj2 21:34 Follow up: Response: No adverse reaction kj2 21:00 Drug: NS 0.9% IV 1000 ml IV at 1 bolus Per protocol; to be given as a bolus over 60 kj2 minutes Route: IV; Rate: 1 bolus; Site: right forearm; 23:00 Follow up: IV Status: Completed infusion; IV Intake: 1000ml vc1 21:00 Drug: MethylPrednisoLONE IVP 125 mg IVP once Route: IVP; Site: right forearm; kj2 21:35 Follow up: Response: No adverse reaction kj2 21:00 Drug: morphine IVP or IV 4 mg IVP once over 4 mins Route: IVP; Infused Over: 4 mins; kj2 Site: right forearm; 21:34 Follow up: Response: No adverse reaction kj2 22:04 Drug: Potassium Chloride PO 40 mEq PO once Route: PO; kj2 23:20 Follow up: Response: No adverse reaction vc1 Medication: 20:00 VIS not applicable for this client. kj2 Intake: 23:00 IV: 1000ml; Total: 1000ml. vc1 Outcome: 22:57 Discharge ordered by . amy 23:19 Discharged to home ambulatory, vc1 23:19 Condition: stable 23:19 Discharge instructions given to patient, Instructed on discharge instructions, follow up and referral plans. medication usage, Demonstrated understanding of instructions, follow-up care, medications, Prescriptions given X 3, 23:20 Patient left the ED. vc1 Signatures: Vanessa Ventura, VOICE NETWORK ADMINISTRATOR-C VOICE NETWORK ADMINISTRATOR-CkAnneliese Hudson jj6 Vannessa Richardson RN RN vc1 Natalie Mckeon RN RN me1 Franchesca Lopez RN RN kj2 Corrections: (The following items were deleted from the chart) 21:11 21:09 General: Appears in no apparent distress. uncomfortable, Behavior is cooperative, kj2 kj2 21:11 21:09 Pain: Complains of pain in abdomen Pain currently is 8 out of 10 on a pain scale. kj2 kj2 21:11 21:09 Neuro: Level of Consciousness is awake, alert, obeys commands, Oriented to kj2 person, place, time, situation, kj2 21:11 21:09 Cardiovascular: Patient's skin is warm and dry. kj2 kj2
--- NOTE | 2024-08-11 22:58 | EDPHYS ---
Physician Documentation [facility] Name: Kaitlynn Orourke Age: 44 yrs Sex: Female : 1980 Arrival Date: 08/11/2024 Time: 19:36 Bed 19 Private MD: ED Physician Julio Khoury HPI: 08/11 23:35 This 44 yrs old Female presents to ER via Ambulatory with complaints of kb Abdominal Pain, Diarrhea. 23:35 Patient is a 44-year-old female who presents for diffuse abdominal pain, diarrhea and kb nausea that started 3 days ago. States this is similar to previous ulcerative colitis episodes. Reports she had a surgery for a rectal abscess about 3 weeks ago, followed up with Dr. Mcdonnell this week and everything has been looking fine. States the Cipro sometimes affects her this way so she stopped that early due to symptoms coming on.. THREAD MARKER: 19:53 LMP 07/21/2024, unknown me1 Historical: - Allergies: 19:53 No Known Allergies; me1 - PMHx: 19:53 C DIFF; Colitis; Hypokalemia; ulcerative colitis; anal fissure (Unknown); me1 - Immunization history:: Adult Immunizations up to date. - Infectious Disease History:: Denies. - Social history:: Smoking status: Patient denies any tobacco usage or history of. ROS: 21:38 Constitutional: As per HPI kb Exam: 21:37 Constitutional: This is a well developed, well nourished patient who is awake, alert, kb and in no acute distress. Head/Face: Normocephalic, atraumatic. ENT: Moist Mucous membranes Cardiovascular: Regular rate Respiratory: Respirations even and unlabored. No increased work of breathing. Talking in full sentences Skin: Warm, dry with normal turgor. Normal color. MS/ Extremity: Pulses equal, no cyanosis. Neurovascular intact. Full, normal range of motion. Neuro: Awake and alert, GCS 15, oriented to person, place, time, and situation. 21:37 ECG was reviewed by the Attending Physician. 21:37 Abdomen/GI: Inspection: abdomen appears normal, Bowel sounds: normal, Palpation: soft, in all quadrants, mild abdominal tenderness, in the right upper quadrant and right lower quadrant, moderate abdominal tenderness, in the left upper quadrant and left lower quadrant, Vital Signs: 19:52 BP 132 / 78; Pulse 134; Resp 20; Temp 97.6; Pulse Ox 98% ; Weight 63.5 kg; Height 5 ft. me1 1 in. ; Pain 9/10; 21:00 BP 117 / 73; Pulse 101; Resp 18; Pulse Ox 100% ; kj2 22:08 BP 113 / 69; Pulse 102; Resp 18; Pulse Ox 100% on R/A; kj2 23:19 BP 112 / 68; Pulse 99; Resp 18; Pulse Ox 99% ; vc1 19:52 Body Mass Index 26.45 (63.50 kg, 154.94 cm) me1 19:52 Pain Scale: Adult me1 MDM: 19:38 Medical Screening Exam initiated kb 23:34 Differential diagnosis: diverticulitis, gastritis, non-specific abd pain, Ulcerative kb colitis. Data reviewed: vital signs, nurses notes. Test considered but Not performed: CT: CT abdomen considered but patient states the symptoms are similar to previous ulcerative colitis flareups. Patient is afebrile with normal white blood cell count. Counseling: I had a detailed discussion with the patient and/or guardian regarding the historical points, exam findings, and any diagnostic results supporting the discharge/admit diagnosis, lab results, the need for outpatient follow up, a family practitioner, to return to the emergency department if symptoms worsen or persist or if there are any questions or concerns that arise at home. ED course: Patient states she is feeling better after treatment and agrees with outpatient follow-up.. 08/11 19:43 Order name: CBC with Diff kb 08/11 19:43 Order name: CMP; Complete Time: 21:33 kb 08/11 19:43 Order name: Lipase; Complete Time: 21:33 kb 08/11 19:43 Order name: Test, Urine; Complete Time: 21:20 kb 08/11 19:43 Order name: Urinalysis w/ reflexes; Complete Time: 21:09 kb 08/11 19:55 Order name: Blood Culture Adult (2) kb 08/11 19:55 Order name: Lactate w/ 2H reflex if indic.; Complete Time: 21:33 kb 08/11 19:55 Order name: Protime (+inr); Complete Time: 21:20 kb 08/11 19:55 Order name: Ptt, Activated; Complete Time: 21:20 kb 08/11 21:18 Order name: CBC Smear Scan EDMS 08/11 19:43 Order name: IV Saline Lock; Complete Time: 21:00 kb 08/11 19:43 Order name: Labs collected and sent; Complete Time: 21:00 kb 08/11 19:55 Order name: Cardiac monitoring; Complete Time: 22:04 kb 08/11 19:55 Order name: O2 Per Protocol; Complete Time: 22:04 kb 08/11 19:55 Order name: O2 Sat Monitoring; Complete Time: 22:04 kb 08/11 19:55 Order name: Vital Signs; Complete Time: 22:04 kb EC:37 Rate is 104 beats/min. Rhythm is regular. QRS Elliott is Normal. NM interval is normal at kb 136 msec. QRS interval is normal at 78 msec. QT interval is normal at 462 msec. Administered Medications: 20:59 Drug: Ondansetron IVP 4 mg IVP once; over 2 minutes Route: IVP; Site: right forearm; kj2 21:34 Follow up: Response: No adverse reaction kj2 21:00 Drug: NS 0.9% IV 1000 ml IV at 1 bolus Per protocol; to be given as a bolus over 60 kj2 minutes Route: IV; Rate: 1 bolus; Site: right forearm; 23:00 Follow up: IV Status: Completed infusion; IV Intake: 1000ml vc1 21:00 Drug: MethylPrednisoLONE IVP 125 mg IVP once Route: IVP; Site: right forearm; kj2 21:35 Follow up: Response: No adverse reaction kj2 21:00 Drug: morphine IVP or IV 4 mg IVP once over 4 mins Route: IVP; Infused Over: 4 mins; kj2 Site: right forearm; 21:34 Follow up: Response: No adverse reaction kj2 22:04 Drug: Potassium Chloride PO 40 mEq PO once Route: PO; kj2 23:20 Follow up: Response: No adverse reaction vc1 Disposition: 08/12 01:02 Co-signature as Attending Physician, Julio Khoury MD I agree with the assessment sp4 and plan of care. I reviewed the patient's care provided by the Advanced Practice Provider and agree with the diagnosis and treatment plan. Disposition Summary: 08/11/24 22:57 Discharge Ordered Notes: Location: Home kb Condition: Stable kb Diagnosis - Abdominal pain, unspecified kb - Diarrhea, unspecified kb - Other ulcerative colitis without complications kb Followup: kb - With: Emergency Department - When: As needed - Reason: Worsening of condition Followup: kb - With: Private Physician - When: 2 - 3 days - Reason: Recheck today's complaints, Continuance of care, Re-evaluation by your physician Discharge Instructions: - Discharge Summary Sheet kb - Food Choices to Help Relieve Diarrhea, Adult kb - Abdominal Pain, Adult, [id number] kb - Diarrhea, Adult, [id number] kb Forms: - Medication Reconciliation Form kb - Antibiotic Education kb - Prescription Opioid Use kb - Patient Portal Instructions kb - Leadership Thank You Letter kb Prescriptions: - Augmentin 875-125 mg Oral Tablet - take 1 tablet ORAL route every 12 hours for 10 days; 20 tablet; Refills: 0, kb Product Selection Permitted - Zofran 4 mg Oral tablet - take 1 tablet ORAL route every 6 hours As needed; 20 tablet; Refills: 0, kb Product Selection Permitted - dicyclomine 10 mg Oral capsule - take 1 capsule ORAL route 4 times per day As needed; 20 capsule; Refills: 0, kb Product Selection Permitted Signatures: Dispatcher [employer] EDMS Vanessa Ventura, TRAFFIC CONTROL FLAGGER-C TRAFFIC CONTROL FLAGGER-Julio Monahan MD MD sp4 Natalie Mckeon RN RN me1 Franchesca Lopez, VELIA RN kj2 Vannessa Richardson RN vc1 Corrections: (The following items were deleted from the chart) 08/11 19:43 19:43 CBC+H.LAB.BRZ ordered. EDMS EDMS 19:43 19:43 COMPREHENSIVE METABOLIC PANEL+C.LAB.BRZ ordered. EDMS EDMS 19:43 19:43 LIPASE+C.LAB.BRZ ordered. EDMS EDMS 19:43 19:43 Test, Urine+UC.LAB.BRZ ordered. EDMS EDMS 19:43 19:43 Urinalysis+U.LAB.BRZ ordered. EDMS EDMS
[2024-08-11 23:19] LABS: Anisocytosis 3+; Blood Morphology Comment NOTED (NOT SEEN); Hypochromasia 2+; Microcytosis 2+; Platelet Estimate ADEQ; Polychromasia 1+; White Blood Cell Scan OK (OK)
[2024-08-11 23:30] VITALS: TEMP 97.6
[2024-08-11 23:46] VITALS: BP 112/68; O2SAT 99
== END 2024-08-11 23:20 | disposition home or self-care (01) ==
LOC: ER 19:36
DX: K51.80 Other ulcerative colitis without complications (principal); R19.7 Diarrhea, unspecified
CPT/HCPCS: 96361; 93005; 87040 ×2; 85025; 81001; 36415; 81025; 85610; 83605; 85730; 83690; 80053; 96375; 96374; 99284; J2919; J2405 ×2; J7030

== ENCOUNTER 2024-08-15 09:09 | Emergency (ER) | payer OTHER ==
[2024-08-15] MEDS ORDERED: ONDANSETRON 4 MG/2 ML VIAL ONE (09:35)
[2024-08-15] MEDS ORDERED: KETOROLAC 30 MG/ML INJ ONE (09:35)
[2024-08-15] MEDS ORDERED: MORPHINE 4 MG/ML SYR ONE ×2 (09:36→11:21)
[2024-08-15] MEDS ORDERED: NA CHLORIDE 0.9% 1,000 ML ONE (09:36)
[2024-08-15 10:11] LABS: Absolute Eosinophils 0.1 K/uL (0-0.5); Absolute Lymphocytes (CBC) 0.8 K/uL (0.7-4.9); Absolute Monocytes 0.6 K/uL (0.1-1.3); Absolute Neutrophil 5.4 K/uL (1.8-8.0); Basophils % 0.3 % (0-1.3); Eosinophils % 1.1 % (0-4.4); Hematocrit 29.2 % (36.0-45.0); MCH 19.7 pg (27.0-35.0); MCHC 30.7 g/dL (32.0-36.0); MPV 8.2 fL (7.6-11.3); Neutrophils % 78.6 % (41.7-73.7); Platelets 167 thou/uL (152-406); RBC Red Blood Cell Count 4.56 M/uL (3.86-4.86); Red Cell Distribution Width 23.5 % (12.1-15.2)
[2024-08-15 10:48] LABS: Albumin/Globulin Ratio 0.7 (1.1-1.8); Anion Gap 8.1 mEq/L (5.0-15.0); Anisocytosis 2+; Bilirubin Total 0.4 mg/dL (0.2-1.0); Blood Morphology Comment NOTED (NOT SEEN); Globulin 4.1 g/dL (2.3-3.5); Hypochromasia 3+; Microcytosis 3+; Platelet Estimate ADEQ; Potassium 3.1 mEq/L (3.5-5.1); Protein, Total 7.1 g/dL (6.4-8.2); White Blood Cell Scan OK (OK)
[2024-08-15 10:49] LABS: Ovalocytes 1+
--- NOTE | 2024-08-15 11:06 | EDPHYS ---
Physician Documentation [facility] Name: Kaitlynn Orourke Age: 44 yrs Sex: Female : 1980 Arrival Date: 08/15/2024 Time: 09:09 Bed 5 Private MD: ED Physician Marcio Dias HPI: 08/15 09:42 This 44 yrs old Female presents to ER via Ambulatory with complaints of ec2 Abdominal Pain, Headache, Nausea/Vomiting/Diarrhea. 09:42 Patient with history of ulcerative colitis arrives today for abdominal pain. Patient ec2 reports she experienced abdominal pain along with nausea and vomiting and diarrhea. Patient reports that she does not regularly see a GI doctor and does not take any controller medications for ulcerative colitis. Patient was recently seen here, was prescribed medications, subsequently had gotten better however is now worse.. Historical: - Allergies: 09:25 No Known Allergies; ll1 - PMHx: 09:25 anal fissure (Unknown); C DIFF; Colitis; Hypokalemia; ulcerative colitis; ll1 - PSHx: 09:25 anal fissure repair; ll1 - Immunization history:: Adult Immunizations up to date. - Infectious Disease History:: Denies. - Social history:: Smoking status: Patient denies any tobacco usage or history of. ROS: 09:43 Constitutional: as per hpi ec2 Exam: 09:43 Constitutional: GEN: NAD Head: atraumatic Eyes: EOMI Ears: External ears are ec2 normal. CV: regular rate LUNGS: no respiratory distress ABD: non-distended, no guarding or rigid SKIN: no evidence of rashes MSK: no evidence of trauma Vital Signs: 09:26 BP 119 / 87; Pulse 115; Resp 16; Temp 98.6; Pulse Ox 100% on R/A; Weight 63.5 kg; ll1 Height 5 ft. 1 in. ; Pain 10/10; 10:00 BP 120 / 81; Pulse 96; Resp 16; Pulse Ox 100% ; db 10:30 BP 111 / 71; Pulse 89; Resp 16; Pulse Ox 100% on R/A; db 10:54 BP 111 / 71; Pulse 81; ec2 11:30 BP 102 / 72; Pulse 91; Resp 16; Pulse Ox 100% on R/A; db 09:26 Body Mass Index 26.45 (63.50 kg, 154.94 cm) ll1 09:26 Pain Scale: Adult ll1 MDM: 09:19 Medical Screening Exam initiated ec2 09:43 Data reviewed: vital signs, nurses notes. ED course: Patient arrives today for ec2 abdominal pain along with nausea and vomiting diarrhea. Examination yields abdominal findings as above. Will obtain lab work, urine studies and treat the patient symptoms.. 11:05 ED course: On reassessment patient with improving tachycardia, improvement in symptoms, ec2 will redose medications, ultimately patient needs to be on long-term medications with a GI doctor. She states that she has seen multiple GI doctors and multiple primary care doctors, instructed her she needs to establish with one and continue them and trial different medications. Return precautions given. No emergent process identified and can be correctable with admission.. 08/15 09:21 Order name: CBC with Diff; Complete Time: 10:53 ec2 08/15 09:21 Order name: CMP; Complete Time: 10:53 ec2 08/15 09:21 Order name: Lipase; Complete Time: 10:53 ec2 08/15 09:21 Order name: Test, Serum; Complete Time: 10:53 ec2 08/15 10:49 Order name: CBC Smear Scan; Complete Time: 10:53 EDMS 08/15 09:21 Order name: IV Saline Lock; Complete Time: 10:03 ec2 08/15 09:21 Order name: Labs collected and sent; Complete Time: 10:03 ec2 Administered Medications: 09:58 Drug: TORadol - Ketorolac IVP 15 mg IVP once Route: IVP; Site: right antecubital; db 11:54 Follow up: Response: No adverse reaction db 09:58 Drug: Ondansetron IVP 4 mg IVP once; over 2 minutes Route: IVP; Site: right antecubital;db 11:54 Follow up: Response: No adverse reaction db 09:58 Drug: morphine IVP or IV 4 mg IVP once over 4 mins Route: IVP; Infused Over: 4 mins; db Site: right antecubital; 11:54 Follow up: Response: No adverse reaction db 09:58 Drug: NS 0.9% IV 1000 ml IV at 1 bolus Per protocol; to be given as a bolus over 60 db minutes Route: IV; Rate: 1 bolus; Site: right antecubital; 11:54 Follow up: Response: No adverse reaction; IV Status: Completed infusion; IV Intake: db 1000ml 11:26 Drug: morphine IVP or IV 4 mg IVP once over 4 mins Route: IVP; Infused Over: 4 mins; db Site: right antecubital; 11:54 Follow up: Response: No adverse reaction; Pain is decreased db Disposition Summary: 08/15/24 11:05 Discharge Ordered Notes: Location: Home ec2 Condition: Stable ec2 Diagnosis - Abdominal pain, unspecified ec2 Followup: ec2 - With: Private Physician - When: - Reason: Re-evaluation by your physician Discharge Instructions: - Discharge Summary Sheet ec2 - Abdominal Pain, Adult ec2 Forms: - Medication Reconciliation Form ec2 - Antibiotic Education ec2 - Prescription Opioid Use ec2 - Patient Portal Instructions ec2 - Leadership Thank You Letter ec2 Prescriptions: - Tylenol-Codeine #3 300mg-30mg Oral tablet - take 2 tablets ORAL route every 6 hours As needed; 20 tablet; Refills: 0, ec2 Product Selection Permitted Signatures: Dispatcher [employer] Todd Dean, RN RN ll1 Gaby Puga RN RN db Marcio Dias MD MD ec2 Corrections: (The following items were deleted from the chart) 09:21 09:21 CBC+H.LAB.BRZ ordered. EDMS EDMS 09:21 09:21 COMPREHENSIVE METABOLIC PANEL+C.LAB.BRZ ordered. EDMS EDMS 09:21 09:21 LIPASE+C.LAB.BRZ ordered. EDMS EDMS 09:21 09:21 Urinalysis+U.LAB.BRZ ordered. EDMS EDMS 09:21 09:21 TEST, SERUM+SC.LAB.BRZ ordered. EDMS EDMS
--- NOTE | 2024-08-15 11:06 | ER ---
Nurse's Notes [facility] Name: Kaitlynn Orourke Age: 44 yrs Sex: Female : 1980 Arrival Date: 08/15/2024 Time: 09:09 Bed 5 Private MD: Diagnosis: Abdominal pain, unspecified Presentation: 08/15 09:26 Chief complaint: Patient states: Abdominal pain, DURAN, N/V. Coronavirus screen: Client ll1 denies travel out of the [place] in the last 14 days. At this time, the client does not indicate any symptoms associated with coronavirus-19. Ebola Screen: Patient denies travel to an Ebola-affected area in the 21 days before illness onset. Initial Sepsis Screen: Does the patient meet any 2 criteria? No. Patient's initial sepsis screen is negative. Does the patient have a suspected source of infection? No. Patient's initial sepsis screen is negative. Risk Assessment: Do you want to hurt yourself or someone else? Patient reports no desire to harm self or others. 09:26 Method Of Arrival: Ambulatory [facility] 09:26 Acuity: DELMY 3 ll1 Triage Assessment: 09:27 General: Appears uncomfortable, Behavior is calm, cooperative, appropriate for age. ll1 Pain: Complains of pain in abdomen Quality of pain is described as aching, crampy. Neuro: Reports headache. GI: Reports lower abdominal pain, upper abdominal pain, cramping, nausea, vomiting. Historical: - Allergies: 09:25 No Known Allergies; ll1 - PMHx: 09:25 anal fissure (Unknown); C DIFF; Colitis; Hypokalemia; ulcerative colitis; ll1 - PSHx: 09:25 anal fissure repair; ll1 - Immunization history:: Adult Immunizations up to date. - Infectious Disease History:: Denies. - Social history:: Smoking status: Patient denies any tobacco usage or history of. Screenin:00 [facility] ED Fall Risk Assessment (Adult) History of falling in the last 3 months, db including since admission No falls in past 3 months (0 pts) Confusion or Disorientation No (0 pts) Intoxicated or Sedated No (0 pts) Impaired Gait No (0 pts) Mobility Assist Device Used No (0 pt) Altered Elimination No (0 pt) Score/Fall Risk Level 0 - 2 = Low Risk Oriented to surroundings, Maintained a safe environment. Abuse screen: Denies threats or abuse. Denies injuries from another. Nutritional screening: No deficits noted. Tuberculosis screening: No symptoms or risk factors identified. Assessment: 09:50 Reassessment: Patient appears in no apparent distress at this time. Patient and/or db family updated on plan of care and expected duration. Pain level reassessed. Patient is alert, oriented x 3, equal unlabored respirations, skin warm/dry/pink. General: Appears in no apparent distress. comfortable, Behavior is calm, cooperative. Neuro: Level of Consciousness is awake, alert, obeys commands, Oriented to person, place, time, situation. Respiratory: Airway is patent Respiratory effort is even, unlabored, Respiratory pattern is regular, symmetrical. GI: Abdomen is flat, non-distended, Bowel sounds present X 4 quads. Abd is soft Reports lower abdominal pain, diarrhea, nausea, vomiting. 10:59 Reassessment: Patient appears in no apparent distress at this time. Patient and/or db family updated on plan of care and expected duration. Pain level reassessed. Patient is alert, oriented x 3, equal unlabored respirations, skin warm/dry/pink. 11:54 Reassessment: Patient appears in no apparent distress at this time. Patient and/or db family updated on plan of care and expected duration. Pain level reassessed. Patient is alert, oriented x 3, equal unlabored respirations, skin warm/dry/pink. General: Appears in no apparent distress. comfortable, Behavior is calm, cooperative. Vital Signs: 09:26 BP 119 / 87; Pulse 115; Resp 16; Temp 98.6; Pulse Ox 100% on R/A; Weight 63.5 kg; ll1 Height 5 ft. 1 in. ; Pain 10/10; 10:00 BP 120 / 81; Pulse 96; Resp 16; Pulse Ox 100% ; db 10:30 BP 111 / 71; Pulse 89; Resp 16; Pulse Ox 100% on R/A; db 10:54 BP 111 / 71; Pulse 81; ec2 11:30 BP 102 / 72; Pulse 91; Resp 16; Pulse Ox 100% on R/A; db 09:26 Body Mass Index 26.45 (63.50 kg, 154.94 cm) [facility] 09:26 Pain Scale: Adult ll1 ED Course: 09:12 Patient arrived in ED. cj3 09:14 Marcio Dias MD is Attending Physician. ec2 09:25 Arm band placed on Patient placed in an exam room, on a stretcher. ll1 09:27 Triage completed. ll1 09:49 Gaby Puga, VELIA is Primary Nurse. db 09:58 Initial lab(s) drawn, by me, sent to lab. Inserted saline lock: 20 gauge in right db antecubital area, using aseptic technique. Blood collected. Flushed with 10 mL NS. 10:11 Patient has correct armband on for positive identification. Bed in low position. Call db light in reach. Side rails up X 1. Pulse ox on. NIBP on. Warm blanket given. 11:55 Provided Education on: DISCHARGE AND FOLLOWUP WITH PRESCRIPTIONS. db 11:55 No provider procedures requiring assistance completed. IV discontinued, intact, db bleeding controlled, No redness/swelling at site. Administered Medications: 09:58 Drug: TORadol - Ketorolac IVP 15 mg IVP once Route: IVP; Site: right antecubital; db 11:54 Follow up: Response: No adverse reaction db 09:58 Drug: Ondansetron IVP 4 mg IVP once; over 2 minutes Route: IVP; Site: right antecubital;db 11:54 Follow up: Response: No adverse reaction db 09:58 Drug: morphine IVP or IV 4 mg IVP once over 4 mins Route: IVP; Infused Over: 4 mins; db Site: right antecubital; 11:54 Follow up: Response: No adverse reaction db 09:58 Drug: NS 0.9% IV 1000 ml IV at 1 bolus Per protocol; to be given as a bolus over 60 db minutes Route: IV; Rate: 1 bolus; Site: right antecubital; 11:54 Follow up: Response: No adverse reaction; IV Status: Completed infusion; IV Intake: db 1000ml 11:26 Drug: morphine IVP or IV 4 mg IVP once over 4 mins Route: IVP; Infused Over: 4 mins; db Site: right antecubital; 11:54 Follow up: Response: No adverse reaction; Pain is decreased db Medication: 11:55 VIS not applicable for this client. db Intake: 11:54 IV: 1000ml; Total: 1000ml. db Outcome: 11:05 Discharge ordered by . ec2 11:55 Discharged to home ambulatory, with family, db 11:55 Condition: stable 11:55 Discharge instructions given to patient, family, Instructed on discharge instructions, follow up and referral plans. Prescriptions given X 1, 11:56 Patient left the ED. db Signatures: Todd Sifuentes RN RN ll1 Gaby Puga RN RN db Marcio Dias MD MD ec2 Radha Bazzi 3
[2024-08-15 12:23] VITALS: TEMP 98.6; O2SAT 100
[2024-08-15 12:28] VITALS: BP 102/72
== END 2024-08-15 11:56 | disposition home or self-care (01) ==
LOC: ER 09:09
DX: R10.9 Unspecified abdominal pain (principal); R11.2 Nausea with vomiting, unspecified; R19.7 Diarrhea, unspecified
CPT/HCPCS: 85025; 36415; 84703; 83690; 80053; J2405; J7030